=== PATIENT | male | born 1975 | race Caucasian/White ===

== ENCOUNTER → 2017-06-09 | Outpatient (CLI) | payer BC ==
[2017-06-09 08:48] LABS: Basophils # (A) 0.1 k/uL (0-0.2); Basophils % (A) 1 %; CH 30.1; CHCM 32.2; Eosinophils # (A) 0.1 k/uL (0-0.7); Eosinophils % (A) 2 %; HCT 55.9 % (39.0-53.0); HDW 2.27; HGB 17.2 gm/dL (13.0-17.5); Luc # (Auto) 0.15; Luc % (Auto) 2; Lymphocytes # (A) 2.3 k/uL (1.0-4.8); Lymphocytes % (A) 32 %; MCH 28.9 pg (25.0-35.0); MCHC 30.8 g/dL (31.0-37.0); MCV 93.9 fL (80.0-100.0); Mean Platelet Volume 7.3; Monocytes # (A) 0.5 k/uL (0-1.0); Monocytes % (A) 7 %; Neutrophils % (A) 57 %; RBC 5.96 m/uL (4.30-5.90); WBC 7.1 k/uL (3.8-10.6)
== END | disposition home or self-care (01) ==
LOC: LABWHC1 07:00
PROVIDERS: ATTEND Internal Medicine Endocrinology, Diabetes & Metabolism
DX: E29.1 Testicular hypofunction (principal)
CPT/HCPCS: 36415; 82670; 84305; 84403; 85025

== ENCOUNTER 2017-11-21 17:51 | Inpatient (IN) | payer BC ==
[2017-11-21] MEDS ORDERED: KETOROLAC 30 MG/ML 1 ML VIAL IVP STA (18:00)
[2017-11-21] MEDS ORDERED: SODIUM CHLORIDE 0.9% 500 ML IV STA (18:00)
[2017-11-21] MEDS ORDERED: ONDANSETRON 4 MG/2 ML VIAL IVP STA (18:00)
--- NOTE | 2017-11-21 18:08 | ED ---
General Adult HPI - General Chief complaint: Abdominal Pain Stated complaint: Stomach pain Time Seen by Provider: 11/21/17 18:00 Source: patient, RN notes reviewed Mode of arrival: ambulatory Limitations: no limitations - History of Present Illness Initial comments: 42 yo male presents to the ER with cc of abdominal pain with nausea and vomiting. Patient states this started yesterday. He states about 3 years ago he had a similar type flareup of pain. He was seen at [facility] and they told him it was some sort of inflammation wanted to admit him however he went home and the pain resolved. He states the same pain with back. He states he vomits because it helps relieve the pressure. He states he had a normal bowel movement last night but since he has not really passed any gas maybe once this morning and has since had no bowel movement no passing of gas. He denies any fever chills with this. He states that the pain is in the center of his abdomen and his pressure type pain worse to movement or touch does not affect the pain. Patient denies any recent fever, chills, shortness of breath, chest pain, back pain, numbness or tingling, dysuria or hematuria, constipation or diarrhea, headaches or visual changes, or any other current symptoms. - Related Data Home Medications Medication Instructions Recorded Confirmed Acetaminophen [Tylenol Extra 1,000 mg PO BID PRN 11/21/17 11/21/17 Strength] Losartan Potassium [Cozaar] 100 mg PO DAILY 11/21/17 11/21/17 Allergies Allergy/AdvReac Type Severity Reaction Status Date / Time Iodinated Contrast- Oral and Allergy Unknown Verified 11/21/17 18:07 IV Dye Review of Systems ROS Statement: Those systems with pertinent positive or pertinent negative responses have been documented in the HPI. ROS Other: All systems not noted in ROS Statement are negative. Past Medical History Past Medical History: Hypertension History of Any Multi-Drug Resistant Organisms: None Reported Past Surgical History: No Surgical Hx Reported Past Psychological History: No Psychological Hx Reported Smoking Status: Never smoker Past Alcohol Use History: Occasional Past Drug Use History: None Reported General Exam - General Exam Comments Initial Comments: General: The patient is awake and alert, in no distress, and does not appear acutely ill. Eye: Pupils are equal, round and reactive to light. Ears, nose, mouth and throat: There are moist mucous membranes. Neck: The neck is supple, there is no tenderness. Cardiovascular: There is a regular rate and rhythm. No murmur, rub or gallop is appreciated. Respiratory: Lungs are clear to auscultation, respirations are non-labored, breath sounds are equal. No wheezes, stridor, rales, or rhonchi. Gastrointestinal: distended, non-tender abdomen without masses or organomegaly noted. There is no rebound or guarding present. No CVA tenderness. Bowel sounds are unremarkable. Back: There is no tenderness to palpation in the midline. There is no obvious deformity. No rashes noted. Musculoskeletal: Normal ROM, no tenderness, There is no pedal edema. There is no calf tenderness or swelling. Sensation intact. Pulses equal bilaterally 2+. Neurological: CN II-XII intact, There are no obvious motor or sensory deficits. Coordination appears grossly intact. Speech is normal. Skin: Skin is warm and dry and no rashes or lesions are noted. Psychiatric: Cooperative, appropriate mood & affect, normal judgment. Limitations: no limitations Course Vital Signs 11/21/17 17:55 Temperature 98.3 F Pulse Rate 91 Respiratory 18 Rate Blood Pressure 157/100 O2 Sat by Pulse 97 Oximetry Medical Decision Making - Medical Decision Making 42-year-old male presents for abdominal pain nausea vomiting. At this time CT is been reviewed that does show concern for ileus versus partial ejection. Patient has not been passing gas. This time we will admit the patient we'll place him nothing by mouth and he will be seeing Dr. Skaggs. Patient is in agreement with this plan all questions have been answered. - Lab Data Result diagrams: 11/21/17 18:15 11/21/17 18:15 Lab Results 11/21/17 11/21/17 Range/Units 18:15 18:15 WBC 10.9 H (3.8-10.6) k/uL RBC 6.10 H (4.30-5.90) m/uL Hgb 18.0 H (13.0-17.5) gm/dL Hct 56.7 H (39.0-53.0) % MCV 92.8 (80.0-100.0) fL MCH 29.5 (25.0-35.0) pg MCHC 31.8 (31.0-37.0) g/dL RDW 14.7 (11.5-15.5) % Plt Count 259 (150-450) k/uL Neutrophils % 83 % Lymphocytes % 9 % Monocytes % 5 % Eosinophils % 1 % Basophils % 1 % Neutrophils # 9.1 H (1.3-7.7) k/uL Lymphocytes # 1.0 (1.0-4.8) k/uL Monocytes # 0.6 (0-1.0) k/uL Eosinophils # 0.2 (0-0.7) k/uL Basophils # 0.1 (0-0.2) k/uL Sodium 140 (137-145) mmol/L Potassium 4.1 (3.5-5.1) mmol/L Chloride 99 (98-107) mmol/L Carbon Dioxide 27 (22-30) mmol/L Anion Gap 14 mmol/L BUN 15 (9-20) mg/dL Creatinine 0.87 (0.66-1.25) mg/dL Est GFR (MDRD) Af Amer >60 (>60 ml/min/1.73 sqM) Est GFR (MDRD) Non-Af >60 (>60 ml/min/1.73 sqM) Glucose 97 (74-99) mg/dL Calcium 9.4 (8.4-10.2) mg/dL Total Bilirubin 1.1 (0.2-1.3) mg/dL AST 19 (17-59) U/L ALT 36 (21-72) U/L Alkaline Phosphatase 89 (38-126) U/L Total Protein 7.3 (6.3-8.2) g/dL Albumin 4.4 (3.5-5.0) g/dL Amylase 80 (30-110) U/L Lipase 87 (23-300) U/L - Radiology Data Radiology results: report reviewed, image reviewed Disposition Clinical Impression: Partial bowel obstruction, Abdominal pain Disposition: ADMITTED IP TO THIS [facility] Condition: Stable Referrals: Park Ortiz MD [Primary Care Provider] - 1-2 days Decision Date: 11/21/17 Decision Time: 19:32
[2017-11-21 18:23] LABS: Basophils # (A) 0.1 k/uL (0-0.2); Basophils % (A) 1 %; Eosinophils # (A) 0.2 k/uL (0-0.7); Eosinophils % (A) 1 %; Lymphocytes % (A) 9 %; MCH 29.5 pg (25.0-35.0); MCHC 31.8 g/dL (31.0-37.0); MCV 92.8 fL (80.0-100.0); Mean Platelet Volume 7.1; Monocytes # (A) 0.6 k/uL (0-1.0); Monocytes % (A) 5 %; Neutrophils # (A) 9.1 k/uL (1.3-7.7); Neutrophils % (A) 83 %; Platelet Count 259 k/uL (150-450); RDW 14.7 % (11.5-15.5); WBC 10.9 k/uL (3.8-10.6)
[2017-11-21 18:26] LABS: HCT 56.7 % (39.0-53.0)
[2017-11-21 18:39] LABS: ALT 36 U/L (21-72); AST 19 U/L (17-59); Albumin 4.4 g/dL (3.5-5.0); Alkaline Phosphatase 89 U/L (38-126); Amylase 80 U/L (30-110); Anion Gap 14 mmol/L; Blood Urea Nitrogen 15 mg/dL (9-20); Calcium 9.4 mg/dL (8.4-10.2); Carbon Dioxide 27 mmol/L (22-30); Chloride 99 mmol/L (98-107); Glucose 97 mg/dL (74-99); Lipase 87 U/L (23-300); Potassium 4.1 mmol/L (3.5-5.1); Sodium 140 mmol/L (137-145); Total Bilirubin 1.1 mg/dL (0.2-1.3); Total Protein 7.3 g/dL (6.3-8.2)
[2017-11-21] MEDS ORDERED: SODIUM CHLORIDE 0.9% 1,000 ML IV STA (18:51)
--- NOTE | 2017-11-21 19:03 | CT ---
EXAMINATION TYPE: CT abdomen pelvis wo con DATE OF EXAM: 11/21/2017 COMPARISON: 08/17/2011 HISTORY: Epigastric pain and nausea today. CT DLP: 403.5 mGycm Automated exposure control for dose reduction was used. TECHNIQUE: Helical acquisition of images was performed from the lung bases through the pelvis. FINDINGS: Lung bases are clear. There is no pleural effusion. Liver shows no focal defect. The bladder appears normal. There is no pancreatic mass. Spleen appears normal. The stomach is large. There is no adrenal mass. Kidneys have normal size and contour. There is no hydronephrosis. There is no retroperitoneal adenopathy. There is no ascites. Bladder distends smoothly. I see no intestinal wall thickening. Ther e is no sign of a pelvic mass. I see no bony destructive process. There is no sign of appendicitis. There are some mildly dilated fluid-filled loops of small bowel in the mid abdomen. These measure up to 3.7 cm. I do not see a transition point. IMPRESSION: DILATED FLUID-FILLED SMALL BOWEL IN THE MID ABDOMEN IS MOST LIKELY RELATED TO ILEUS. PARTIAL FORM TAMPER AL OBSTRUCTION CANNOT BE ENTIRELY EXCLUDED. THIS APPEARS NEW COMPARED TO OLD EXAM.
[2017-11-21] MEDS ORDERED: ONDANSETRON 4 MG/2 ML VIAL IVP PRN (19:37)
[2017-11-21] MEDS ORDERED: NALOXONE 0.4 MG/ML 1 ML VIAL IV PRN (19:37)
[2017-11-21] MEDS: SODIUM CHLORIDE 0.9% 1,000 ML IV SCH (20:24)
[2017-11-21] MEDS: HYDROmorphone 0.5 MG/0.5 ML SYRINGE IVP PRN (21:56)
[2017-11-22] MEDS: HYDROmorphone 0.5 MG/0.5 ML SYRINGE IVP PRN ×4 (01:48→19:58)
[2017-11-22 02:47] VITALS: BMI 27.4
[2017-11-22] MEDS: SODIUM CHLORIDE 0.9% 1,000 ML IV SCH ×2 (05:46→16:21)
[2017-11-22] MEDS: LOSARTAN 50 MG TAB PO SCH (07:34)
[2017-11-22 07:40] LABS: ALT 35 U/L (21-72); AST 18 U/L (17-59); Albumin 3.3 g/dL (3.5-5.0); Alkaline Phosphatase 66 U/L (38-126); Anion Gap 9 mmol/L; Blood Urea Nitrogen 15 mg/dL (9-20); Calcium 8.2 mg/dL (8.4-10.2); Carbon Dioxide 26 mmol/L (22-30); Chloride 103 mmol/L (98-107); Glucose 81 mg/dL (74-99); Potassium 4.3 mmol/L (3.5-5.1); Sodium 138 mmol/L (137-145); Total Bilirubin 0.8 mg/dL (0.2-1.3); Total Protein 5.6 g/dL (6.3-8.2)
[2017-11-22 08:10] LABS: Basophils % (A) 0 %; Eosinophils # (A) 0.1 k/uL (0-0.7); Eosinophils % (A) 1 %; HCT 48.4 % (39.0-53.0); HGB 15.7 gm/dL (13.0-17.5); Lymphocytes # (A) 1.2 k/uL (1.0-4.8); Lymphocytes % (A) 15 %; MCH 30.5 pg (25.0-35.0); MCHC 32.5 g/dL (31.0-37.0); Mean Platelet Volume 6.8; Monocytes # (A) 0.5 k/uL (0-1.0); Monocytes % (A) 7 %; Neutrophils % (A) 75 %; Platelet Count 210 k/uL (150-450); RBC 5.15 m/uL (4.30-5.90)
--- NOTE | 2017-11-22 14:03 | P.GSHP ---
<Jessica Hendrix M - Last Filed: 11/22/17 14:04> History of Present Illness H&P Date: 11/22/17 Chief Complaint: Abdominal pain A 42-year-old male presented on the day of admission to the emergency room to be evaluated for a chief complaint of developing 48 hours prior mid epigastric pain with abdominal bloating. Patient stated he felt like if he drank a lot of water it would help relieve the symptoms. stated that he did drink water vomited the water since then has not been able to drink due to a nausea sensation. states his last bowel movement was Monday 48 hours ago. gives a history of over the last several months having esophageal reflex symptoms mid epigastric bloating with a heartburn sensation would use [id number] Pepcid for relief. denies any change in bowel habits. In the emergency room patient did have a CAT scan of the abdomen pelvis without contrast it showed mildly dilated fluid-filled loops of small bowel in the midabdomen likely related to an ileus or partial mechanical obstruction could not be entirely excluded this appeared new compared to a prior old exam. states he had a similar episode 3 years prior. Patient states he was treated at [facility] told at that time he had some inflammation they were going to do a colonoscopy did not get done that admission he was to follow-up in the outpatient setting but he did not come back as the pain resolved on its own. Patient denies any recent fever chills change in bowel habits or blood in stool. Has not had a colonoscopy or an EGD in the past. Last bowel movement Monday 48 hours ago form soft brown stool. Patient states for the past 48 hours has not had a bowel movement not passing gas continues to feel bloated.. No family history of diverticulitis. Past medical history hypertension no prior surgical history Past Medical History Past Medical History: Hypertension History of Any Multi-Drug Resistant Organisms: None Reported Past Surgical History: No Surgical Hx Reported Past Anesthesia/Blood Transfusion Reactions: No Reported Reaction Past Psychological History: No Psychological Hx Reported Smoking Status: Never smoker Past Alcohol Use History: Occasional Past Drug Use History: None Reported - Past Family History Father Family Medical History: Hypertension Medications and Allergies Home Medications Medication Instructions Recorded Confirmed Type Acetaminophen [Tylenol Extra 1,000 mg PO BID PRN 11/21/17 11/21/17 History Strength] Losartan Potassium [Cozaar] 100 mg PO DAILY 11/21/17 11/21/17 History Allergies Allergy/AdvReac Type Severity Reaction Status Date / Time Iodinated Contrast- Oral and Allergy Unknown Verified 11/21/17 18:07 IV Dye Surgical - Exam Vital Signs Temp Pulse Resp BP Pulse Ox 98.3 F 91 18 157/100 97 11/21/17 17:55 11/21/17 17:55 11/21/17 17:55 11/21/17 17:55 11/21/17 17:55 GENERAL APPEARANCE: 42-year-old male alert, oriented x3 , in no acute distress. VITAL SIGNS: Reviewed HEENT: Head is normocephalic and atraumatic. Pupils are equal and reactive. The nares are patent. Oropharynx is clear without lesions. NECK: Supple without lymphadenopathy. Traches midline. HEART: S1, S2. Regular rate and rhythm. No murmur noted LUNGS: No crackles or wheezes are heard. Adequate air movement bilaterally no cough noted on room air ABDOMEN: Soft, no CVA tenderness slightly bloated with slight epigastric tenderness slight distended with good bowel sounds. No peritoneal signs. No palpable organomegaly or masses. EXTREMITIES: Normal skin color and turgor. No cyanosis, rash, ulceration, clubbing or edema. Radial pedal pulses are 2/4 bilaterally. NEUROLOGICAL: No focal deficits. Strength and sensation are grossly intact. Results - Labs 11/22/17 06:49 11/22/17 06:49 Abnormal Lab Results - Last 24 Hours (Table) 11/21/17 11/22/17 Range/Units 18:15 06:49 WBC 10.9 H (3.8-10.6) k/uL RBC 6.10 H (4.30-5.90) m/uL Hgb 18.0 H (13.0-17.5) gm/dL Hct 56.7 H (39.0-53.0) % Neutrophils # 9.1 H (1.3-7.7) k/uL Calcium 8.2 L (8.4-10.2) mg/dL Total Protein 5.6 L (6.3-8.2) g/dL Albumin 3.3 L (3.5-5.0) g/dL Diabetes panel 11/21/17 11/22/17 Range/Units 18:15 06:49 Sodium 140 138 (137-145) mmol/L Potassium 4.1 4.3 (3.5-5.1) mmol/L Chloride 99 103 (98-107) mmol/L Carbon Dioxide 27 26 (22-30) mmol/L BUN 15 15 (9-20) mg/dL Creatinine 0.87 1.04 (0.66-1.25) mg/dL Glucose 97 81 (74-99) mg/dL Calcium 9.4 8.2 L (8.4-10.2) mg/dL AST 19 18 (17-59) U/L ALT 36 35 (21-72) U/L Alkaline Phosphatase 89 66 (38-126) U/L Total Protein 7.3 5.6 L (6.3-8.2) g/dL Albumin 4.4 3.3 L (3.5-5.0) g/dL Calcium panel 11/21/17 11/22/17 Range/Units 18:15 06:49 Calcium 9.4 8.2 L (8.4-10.2) mg/dL Albumin 4.4 3.3 L (3.5-5.0) g/dL Pituitary panel 11/21/17 11/22/17 Range/Units 18:15 06:49 Sodium 140 138 (137-145) mmol/L Potassium 4.1 4.3 (3.5-5.1) mmol/L Chloride 99 103 (98-107) mmol/L Carbon Dioxide 27 26 (22-30) mmol/L BUN 15 15 (9-20) mg/dL Creatinine 0.87 1.04 (0.66-1.25) mg/dL Glucose 97 81 (74-99) mg/dL Calcium 9.4 8.2 L (8.4-10.2) mg/dL Adrenal panel 11/21/17 11/22/17 Range/Units 18:15 06:49 Sodium 140 138 (137-145) mmol/L Potassium 4.1 4.3 (3.5-5.1) mmol/L Chloride 99 103 (98-107) mmol/L Carbon Dioxide 27 26 (22-30) mmol/L BUN 15 15 (9-20) mg/dL Creatinine 0.87 1.04 (0.66-1.25) mg/dL Glucose 97 81 (74-99) mg/dL Calcium 9.4 8.2 L (8.4-10.2) mg/dL Total Bilirubin 1.1 0.8 (0.2-1.3) mg/dL AST 19 18 (17-59) U/L ALT 36 35 (21-72) U/L Alkaline Phosphatase 89 66 (38-126) U/L Total Protein 7.3 5.6 L (6.3-8.2) g/dL Albumin 4.4 3.3 L (3.5-5.0) g/dL Assessment and Plan Assessment: Impression Present on admission epigastric pain with nausea vomiting bloating CAT scan abdomen pelvis show concern for ileus or partial mechanical obstruction cannot be entirely excluded Hypertension essential Plan IV fluid as ordered hydration DVT and GI prophylaxis Keep nothing by mouth Pain control Would benefit from an EGD and a colonoscopy when appropriate Further recommendations pending Surgical H be dictated for Dr. robles The above impression and plan of care have been discussed and directed by signing physician. Jessica Hendrix nurse practitioner acting as scribe for signing physician. <Black Robles - Last Filed: 11/22/17 19:13> Surgical - Exam Vital Signs Temp Pulse Resp BP Pulse Ox 98.3 F 91 18 157/100 97 11/21/17 17:55 11/21/17 17:55 11/21/17 17:55 11/21/17 17:55 11/21/17 17:55 Results - Labs 11/22/17 06:49 11/22/17 06:49 Abnormal Lab Results - Last 24 Hours (Table) 11/22/17 Range/Units 06:49 Calcium 8.2 L (8.4-10.2) mg/dL Total Protein 5.6 L (6.3-8.2) g/dL Albumin 3.3 L (3.5-5.0) g/dL Diabetes panel 11/22/17 Range/Units 06:49 Sodium 138 (137-145) mmol/L Potassium 4.3 (3.5-5.1) mmol/L Chloride 103 (98-107) mmol/L Carbon Dioxide 26 (22-30) mmol/L BUN 15 (9-20) mg/dL Creatinine 1.04 (0.66-1.25) mg/dL Glucose 81 (74-99) mg/dL Calcium 8.2 L (8.4-10.2) mg/dL AST 18 (17-59) U/L ALT 35 (21-72) U/L Alkaline Phosphatase 66 (38-126) U/L Total Protein 5.6 L (6.3-8.2) g/dL Albumin 3.3 L (3.5-5.0) g/dL Calcium panel 11/22/17 Range/Units 06:49 Calcium 8.2 L (8.4-10.2) mg/dL Albumin 3.3 L (3.5-5.0) g/dL Pituitary panel 11/22/17 Range/Units 06:49 Sodium 138 (137-145) mmol/L Potassium 4.3 (3.5-5.1) mmol/L Chloride 103 (98-107) mmol/L Carbon Dioxide 26 (22-30) mmol/L BUN 15 (9-20) mg/dL Creatinine 1.04 (0.66-1.25) mg/dL Glucose 81 (74-99) mg/dL Calcium 8.2 L (8.4-10.2) mg/dL Adrenal panel 11/22/17 Range/Units 06:49 Sodium 138 (137-145) mmol/L Potassium 4.3 (3.5-5.1) mmol/L Chloride 103 (98-107) mmol/L Carbon Dioxide 26 (22-30) mmol/L BUN 15 (9-20) mg/dL Creatinine 1.04 (0.66-1.25) mg/dL Glucose 81 (74-99) mg/dL Calcium 8.2 L (8.4-10.2) mg/dL Total Bilirubin 0.8 (0.2-1.3) mg/dL AST 18 (17-59) U/L ALT 35 (21-72) U/L Alkaline Phosphatase 66 (38-126) U/L Total Protein 5.6 L (6.3-8.2) g/dL Albumin 3.3 L (3.5-5.0) g/dL Assessment and Plan Plan: The patient feels better. He most likely has a gastroenteritis. He will start on clear liquid diet. If he has significant pain we will consider repeat CAT scan.
[2017-11-22] MEDS: PANTOPRAZOLE 40 MG/10 ML VIAL IVP SCH ×2 (16:24→19:57)
[2017-11-23] MEDS: HYDROmorphone 0.5 MG/0.5 ML SYRINGE IVP PRN ×5 (00:23→22:09)
[2017-11-23] MEDS: SODIUM CHLORIDE 0.9% 1,000 ML IV SCH ×2 (03:45→13:12)
[2017-11-23 07:06] LABS: ALT 34 U/L (21-72); AST 16 U/L (17-59); Albumin 3.1 g/dL (3.5-5.0); Alkaline Phosphatase 55 U/L (38-126); Anion Gap 8 mmol/L; Blood Urea Nitrogen 9 mg/dL (9-20); Calcium 8.6 mg/dL (8.4-10.2); Carbon Dioxide 27 mmol/L (22-30); Chloride 104 mmol/L (98-107); Glucose 98 mg/dL (74-99); Potassium 4.7 mmol/L (3.5-5.1); Sodium 139 mmol/L (137-145); Total Bilirubin 0.6 mg/dL (0.2-1.3); Total Protein 5.4 g/dL (6.3-8.2)
[2017-11-23] MEDS: PANTOPRAZOLE 40 MG/10 ML VIAL IVP SCH ×2 (08:29→22:05)
[2017-11-23] MEDS: LOSARTAN 50 MG TAB PO SCH (08:29)
--- NOTE | 2017-11-23 09:56 | P.PN ---
<Jessica Hendrix - Last Filed: 11/23/17 09:53> Subjective Progress Note Date: 11/23/17 42-year-old male seen and examined. Patient reports continues to have midepigastric pain radiates to the right upper quadrant worse with activity with a nausea sensation. Patient states "I'm afraid to even drink water causes a bloating with midepigastric pain." Patient states no stool states is passing gas. Patient states the pain feels similar to what it has been feeling like at home no noted improvement labs were reviewed and noted Objective - Vital Signs Vital signs: Vital Signs Temp 98.2 F 11/23/17 07:00 Pulse 65 11/23/17 07:00 Resp 18 11/23/17 07:00 BP 138/77 11/23/17 07:00 Pulse Ox 98 11/23/17 07:00 Intake & Output 11/22/17 11/23/17 11/23/17 18:59 06:59 18:59 Intake Total 800 Balance 800 Intake: Intake, IV Titration 800 Amount Sodium Chloride 0.9% 1, 800 000 ml @ 100 mls/hr IV . Q10H [facility] Rx#:[id number] Other: Voiding Method Toilet # Voids 3 2 - Exam Physical exam 42-year-old male sitting up in bed reports continues to have mid epigastric pain radiates up to the right upper quadrant with a nausea sensation Lungs adequate air movement bilaterally Heart S1-S2 audible regular Abdomen midepigastric tenderness nondistended bowel tones present states no stool urinating no difficulty Extremities no edema - Labs CBC & Chem 7: 11/22/17 06:49 11/23/17 06:39 Labs: Abnormal Lab Results - Last 24 Hours (Table) 11/23/17 Range/Units 06:39 AST 16 L (17-59) U/L Total Protein 5.4 L (6.3-8.2) g/dL Albumin 3.1 L (3.5-5.0) g/dL Assessment and Plan Assessment: Impression Present on admission epigastric pain with nausea vomiting bloating CAT scan abdomen pelvis show concern for ileus or partial mechanical obstruction cannot be entirely excluded Hypertension essential Plan Ultrasound gallbladder and HIDA scan to be done today follow up on results IV fluid as ordered hydration DVT and GI prophylaxis Keep nothing by mouth Pain control Further recommendations pending Progress note dictated for Dr. robles The above impression and plan of care have been discussed and directed by signing physician. Jessica Hendrix nurse practitioner acting as scribe for signing physician. <Black Robles - Last Filed: 11/24/17 09:57> Objective - Vital Signs Vital signs: Vital Signs Temp 98.2 F 11/24/17 07:00 Pulse 65 11/24/17 07:00 Resp 18 11/24/17 07:00 BP 133/76 11/24/17 07:00 Pulse Ox 98 11/24/17 07:00 Intake & Output 11/23/17 11/24/17 11/24/17 18:59 06:59 18:59 Intake Total 800 1340 Balance 800 1340 Intake: IV 800 800 Sodium Chloride 0.9% 1, 800 800 000 ml @ 100 mls/hr IV . Q10H [facility] Rx#:[id number] Oral 540 Other: Voiding Method Toilet # Voids 1 - Labs CBC & Chem 7: 11/22/17 06:49 11/24/17 07:08 Labs: Abnormal Lab Results - Last 24 Hours (Table) 11/24/17 Range/Units 07:08 BUN 6 L (9-20) mg/dL Glucose 100 H (74-99) mg/dL AST 15 L (17-59) U/L Total Protein 5.6 L (6.3-8.2) g/dL Albumin 3.3 L (3.5-5.0) g/dL
--- NOTE | 2017-11-23 10:06 | US ---
EXAMINATION TYPE: US gallbladder DATE OF EXAM: 11/23/2017 COMPARISON: NONE CLINICAL HISTORY: Persistent right upper quadrant pain. EXAM MEASUREMENTS: Liver Length: 13.2 cm Gallbladder Wall: 0.2 cm CBD: 0.4 cm Right Kidney: 10.5 x 5.0 x 5.5 cm Extensive midline bowel gas, patient has bowel obstruction. Pancreas: Obscured by bowel gas Liver: portion obscured by overlying bowel gas Gallbladder: some possible dependant slude Evidence for sonographic Gutierrez's sign: no CBD: wnl Right Kidney: wnl IMPRESSION: 1. Gallbladder sludge with borderline gallbladder wall thickening. No pericholecystic fluid or CBD di latation.
--- NOTE | 2017-11-23 10:32 | P.PN ---
Progress Note - Text Progress Note Date: 11/23/17 Patient had complaints of right quadrant pain. His ultrasound performed this morning shows evidence of gallbladder sludge and stones with thickened gallbladder wall. I discussed these findings the patient. He'll undergo laparoscopic cholecystectomy in the a.m.
[2017-11-23] MEDS ORDERED: ONDANSETRON 4 MG/2 ML VIAL IVP ONE (21:51)
[2017-11-23] MEDS ORDERED: DEXAMETHASONE SOD PHOSPHATE 10 MG/ML 1 ML VIAL IV ONE (21:51)
[2017-11-23] MEDS ORDERED: ONDANSETRON 4 MG/2 ML VIAL IVP PRN (21:51)
[2017-11-23] MEDS ORDERED: MORPHINE SULFATE 4 MG/ML SYRINGE IV PRN (21:51)
[2017-11-23] MEDS ORDERED: HYDROmorphone 0.5 MG/0.5 ML SYRINGE IVP PRN (21:51)
[2017-11-24] MEDS: SODIUM CHLORIDE 0.9% 1,000 ML IV SCH ×2 (03:13→10:26)
[2017-11-24] MEDS: HYDROmorphone 0.5 MG/0.5 ML SYRINGE IVP PRN ×2 (04:35→18:05)
[2017-11-24] MEDS: LACTATED RINGERS 1,000 ML IV SCH ×3 (07:22→12:24)
[2017-11-24 07:57] LABS: ALT 30 U/L (21-72); AST 15 U/L (17-59); Albumin 3.3 g/dL (3.5-5.0); Alkaline Phosphatase 59 U/L (38-126); Anion Gap 7 mmol/L; Blood Urea Nitrogen 6 mg/dL (9-20); Calcium 8.8 mg/dL (8.4-10.2); Carbon Dioxide 29 mmol/L (22-30); Chloride 103 mmol/L (98-107); Glucose 100 mg/dL (74-99); Sodium 139 mmol/L (137-145); Total Bilirubin 0.5 mg/dL (0.2-1.3); Total Protein 5.6 g/dL (6.3-8.2)
[2017-11-24] MEDS: PANTOPRAZOLE 40 MG/10 ML VIAL IVP SCH (08:45)
[2017-11-24] MEDS: LOSARTAN 50 MG TAB PO SCH (10:06)
[2017-11-24] MEDS ORDERED: HEPARIN SODIUM,PORCINE 5,000 UNIT/ML 1 ML VIAL SQ ONE (11:50)
[2017-11-24] MEDS ORDERED: PROPOFOL 10 MG/ML 20 ML VIAL IV ONE (12:24)
[2017-11-24] MEDS ORDERED: fentaNYL (PF) 50 MCG/ML 2 ML AMP ONE (12:24)
[2017-11-24] MEDS ORDERED: SODIUM CHLORIDE 0.9% 50 ML with ceFAZolin 2,000 MG IV ONE ×2 (12:24)
[2017-11-24] MEDS ORDERED: MIDAZOLAM 2 MG/2 ML VIAL ONE (12:24)
[2017-11-24] MEDS ORDERED: NEOSTIGMINE 1 MG/ML 10 ML VIAL ONE (12:24)
[2017-11-24] MEDS ORDERED: SUCCINYLCHOLINE CHLORIDE 100 MG/5 ML SYR IV ONE (12:24)
[2017-11-24] MEDS ORDERED: ROCURONIUM BROMIDE 10 MG/ML 10 ML VIAL IV ONE (12:24)
[2017-11-24] MEDS ORDERED: GLYCOPYRROLATE 0.2 MG/ML 2 ML VIAL ONE (12:24)
[2017-11-24] MEDS ORDERED: HYDROmorphone (PF) 1 MG/ML ONE (12:24)
[2017-11-24] MEDS ORDERED: LIDOCAINE 1% INJ 10MG/ML (20 ML MDV) ONE (12:24)
[2017-11-24] MEDS ORDERED: BUPIVACAINE (PF) 0.25% 30 ML VIAL SQ ONE (12:49)
[2017-11-24 13:26] VITALS: TEMP 96.9
--- NOTE | 2017-11-24 13:44 | P.OP ---
Date of Procedure: 11/24/17 Preoperative Diagnosis: Cholecystitis Postoperative Diagnosis: Cholecystitis Procedure(s) Performed: Laparoscopic cholecystectomy Anesthesia: DANYEL Surgeon: Black Delacruz Estimated Blood Loss (ml): 5 Pathology: other (Gallbladder) Condition: stable Disposition: PACU Description of Procedure: The patient was placed on the operating table. The patient received a general endotracheal tube anesthesia. The patients abdomen was prepped and draped in the usual sterile fashion. Through an infraumbilical stab incision, the fascia of the anterior abdominal wall was grasped with a pair of Kochers and then the Veress needle was placed in the peritoneal cavity. Position of the Veress needle was confirmed with positive drop test. The abdomen was then insufflated. After adequate insufflation, the 10 mm trocar was placed in the peritoneal cavity. Following this the laparoscope was placed in the peritoneal cavity. The patient was placed in the head-up, right side up position and then a 5 mm trocar was placed in the right lateral and right subcostal position under direct visualization. A 8 mm trocar was placed in the epigastric position. The gallbladder was grasped in the fundus and infundibulum. Traction on the gallbladder was placed in the lateral and the cephalad positions. The triangle of Calot was visualized.. The cystic duct was bluntly dissected until the union of the cystic duct and common bile duct was seen. The cystic duct was then divided and sealed with the Harmonic scissors. A PDS Endoloop was then placed throughout the cystic duct stump. The cystic artery divided and sealed with the Harmonic scissors. The gallbladder was then removed from the liver bed using Harmonic scissors. The gallbladder was then extracted through the epigastric port site. Operative field was checked for any bleeding spots and Harmonic scissors was used to coagulate the liver bed. The abdomen was irrigated. The trocars were removed. The skin was closed using interrupted 3-0 Vicryl suture. Dermabond dressing were applied. The patient tolerated the procedure well.
[2017-11-24] MEDS ORDERED: KETOROLAC 30 MG/ML 1 ML VIAL IVP ONE (13:53)
[2017-11-24] MEDS: MEPERIDINE 50 MG/ML SYRINGE IVP ONE ×2 (13:53→14:05)
--- NOTE | 2017-11-24 14:01 | P.DS ---
Providers Date of admission: 11/21/17 19:34 Expected date of discharge: 11/24/17 Attending physician: Black Delacruz Primary care physician: Park Ortiz Hospital Course: 42-year-old male who presented with a chief complaint to the emergency room with midepigastric pain with bloating radiating to the upper quadrant on the right Patient did have an ultrasound of the gallbladder done it showed gallbladder sludge with stones with thickening of the gallbladder wall. Patient elected to undergo a laparoscopic cholecystectomy on November 24. Patient was felt to be hemodynamically stable and appropriate proceed with a discharge. Impression discharge diagnosis Present on admission epigastric pain with nausea vomiting bloating suspect due to cholecystitis CAT scan abdomen pelvis show concern for ileus or partial mechanical obstruction cannot be entirely excluded Hypertension essential Status post November 24 laparoscopic cholecystectomy for cholecystitis The above impression and plan of care have been discussed and directed by signing physician. Jessica Hendrix nurse practitioner acting as scribe for signing physician. Patient Condition at Discharge: Stable Plan - Discharge Summary New Discharge Prescriptions: New Docusate [Colace] 100 mg PO BID #20 capsule HYDROcodone/APAP 7.5-325MG [[place] 7.5] 1 each PO Q4H PRN #30 tab PRN Reason: Pain No Action Losartan Potassium [Cozaar] 100 mg PO DAILY Acetaminophen [Tylenol Extra Strength] 1,000 mg PO BID PRN PRN Reason: Pain Discharge Medication List Acetaminophen [Tylenol Extra Strength] 1,000 mg PO BID PRN 11/21/17 [History] Losartan Potassium [Cozaar] 100 mg PO DAILY 11/21/17 [History] Docusate [Colace] 100 mg PO BID #20 capsule 11/24/17 [Rx] HYDROcodone/APAP 7.5-325MG [[place] 7.5] 1 each PO Q4H PRN #30 tab 11/24/17 [Rx] Follow up Appointment(s)/Referral(s): Park Ortiz MD [Primary Care Provider] - 11/27/17 3:30 pm Black Delacruz MD [STAFF PHYSICIAN] - 11/30/17 2:15 pm Patient Instructions/Handouts: *Surgery [facility] - ([facility]) Laparoscopic Cholecystectomy, Hydrocodone/Acetaminophen (By mouth), Laxative, Stool Softeners (By mouth) Activity/Diet/Wound Care/Special Instructions: No tub bath for six weeks. Shower daily. No lifting over 10 pounds for the next 6 weeks. No strenuous activities until seen in a follow-up visit Return to work after seen in surgical follow-up visit May use ice packs to surgical site. No driving while taking narcotic for pain. Low-fat diet advanced as tolerated Discharge Disposition: HOME SELF-CARE
[2017-11-24 16:57] VITALS: RESP 15
[2017-11-24 16:58] VITALS: BP 129/71; PULSE 70
== END 2017-11-24 18:15 | disposition home or self-care (01) | DRG 418 ==
LOC: EC 17:51 → 5MS5E 19:34
PROVIDERS: ADMIT Surgery; ATTEND Surgery
PROC: 0FT44ZZ Resection of Gallbladder, Percutaneous Endoscopic Approach (ICD-10-PCS; principal; 2017-11-21)
DX: K80.10 Calculus of gallbladder with chronic cholecystitis without obstruction (principal); K56.7 Ileus, unspecified; I10 Essential (primary) hypertension; K21.9 Gastro-esophageal reflux disease without esophagitis; K52.9 Noninfective gastroenteritis and colitis, unspecified; Z91.041 Radiographic dye allergy status; Z79.899 Other long term (current) drug therapy; Z82.49 Family history of ischemic heart disease and other diseases of the circulatory system
CPT/HCPCS: 36415; 74176; 76705; 80053; 82150; 83690; 85025; 88304; 96361; 96374; 96375; 99285

== ENCOUNTER → 2018-03-05 | Outpatient (CLI) | payer BC ==
[2018-03-05 07:42] LABS: Basophils # (A) 0.1 k/uL (0-0.2); Basophils % (A) 1 %; Eosinophils # (A) 0.2 k/uL (0-0.7); Eosinophils % (A) 3 %; HCT 48.5 % (39.0-53.0); HGB 15.4 gm/dL (13.0-17.5); Lymphocytes # (A) 2.2 k/uL (1.0-4.8); Lymphocytes % (A) 37 %; MCH 29.3 pg (25.0-35.0); MCHC 31.7 g/dL (31.0-37.0); MCV 92.5 fL (80.0-100.0); Mean Platelet Volume 7.1; Monocytes # (A) 0.5 k/uL (0-1.0); Monocytes % (A) 8 %; Neutrophils # (A) 2.9 k/uL (1.3-7.7); Neutrophils % (A) 48 %; Platelet Count 238 k/uL (150-450); RBC 5.24 m/uL (4.30-5.90); RDW 13.3 % (11.5-15.5)
[2018-03-05 09:02] LABS: Prostate Specific Antigen 1.49 ng/mL (0.00-4.00)
== END | disposition home or self-care (01) ==
LOC: LABWHC1 06:47
PROVIDERS: ATTEND Internal Medicine Endocrinology, Diabetes & Metabolism
DX: E29.0 Testicular hyperfunction (principal)
CPT/HCPCS: 36415; 82947; 84153; 84403; 85025

== ENCOUNTER → 2018-10-19 | Outpatient (CLI) | payer BC ==
[2018-10-19 07:28] LABS: Basophils # (A) 0.1 k/uL (0-0.2); Basophils % (A) 1 %; Eosinophils # (A) 0.2 k/uL (0-0.7); Eosinophils % (A) 3 %; HCT 52.4 % (39.0-53.0); HGB 16.9 gm/dL (13.0-17.5); Lymphocytes # (A) 2.3 k/uL (1.0-4.8); Lymphocytes % (A) 34 %; MCH 30.4 pg (25.0-35.0); MCHC 32.2 g/dL (31.0-37.0); MCV 94.5 fL (80.0-100.0); Mean Platelet Volume 6.6; Monocytes # (A) 0.4 k/uL (0-1.0); Monocytes % (A) 6 %; Neutrophils # (A) 3.7 k/uL (1.3-7.7); Neutrophils % (A) 54 %; Platelet Count 260 k/uL (150-450); RBC 5.55 m/uL (4.30-5.90); RDW 13.3 % (11.5-15.5); WBC 6.8 k/uL (3.8-10.6)
[2018-10-19 12:49] LABS: Albumin 4.4 g/dL (3.80-4.90); Albumin/Globulin Ratio 2.44 (1.20-2.10); Anion Gap 7.6 mmol/L (4.00-12.00); Calcium 8.8 mg/dL (8.7-10.3); Carbon Dioxide 27.4 mmol/L (21.6-31.8); Globulin 1.8 g/dL (2.1-3.7); LDL Cholesterol,Calculated 97.4 mg/dL (0.0-131.0); Potassium 5.1 mmol/L (3.5-5.5); Total Bilirubin 0.5 mg/dL (0.3-1.2); Total Protein 6.2 g/dL (6.2-8.2); VLDL Calculation 32.6 mg/dL (5.00-40.00)
== END ==
LOC: LABWHC1 06:41
PROVIDERS: ATTEND Internal Medicine Endocrinology, Diabetes & Metabolism
DX: E29.1 Testicular hypofunction (principal); I10 Essential (primary) hypertension
CPT/HCPCS: 36415; 80053; 80061; 84153; 84403; 85025; 85027

== ENCOUNTER 2019-03-21 08:22 | Day surgery (SDC) | payer BC ==
[2019-03-19 16:21] VITALS: BMI 25.0
[~2019-03-21 08:22] MED LIST: LACTATED RINGERS 1,000 ML IV SCH; LIDOCAINE 1% 20 ML VIAL (10MG/ML) FOR IV START INTRADERMA PRN
[2019-03-21 08:52] VITALS: RESP 16; TEMP 98
[2019-03-21] MEDS ORDERED: LIDOCAINE 1% INJ 10MG/ML (20 ML MDV) ONE (09:50)
[2019-03-21] MEDS ORDERED: PROPOFOL 10 MG/ML 20 ML VIAL IV ONE (09:50)
[2019-03-21 10:26] VITALS: BP 153/81; PULSE 63
--- NOTE | 2019-03-21 13:04 | P.PCN ---
Date of Procedure: 03/21/19 Procedure(s) Performed: Procedure: Esophagogastroduodenoscopy and biopsy. Preoperative diagnosis: Dysphagia. Postoperative diagnosis: 1. Small sliding hiatal hernia with evidence of reflux esophagitis and suspected eosinophilic esophagitis. 2. Mild antral gastritis. 3. Multiple biopsies obtained from the duodenum, antrum and esophagus. Preparation and sedation: Was provided by anesthesia. Brief clinical history: The patient is a 43-year-old male who I have evaluated in the office last month with history of dysphagia. The patient reported history of epigastric pain around 3 years ago and an episode of obstructive dysphagia that he had around that time for which he went to the emergency room at [facility]. He reports recurrence of his symptoms intermittently recently with need to drink liquids during eating. He also feels acid reflux symptoms. This evaluation is to assess for acid reflux or eosinophilic esophagitis and for possible dilation. Procedure: With the patient on his left lateral decubitus position and after informed consent and adequate sedation, I passed the Olympus-GIF H 190 video upper endoscope through the cricopharyngeus down the esophagus. GE junction was around 36 cm from the incisors and there was a small sliding hiatal hernia. The esophagus showed some fine corrugations and there were linear, superficial long erosions terminating at the level of the GE junction raising the possibility of reflux or eosinophilic esophagitis. There were no restricting strictures. The endoscope was advanced without difficulty into the stomach which was insufflated with air and inspected in detail including the retroflex view in the cardia. There was mottling and erythema in the antrum but no ulcers or erosions. Pyloric channel, duodenal bulb, post bulbar area and descending duodenum appeared within normal limits. Because of his symptoms, I obtained biopsies from the duodenum, antrum and esophagus then the endoscope was withdrawn. The patient tolerated the procedure well. Plan: The patient was reassured. Will await biopsy results. He will continue acid suppressive therapy and I suggested he increases his his Pepcid to twice a day until I see him in the office in 2-4 weeks. I will make further plans based on his symptoms and biopsy results. I will keep you updated on his progress.
== END 2019-03-21 10:37 | disposition home or self-care (01) ==
LOC: ORWHC2ENDO 08:22
DX: K44.9 Diaphragmatic hernia without obstruction or gangrene (principal); K29.50 Unspecified chronic gastritis without bleeding; K21.0 Gastro-esophageal reflux disease with esophagitis; I10 Essential (primary) hypertension; Z91.041 Radiographic dye allergy status; Z79.899 Other long term (current) drug therapy
CPT/HCPCS: 88305; 43239; J2001; J2704

== ENCOUNTER → 2019-04-05 | Outpatient (CLI) | payer BC ==
[2019-04-05 07:21] LABS: MCHC 31.3 g/dL (31.0-37.0); MCV 92.8 fL (80.0-100.0); Platelet Count 251 k/uL (150-450); RBC 5.17 m/uL (4.30-5.90); RDW 14.5 % (11.5-15.5); WBC 7.3 k/uL (3.8-10.6)
== END | disposition home or self-care (01) ==
LOC: LABWHC1 06:44
PROVIDERS: ATTEND Internal Medicine Endocrinology, Diabetes & Metabolism
DX: E29.1 Testicular hypofunction (principal)
CPT/HCPCS: 36415; 82947; 84402; 84403; 85027

== ENCOUNTER → 2019-10-11 | Outpatient (CLI) | payer BC ==
[2019-10-11 07:09] LABS: Basophils % (A) 1 %; Eosinophils # (A) 0.2 k/uL (0-0.7); Eosinophils % (A) 2 %; HCT 49.1 % (39.0-53.0); HGB 16.3 gm/dL (13.0-17.5); Lymphocytes # (A) 2.4 k/uL (1.0-4.8); Lymphocytes % (A) 33 %; MCH 31.2 pg (25.0-35.0); MCHC 33.1 g/dL (31.0-37.0); MCV 94.4 fL (80.0-100.0); Mean Platelet Volume 7.1; Monocytes # (A) 0.5 k/uL (0-1.0); Monocytes % (A) 6 %; Neutrophils # (A) 4.1 k/uL (1.3-7.7); Neutrophils % (A) 56 %; Platelet Count 271 k/uL (150-450); RDW 12.6 % (11.5-15.5); WBC 7.3 k/uL (3.8-10.6)
[2019-10-11 13:15] LABS: African American GFR (CKD) 106.4 (60.0-200.0); Albumin 4.4 g/dL (3.80-4.90); Albumin/Globulin Ratio 2.44 (1.60-3.17); Anion Gap 6.9 mmol/L (4.00-12.00); Calcium 9.2 mg/dL (8.7-10.3); Carbon Dioxide 30.1 mmol/L (21.6-31.8); Chol/HDL Ratio 4.82; Globulin 1.8 g/dL (1.6-3.3); Non-African American GFR(CKD) 91.8 (60.0-200.0); Potassium 4.6 mmol/L (3.5-5.5); Total Bilirubin 0.5 mg/dL (0.2-1.2); Total Protein 6.2 g/dL (6.2-8.2)
== END | disposition home or self-care (01) ==
LOC: LABWHC1 06:32
PROVIDERS: ATTEND Internal Medicine Endocrinology, Diabetes & Metabolism
DX: Z00.01 Encounter for general adult medical examination with abnormal findings (principal); E78.1 Pure hyperglyceridemia
CPT/HCPCS: 36415; 80053; 80061; 84403; 85025

== ENCOUNTER → 2020-08-21 | Outpatient (CLI) | payer BC ==
[2020-08-21 08:25] LABS: Basophils # (A) 0.1 k/uL (0-0.2); Basophils % (A) 1 %; Eosinophils # (A) 0.2 k/uL (0-0.7); Eosinophils % (A) 2 %; HCT 52.6 % (39.0-53.0); HGB 16.6 gm/dL (13.0-17.5); Lymphocytes # (A) 1.7 k/uL (1.0-4.8); Lymphocytes % (A) 23 %; MCH 30.3 pg (25.0-35.0); MCHC 31.5 g/dL (31.0-37.0); MCV 96.1 fL (80.0-100.0); Mean Platelet Volume 6.7; Monocytes # (A) 0.5 k/uL (0-1.0); Monocytes % (A) 7 %; Neutrophils # (A) 4.8 k/uL (1.3-7.7); Neutrophils % (A) 66 %; Platelet Count 248 k/uL (150-450); RBC 5.47 m/uL (4.30-5.90); RDW 13.2 % (11.5-15.5); WBC 7.4 k/uL (3.8-10.6)
[2020-08-21 17:44] LABS: Prostate Specific Antigen 1.7 ng/mL (0.0-2.5)
== END | disposition home or self-care (01) ==
LOC: LABWHC1 07:44
PROVIDERS: ATTEND Internal Medicine Endocrinology, Diabetes & Metabolism
DX: E29.0 Testicular hyperfunction (principal)
CPT/HCPCS: 36415; 84153; 84403; 85025

== ENCOUNTER → 2020-09-03 | Outpatient (CLI) | payer BC | END | disposition home or self-care (01) | LOC: LABWHC1 15:47 | PROVIDERS: ATTEND Emergency Medicine | DX: Z20.828 Contact with and (suspected) exposure to other viral communicable diseases (principal) | CPT/HCPCS: U0003; C9803 ==

== ENCOUNTER → 2020-09-10 | Outpatient (CLI) | payer BC | END | disposition home or self-care (01) | LOC: LABWHC1 10:55 | PROVIDERS: ATTEND Emergency Medicine | DX: Z20.828 Contact with and (suspected) exposure to other viral communicable diseases (principal) | CPT/HCPCS: U0003; C9803 ==

== ENCOUNTER → 2020-11-17 | Outpatient (CLI) | payer BC ==
[2020-11-17 16:25] LABS: Prostate Specific Antigen 1.3 ng/mL (0.0-2.5)
== END | disposition home or self-care (01) ==
LOC: LABWHC1 07:19
PROVIDERS: ATTEND Internal Medicine Endocrinology, Diabetes & Metabolism
DX: E29.0 Testicular hyperfunction (principal)
CPT/HCPCS: 36415; 84153; 84403

== ENCOUNTER 2021-01-26 08:35 | Emergency (ER) | payer BC ==
[2021-01-26 08:39] VITALS: TEMP 98.1
[2021-01-26] MEDS ORDERED: DIPHENOX-ATROP 2.5-0.025 MG 1 EACH TAB PO STA (09:05)
[2021-01-26] MEDS ORDERED: SODIUM CHLORIDE 0.9% 1,000 ML IV ONE (09:05)
[2021-01-26] MEDS ORDERED: SODIUM CHLORIDE 0.9% 500 ML 500 ML IV ONE (09:05)
--- NOTE | 2021-01-26 09:11 | ED ---
General Adult HPI - General Chief complaint: Nausea/Vomiting/Diarrhea Stated complaint: diarrhea/abd pain Time Seen by Provider: 01/26/21 08:35 Source: patient, RN notes reviewed, old records reviewed Mode of arrival: ambulatory Limitations: no limitations - History of Present Illness Initial comments: This is a 45-year-old male who states on started not feeling well and spiking a fever. Patient states the next day he got up he started having diarrhea occasionally some nausea but diarrhea a couple times an hour. Patient states he has some abdominal cramping but no significant abdominal pain. Patient denies any cough or any difficulty breathing and any upper respiratory symptoms. Patient states he was had a cold with test on Monday it was negative. Patient denies any chest pain or palpitations. Patient denies lightheadedness or dizziness. Patient states he's had a significant weight loss since he's not eating anything quite a bit of diarrhea. - Related Data Home Medications Medication Instructions Recorded Confirmed Losartan Potassium [Cozaar] 100 mg PO DAILY 11/21/17 01/26/21 Pantoprazole [Protonix] 40 mg PO DAILY 01/26/21 01/26/21 Testosterone Cypionate 150 mg IM Q14D 01/26/21 01/26/21 [Depo-Testosterone] Allergies Allergy/AdvReac Type Severity Reaction Status Date / Time Iodinated Contrast Media Allergy Unknown Verified 01/26/21 09:36 [Iodinated Contrast- Oral and IV Dye] Review of Systems ROS Statement: Those systems with pertinent positive or pertinent negative responses have been documented in the HPI. ROS Other: All systems not noted in ROS Statement are negative. Past Medical History Past Medical History: GERD/Reflux, Hypertension Additional Past Medical History / Comment(s): difficulty swallowing History of Any Multi-Drug Resistant Organisms: MRSA Date of last positivie culture/infection: 05/23/19 MDRO Source:: Face Past Surgical History: Cholecystectomy Past Anesthesia/Blood Transfusion Reactions: No Reported Reaction Past Psychological History: No Psychological Hx Reported Smoking Status: Never smoker Past Alcohol Use History: Occasional Past Drug Use History: None Reported - Past Family History Father Family Medical History: Hypertension General Exam - General Exam Comments Initial Comments: GENERAL: Patient is well-developed and well-nourished. Patient is nontoxic and well- hydrated and is in mild distress. ENT: Neck is soft and supple. No significant lymphadenopathy is noted. Oropharynx is clear. Moist mucous membranes. Neck has full range of motion without eliciting any pain. EYES: The sclera were anicteric and conjunctiva were pink and moist. Extraocular movements were intact and pupils were equal round and reactive to light. Eyelids were unremarkable. PULMONARY: Unlabored respirations. Good breath sounds bilaterally. No audible rales rhonchi or wheezing was noted. CARDIOVASCULAR: There is a regular rate and rhythm without any murmurs gallops or rubs. ABDOMEN: Soft and nontender with normal bowel sounds. SKIN: Skin is clear with no lesions or rashes and otherwise unremarkable. NEUROLOGIC: Patient is alert and oriented x3. Cranial nerves II through XII are grossly intact. Motor and sensory are also intact. Normal speech, volume and content. Symmetrical smile. MUSCULOSKELETAL: Normal extremities with adequate strength and full range of motion. LYMPHATICS: No significant lymphadenopathy is noted PSYCHIATRIC: Normal psychiatric evaluation. Limitations: no limitations Course Vital Signs 01/26/21 01/26/21 08:36 09:38 Temperature 98.1 F Pulse Rate 88 Respiratory 16 16 Rate Blood Pressure 160/103 O2 Sat by Pulse 99 Oximetry Medical Decision Making - Medical Decision Making Patient received Lomotil and the emergency department had no diarrhea while in the emergency department. I went back in and reevaluated the patient's abdomen remains soft they stated he felt much better. - Lab Data Result diagrams: 01/26/21 09:13 01/26/21 09:13 Lab Results 01/26/21 01/26/21 01/26/21 Range/Units 09:13 09:13 09:13 WBC 10.0 (3.8-10.6) k/uL RBC 6.20 H (4.30-5.90) m/uL Hgb 18.4 H (13.0-17.5) gm/dL Hct 56.7 H (39.0-53.0) % MCV 91.4 (80.0-100.0) fL MCH 29.7 (25.0-35.0) pg MCHC 32.5 (31.0-37.0) g/dL RDW 13.6 (11.5-15.5) % Plt Count 300 (150-450) k/uL MPV 6.7 Neutrophils % 76 % Lymphocytes % 12 % Monocytes % 8 % Eosinophils % 2 % Basophils % 1 % Neutrophils # 7.6 (1.3-7.7) k/uL Lymphocytes # 1.2 (1.0-4.8) k/uL Monocytes # 0.8 (0-1.0) k/uL Eosinophils # 0.2 (0-0.7) k/uL Basophils # 0.1 (0-0.2) k/uL Sodium 136 L (137-145) mmol/L Potassium 4.6 (3.5-5.1) mmol/L Chloride 102 (98-107) mmol/L Carbon Dioxide 24 (22-30) mmol/L Anion Gap 10 mmol/L BUN 11 (9-20) mg/dL Creatinine 1.05 (0.66-1.25) mg/dL Est GFR (CKD-EPI)AfAm >90 (>60 ml/min/1.73 sqM) Est GFR (CKD-EPI)NonAf 86 (>60 ml/min/1.73 sqM) Glucose 124 H (74-99) mg/dL Calcium 9.3 (8.4-10.2) mg/dL Total Bilirubin 1.1 (0.2-1.3) mg/dL AST 90 H (17-59) U/L ALT 55 H (4-49) U/L Alkaline Phosphatase 139 H (38-126) U/L Total Protein 7.6 (6.3-8.2) g/dL Albumin 4.4 (3.5-5.0) g/dL Coronavirus (PCR) Not Detected (Not Detectd) Disposition Clinical Impression: Diarrhea Disposition: HOME SELF-CARE Instructions (If sedation given, give patient instructions): Acute Diarrhea (ED) Additional Instructions: Patient should take Lomotil as prescribed. Patient should return if there is any new or worsening symptoms Is patient prescribed a controlled substance at d/c from ED?: No Referrals: Park Ortiz MD [Primary Care Provider] - 1-2 days Time of Disposition: 10:15
[2021-01-26 09:27] LABS: Basophils # (A) 0.1 k/uL (0-0.2); Basophils % (A) 1 %; Eosinophils # (A) 0.2 k/uL (0-0.7); Eosinophils % (A) 2 %; HGB 18.4 gm/dL (13.0-17.5); Lymphocytes # (A) 1.2 k/uL (1.0-4.8); Lymphocytes % (A) 12 %; MCH 29.7 pg (25.0-35.0); MCHC 32.5 g/dL (31.0-37.0); MCV 91.4 fL (80.0-100.0); Mean Platelet Volume 6.7; Monocytes # (A) 0.8 k/uL (0-1.0); Monocytes % (A) 8 %; Neutrophils # (A) 7.6 k/uL (1.3-7.7); Neutrophils % (A) 76 %; Platelet Count 300 k/uL (150-450); RDW 13.6 % (11.5-15.5)
[2021-01-26 09:31] LABS: HCT 56.7 % (39.0-53.0)
[2021-01-26 09:32] LABS: ALT 55 U/L (4-49); AST 90 U/L (17-59); African American GFR (CKD) >90 (>60 ml/min/1.73 sqM); Albumin 4.4 g/dL (3.5-5.0); Alkaline Phosphatase 139 U/L (38-126); Anion Gap 10 mmol/L; Blood Urea Nitrogen 11 mg/dL (9-20); Calcium 9.3 mg/dL (8.4-10.2); Carbon Dioxide 24 mmol/L (22-30); Chloride 102 mmol/L (98-107); Glucose 124 mg/dL (74-99); Non-African American GFR(CKD) 86 (>60 ml/min/1.73 sqM); Potassium 4.6 mmol/L (3.5-5.1); Sodium 136 mmol/L (137-145); Total Bilirubin 1.1 mg/dL (0.2-1.3); Total Protein 7.6 g/dL (6.3-8.2)
[2021-01-26] MEDS ORDERED: DIPHENOX-ATROP 2.5-0.025 MG 1 EACH TAB PO PRN (10:16)
[2021-01-26 10:58] VITALS: BP 136/64; PULSE 81; RESP 18
== END 2021-01-26 10:58 | disposition home or self-care (01) ==
LOC: EC 08:35
DX: R19.7 Diarrhea, unspecified (principal); Z20.822 Contact with and (suspected) exposure to COVID-19; I10 Essential (primary) hypertension; K21.9 Gastro-esophageal reflux disease without esophagitis
CPT/HCPCS: 36415; 80053; 85025; 87635; 96360; 99284

== ENCOUNTER 2021-03-07 07:35 | Emergency (ER) | payer BC ==
[2021-03-07 07:38] VITALS: RESP 18; TEMP 98
--- NOTE | 2021-03-07 08:02 | ED ---
General Adult HPI - General Chief complaint: Skin/Abscess/Foreign Body Stated complaint: abscess on back Time Seen by Provider: 03/07/21 07:44 Source: patient, RN notes reviewed Mode of arrival: ambulatory Limitations: no limitations - History of Present Illness Initial comments: Patient is a pleasant 45-year-old male presenting to the emergency department with concern for abscess on his tailbone. Patient had one previously several years ago and his abdomen that turned out to be MRSA. This one started 4 days ago. Patient is having discomfort. Patient states there is some drainage. Patient states he did have another person express some pus from the area. No fevers. No other areas of concern. Patient does not have history of abscess in this area previously. - Related Data Home Medications Medication Instructions Recorded Confirmed Losartan Potassium [Cozaar] 100 mg PO DAILY 11/21/17 01/26/21 Pantoprazole [Protonix] 40 mg PO DAILY 01/26/21 01/26/21 Testosterone Cypionate 150 mg IM Q14D 01/26/21 01/26/21 [Depo-Testosterone] Previous Rx's Medication Instructions Recorded Sulfamethox-Tmp 800-160Mg [Bactrim 2 each PO Q12HR #40 tab 03/07/21 DS 800-160 mg] Allergies Allergy/AdvReac Type Severity Reaction Status Date / Time Iodinated Contrast Media Allergy Unknown Verified 03/07/21 07:38 [Iodinated Contrast- Oral and IV Dye] Review of Systems ROS Statement: Those systems with pertinent positive or pertinent negative responses have been documented in the HPI. ROS Other: All systems not noted in ROS Statement are negative. Constitutional: Denies: fever Eyes: Denies: eye pain ENT: Denies: ear pain Respiratory: Denies: cough Cardiovascular: Denies: chest pain Endocrine: Denies: fatigue Gastrointestinal: Denies: abdominal pain Genitourinary: Denies: dysuria Musculoskeletal: Denies: arthralgia Skin: Reports: as per HPI Neurological: Denies: weakness Past Medical History Past Medical History: GERD/Reflux, Hypertension Additional Past Medical History / Comment(s): difficulty swallowing History of Any Multi-Drug Resistant Organisms: MRSA Date of last positivie culture/infection: 05/23/19 MDRO Source:: Face Past Surgical History: Cholecystectomy Past Anesthesia/Blood Transfusion Reactions: No Reported Reaction Past Psychological History: No Psychological Hx Reported Smoking Status: Never smoker Past Alcohol Use History: Occasional Past Drug Use History: None Reported - Past Family History Father Family Medical History: Hypertension General Exam Limitations: no limitations General appearance: alert, in no apparent distress Head exam: Present: normocephalic Eye exam: Present: normal appearance Neck exam: Present: normal inspection Respiratory exam: Present: normal lung sounds bilaterally Cardiovascular Exam: Present: regular rate, normal rhythm Extremities exam: Present: normal inspection Back exam: Present: other (Pilonidal abscess) Neurological exam: Present: alert Psychiatric exam: Present: normal affect, normal mood Skin exam: Present: other (Pilonidal abscess that is open. There is swelling. Size is approximately 1 x 3 cm. No surrounding erythema.) Course Vital Signs 03/07/21 07:36 Temperature 98.0 F Pulse Rate 84 Respiratory 18 Rate Blood Pressure 195/103 O2 Sat by Pulse 95 Oximetry Procedures - Procedures Initial comment: Patient does have pilonidal abscess that is open. I'm able to express approximately 10 mL of pus using pressure. No incision needed. Patient tolerated procedure well. No complications. Culture sent to lab. Verbal consent was given. Disposition Clinical Impression: Pilonidal abscess Disposition: HOME SELF-CARE Condition: Stable Instructions (If sedation given, give patient instructions): Abscess (ED), Pilonidal Cyst (ED) Additional Instructions: Please follow-up with primary care physician in the next day or 2 for recheck. If symptoms persist or recur consider surgical consult. Prescription for anabiotic has been sent to your pharmacy. Return for fevers, increased pain or swelling, worsening symptoms or other concerns. Prescriptions: Sulfamethox-Tmp 800-160Mg [Bactrim DS 800-160 mg] 2 each PO Q12HR #40 tab Is patient prescribed a controlled substance at d/c from ED?: No Referrals: Park Ortiz MD [Primary Care Provider] - 1-2 days Time of Disposition: 08:01
[2021-03-07 08:29] VITALS: BP 151/101; PULSE 80
== END 2021-03-07 08:15 | disposition home or self-care (01) ==
LOC: EC 07:35
DX: L05.01 Pilonidal cyst with abscess (principal); K21.9 Gastro-esophageal reflux disease without esophagitis; I10 Essential (primary) hypertension; Z90.49 Acquired absence of other specified parts of digestive tract
CPT/HCPCS: 87070; 87205; 99283

== ENCOUNTER → 2021-04-02 | Outpatient (CLI) | payer BC ==
[2021-04-02 14:33] LABS: Hemoglobin A1C 4.9 % (4.0-6.0)
== END | disposition home or self-care (01) ==
LOC: LABWHC1 07:02
PROVIDERS: ATTEND Internal Medicine Endocrinology, Diabetes & Metabolism
DX: E29.1 Testicular hypofunction (principal)
CPT/HCPCS: 36415; 83036; 84403

== ENCOUNTER → 2021-07-29 | Outpatient (CLI) | payer BC ==
[2021-07-29 11:05] LABS: Basophils # (A) 0.06 X 10*3/uL (0.00-0.10); Eosinophils # (A) 0.11 X 10*3/uL (0.04-0.35); Eosinophils % (A) 1.8 %; HCT 51.3 % (39.6-50.0); HGB 16.6 g/dL (13.0-17.0); Lymphocytes # (A) 2.04 X 10*3/uL (0.90-5.00); Lymphocytes % (A) 33.7 %; MCH 31.1 pg (27.0-32.0); MCHC 32.4 g/dL (32.0-37.0); MCV 96.1 fL (80.0-97.0); Mean Platelet Volume 9.5 fL (9.5-12.2); Monocytes # (A) 0.58 X 10*3/uL (0.20-1.00); Monocytes % (A) 9.6 %; Neutrophils # (A) 3.25 X 10*3/uL (1.80-7.70); Neutrophils % (A) 53.7 %; Platelet Count 256 X 10*3/uL (140-440); RBC 5.34 X 10*6/uL (4.40-5.60); RDW 13.2 % (11.5-14.5); WBC 6.05 X 10*3/uL (4.50-10.00)
[2021-07-29 22:20] LABS: African American GFR (CKD) 84.1 (60.0-200.0); Albumin 4.7 g/dL (3.80-4.90); Albumin/Globulin Ratio 2.14 (1.60-3.17); Anion Gap 13.5 mmol/L (4.00-12.00); BUN/Creat Ratio 14.17 Ratio (12.00-20.00); Calcium 9.2 mg/dL (8.7-10.3); Carbon Dioxide 22.5 mmol/L (21.6-31.8); Chol/HDL Ratio 4.76; Globulin 2.2 g/dL (1.6-3.3); LDL Cholesterol,Calculated 102.6 mg/dL (0.0-131.0); Non-African American GFR(CKD) 72.6 (60.0-200.0); Potassium 4.7 mmol/L (3.5-5.5); Total Protein 6.9 g/dL (6.2-8.2); VLDL Calculation 36.4 mg/dL (5.00-40.00)
== END | disposition home or self-care (01) ==
LOC: LABWHC1 06:57
PROVIDERS: ATTEND Internal Medicine
DX: Z00.01 Encounter for general adult medical examination with abnormal findings (principal); E78.1 Pure hyperglyceridemia; I10 Essential (primary) hypertension
CPT/HCPCS: 36415; 80053; 80061; 85025

== ENCOUNTER → 2021-10-15 | Outpatient (CLI) | payer BC ==
[2021-10-15 12:22] LABS: Prostate Specific Antigen 1.4 ng/mL (0.00-2.50)
== END | disposition home or self-care (01) ==
LOC: LABWHC1 06:58
PROVIDERS: ATTEND Internal Medicine Endocrinology, Diabetes & Metabolism
DX: E29.1 Testicular hypofunction (principal)
CPT/HCPCS: 36415; 84153; 84403

== ENCOUNTER → 2021-11-08 | Outpatient (CLI) | payer BC ==
[2021-11-08 16:15] LABS: T4, Free (Free Thyroxine) 1.01 ng/dL (0.800-1.800)
== END | disposition home or self-care (01) ==
LOC: LABWHC1 09:03
PROVIDERS: ATTEND Internal Medicine Endocrinology, Diabetes & Metabolism
DX: R53.83 Other fatigue (principal)
CPT/HCPCS: 36415; 82088; 82947; 83036; 83525; 83835; 84244; 84439; 84443

== ENCOUNTER → 2021-12-29 | Outpatient (CLI) | payer BC ==
--- NOTE | 2021-12-29 17:50 | CONS ---
CONSULTATION DATE OF SERVICE: 12/29/2021 This 46-year-old gentleman has been evaluated in [facility] for possible obstructive sleep apnea-hypopnea syndrome. HISTORY OF PRESENT ILLNESS/SLEEP-WAKE EVALUATION: Patient's usual sleep schedule on weekdays is from 10 p.m. to 6 a.m. and on weekends from 10 p.m. to 8 or 8:30 a.m. Sometimes he has problems with falling asleep; has a TV set in the bedroom. He usually sleeps on the side position. He snores and has multiple awakenings from sleep every 1-1/2 hours, and each time with nocturia. Positive history of panic attacks, sweating, heartburn. He eats during the night and he remembers that he is eating at night. No history of hypnagogic hallucinations, sleep paralysis or cataplexy. In the morning the patient wakes up tired, has episodes of anxiety. He may have naps, especially on weekends. [place] Sleepiness Scale is 6. PAST MEDICAL HISTORY: Hypertension; according to the patient, it was not under great control with medications. He has acid reflux, panic attacks. PAST SURGICAL HISTORY: Cholecystectomy. MEDICATIONS: 1. Losartan 50 mg once a day. 2. Clonazepam 1 mg twice a day. 3. Protonix 40 mg twice a day. 4. Lexapro 10 mg once a day. 5. I believe hydrochlorothiazide 25 mg once a day. SOCIAL HISTORY: Negative for smoking. Alcohol consumption occasional. FAMILY HISTORY: Hypertension, stroke, during sleep in his mother. REVIEW OF SYSTEMS: Multiple awakenings during sleep, snoring, panic attacks. No fevers. No double vision. No recent chest pain. No shortness of breath. No abdominal pain. No bleeding episodes. No blood in the urine. No seizure episodes. PHYSICAL EXAMINATION: GENERAL APPEARANCE: Pleasant gentleman without distress. VITAL SIGNS: BP 156/95, HR 66, RR 16, height 5 feet 6-3/4 inches, weight 184.4 pounds, body mass index 29.0, temperature 96.2, oxygen saturation at room air 98%. HEENT: PERRLA, EOMI, evaluation of oropharynx showed tongue protrudes midline. Extremely low position of soft palate; Mallampati III to IV. Some restriction of nasal breathing on the right side with a closing nostril. NECK: Supple, no JVD. Thyroid is not palpable. Neck is wide; 17 inches in circumference. LUNGS: Clear to percussion and to auscultation. Good air exchange. No wheezing or rhonchi. HEART: S1, S2 regular. No murmurs, gallops, or rubs. ABDOMEN: Soft and nontender. Bowel sounds are present. No organomegaly appreciated. EXTREMITIES: No clubbing or cyanosis. [employer] PAINTER: Awake, alert, and oriented X3. Cranial nerves 2 to 7 intact. There is no fasciculation or atrophy. noted. No focal deficits observed. IMPRESSION: 1. Snoring, multiple awakenings from sleep every 1-1/2 hours, extremely low position of soft palate, Mallampati III to IV, wide neck, 17 inches in circumference; obstructive sleep apnea-hypopnea syndrome. 2. Hypertension. 3. Acid reflux. 4. Panic attacks. 5. Status post cholecystectomy. PLAN: 1. Home sleep apnea test to check patient's breathing during sleep. 2. CPAP/BiPAP titration if sleep study confirms obstructive sleep apnea-hypopnea syndrome. 3. Preferable position during sleep on the side. 4. No driving if patient feels any sleepiness. 5. I will see patient for follow up visit to explain results of testing and following plan. Thank you very much for referring this patient for consultation. Sincerely, Roge Huff MD, PhD, FAASM Diplomat of [employer] Sleep Medicine Board of [place] [employer] Support Specialist [facility] [place] MMODL / IJN: [id number] /
== END ==
LOC: SLEEP 16:26
PROVIDERS: ATTEND Internal Medicine
DX: G47.33 Obstructive sleep apnea (adult) (pediatric) (principal); I10 Essential (primary) hypertension; K21.9 Gastro-esophageal reflux disease without esophagitis; F41.0 Panic disorder [episodic paroxysmal anxiety]; Z90.49 Acquired absence of other specified parts of digestive tract; Z91.041 Radiographic dye allergy status
CPT/HCPCS: 99211

== ENCOUNTER → 2021-12-31 | Outpatient (CLI) | payer BC ==
--- NOTE | 2022-01-01 08:41 | CT ---
EXAMINATION TYPE: CT angio head DATE OF EXAM: 01/01/2022 INDICATION: 46-year-old male, pain aneurysm CT DLP: 2013 mGy.cm Automated Exposure Control for Dose Reduction was Utilized. TECHNIQUE AND CONTRAST: Multiplanar CT scan of the brain without contrast followed by CTA of the intracranial arteries, patie nt injected with 100 mL of Isovue 370. MIP and 3-D reconstruction images were performed and reviewed. COMPARISON: CT dated 08/17/2011 FINDINGS: Suspected tiny perivascular spaces inferior to the lentiform nucleus bilaterally. Otherwise unremarka ble morphology of the cerebral hemispheres, cerebellum and brainstem. No acute intracranial hemorrhag e or gross acute cortical infarct. No midline shift, herniation or ventriculomegaly. Unremarkable shaikh-white matter differentiation, basal cisterns, sella and CP angles. No gross space-o ccupying lesion, vasogenic edema or mass effect. No area of abnormal enhancement, meningeal thickenin g or hyperenhancement. Generalized reduced caliber of the intracranial arteries, probably insignificant. 2 mm infundibulum i s seen arising from the medial aspect of the supraclinoid portion of the right internal carotid arter y. Otherwise unremarkable intracranial arteries without significant stenosis, occlusion, dissection, size-significant aneurysm or AV malformation. Unremarkable orbits. Asymmetrically smaller right maxillary sinus demonstrating chronic inflammatory changes. This may sug gest a right maxillary silent sinus syndrome, please correlate clinically. Clear remainder of the par anasal sinuses and left mastoid cells. Mild opacification of the right inferior mastoid air cells. Un remarkable calvarial bones. IMPRESSION: No acute intracranial abnormality or gross space-occupying lesion. No intracranial abnormal enhanceme nt. No size-significant intracranial aneurysm. Incidental findings as described above.
== END | disposition home or self-care (01) ==
LOC: RADCTMAIN 13:26
DX: I10 Essential (primary) hypertension (principal); J32.0 Chronic maxillary sinusitis; G44.86 Cervicogenic headache; Z82.3 Family history of stroke
CPT/HCPCS: 70496; Q9967

== ENCOUNTER → 2022-04-27 | Outpatient (CLI) | payer BC ==
[2022-04-27 11:19] LABS: Basophils # (A) 0.06 X 10*3/uL (0.00-0.10); Basophils % (A) 0.8 %; Eosinophils # (A) 0.16 X 10*3/uL (0.04-0.35); Eosinophils % (A) 2.2 %; HCT 54.3 % (39.6-50.0); HGB 17.2 g/dL (13.0-17.0); Immature Grans, Automated 0.3 %; Lymphocytes # (A) 2.33 X 10*3/uL (0.90-5.00); MCH 29.7 pg (27.0-32.0); MCHC 31.7 g/dL (32.0-37.0); MCV 93.6 fL (80.0-97.0); Mean Platelet Volume 9.9 fL (9.5-12.2); Monocytes # (A) 0.71 X 10*3/uL (0.20-1.00); Monocytes % (A) 9.8 %; NRBC Per 100 WBC 1.9 /100 WBCS (0.0-0.0); Neutrophils # (A) 3.99 X 10*3/uL (1.80-7.70); Neutrophils % (A) 54.9 %; Platelet Count 238 X 10*3/uL (140-440); RDW 13.8 % (11.5-14.5); WBC 7.27 X 10*3/uL (4.50-10.00)
[2022-04-27 11:23] LABS: African American GFR (CKD) 92.8 (60.0-200.0); Albumin 4.3 g/dL (3.8-4.9); Albumin/Globulin Ratio 1.87 (1.60-3.17); Anion Gap 10.4 mmol/L (10.00-18.00); BUN/Creat Ratio 15.55 Ratio (12.00-20.00); Blood Urea Nitrogen 17.1 mg/dL (9.0-27.0); Calcium 8.9 mg/dL (8.7-10.3); Carbon Dioxide 26.6 mmol/L (20.0-27.5); Globulin 2.3 g/dL (1.6-3.3); HDL Cholesterol 30.3 mg/dL (40.00-60.00); Non-African American GFR(CKD) 80.1 (60.0-200.0); Potassium 3.8 mmol/L (3.5-5.5); Total Bilirubin 0.3 mg/dL (0.30-1.20); Total Protein 6.6 g/dL (6.2-8.2)
[2022-04-27 11:45] LABS: Chol/HDL Ratio 6.6 Ratio
== END | disposition home or self-care (01) ==
LOC: LABWHC1 06:57
PROVIDERS: ATTEND Internal Medicine
DX: Z13.220 Encounter for screening for lipoid disorders (principal); I10 Essential (primary) hypertension; Z13.228 Encounter for screening for other metabolic disorders
CPT/HCPCS: 36415; 80053; 80061; 82306; 83721; 84403; 84443; 85025

== ENCOUNTER → 2022-04-27 | Outpatient (CLI) | payer BC | END | disposition home or self-care (01) | LOC: LABWHC1 06:59 | PROVIDERS: ATTEND Internal Medicine Endocrinology, Diabetes & Metabolism | DX: Z53.9 Procedure and treatment not carried out, unspecified reason (principal) ==

== ENCOUNTER → 2022-08-22 | Outpatient (CLI) | payer OTHER ==
[2022-08-22 11:39] LABS: Basophils # (A) 0.06 X 10*3/uL (0.00-0.10); Eosinophils # (A) 0.15 X 10*3/uL (0.04-0.35); Eosinophils % (A) 2.5 %; HCT 49.1 % (39.6-50.0); HGB 16.1 g/dL (13.0-17.0); Immature Grans, Automated 0.3 %; Lymphocytes # (A) 2.22 X 10*3/uL (0.90-5.00); Lymphocytes % (A) 37.4 %; MCH 31.6 pg (27.0-32.0); MCHC 32.8 g/dL (32.0-37.0); MCV 96.3 fL (80.0-97.0); Mean Platelet Volume 9.6 fL (9.5-12.2); Monocytes # (A) 0.58 X 10*3/uL (0.20-1.00); Monocytes % (A) 9.8 %; NRBC Per 100 WBC 0 /100 WBCS (0.0-0.0); Platelet Count 276 X 10*3/uL (140-440); RDW 14.1 % (11.5-14.5); WBC 5.93 X 10*3/uL (4.50-10.00)
[2022-08-22 11:48] LABS: PSA Annual Screen 1.1 ng/mL (0.000-4.000)
== END | disposition home or self-care (01) ==
LOC: LABWHC1 07:04
PROVIDERS: ATTEND Internal Medicine Endocrinology, Diabetes & Metabolism
DX: E29.1 Testicular hypofunction (principal)
CPT/HCPCS: 85025; 84403; 36415; G0103

== ENCOUNTER → 2022-09-05 | Outpatient (CLI) | payer OTHER ==
--- NOTE | 2022-09-05 16:12 | XR ---
EXAMINATION TYPE: XR chest 2V DATE OF EXAM: 09/05/2022 COMPARISON: None INDICATION: Presurgical clearance TECHNIQUE: Frontal and lateral views of the chest are obtained. FINDINGS: The heart size is normal. The pulmonary vasculature is normal. The lungs are clear. IMPRESSION: 1. No acute pulmonary process.
[2022-09-05 16:35] LABS: Appearance,Urine Clear (Clear); Bilirubin,Urine Negative (Negative); Blood,Urine Negative (Negative); Color,Urine Colorless; Glucose,Urine (UA) Negative (Negative); Ketones,Urine Negative (Negative); Leukocyte Esterase,Urine Negative (Negative); Nitrite,Urine Negative (Negative); Protein,Urine Negative (Negative); Specific Gravity,Urine 1.006 (1.001-1.035); Urobilinogen,Urine <2.0 mg/dL (<2.0)
[2022-09-05 16:57] LABS: INR 0.9 (<1.2); Partial Thromboplastin Time 25.3 sec (22.0-30.0); Prothrombin Time 10.3 sec (9.0-12.0)
[2022-09-05 23:32] LABS: African American GFR (CKD) 104.1 (60.0-200.0); Albumin 4.6 g/dL (3.8-4.9); Anion Gap 9.4 mmol/L (10.00-18.00); BUN/Creat Ratio 12.1 Ratio (12.00-20.00); Blood Urea Nitrogen 12.1 mg/dL (9.0-27.0); Carbon Dioxide 29.6 mmol/L (20.0-27.5); Globulin 2.3 g/dL (1.6-3.3); Non-African American GFR(CKD) 89.9 (60.0-200.0); Potassium 4.7 mmol/L (3.5-5.5); Total Bilirubin 0.5 mg/dL (0.30-1.20); Total Protein 6.9 g/dL (6.2-8.2)
== END | disposition home or self-care (01) ==
LOC: LABWHC1 15:10
PROVIDERS: ATTEND Orthopaedic Surgery Orthopaedic Surgery of the Spine
DX: M43.16 Spondylolisthesis, lumbar region (principal); M48.062 Spinal stenosis, lumbar region with neurogenic claudication; M51.16 Intervertebral disc disorders with radiculopathy, lumbar region; M51.36 Other intervertebral disc degeneration, lumbar region; M51.26 Other intervertebral disc displacement, lumbar region; M62.830 Muscle spasm of back
CPT/HCPCS: 36415; 71046; 80053; 81003; 85610; 85730; 93005

== ENCOUNTER → 2023-01-31 | Outpatient (CLI) | payer OTHER ==
--- NOTE | 2023-01-31 13:00 | MR ---
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 History of surgery 2021. TECHNIQUE: Multi planar, multi sequence imaging was performed utilizing: T1-weighted, T2-weighted, a nd turbo inversion recovery imaging of the lumbar spine. IV Contrast: 7.5 cc Gadavist. None. FINDINGS: Alignment: The lumbar vertebral bodies have preserved heights and alignment. Cord: The conus medullaris and the distal spinal cord appear unremarkable with regards to their signa l intensity and morphology. Bones/Discs: Scattered Modic endplate changes most pronounced at L5-S1 with disc space narrowing pres ent. There is adjoining endplate inversion recovery signal likely reactive to degeneration changes. T he remainder of the discs signal is grossly maintained. Postsurgical changes at L5. T12-L1: No evidence of significant spinal canal stenosis or neural foraminal stenosis. L1-L2: No evidence of significant spinal canal stenosis or neural foraminal stenosis. L2-L3: No evidence of significant spinal canal stenosis or neural foraminal stenosis. L3-L4: No evidence of significant spinal canal stenosis or neural foraminal stenosis. L4-L5: No evidence of significant spinal canal stenosis or neural foraminal stenosis. L5-S1: Left central disc protrusion with effacement of the exiting left nerve L5-S1 nerve. There is s evere left and moderate to severe right neural foraminal stenosis. Herniation does abut/contact the l eft L5-S1 nerve as it exits in the extraforaminal zone. The extraforaminal herniation seen on prior h as a similar morphology. Other findings: None. IMPRESSION: Interval postsurgical changes at L5 with a similar appearance to the L5-S1 left central and left extr aforaminal disc material that abuts the exiting L5-S1 nerve.
== END | disposition home or self-care (01) ==
LOC: RADMRIMAIN 11:31
PROVIDERS: ATTEND Orthopaedic Surgery Orthopaedic Surgery of the Spine
DX: M51.16 Intervertebral disc disorders with radiculopathy, lumbar region (principal); M51.17 Intervertebral disc disorders with radiculopathy, lumbosacral region; M79.18 Myalgia, other site; Z48.89 Encounter for other specified surgical aftercare
CPT/HCPCS: 72158; A9585

== ENCOUNTER → 2023-02-17 | Outpatient (CLI) | payer OTHER ==
[2023-02-17 11:29] LABS: ALT 18 U/L (10-49); AST 12 U/L (14-35); African American GFR (CKD) 63.3 (60.0-200.0); Albumin 4.2 g/dL (3.8-4.9); Albumin/Globulin Ratio 1.68 (1.60-3.17); Alkaline Phosphatase 80 U/L (41-126); BUN/Creat Ratio 15.87 Ratio (12.00-20.00); Blood Urea Nitrogen 23.8 mg/dL (9.0-27.0); Calcium 9.3 mg/dL (8.7-10.3); Carbon Dioxide 29.6 mmol/L (20.0-27.5); Chloride 102 mmol/L (96-109); Chol/HDL Ratio 5.34 Ratio; Globulin 2.5 g/dL (1.6-3.3); Glucose 106 mg/dL (70-110); LDL Cholesterol,Calculated 76.1 mg/dL (0.0-131.0); Non-African American GFR(CKD) 54.7 (60.0-200.0); Potassium 4.4 mmol/L (3.5-5.5); Sodium 141 mmol/L (135-145); Total Bilirubin <0.15 mg/dL (0.30-1.20); Total Protein 6.7 g/dL (6.2-8.2)
== END | disposition home or self-care (01) ==
LOC: LABWHC1 07:18
PROVIDERS: ATTEND Internal Medicine
DX: I10 Essential (primary) hypertension (principal)
CPT/HCPCS: 36415; 80053; 80061

== ENCOUNTER → 2023-02-24 | Outpatient (CLI) | payer OTHER ==
--- NOTE | 2023-02-24 12:13 | XR ---
EXAMINATION TYPE: XR chest 2V DATE OF EXAM: 02/24/2023 COMPARISON: 09/05/2022 HISTORY: Preop clearance TECHNIQUE: Frontal and lateral views of the chest are obtained. FINDINGS: The heart size is normal. The cardiomediastinal silhouette and pulmonary vasculature are w ithin normal limits. There is no focal consolidation, significant pleural effusion, or pneumothorax. IMPRESSION: No acute cardiopulmonary process.
[2023-02-24 12:31] LABS: Partial Thromboplastin Time 25.4 sec (22.0-30.0); Prothrombin Time 10.7 sec (9.0-12.0)
[2023-02-24 19:24] LABS: African American GFR (CKD) 78.2 (60.0-200.0); Albumin 4.6 g/dL (3.8-4.9); Albumin/Globulin Ratio 1.82 (1.60-3.17); Anion Gap 10.6 mmol/L (10.00-18.00); BUN/Creat Ratio 15.87 Ratio (12.00-20.00); Calcium 9.9 mg/dL (8.7-10.3); Carbon Dioxide 29.4 mmol/L (20.0-27.5); Globulin 2.5 g/dL (1.6-3.3); Non-African American GFR(CKD) 67.5 (60.0-200.0); Potassium 4.5 mmol/L (3.5-5.5); Total Bilirubin 0.6 mg/dL (0.30-1.20); Total Protein 7.1 g/dL (6.2-8.2)
[2023-02-24 20:20] LABS: Appearance,Urine Clear (Clear); Bilirubin,Urine Negative (Negative); Blood,Urine Negative (Negative); Color,Urine Yellow (Yellow); Ketones,Urine Negative (Negative); Nitrite,Urine Negative (Negative); PH, Urine 6.5 (5.0-8.0); Specific Gravity,Urine 1.012 (1.001-1.030); Urobilinogen,Urine 0.2 (0.2,1.0)
[2023-02-24 20:37] LABS: Basophils # (A) 0.06 X 10*3/uL (0.00-0.10); Basophils % (A) 0.7 %; Eosinophils # (A) 0.08 X 10*3/uL (0.04-0.35); Eosinophils % (A) 0.9 %; HCT 52.1 % (39.6-50.0); HGB 15.7 g/dL (13.0-17.0); Immature Grans, Automated 0.2 %; Lymphocytes # (A) 2.24 X 10*3/uL (0.90-5.00); Lymphocytes % (A) 24.6 %; MCH 26.7 pg (27.0-32.0); MCHC 30.1 g/dL (32.0-37.0); MCV 88.5 fL (80.0-97.0); Mean Platelet Volume 9.7 fL (9.5-12.2); Monocytes # (A) 0.67 X 10*3/uL (0.20-1.00); Monocytes % (A) 7.4 %; NRBC Per 100 WBC 0 /100 WBCS (0.0-0.0); Neutrophils # (A) 6.02 X 10*3/uL (1.80-7.70); Neutrophils % (A) 66.2 %; Platelet Count 376 X 10*3/uL (140-440); RBC 5.89 X 10*6/uL (4.40-5.60); RDW 15.7 % (11.5-14.5); WBC 9.09 X 10*3/uL (4.50-10.00)
== END | disposition home or self-care (01) ==
LOC: LABPAT 11:22
PROVIDERS: ATTEND Orthopaedic Surgery Orthopaedic Surgery of the Spine
DX: Z01.812 Encounter for preprocedural laboratory examination (principal); M51.16 Intervertebral disc disorders with radiculopathy, lumbar region
CPT/HCPCS: 71046; 80053; 81003; 85025; 85610; 85730; 87070; 93005

== ENCOUNTER 2023-03-08 06:53 | Inpatient (IN) | payer OTHER ==
[2023-03-02 10:16] VITALS: BMI 27.3
[~2023-03-08 06:53] MED LIST changes: +DEXAMETHASONE SOD PHOSPHATE 4 MG/ML 1 ML VIAL IV ONE; -LACTATED RINGERS 1,000 ML IV SCH; +LIDOCAINE 1% (10MG/ML) FOR IV START INTRADERMA PRN; -LIDOCAINE 1% 20 ML VIAL (10MG/ML) FOR IV START INTRADERMA PRN; +MIDAZOLAM 2 MG/2 ML VIAL IV PRN; +ONDANSETRON 4 MG/2 ML VIAL IVP ONE; +ceFAZolin 1,000 MG in SODIUM CHLORIDE 0.9% IRRIGATIO 1,000 ML IRRIGATION PRN
[2023-03-08] MEDS: LACTATED RINGERS 1,000 ML IV SCH ×2 (07:41→19:20)
[2023-03-08] MEDS ORDERED: ONDANSETRON 4 MG/2 ML VIAL ONE (07:43)
[2023-03-08] MEDS ORDERED: PROPOFOL 10 MG/ML 20 ML VIAL IV ONE (07:53)
[2023-03-08] MEDS ORDERED: ROCURONIUM 10 MG/ML (5 ML VIAL) IV ONE (07:53)
[2023-03-08] MEDS ORDERED: fentaNYL (PF) 50 MCG/ML 2 ML AMP ONE (07:53)
[2023-03-08] MEDS ORDERED: MIDAZOLAM 2 MG/2 ML VIAL ONE (07:53)
[2023-03-08] MEDS ORDERED: PHENYLEPHRINE-0.9% NACL SYG 1,000 MCG/10 ML SYRINGE ONE (07:53)
[2023-03-08] MEDS ORDERED: SUCCINYLCHOLINE CHLORIDE 200 MG/10 ML VIAL IV ONE (07:53)
[2023-03-08] MEDS ORDERED: LIDOCAINE 2% INJ 20 MG/ML (2 ML VIAL) ONE (07:53)
[2023-03-08] MEDS ORDERED: ePHEDrine 50 MG/ML 1 ML VIAL ONE (07:53)
[2023-03-08] MEDS ORDERED: GLYCOPYRROLATE 0.2 MG/ML 2 ML VIAL ONE (07:53)
[2023-03-08] MEDS ORDERED: NEOSTIGMINE 1 MG/ML 10 ML VIAL ONE (07:53)
[2023-03-08] MEDS ORDERED: HYDROmorphone (PF) 1 MG/ML ONE (07:53)
[2023-03-08] MEDS ORDERED: LIDOCAINE 0.5%-EPI 1:200,000 50 ML VIAL SQ ONE (07:58)
[2023-03-08] MEDS ORDERED: GELATIN SPONGE,ABSORB (LARGE) 1 EACH SPONGE TOPICAL ONE (07:58)
[2023-03-08] MEDS ORDERED: THROMBIN (BOVINE) 5,000 UNIT VIAL TOPICAL ONE (07:58)
[2023-03-08] MEDS ORDERED: LACTATED RINGERS 1,000 ML IV ONE (10:47)
[2023-03-08] MEDS ORDERED: ceFAZolin 1,000 MG VIAL IVPB ONE (11:58)
[2023-03-08] MEDS: HYDROmorphone 0.5 MG/0.5 ML SYRINGE IVP PRN ×3 (13:07→16:26)
--- NOTE | 2023-03-08 13:12 | FL ---
EXAMINATION TYPE: FL guidance operating room, XR lumbar spine 2 or 3V DATE OF EXAM: 03/08/2023 CLINICAL HISTORY: Low back pain. TECHNIQUE: Fluoroscopy. Intraoperative 2 views lumbar spine. COMPARISON: MRI lumbar spine January 31, 2023. FINDINGS: Fluoroscopic guidance was provided during lumbosacral junction fusion procedure performed by Dr. Ayala. A total of 39 seconds of fluoroscopic time was utilized during the procedure and 7 spot images was acquired. Total dose area product (DAP) in uGy*m?, mGy*cm? (or similar: 56.90 . Intraoperative Images acquired show placement of bilateral interpedicular rods and screws at L5-S1 le roger. IMPRESSION: As Above.
--- NOTE | 2023-03-08 13:21 | P.OP ---
Date of Procedure: 03/08/23 Preoperative Diagnosis: Recurrent disc herniation with stenosis L5-S1, progressive disc degeneration L5- S1 with listhesis, left lower extremity radiculopathy, history of laminectomy discectomy L5-S1, low back pain, left lower extremity weakness Postoperative Diagnosis: Recurrent disc herniation with stenosis L5-S1, progressive disc degeneration L5- S1 with listhesis, left lower extremity radiculopathy, history of laminectomy discectomy L5-S1, low back pain, left lower extremity weakness Anesthesia: GETA Pathology: none sent Condition: stable Disposition: PACU Description of Procedure: DESCRIPTION OF PROCEDURE(S): BRIEF OPERATIVE NOTE Preoperative Diagnosis: Recurrent disc herniation with stenosis L5-S1, progressive disc degeneration L5-S1 with listhesis, left lower extremity radiculopathy, history of laminectomy discectomy L5-S1, low back pain, left lower extremity weakness Postoperative Diagnosis: Recurrent disc herniation with stenosis L5-S1, progressive disc degeneration L5-S1 with listhesis, left lower extremity radiculopathy, history of laminectomy discectomy L5-S1, low back pain, left lower extremity weakness Procedure: Revision Laminectomy and decompression L5-S1 Computer CT navigation aided Minimally invasive Posterior lateral decompression and facet fusion L5-S1 Minimally invasive Transforaminal lumbar interbody fusion for a 360 fusion L5-S1 Discectomy for decompression L5-S1 Placement of interbody graft L5-S1 Use of computer navigation for fusion Local autogenous bone grafting Aspiration of bone marrow from the vertebral body pedicle at L5 on the right Use of bone graft extenders Unexpected and inadvertent laminectomy and discectomy at L4 5 Surgeon: Dr. Ayala Clinical Psychologist Private Practice: [facility] who is present throughout the entire the case persistence during positioning, dissection, exposure, visualization, and all crucial elements of the case as well as closure. Anesthesia: General anesthesia per Estimated blood loss: Approximately 250 mL Complications: During the course of the procedure and inadvertent laminectomy and discectomy at L4 5 was performed. There is no evidence of new instability. There is no evidence of dural tear or leak at the L4 5 level. There is no evidence of new neurologic compromise created from the level at L4 5. Components implanted: K2M minimally invasive [place] pedicle screw system withscrews measuring 6.5 mm in diameter to rods one expandable interbody cage with 10 mL of osteo amp bio4 bone graft substitute and 30 mL of the BX bone fibers to supplement the local autogenous bone graft and bone marrow aspirate Disposition: To recovery room in good stable condition. OPERATIVE INDICATIONS The patient has had severe issues at their lower extremity in his lower back over the past year with significant worsening over the past several months. Last year the patient had been found to have a large disc herniation L5-S1 which could well with his low back and lower extremity symptoms he underwent surgical intervention after failing conservative treatment. He initially did very well with his surgery. The decompression gave him excellent relief over his left lower extremity. However a few months later the patient developed worsening of his back pain and lower extremity pain on the left. Over the past few months the patient had recurrent pain at their back and their lower extremities. The patient is having severe radicular symptoms at their lower extremity with weakness. The patient is having significant pain in their back. They are unable to obtain any comfort. He was found to have progressive disc height loss at L5-S1 as well as recurrent stenosis and herniation at that level. We did aggressive conservative treatment with medications therapy and interventional pain management however thery were not having any relief. The patient also showed evidence of a listhesis with some dynamic instability. The patient has been through conservative treatment. We discussed various treatment options including surgery, and the patient wishes to proceed with surgery We discussed the risk, patient's alternatives and benefits of surgery including but not limited to, risk of bleeding risk of infection, risk of need for further surgery, risk of decreased, loss of motion, muscle function, malunion nonunion, hardware failure, nerve damage, paralysis, heart attack, blindness and . They understood issues with the current pandemic and the possibility of exposure. OPERATIVE SUMMARY After discussing all the risks, patient alternatives and benefits at length, the patient elected to proceed with surgical intervention, signed informed consent, and presented for their procedure. The patient was seen and examined in the preoperative holding area and the surgical site was marked. The patient was g iven antibiotics and brought to the operating room. The patient was sedated and intubated by anesthesia in standard fashion. The patient was positioned on to the operating room table in a prone position on the appropriate frame which was well-padded and well molded. We were careful to pad any bony prominences and pressure points. We were careful to maintain the patient's cervical spine and good neutral alignment and position throughout. The patient was prepped and draped in a normal standard fashion. An appropriate timeout and keystone protocol performed. We were able to proceed with the surgery. The local wound area was infiltrated with local anesthetic. Over the right iliac crest I was able to make small stab incisions and establish a guidepin screw fixation to the iliac crest 2. I was able place the computer referencing device over the guidepins to establish an appropriate reference point for the Ziem CT navigation. We then were able to place patient in an appropriate drape and do a navigation spin for visualization and 3-D reconstruction of the lumbar spine. I was able utilize C-arm guidance and navigation to establish appropriate position over the pedicles bilaterally at the appropriate levels . With the appropriate levels confirmed was able to make small incisions over the appropriate pedicle sites bilaterally. Utilizing the computer navigation device I was able to establish bony landmarks at the right iliac crest for a bony reference point for the navigation device. I was able to establish a Jamshidi needle over the lateral aspect of the pedicle and advanced the trocar into the pedicle being careful not to breech superiorly inferiorly medially or laterally using computer navigation device. Position was confirmed regularly with AP and lateral images on C-arm and with the computer navigation device at the appropriate levels bilaterally. I was able to establish the trocar into the pedicle appropriately into the posterior aspect of the vertebral body bilaterally at the appropriate levels at L5 and S1. At S1 on the right there was some impingement due to the iliac crest. This was making the angle somewhat difficult to establish appropriate starting point and I had to remove a small portion of the edge of the iliac crest emergency gain access. The bone was harvested and saved for bone graft. I was able to place the screw and good alignment once this was complete. This was done at each of the pedicle positions and each of the vertebrae. At the superior vertebrae of L5 I was able to take approximately 15mL of bone aspiration for use later in the case to supplement the allograft and autograft bone. I was able place the guidewire into the trocar and into the vertebral body appropriately under C-arm guidance. Dissection was taken down over the wire to the appropriate starting position for the screw placed. The appropriate length screw was chosen, threaded over the guidewire and screwed appropriately into the pedicle and vertebral body under C- arm guidance in excellent alignment and position with good bony purchase. This is done at each of the screw sites at the appropriate levels.. With the screws intact I extended the incision to connect the screw hole sites on the most symptomatic side on the left. I dissected down to establish access over the pars and lamina to the base of the spinous process. I was able to expose the facet joint. I dissected down over the lamina deep to the screw heads at L5-S1. I was able to dissect over the lamina and get to an interlaminar space. I performed a laminectomy which did show some facet arthrosis. I was able to expose over the dura and to the disc space itself. There is some diffuse disc bulging and an annulotomy was established. I performed a partial discectomy. Imaging was taken at this point as the angle was somewhat obscured toward the disc. At this point I realized that we are at the L4 5 disc space. I had performed inadvertent L4 5 laminectomy and di scectomy. There is no evidence of any dural tear or leak. Good hemostasis was maintained at the area. There is no evidence of any unwanted stimulation on neuro monitoring. Upon realizing that we are at L4 5 I repositioned to gain access to the L5-S1 interlaminar space. I was able to then positively identified the L5-S1 interspace. The L5-S1 capsule the facet was taken down and showed some facet arthrosis at the joint. I was able to use a combination of curettes and Kerrison rongeurs and a high-speed drill to take down the facet joint and do a facetectomy. I was able get excellent foraminal decompression and central decompression with undermining across midline to perform a laminectomy centrally and contralaterally. I was able get good central decompression. The ligamentum flavum was taken down to further decompress centrally and at bilateral neural foramen. I was able to expose the disc space and visualize the traversing nerve root. Note was made of some disc protrusion and disc herniation that was abutting the traversing nerve root at the level causing further compression of the nerve root. I was able to establish a annulotomy at the appropriate level of L5-S1 protecting soft tissue and neural structures. Note was made of severe disc desiccation at the disc and significant disc loss. I performed a complete discectomy with accommodation of curettes and rasps and scrapers. I was able get good endplate preparation at the disc space. I sized for the appropriate size interbody spacer protecting the soft tissue and neural structures. The wound was copiously irrigated and suctioned dry. There is no evidence of any dural tear or leak. I was able to pack the disc space at L5-S1 with local autogenous bone graft as well as a small amount of bone graft which was also placed into the interbody cage itself. Protecting the soft tissue structures and neural structures I was able place the interbody cage in good alignment and good position with good fit and fill at the interbody space. Position was confirmed with C-arm guidance. Good hemostasis maintained. There is no evidence of any dural tear or leak. The wound was irrigated and suctioned dry. With the hardware intact, intraoperative C-arm imaging was again taken which showed good alignment and position of the hardware at the appropriate levels at L5-S1. We were then able to measure, contour and place the rods and appropriate hardware bilaterally. I was able to place capcrews, tighten them down, and torque them with the torque screwdriver appropriately. With this intact I was able to place the local autogenous bone graft with additional bone graft enhancer as necessary into the posterior lateral gutters over the decorticated transverse processes and facet joints on the contralateral side. We had good reestablishing of the height at L5-S1 interbody space. The L4 5 level positively stable. The remainder of the bone graft was placed over the facet joint on the contralateral side after taking down the facet joint capsule. With the bone graft intact, a stable construct, and good decompression at the appropriate levels, we were able to proceed with closure. Good hemostasis was maintained. There is no evidence of dural tear or leak. The fascia was closed for a watertight closure. he subcuticular tissue was closed with absorbable suture. The wound was cleaned and dried and dressed with the appropriate dressing. The drapes were broken down. The patient was gently rolled back onto their hospital bed being careful to maintain their cervical spine and good neutral alignment and position. They were woken up by anesthesia, extubated, and brought to the recovery room in good stable condition. The patient will be admitted to the hospital for appropriate postoperative care, medical management and monitoring. I discussed the case with the patient's postoperatively, and she seemed understood what had transpired in the case at the L5-S1 level as well as the unplanned laminectomy and discectomy decompression at L4 5. We will continue to follow them closely about the postoperative course.
[2023-03-08] MEDS ORDERED: SENNOSIDES-DOCUSATE SODIUM 1 EACH TAB PO PRN (15:55)
[2023-03-08] MEDS ORDERED: MAGNESIUM HYDROXIDE 2,400 MG/10 ML CUP PO PRN (15:55)
[2023-03-08] MEDS ORDERED: ONDANSETRON 4 MG/2 ML VIAL IVP PRN (15:55)
[2023-03-08] MEDS: HYDROcodone/APAP 5-325MG 1 EACH TAB PO PRN (18:34)
[2023-03-08] MEDS: HYDROmorphone 1 MG/ML 1 ML SYRINGE IVP PRN (21:04)
[2023-03-08] MEDS: clonazePAM 1 MG TAB PO SCH (22:07)
[2023-03-09] MEDS: HYDROmorphone 1 MG/ML 1 ML SYRINGE IVP PRN ×6 (00:31→19:35)
[2023-03-09] MEDS: CYCLOBENZAPRINE 10 MG TAB PO PRN ×3 (00:35→17:54)
[2023-03-09] MEDS: HYDROcodone/APAP 5-325MG 1 EACH TAB PO PRN ×4 (05:20→21:03)
[2023-03-09] MEDS: clonazePAM 1 MG TAB PO SCH ×3 (08:23→21:09)
[2023-03-09] MEDS: PANTOPRAZOLE 40 MG TABLET PO SCH (08:23)
[2023-03-09] MEDS: LACTATED RINGERS 1,000 ML IV SCH (08:26)
[2023-03-09] MEDS ORDERED: diazePAM 5 MG TAB PO PRN (08:47)
--- NOTE | 2023-03-09 08:51 | P.PN ---
Progress Note - Text Progress Note Date: 03/09/23 Postoperative day #1 Patient is seen and examined today at bedside. The patient has some pain around the surgical site as expected. Pain is being controlled somewhat with medication, but he has been struggling with his pain overnight. He has been able to get out of bed at all times to try to use the bathroom. He was able to initiate his stream but had significant pain with urination and is unable to urinate. He had to get straight cath 2 last night with residuals of 700 and 900. He denies any nausea or vomiting. He says his legs are doing okay but they're sore with positioning Physical Exam Afebrile with stable vital signs Abdomen is soft nontender. Chest has good excursion deep and space expiration The incision site is clean dry and intact. No erythema there is no purulence. The dressing is intact Extremities have not had neurologic change from prior to surgery. He has sustained dorsal to plantar flexion and EHL. Calves and thighs soft nontender Calves and thighs were soft nontender without evidence of DVT. Assessment/Plan Postoperative day #1 status post minimally invasive revision decompression with fusion L5-S1 Patient is progressing as expected from the surgery in terms of his pain. He was having significant difficulty voiding and did have to be straight cath 2 last night. We will monitor this closely has if he is able to void can continue. However if he is unable to void on his own then we should place a Natarajan catheter intubated overnight. I discussed this with nursing staff swallow. I had a long discussion with him and his in regards to the events of surgery. We explained the procedure and the issues involved and recurrences of surgery as well. They seem to understand. We'll continue to monitor his healing closely as well as the status of the operative level and other levels involved. We will continue to increase the patient's mobilization with therapy. We will continue pain control with oral or IV medications. We'll continue to follow patient closely.
[2023-03-09] MEDS ORDERED: LOSARTAN-HCTZ 50-12.5 MG 1 EACH TAB PO SCH (09:00)
[2023-03-09] MEDS ORDERED: NON FORMULARY DRUG (Omega-3/Dha/Epa/Fish Oil [Fish Oil 1,000 Mg Softgel] 1 EACH Capsule) PO SCH (09:00)
[2023-03-09] MEDS: TAMSULOSIN 0.4 MG CAP.ER.24H PO SCH (10:40)
[2023-03-09 11:42] LABS: Basophils # (A) 0.1 k/uL (0-0.2); Basophils % (A) 1 %; Eosinophils % (A) 0 %; HCT 42.1 % (39.0-53.0); Hypochromasia Marked; Lymphocytes # (A) 0.9 k/uL (1.0-4.8); Lymphocytes % (A) 9 %; MCH 28.2 pg (25.0-35.0); MCHC 31.3 g/dL (31.0-37.0); Mean Platelet Volume 7.7; Monocytes # (A) 0.7 k/uL (0-1.0); Monocytes % (A) 7 %; Neutrophils # (A) 8.1 k/uL (1.3-7.7); Neutrophils % (A) 81 %; Platelet Count 245 k/uL (150-450); RBC 4.68 m/uL (4.30-5.90); RDW 15.7 % (11.5-15.5)
[2023-03-09 11:43] LABS: African American GFR (CKD) >90 (>60 ml/min/1.73 sqM); Anion Gap 10 mmol/L; Blood Urea Nitrogen 11 mg/dL (9-20); Carbon Dioxide 29 mmol/L (22-30); Chloride 95 mmol/L (98-107); Glucose 106 mg/dL (74-99); Magnesium 1.9 mg/dL (1.6-2.3); Non-African American GFR(CKD) >90 (>60 ml/min/1.73 sqM); Potassium 3.9 mmol/L (3.5-5.1); Sodium 134 mmol/L (137-145)
[2023-03-09 11:47] LABS: MCV 89.9 fL (80.0-100.0)
[2023-03-09 11:48] LABS: HGB 13.2 gm/dL (13.0-17.5)
[2023-03-09] MEDS ORDERED: TAMSULOSIN 0.4 MG CAP.ER.24H PO STA (15:41)
--- NOTE | 2023-03-09 16:18 | P.CONS ---
History of Present Illness - Reason for Consult Consult date: 03/09/23 Medical management, postop revision decompression with fusion of L5 to S1 - History of Present Illness This is a 47-year-old male was recently admitted under orthopedic services Dr. Ayala and underwent minimal invasive revision with decompression with fusion of L5 to S1 postop day 1. Patient reports he follows with Dr. Ortiz, hypertension, previous back surgeries, anxiety, and takes testosterone biweekly. Patient de nies smoking occasionally drinks alcohol and denies any other illicit drug use. Patient is reporting some increased pain of his back and also noted to have difficulty with urination with pain and burning with urination. Patient did require straight catheterization 2 overnight and retaining over 900 mL's. Natarajan catheter was placed to monitor intake and output and will add Flomax. Patient does take losartan/hydrochlorothiazide and will resume losartan and monitor closely for any postoperative hypotension. Patient okay to resume home medications once home. Patient has extensive acid reflux and reports his Protonix controls this and he takes this daily. Patient denies chest pain or shortness of breath. No reports of nausea or vomiting and is tolerating some oral intake. Patient able to get up and walk today and encouraged to increase activity as tolerated with restrictions per orthopedics. Review Of Systems: Constitutional: No fever, no chills, no night sweats. No weight change. No weakness, fatigue or lethargy. No daytime sleepiness. EENT: No headache. No blurred vision or double vision, no loss of vision. No loss of Hearing, no ringing in the ears, no dizziness. No nasal drainage or congestion. No epistaxis. No sore throat. Lungs: No shortness of breath, cough, no sputum production. No wheezing. Cardiovascular: No chest pain, no lower extremity edema. No palpitations. No paroxysmal nocturnal dyspnea. No orthopnea. No lightheadedness or dizziness. No syncopal episodes. Abdominal: No abdominal pain. No nausea, vomiting. No diarrhea. No constipation. No bloody or tarry stools.. No loss of appetite. Genitourinary: No dysuria, increased frequency, urgency. Reports urinary retention postoperatively Musculoskeletal: No myalgias. No muscle weakness, no gait dysfunction, no frequent falls. Reports back pain. No neck pain. Integumentary: No wounds, no lesions. No rash or pruritus. No unusual bruising. No change in hair or nails. Neurologic: No aphasia. No facial droop. No change in mentation. No head injury. No headache. No paralysis. No paresthesia. Psychiatric: No depression. No anxiety. No mood swings. Endocrine: No abnormal blood sugars. No weight change. No excessive sweating or thirst. No cold intolerance. PHYSICAL EXAMINATION: GENERAL: The patient is alert and oriented x4, Well developed, well nourished. HEENT: Pupils are round and equally reacting to light. EOMI. no scleral icterus. No conjunctival pallor. Normocephalic, atraumatic. No pharyngeal erythema. No thyromegaly. CARDIOVASCULAR: S1 and S2 muffled PULMONARY: Breath sounds clear to auscultation with no wheezing or rhonchi noted. ABDOMEN: soft. Nontender on exam. non-distended, normoactive bowel sounds. No palpable organomegaly. MUSCULOSKELETAL: No joint swelling or deformity. EXTREMITIES: No cyanosis, clubbing, or pedal edema. NEUROLOGICAL: Gross neurological examination did not reveal any focal deficits. Diffuse weakness SKIN: No rashes. Assessment: Status post minimal invasive revision with decompression with fusion of L5 to S1 postop day #1 History of hypertension Urinary retention, postoperatively most likely medication effect due to anesthesia requiring indwelling Natarajan catheter Gastroesophageal reflux disease previous back surgery including laminectomy with discectomy of L5-S1 History of anxiety GI prophylaxis DVT prophylaxis Full code Plan: Recommend to continue with current medications and management per orthopedic services. patient is status post decompression with fusion of L5 to S1 and has been up and walking. Encouraged increased activity as tolerated with restrictions per orthopedics Patient did have some urinary retention requiring to straight catheterizations an indwelling Natarajan catheter as patient was retaining over 900 mL's. Will start Flomax with possible trial void in the a.m. Home medications reviewed and recommend continuing with losartan although will hold hydrochlorothiazide and monitor closely for any postoperative hypotension. Patient is currently normotensive today. Patient with incentive spirometer at the bedside encourage the patient continue using at least 10 times every hour while awake Labs reviewed and within normal limits Pain management per orthopedics We will continue to follow with orthopedics during hospitalization. Thank you coming for this consultation. The impression and plan of care has been dictated by Jamaica Bowden, nurse practitioner as directed. Dr. Alyse MD I have performed a history and examination and MDM of this patient, discussed the same with the dictator, and agree with the dictator's assessment and plan as written ,documented as a scribe. Based on total visit time, I have performed more than 50% of the visit. Any additional findings or plans will be noted. Past Medical History Past Medical History: GERD/Reflux, Hypertension Additional Past Medical History / Comment(s): "Protonix controls Acid Reflux". History of Any Multi-Drug Resistant Organisms: MRSA Year Discovered:: 05/23/19 MDRO Source:: Stomach Past Surgical History: Back Surgery, Cholecystectomy Additional Past Surgical History / Comment(s): Laminectomy/discectomy L5-S1. Past Anesthesia/Blood Transfusion Reactions: No Reported Reaction Past Psychological History: Anxiety Smoking Status: Never smoker Past Alcohol Use History: Occasional Past Drug Use History: None Reported - Past Family History Father Family Medical History: Hypertension Medications and Allergies Home Medications Medication Instructions Recorded Confirmed Type Pantoprazole [Protonix] 40 mg PO QAM 01/26/21 03/02/23 History Testosterone Cypionate 150 mg IM Q14D 01/26/21 03/02/23 History [Depo-Testosterone] Losartan/Hydrochlorothiazide 1 tab PO QAM 08/02/22 03/02/23 History [Losartan-Hctz 100-25 mg Tab] [place]-3/Dha/Epa/Fish Oil [Fish Oil 1 each PO DAILY 03/02/23 03/02/23 History 1,000 mg Softgel] clonazePAM 1 mg PO TID 03/02/23 03/02/23 History Allergies Allergy/AdvReac Type Severity Reaction Status Date / Time Iodinated Contrast Media Allergy Unknown Verified 03/08/23 07:23 [Iodinated Contrast- Oral and IV Dye] Physical Exam Vitals: Vital Signs Temp Pulse Resp BP Pulse Ox 03/09/23 08:43 95 03/09/23 07:25 99.7 F H 100 17 123/75 96 03/09/23 00:27 98.9 F 97 18 106/70 100 03/08/23 19:00 97.2 F L 91 17 126/79 99 03/08/23 16:10 83 115/71 95 03/08/23 15:55 97 113/74 96 03/08/23 15:25 78 114/69 95 03/08/23 15:10 81 110/66 95 03/08/23 14:55 78 106/67 98 03/08/23 14:40 83 111/69 94 L 03/08/23 14:25 93 106/67 92 L 03/08/23 14:10 86 111/69 96 03/08/23 14:02 79 12 106/67 03/08/23 13:30 84 16 103/55 100 03/08/23 13:15 93 16 111/58 100 03/08/23 13:00 97.2 F L 96 16 103/50 100 Intake and Output 03/08/23 03/09/23 03/09/23 22:59 06:59 14:59 Output Total 775 Balance -775 Output: Urine 775 Uretheral (Natarajan) 775 Results CBC & Chem 7: 03/09/23 10:48 03/09/23 10:48
[2023-03-10] MEDS: HYDROmorphone 1 MG/ML 1 ML SYRINGE IVP PRN ×4 (01:53→20:22)
[2023-03-10] MEDS: CYCLOBENZAPRINE 10 MG TAB PO PRN ×2 (05:12→20:21)
[2023-03-10] MEDS: HYDROcodone/APAP 5-325MG 1 EACH TAB PO PRN ×4 (06:36→22:24)
[2023-03-10] MEDS: LOSARTAN 50 MG TAB PO SCH (07:54)
[2023-03-10] MEDS: clonazePAM 1 MG TAB PO SCH ×3 (07:54→22:28)
[2023-03-10] MEDS: TAMSULOSIN 0.4 MG CAP.ER.24H PO SCH (07:54)
[2023-03-10] MEDS: PANTOPRAZOLE 40 MG TABLET PO SCH (07:54)
--- NOTE | 2023-03-10 08:04 | P.PN ---
Progress Note - Text Progress Note Date: 03/10/23 Postoperative day #2 Patient is seen and examined today at bedside. The patient has some pain around the surgical site as expected, but this is significantly improving. He is controlling primarily oral medications.. Pain is being controlled with medication. He has been ambulatory in his room and is interested in trying to shower. He still has his Natarajan intact and is worried about removing it. He does feel like it is improving in terms of irritation around his catheter. Physical Exam Afebrile with stable vital signs Abdomen is soft nontender. Chest has good excursion deep and space expiration The incision site is clean dry and intact. No erythema there is no purulence. The dressing is clear without any drainage. There is no significant swelling there is no erythema Extremities have not had neurologic change from prior to surgery. He has sustained dorsiflexion plantar flexion and EHL intact Calves and thighs were soft nontender without evidence of DVT. Assessment/Plan Postoperative day #2 status post minimally invasive decompression and fusion L5- S1 with revision decompression of L5 S1 for his recurrent stenosis with progressive disc degeneration and listhesis Patient is progressing as expected from the surgery in terms of his pain and his mobilization. We will continue to increase the patient's mobilization with therapy. He is still having trouble with his urination and I think it is okay to leave the Natarajan catheter intact until tomorrow morning. We will cover him prophylactic antibiotics until that time to discontinue Natarajan in the morning. If he wishes he can have the Natarajan discontinued this evening to see if he is able to urinate. He should continue his Flomax for now. Disinterested trying to shower and I think it would be okay. He may have some further benefit with usage of a LSO brace as well and we will order that for him for when he is out of bed for comfort We will continue pain control with oral or IV medications. We'll continue to follow patient closely.
--- NOTE | 2023-03-10 08:45 | P.PN ---
Progress Note - Text Progress Note Date: 03/10/23 Orthopedic Spine History of present illness: Patient is a pleasant 47-year-old male who is seen and examined at the bedside following posterior lateral decompression and fusion performed Monday. Patient states she has been improving postoperatively. He does continue to have significant back pain at the surgical sites of his lumbosacral spine as well as lumbar spasm. His pain has been actively controlled with medications. He currently denies any lower extremity weakness or radiculopathy bilaterally. He had significant left lower extremity radiculopathy prior to surgical intervention. He states his left lower extremity radiculopathy has significa ntly improved postoperatively. He has been able to ambulate the hallways with physical therapy. His mobilization is slow, but he has been able to mobilize into the restroom. He does continue to have difficulty with urinary retention postoperatively. He did require straight catheterization 3 times. Natarajan catheter is currently intact. He has been started on Flomax He denies any abdominal pain. He is eating without difficulty. He continues to be seen and examined by medicine for medical management. Currently does not complain of nausea, vomiting, fever, or chills. Physical Exam Lumbar Fusion: Status post surgical day number 2 Patient is awake, alert, and oriented 3 Vital signs stable Good chest excursion with deep inspiration and expiration Abdomen soft nontender Dorsiflexion, plantarflexion, and extensor hallucis longus positive sustained bilaterally No signs or symptoms of DVT; no calf pain; pneumatic cuffs intact bilateral lower extremities Optifoam dressings are clean, dry, and intact over the lumbar spine and right iliac crest; no erythema, purulence, or signs of infection Neurovascularly intact bilaterally lower extremities Natarajan catheter intact Assessment: Status post L5-S1 minimally invasive posterior lateral decompression and fusion with transforaminal lumbar interbody fusion and revision laminectomy Low back pain Left lower extremity radiculopathy with significant remain postoperatively Postoperative urinary retention Anxiety GERD Hypertension Plan: 1. Ambulate as tolerated; work with Physical Therapy to increase mobilization; patient may utilize walker to aid in ambulation. Prescription is written, signed, and provided to case management to obtain a 2 wheeled walker for home us e 2. Continue pain control with IV and oral medications; will plan to begin weaning the patient off of IV narcotic medication in anticipation for discharge home in the next 1-2 days MAPS has been reviewed today, 03/10/2023, with an Overall Overdose Risk Score of 500. An "Opiod Start Talking" Form has been signed and placed in the patient's chart. A prescription has been written for hydrocodone 5 mg/325 mg, 1-2 tabs every 6 hours as needed for acute pain, dispensed #56. Patient is also given a prescription for cyclobenzaprine 10 mg 1 tab 3 times a day, as needed for muscle spasm, dispensed #60. 3. Dressings to remain intact with Optifoam; patient may shower with dressings intact 4. Patient has had urinary retention postoperatively. Patient required straight catheterization 3 times. Natarajan catheter is currently intact. Patient has been started on Flomax. We will currently planned to leave his Natarajan catheter intact until tomorrow, 03/11/2023, for bladder rest. We'll plan to di scontinue Natarajan catheter tomorrow to see if the patient is able to void independently. 5. Prescription was also written, signed, and provided to case management to obtain LSO bracing. Once delivered and fitted properly, patient may utilize his brace to aid in mobility and ambulation as needed 6. Medical management can continue to manage patient for patient's other medical diagnoses 7. We will continue to follow the patient closely; depending on the patient's progress, we may plan for discharge home as early as tomorrow, 03/11/2023, if the patient continues to improve in regards to his lumbar spine and is able to void independently 8. Patient can follow-up with Giovanni Freedman PA-C or Dr. Fan Ayala at [facility] in 2-3 weeks following discharge
[2023-03-10] MEDS: LACTATED RINGERS 1,000 ML IV SCH (08:53)
[2023-03-10] MEDS: HYDROmorphone 0.5 MG/0.5 ML SYRINGE IVP PRN (14:39)
--- NOTE | 2023-03-10 19:57 | P.PN ---
Subjective Progress Note Date: 03/10/23 - Reason for Consult Consult date: 03/09/23 Medical management, postop revision decompression with fusion of L5 to S1 - History of Present Illness This is a 47-year-old male was recently admitted under orthopedic services Dr. Ayala and underwent minimal invasive revision with decompression with fusion of L5 to S1 postop day 1. Patient reports he follows with Dr. Ortiz, hypertension, previous back surgeries, anxiety, and takes testosterone biweekly. Patient denies smoking occasionally drinks alcohol and denies any other illicit drug use. Patient is reporting some increased pain of his back and also noted to have difficulty with urination with pain and burning with urination. Patient did require straight catheterization 2 overnight and retaining over 900 mL's. Natarajan catheter was placed to monitor intake and output and will add Flomax. Patient does take losartan/hydrochlorothiazide and will resume losartan and monitor closely for any postoperative hypotension. Patient okay to resume home medications once home. Patient has extensive acid reflux and reports his Protonix controls this and he takes this daily. Patient denies chest pain or shortness of breath. No reports of nausea or vomiting and is tolerating some oral intake. Patient able to get up and walk today and encouraged to increase activity as tolerated with restrictions per orthopedics. 03/10/2023 Patient is seen and evaluated in follow-up this morning currently lying flat reports to some improvement in pain. Patient does continue with indwelling Natarajan catheter and does have Flomax and reports his penile pain has improved and will continue with indwelling cath for 1 more day with trial void in the a.m. Recommend continue with Flomax. Patient also reports mostly belching but no reports of gas or bowel movement as of yet and will add stool softeners to scheduled and encouraged increase activity as tolerated. Patient reports he thinks he is getting up maybe 3 times per day. LSO brace ordered as well per orthopedics. Patient is currently afebrile denies chest pain or shortness of breath reports to tolerating diet with no reports of nausea or vomiting noted. Review of systems: Constitutional: No reports of fatigue, fever, or chills Cardiovascular: No reports of chest pain or palpitations Respiratory: No reports of shortness of breath or cough GI: No reports of nausea, vomiting, or diarrhea, reports belching and not passing much gas and has not had a bowel movement : No reports of dysuria or retention Neurovascular: No reports of weakness , reports some back pain that is improving All medications have been reviewed PHYSICAL EXAMINATION: GENERAL: The patient is alert and oriented x4, Well developed, well nourished. HEENT: Pupils are round and equally reacting to light. EOMI. no scleral icterus. No conjunctival pallor. Normocephalic, atraumatic. No pharyngeal erythema. No thyromegaly. CARDIOVASCULAR: S1 and S2 muffled PULMONARY: Breath sounds clear to auscultation with no wheezing or rhonchi noted. ABDOMEN: soft. Nontender on exam. non-distended, normoactive bowel sounds. No palpable organomegaly. MUSCULOSKELETAL: No joint swelling or deformity. EXTREMITIES: No cyanosis, clubbing, or pedal edema. NEUROLOGICAL: Gross neurological examination did not reveal any focal deficits. Diffuse weakness SKIN: No rashes. Assessment: Status post minimal invasive revision with decompression with fusion of L5 to S1 postop day #2 History of hypertension Urinary retention, postoperatively most likely medication effect due to anesthesia requiring indwelling Natarajan catheter Gastroesophageal reflux disease previous back surgery including laminectomy with discectomy of L5-S1 History of anxiety GI prophylaxis DVT prophylaxis Full code Plan: Recommend to continue with current medications and management per orthopedic services. patient is status post decompression with fusion of L5 to S1 and has been up and walking. Encouraged increased activity as tolerated with restrictions per orthopedics. LSO brace is ordered Patient did have some urinary retention requiring to straight catheterizations an indwelling Natarajan catheter as patient was retaining over 900 mL's. Will continue Flomax and continue with indwelling Natarajan catheter for today with trial void in the a.m. Home medications reviewed and recommend continuing with losartan although will hold hydrochlorothiazide and monitor closely for any postoperative hypotension. Patient is currently normotensive. Patient with incentive spirometer at the bedside encourage the patient continue using at least 10 times every hour while awake Pain management per orthopedics, recommend limiting the use of IV pain medications We will continue to follow with orthopedics during hospitalization. Thank you coming for this consultation. The impression and plan of care has been dictated by Jamaica Bowden, nurse practitioner as directed. Dr. Alyse MD I have performed a history and examination and MDM of this patient, discussed the same with the dictator, and agree with the dictator's assessment and plan as written ,documented as a scribe. Based on total visit time, I have performed more than 50% of the visit. Any additional findings or plans will be noted. Objective - Vital Signs Vital signs: Vital Signs Temp 99.0 F 03/10/23 07:34 Pulse 118 H 03/10/23 07:34 Resp 18 03/10/23 09:38 BP 112/58 03/10/23 07:34 Pulse Ox 92 L 03/10/23 07:34 FiO2 Intake & Output 03/09/23 03/10/23 03/10/23 18:59 06:59 18:59 Intake Total 472 Output Total 2681 1000 1000 Balance -2209 -1000 -1000 Intake: Oral 472 Output: Urine 1775 1000 1000 Post Void Residual 906 Other: Voiding Method Indwelling Catheter Indwelling Catheter - Labs CBC & Chem 7: 03/09/23 10:48 03/09/23 10:48 Labs: Abnormal Lab Results - Last 24 Hours (Table) 03/09/23 03/09/23 Range/Units 10:48 10:48 RDW 15.7 H (11.5-15.5) % Neutrophils # 8.1 H (1.3-7.7) k/uL Lymphocytes # 0.9 L (1.0-4.8) k/uL Sodium 134 L (137-145) mmol/L Chloride 95 L (98-107) mmol/L Glucose 106 H (74-99) mg/dL Calcium 8.0 L (8.4-10.2) mg/dL
[2023-03-10] MEDS: SENNOSIDES-DOCUSATE SODIUM 1 EACH TAB PO SCH (20:21)
[2023-03-11] MEDS: HYDROcodone/APAP 5-325MG 1 EACH TAB PO PRN ×6 (02:25→22:30)
[2023-03-11] MEDS: CYCLOBENZAPRINE 10 MG TAB PO PRN ×3 (05:29→20:55)
--- NOTE | 2023-03-11 07:53 | P.DS ---
Providers Date of admission: 03/10/23 10:34 Attending physician: Yanira Ayala Consults: 03/08/23 16:02 Consult Physician Routine Consulting Provider: Danielle Everett Consult Reason/Comments: Post-op medical mangement Do you want consulting provider notified?: Yes Primary care physician: Park Ortiz [facility] Hospital Course: The patient presented on the day of admission as per their operative note. He underwent minimally invasive decompression with revision decompression and a new fusion at L5-S1 for his recurrent stenosis with degenerative disc disease and disc herniation. He feels his legs are doing much better. He has been able to increase his mobilization and he is getting in and out of bed on his own. He is tolerating his pain adequately with oral medications. He had his Natarajan discontinued this morning around 5:30. he has not yet voided spontaneously. He is tolerating his diet well. She is passing gas. Physical Exam The incision site is clean dry and intact. There is no erythema no drainage. There is no purulence no evidence of infection. There is no rash there is no active drainage. There is no significant swelling. Abdomen soft and nontender. Chest has good excursion with deep inspiration and expiration. The patient has active and passive range of motion intact at the upper and lower extremities. There is no acute change in neurologic status. He has sustained dorsal to plantar flexion and EHL. He is able to his legs up off the bed easily. Hospital Course Postoperative day #3 status post millimeter invasive revision decompression L5- S1 with fusion L5-S1 for his recurrent stenosis with disc herniation and disc degeneration. The patient has now been making good progress postoperatively. He has had his Natarajan discontinued this morning. If he is able to void on his own and I think it will be okay for him to be discharged home today in his unable to void to the course of the day and then he may need to have the Natarajan replaced and wait another evening with bladder rest. They have completed the prophylactic antibiotics without any signs or symptoms of infection. The patient has been able to advance their diet, and is tolerating diet adequately. The pain was initially controlled with IV medications and is now controlled appropriately with oral medications. The patient has been able to increase their mobilization. The patient has progressed appropriately, and we are just waiting for him to be able to void on his own. If he is able to void freely on his own today with the Natarajan discontinued then I think they are in good stable condition for discharge today. They will be sent home with appropriate prescriptions. I answered their questions to the best of my ability in a language that they can understand and they are agreeable with the plan. They will follow up as directed in approximately 2 weeks or sooner if he is having problems. Patient Condition at Discharge: Fair Plan - Discharge Summary Discharge Rx Participant: Yes New Discharge Prescriptions: New HYDROcodone/APAP 5-325MG [Duncan 5] 1 - 2 each PO Q6HR PRN #56 tab PRN Reason: Pain Cyclobenzaprine [Flexeril] 10 mg PO TID PRN #60 tab PRN Reason: Muscle Spasm Sennosides-Docusate Sodium [Senokot-S] 1 tab PO BID PRN #60 tablet PRN Reason: Constipation No Action Pantoprazole [Protonix] 40 mg PO QAM Testosterone Cypionate [Depo-Testosterone] 150 mg IM Q14D Losartan/Hydrochlorothiazide [Losartan-Hctz 100-25 mg Tab] 1 tab PO QAM clonazePAM 1 mg PO TID [place]-3/Dha/Epa/Fish Oil [Fish Oil 1,000 mg Softgel] 1 each PO DAILY Discharge Medication List Pantoprazole [Protonix] 40 mg PO QAM 01/26/21 [History] Testosterone Cypionate [Depo-Testosterone] 150 mg IM Q14D 01/26/21 [History] Losartan/Hydrochlorothiazide [Losartan-Hctz 100-25 mg Tab] 1 tab PO QAM 08/02/22 [History] [place]-3/Dha/Epa/Fish Oil [Fish Oil 1,000 mg Softgel] 1 each PO DAILY 03/02/23 [History] clonazePAM 1 mg PO TID 03/02/23 [History] Cyclobenzaprine [Flexeril] 10 mg PO TID PRN #60 tab 03/10/23 [Rx] HYDROcodone/APAP 5-325MG [Duncan 5] 1 - 2 each PO Q6HR PRN #56 tab 03/10/23 [Rx] Sennosides-Docusate Sodium [Senokot-S] 1 tab PO BID PRN #60 tablet 03/10/23 [Rx] Follow up Appointment(s)/Referral(s): Giovanni Freedman PAC [PHYSICIAN GUIDE [facility]] - 03/24/23 8:00 am (Patient may follow-up with Giovanni Freedman PA-C or Dr. Fan Ayala at [facility] in 2-3 weeks following discharge. ) Activity/Diet/Wound Care/Special Instructions: 1. Patient may shower with Optifoam dressing intact. 2. Patient may remove Optifoam dressing in 3 days and shower without a dressing at that time. 3. Patient should refrain from driving until at least after their first follow- up appointment in the office. 4. Patient should avoid excessive bending, twisting, lifting; avoid overhead lifting; no lifting greater than 10 pounds 5. Patient may wear LSO brace for comfort and support during increase activities and mobilization 6. Patient may utilize 2 wheeled walker to aid in ambulation as needed 7. Take medications as prescribed 8. Patient should avoid anti-inflammatory medications over the next 6 weeks postoperatively 9. Do not soak in tub
[2023-03-11] MEDS: SENNOSIDES-DOCUSATE SODIUM 1 EACH TAB PO SCH ×2 (07:55→20:55)
[2023-03-11] MEDS: PANTOPRAZOLE 40 MG TABLET PO SCH (07:55)
[2023-03-11] MEDS: TAMSULOSIN 0.4 MG CAP.ER.24H PO SCH (07:55)
[2023-03-11] MEDS: clonazePAM 1 MG TAB PO SCH ×3 (07:56→20:55)
[2023-03-11] MEDS: LOSARTAN 50 MG TAB PO SCH (07:56)
[2023-03-11] MEDS: LACTATED RINGERS 1,000 ML IV SCH (08:07)
--- NOTE | 2023-03-11 14:21 | P.PN ---
Subjective Progress Note Date: 03/11/23 This is a 47-year-old male was recently admitted under orthopedic services Dr. Ayala and underwent minimal invasive revision with decompression with fusion of L5 to S1 postop day 1. Patient reports he follows with Dr. Ortiz, hypertension, previous back surgeries, anxiety, and takes testosterone biweekly. Patient denies smoking occasionally drinks alcohol and denies any other illicit drug use. Patient is reporting some increased pain of his back and also noted to have difficulty with urination with pain and burning with urination. Patient did require straight catheterization 2 overnight and retaining over 900 mL's. Natarajan catheter was placed to monitor intake and output and will add Flomax. Pedro emanuel does take losartan/hydrochlorothiazide and will resume losartan and monitor closely for any postoperative hypotension. Patient okay to resume home medications once home. Patient has extensive acid reflux and reports his Protonix controls this and he takes this daily. Patient denies chest pain or shortness of breath. No reports of nausea or vomiting and is tolerating some oral intake. Patient able to get up and walk today and encouraged to increase activity as tolerated with restrictions per orthopedics. 03/10/2023 Patient is seen and evaluated in follow-up this morning currently lying flat reports to some improvement in pain. Patient does continue with indwelling Natarajan catheter and does have Flomax and reports his penile pain has improved and will continue with indwelling cath for 1 more day with trial void in the a.m. Recommend continue with Flomax. Patient also reports mostly belching but no reports of gas or bowel movement as of yet and will add stool softeners to sc heduled and encouraged increase activity as tolerated. Patient reports he thinks he is getting up maybe 3 times per day. LSO brace ordered as well per orthopedics. Patient is currently afebrile denies chest pain or shortness of breath reports to tolerating diet with no reports of nausea or vomiting noted. 03/11. Patient seen and examined. Vital signs stable. Complaining of urinary retention, currently on bladder management per protocol REVIEW OF SYSTEMS: CONSTITUTIONAL: No fever, no malaise,. CARDIOVASCULAR: No chest pain, no palpitations, no syncope. PULMONARY: No shortness of breath, no cough, GASTROINTESTINAL: No diarrhea, no nausea, no vomiting, no abdominal pain. NEUROLOGICAL: No headaches, no weakness, PHYSICAL EXAMINATION: GENERAL: The patient is alert and oriented x3, not in any acute distress. Well developed, well nourished. HEENT: Pupils are round and equally reacting to light. EOMI. No scleral icterus. No conjunctival pallor. Normocephalic, atraumatic. No pharyngeal erythema. No thyromegaly. CARDIOVASCULAR: S1 and S2 present. No murmurs, rubs, or gallops. PULMONARY: Chest is clear to auscultation, no wheezing or crackles. ABDOMEN: Soft, nontender, nondistended, normoactive bowel sounds. No palpable organomegaly. MUSCULOSKELETAL: No joint swelling or deformity. EXTREMITIES: No cyanosis, clubbing, or pedal edema. NEUROLOGICAL: Gross neurological examination did not reveal any focal deficits. SKIN: No rashes. Lumbar area surgical incision seen Assessment and plan Status post minimal invasive revision with decompression with fusion of L5 to S1 postop day #2 History of hypertension Urinary retention, postoperatively most likely medication effect due to anesthesia requiring indwelling Natarajan catheter Gastroesophageal reflux disease previous back surgery including laminectomy with discectomy of L5-S1 History of anxiety Plan Monitor vital signs Monitor CBC Monitor CMP status post decompression with fusion of L5 to S1 Continue bladder management per protocol, currently on Flomax, Patient with incentive spirometer at the bedside encourage the patient continue using at least 10 times every hour while awake Pain management per orthopedics, recommend limiting the use of IV pain medications Objective - Vital Signs Vital signs: Vital Signs Temp 98.5 F 03/11/23 07:46 Pulse 92 03/11/23 10:33 Resp 17 03/11/23 10:33 BP 119/74 03/11/23 07:46 Pulse Ox 99 03/11/23 08:31 FiO2 Intake & Output 03/10/23 03/11/23 03/11/23 18:59 06:59 18:59 Intake Total 118 Output Total 4100 1750 Balance -4100 -1632 Intake: Oral 118 Output: Urine 4100 1750 Other: Voiding Method Indwelling Catheter Indwelling Catheter Indwelling Catheter - Labs CBC & Chem 7: 03/09/23 10:48 03/09/23 10:48
[2023-03-12] MEDS: HYDROcodone/APAP 5-325MG 1 EACH TAB PO PRN ×3 (02:37→11:28)
[2023-03-12 07:24] VITALS: BP 124/72; PULSE 97; RESP 19; TEMP 98.2
[2023-03-12] MEDS: SENNOSIDES-DOCUSATE SODIUM 1 EACH TAB PO SCH (08:32)
[2023-03-12] MEDS: PANTOPRAZOLE 40 MG TABLET PO SCH (08:32)
[2023-03-12] MEDS: TAMSULOSIN 0.4 MG CAP.ER.24H PO SCH (08:32)
[2023-03-12] MEDS: clonazePAM 1 MG TAB PO SCH (08:32)
[2023-03-12] MEDS: LOSARTAN 50 MG TAB PO SCH (08:32)
[2023-03-12] MEDS: LACTATED RINGERS 1,000 ML IV SCH (08:33)
--- NOTE | 2023-03-12 08:59 | P.DS ---
Providers Date of admission: 03/10/23 10:34 Attending physician: Yanira Ayala Consults: 03/08/23 16:02 Consult Physician Routine Consulting Provider: Danielle Everett Consult Reason/Comments: Post-op medical mangement Do you want consulting provider notified?: Yes 03/11/23 16:55 Consult Physician Routine Consulting Provider: Gary Gee Consult Reason/Comments: Retention/ Natarajan placement Do you want consulting provider notified?: Yes Primary care physician: Park Ortiz [facility] Course: The patient presented on the day of admission as per their operative note. 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 In terms of his back he feels he is making progress with his pain control and his mobility. He feels his legs are doing well when he is up. He feels his legs have been better since his surgery. He is tolerating his regular diet. He has been having some difficulty with urination and he is returning urine. He attempted some bladder rest. Hospital but was unable to fully empty his bladder yesterday. He had his Natarajan reinserted yesterday. Physical Exam The incision site is clean dry and intact. There is no erythema no drainage. There is no purulence no evidence of infection. Abdomen soft and nontender. Chest has good excursion with deep inspiration and expiration. The patient has active and passive range of motion intact at the upper and lower extremities. There is no acute change in neurologic status. The Natarajan catheters intact. Hospital Course The patient has been making good progress postoperatively in terms of his pain in his mobilization. They have completed the prophylactic antibiotics without any signs or symptoms of infection. The patient has been able to advance their diet, and is tolerating diet adequately. The pain was initially controlled with IV medications and is now controlled appropriately with oral medications. The patient has been able to increase their mobilization. The patient continues to have some issues with urinary retention. Urology has been involved in the case as well and I was able to see the patient with urology today. We feel it is the best case for him to discharge home with the Natarajan catheter intact to allow us better to fully rest and empty appropriately. He has been started on Flomax which he will continue. He'll make arrangements for discontinuing the catheter on his own on Monday and have follow-up several hours later with urology to make sure that he can void appropriately. We discussed this with the patient and the at length and they understand. The patient has progressed appropriately otherwise and understands the issue with the voiding and the catheter. I think they are in stable condition for discharge today with a Natarajan intact. They will be sent home with appropriate prescriptions. I answered their questions to the best of my ability in a language that they can understand and they are agreeable with the plan. They will follow up as directed. Patient Condition at Discharge: Fair Plan - Discharge Summary Discharge Rx Participant: Yes New Discharge Prescriptions: New HYDROcodone/APAP 5-325MG [[place] 5] 1 - 2 each PO Q6HR PRN #56 tab PRN Reason: Pain Tamsulosin [Flomax] 0.4 mg PO DAILY #30 cap Cyclobenzaprine [Flexeril] 10 mg PO TID PRN #60 tab PRN Reason: Muscle Spasm Sennosides-Docusate Sodium [Senokot-S] 1 tab PO BID PRN #60 tablet PRN Reason: Constipation No Action Pantoprazole [Protonix] 40 mg PO QAM Testosterone Cypionate [Depo-Testosterone] 150 mg IM Q14D Losartan/Hydrochlorothiazide [Losartan-Hctz 100-25 mg Tab] 1 tab PO QAM clonazePAM 1 mg PO TID [place]-3/Dha/Epa/Fish Oil [Fish Oil 1,000 mg Softgel] 1 each PO DAILY Discharge Medication List Pantoprazole [Protonix] 40 mg PO QAM 01/26/21 [History] Testosterone Cypionate [Depo-Testosterone] 150 mg IM Q14D 01/26/21 [History] Losartan/Hydrochlorothiazide [Losartan-Hctz 100-25 mg Tab] 1 tab PO QAM 08/02/22 [History] [place]-3/Dha/Epa/Fish Oil [Fish Oil 1,000 mg Softgel] 1 each PO DAILY 03/02/23 [History] clonazePAM 1 mg PO TID 03/02/23 [History] Cyclobenzaprine [Flexeril] 10 mg PO TID PRN #60 tab 03/10/23 [Rx] HYDROcodone/APAP 5-325MG [[place] 5] 1 - 2 each PO Q6HR PRN #56 tab 03/10/23 [Rx] Sennosides-Docusate Sodium [Senokot-S] 1 tab PO BID PRN #60 tablet 03/10/23 [Rx] Tamsulosin [Flomax] 0.4 mg PO DAILY #30 cap 03/12/23 [Rx] Follow up Appointment(s)/Referral(s): Giovanni Freedman, MARISOL [PHYSICIAN [employer]ATOR] - 03/24/23 8:00 am (Patient may follow-up with Giovanni Freedman PA-C or Dr. Fan Ayala at [facility] in 2-3 weeks following discharge. ) Activity/Diet/Wound Care/Special Instructions: 1. Patient may shower with Optifoam dressing intact. 2. Patient may remove Optifoam dressing on Monday and shower without a dressing on Monday. 3. Patient should refrain from driving until at least after their first follow- up appointment in the office. 4. Patient should avoid excessive bending, twisting, lifting; avoid overhead lifting; no lifting greater than 10 pounds 5. Patient may wear LSO brace for comfort and support during increase activities and mobilization 6. Patient may utilize 2 wheeled walker to aid in ambulation as needed 7. Take medications as prescribed 8. Patient should avoid anti-inflammatory medications over the next 6 weeks postoperatively 9. Do not soak in tub Patient will be discharged home with the Natarajan catheter intact with a leg bag. He is making arrangements with urology to discontinue his catheter on Monday and have a appointment with urology 6 hours later. I discussed this with Dr. Cohen with urology. Discharge Disposition: HOME SELF-CARE
--- NOTE | 2023-03-12 09:14 | P.GSCN ---
History of Present Illness Consult date: 03/12/23 Reason for Consult: Urinary retention History of present illness: This is a 47-year-old male that underwent spinal fusion on March 08. Patient was admitted to the hospital postoperatively. Patient catheter was removed yesterday, he was able to void but his postvoid residuals greater than 500 mL's. At Baseline he denies any voiding dysfunction. No previous history of urinary retention. No previous history of gross hematuria, or UTIs. He was able to void 100-200 mL but his postvoid was greater than 500. The Natarajan catheter was reinserted and he was started on Flomax. Past Medical History Past Medical History: GERD/Reflux, Hypertension Additional Past Medical History / Comment(s): "Protonix controls Acid Reflux". History of Any Multi-Drug Resistant Organisms: MRSA Year Discovered:: 05/23/19 MDRO Source:: Stomach Past Surgical History: Back Surgery, Cholecystectomy Additional Past Surgical History / Comment(s): Laminectomy/discectomy L5-S1. Past Anesthesia/Blood Transfusion Reactions: No Reported Reaction Past Psychological History: Anxiety Smoking Status: Never smoker Past Alcohol Use History: Occasional Past Drug Use History: None Reported - Past Family History Father Family Medical History: Hypertension Medications and Allergies Home Medications Medication Instructions Recorded Confirmed Type Pantoprazole [Protonix] 40 mg PO QAM 01/26/21 03/02/23 History Testosterone Cypionate 150 mg IM Q14D 01/26/21 03/02/23 History [Depo-Testosterone] Losartan/Hydrochlorothiazide 1 tab PO QAM 08/02/22 03/02/23 History [Losartan-Hctz 100-25 mg Tab] [place]-3/Dha/Epa/Fish Oil [Fish Oil 1 each PO DAILY 03/02/23 03/02/23 History 1,000 mg Softgel] clonazePAM 1 mg PO TID 03/02/23 03/02/23 History Cyclobenzaprine [Flexeril] 10 mg PO TID PRN #60 tab 03/10/23 Rx HYDROcodone/APAP 5-325MG [[place] 5] 1 - 2 each PO Q6HR PRN #56 tab 03/10/23 Rx Sennosides-Docusate Sodium 1 tab PO BID PRN #60 tablet 03/10/23 Rx [Senokot-S] Tamsulosin [Flomax] 0.4 mg PO DAILY #30 cap 03/12/23 Rx Allergies Allergy/AdvReac Type Severity Reaction Status Date / Time Iodinated Contrast Media Allergy Unknown Verified 03/08/23 07:23 [Iodinated Contrast- Oral and IV Dye] Surgical - Exam Vital Signs Temp Pulse Resp BP Pulse Ox 97.8 F 81 16 137/75 99 03/08/23 07:24 03/08/23 07:24 03/08/23 07:24 03/08/23 07:24 03/08/23 07:24 - General no distress, no pain - Eyes normal ocular movement, no pale - ENT normal nares, normal mucosa - Respiratory normal expansion, normal respiratory effort - Abdomen Abdomen: soft, non tender - Genitourinary normal penis with no external lesions - Psychiatric oriented to time, oriented to person, oriented to place Results - Labs 03/09/23 10:48 03/09/23 10:48 Assessment and Plan Assessment: 47-year-old male postoperative urinary retention. -Discharge home with the Natarajan catheter, he'll follow up on Monday for a trial of void. Patient was advised to remove the catheter 6 hours prior to his follow-up -Continue Flomax, he can be discharged home on Flomax
[2023-03-12] MEDS: CYCLOBENZAPRINE 10 MG TAB PO PRN (09:32)
--- NOTE | 2023-03-12 13:31 | P.PN ---
Subjective Progress Note Date: 03/12/23 This is a 47-year-old male was recently admitted under orthopedic services Dr. Ayala and underwent minimal invasive revision with decompression with fusion of L5 to S1 postop day 1. Patient reports he follows with Dr. Ortiz, hypertension, previous back surgeries, anxiety, and takes testosterone biweekly. Patient denies smoking occasionally drinks alcohol and denies any other illicit drug use. Patient is reporting some increased pain of his back and also noted to have difficulty with urination with pain and burning with urination. Patient did require straight catheterization 2 overnight and retaining over 900 mL's. Natarajan catheter was placed to monitor intake and output and will add Flomax. Pedro emanuel does take losartan/hydrochlorothiazide and will resume losartan and monitor closely for any postoperative hypotension. Patient okay to resume home medications once home. Patient has extensive acid reflux and reports his Protonix controls this and he takes this daily. Patient denies chest pain or shortness of breath. No reports of nausea or vomiting and is tolerating some oral intake. Patient able to get up and walk today and encouraged to increase activity as tolerated with restrictions per orthopedics. 03/10/2023 Patient is seen and evaluated in follow-up this morning currently lying flat reports to some improvement in pain. Patient does continue with indwelling Natarajan catheter and does have Flomax and reports his penile pain has improved and will continue with indwelling cath for 1 more day with trial void in the a.m. Recommend continue with Flomax. Patient also reports mostly belching but no reports of gas or bowel movement as of yet and will add stool softeners to sc heduled and encouraged increase activity as tolerated. Patient reports he thinks he is getting up maybe 3 times per day. LSO brace ordered as well per orthopedics. Patient is currently afebrile denies chest pain or shortness of breath reports to tolerating diet with no reports of nausea or vomiting noted. 03/11. Patient seen and examined. Vital signs stable. Complaining of urinary retention, currently on bladder management per protocol 03/12. Patient seen and examined. Patient was seen by urology for urinary retention, Natarajan placed and currently on Flomax. Urology recommended outpatient follow-up for trial of void REVIEW OF SYSTEMS: CONSTITUTIONAL: No fever, no malaise,. CARDIOVASCULAR: No chest pain, no palpitations, no syncope. PULMONARY: No shortness of breath, no cough, GASTROINTESTINAL: No diarrhea, no nausea, no vomiting, no abdominal pain. NEUROLOGICAL: No headaches, no weakness, PHYSICAL EXAMINATION: GENERAL: The patient is alert and oriented x3, not in any acute distress. Well developed, well nourished. HEENT: Pupils are round and equally reacting to light. EOMI. No scleral icterus. No conjunctival pallor. Normocephalic, atraumatic. No pharyngeal erythema. No thyromegaly. CARDIOVASCULAR: S1 and S2 present. No murmurs, rubs, or gallops. PULMONARY: Chest is clear to auscultation, no wheezing or crackles. ABDOMEN: Soft, nontender, nondistended, normoactive bowel sounds. No palpable organomegaly. MUSCULOSKELETAL: No joint swelling or deformity. EXTREMITIES: No cyanosis, clubbing, or pedal edema. NEUROLOGICAL: Gross neurological examination did not reveal any focal deficits. SKIN: No rashes. Lumbar area surgical incision seen Assessment and plan Status post minimal invasive revision with decompression with fusion of L5 to S1 postop day #2 History of hypertension Urinary retention, postoperatively most likely medication effect due to anesthesia requiring indwelling Natarajan catheter Gastroesophageal reflux disease previous back surgery including laminectomy with discectomy of L5-S1 History of anxiety Plan Monitor vital signs Monitor CBC Monitor CMP status post decompression with fusion of L5 to S1 Continue bladder management per protocol, currently on Flomax, urology r ecommended outpatient follow-up for trial of void Patient with incentive spirometer at the bedside encourage the patient continue using at least 10 times every hour while awake Pain management per orthopedics, recommend limiting the use of IV pain medications Objective - Vital Signs Vital signs: Vital Signs Temp 98.2 F 03/12/23 07:23 Pulse 97 03/12/23 07:23 Resp 19 03/12/23 07:23 BP 124/72 03/12/23 07:23 Pulse Ox 94 L 03/12/23 07:23 FiO2 Intake & Output 03/11/23 03/12/23 03/12/23 18:59 06:59 18:59 Intake Total 318 Output Total 4350 700 Balance -4032 -700 Intake: Oral 318 Output: Urine 3780 700 Post Void Residual 570 Other: Voiding Method Indwelling Catheter Indwelling Catheter Indwelling Catheter - Labs CBC & Chem 7: 03/09/23 10:48 03/09/23 10:48
== END 2023-03-12 11:32 | disposition home or self-care (01) | DRG 982 ==
LOC: OR 06:53 → 4SSUR 13:00 → OR 03-09 07:49 → 4SSUR 03-09 08:08 → OBSVTOIN 03-10 10:34
PROVIDERS: ADMIT Orthopaedic Surgery Orthopaedic Surgery of the Spine; ATTEND Orthopaedic Surgery Orthopaedic Surgery of the Spine
PROC: 0SG30AJ Fusion of Lumbosacral Joint with Interbody Fusion Device, Posterior Approach, Anterior Column, Open Approach (ICD-10-PCS; principal; 2023-03-08 08:00)
PROC: 01NB0ZZ Release Lumbar Nerve, Open Approach (ICD-10-PCS; principal; 2023-03-08 08:00)
PROC: 0SG3071 Fusion of Lumbosacral Joint with Autologous Tissue Substitute, Posterior Approach, Posterior Column, Open Approach (ICD-10-PCS; principal; 2023-03-08 08:00)
PROC: 0SB20ZZ Excision of Lumbar Vertebral Disc, Open Approach (ICD-10-PCS; principal; 2023-03-08 08:00)
PROC: 4A11X4G Monitoring of Peripheral Nervous Electrical Activity, Intraoperative, External Approach (ICD-10-PCS; principal; 2023-03-08 08:00)
PROC: 0ST40ZZ Resection of Lumbosacral Disc, Open Approach (ICD-10-PCS; principal; 2023-03-08 08:00)
DX: R33.0 Drug induced retention of urine (principal); M96.89 Other intraoperative and postprocedural complications and disorders of the musculoskeletal system; F41.9 Anxiety disorder, unspecified; T41.0X5A Adverse effect of inhaled anesthetics, initial encounter; M51.17 Intervertebral disc disorders with radiculopathy, lumbosacral region; M48.07 Spinal stenosis, lumbosacral region; M51.37 Other intervertebral disc degeneration, lumbosacral region; K21.9 Gastro-esophageal reflux disease without esophagitis; I10 Essential (primary) hypertension; Z79.899 Other long term (current) drug therapy; Z86.14 Personal history of Methicillin resistant Staphylococcus aureus infection; Y92.230 Patient room in hospital as the place of occurrence of the external cause; Y65.8 Other specified misadventures during surgical and medical care; Y92.234 Operating room of hospital as the place of occurrence of the external cause
CPT/HCPCS: 72100; 80048; 83735; 85025; 86850; 86900; 86901; 94760

== ENCOUNTER → 2023-05-24 | Outpatient (CLI) | payer OTHER | END | disposition home or self-care (01) | LOC: LABWHC1 12:25 | PROVIDERS: ATTEND Internal Medicine Endocrinology, Diabetes & Metabolism | DX: E29.1 Testicular hypofunction (principal) | CPT/HCPCS: 36415; 84403 ==

== ENCOUNTER → 2023-11-10 | Outpatient (CLI) | payer OTHER ==
[2023-11-10 10:52] LABS: HCT 49.9 % (39.6-50.0); HGB 16.2 g/dL (13.0-17.0); MCH 29.7 pg (27.0-32.0); MCHC 32.5 g/dL (32.0-37.0); MCV 91.6 FL (80.0-97.0); Mean Platelet Volume 9.9 FL (9.5-12.2); NRBC Per 100 WBC 0 X 10*3/uL (0.00-0.01); Platelet Count 250 X 10*3/uL (140-440); RBC 5.45 X 10*6/uL (4.40-5.60); RDW 14.2 % (11.5-14.5); WBC 7.18 X 10*3/uL (4.50-10.00)
[2023-11-10 12:10] LABS: Prostate Specific Antigen 1.24 ng/mL (0.000-2.500)
== END | disposition home or self-care (01) ==
LOC: LABWHC1 06:50
PROVIDERS: ATTEND Internal Medicine Endocrinology, Diabetes & Metabolism
DX: E29.1 Testicular hypofunction (principal)
CPT/HCPCS: 36415; 84153; 84403; 85027

== ENCOUNTER → 2023-12-06 | Outpatient (CLI) | payer OTHER ==
[2023-12-06 11:54] LABS: T4, Free (Free Thyroxine) 0.95 ng/dL (0.80-1.80)
[2023-12-06 11:55] LABS: PSA Annual Screen 1.15 ng/mL (0.000-4.000)
[2023-12-06 12:00] LABS: HCT 53.3 % (39.6-50.0); HGB 17.4 g/dL (13.0-17.0); MCH 29.5 pg (27.0-32.0); MCHC 32.6 g/dL (32.0-37.0); MCV 90.5 FL (80.0-97.0); Mean Platelet Volume 9.7 FL (9.5-12.2); NRBC Per 100 WBC 0 X 10*3/uL (0.00-0.01); Platelet Count 276 X 10*3/uL (140-440); RBC 5.89 X 10*6/uL (4.40-5.60); RDW 13.6 % (11.5-14.5); WBC 10.38 X 10*3/uL (4.50-10.00)
== END | disposition home or self-care (01) ==
LOC: LABWHC1 06:48
PROVIDERS: ATTEND Internal Medicine Endocrinology, Diabetes & Metabolism
DX: Z12.5 Encounter for screening for malignant neoplasm of prostate (principal); E29.1 Testicular hypofunction; R63.5 Abnormal weight gain
CPT/HCPCS: 84439; 84305; 82947; 84443; 85027; 84403; 83525; 83036; 36415; G0103

== ENCOUNTER → 2023-12-08 | Outpatient (CLI) | payer OTHER | END | disposition home or self-care (01) | LOC: LABWHC1 06:49 | PROVIDERS: ATTEND Internal Medicine Endocrinology, Diabetes & Metabolism | DX: R63.5 Abnormal weight gain (principal) | CPT/HCPCS: 36415; 82024; 82533 ==

== ENCOUNTER → 2024-04-24 | Outpatient (CLI) | payer OTHER ==
[2024-04-24 10:31] LABS: PSA Annual Screen 1.27 ng/mL (0.000-4.000)
== END | disposition home or self-care (01) ==
LOC: LABWHC1 06:46
PROVIDERS: ATTEND Internal Medicine Endocrinology, Diabetes & Metabolism
DX: Z12.5 Encounter for screening for malignant neoplasm of prostate (principal); E29.1 Testicular hypofunction
CPT/HCPCS: 84403; 36415; G0103

== ENCOUNTER 2024-05-04 10:23 | Inpatient (IN) | payer OTHER ==
--- NOTE | 2024-05-04 10:56 | ED ---
Abdominal Pain HPI - General Chief Complaint: Abdominal Pain Stated Complaint: Abd Pain Time Seen by Provider: 05/04/24 10:54 Source: patient, RN notes reviewed Mode of arrival: ambulatory Limitations: no limitations - History of Present Illness Initial Comments: 48-year-old male presented to the ER with a chief complaint of abdominal pain. He states for the past 2 days he has been endorsing a achy upper right and left quadrant abdominal pain. He states movement has made the pain sharp in nature. He also was endorsing nausea and vomiting. He states he is unable to keep any liquids or food down as it comes right back up. He states he has not had a bowel movement in the past 2 days and has been having decreased flatulence. He denies any fevers or chills, chest pain, shortness of breath, dizziness, lightheadedness, urinary complaints, constipation/diarrhea or peripheral edema. - Related Data Home Medications Medication Instructions Recorded Confirmed Pantoprazole [Protonix] 40 mg PO DAILY 01/26/21 05/04/24 Testosterone Cypionate 150 mg IM Q14D 01/26/21 05/04/24 [Depo-Testosterone] Losartan/Hydrochlorothiazide 1 tab PO DAILY 08/02/22 05/04/24 [Losartan-Hctz 100-25 mg Tab] clonazePAM 1 mg PO TID 03/02/23 05/04/24 valACYclovir HCL [Valtrex] 500 mg PO DAILY 05/04/24 05/04/24 Allergies Allergy/AdvReac Type Severity Reaction Status Date / Time Iodinated Contrast Media Allergy Anaphylaxis Verified 05/04/24 12:49 [Iodinated Contrast- Oral /hives and IV Dye] Review of Systems ROS Statement: Those systems with pertinent positive or pertinent negative responses have been documented in the HPI. ROS Other: All systems not noted in ROS Statement are negative. Past Medical History Past Medical History: GERD/Reflux, Hypertension Additional Past Medical History / Comment(s): difficulty swallowing, Erythroc ytosis History of Any Multi-Drug Resistant Organisms: MRSA Date of last positivie culture/infection: 05/23/19 MDRO Source:: Face Past Surgical History: Cholecystectomy Additional Past Surgical History / Comment(s): Laminectomy/discectomy L5-S1. Past Anesthesia/Blood Transfusion Reactions: No Reported Reaction Past Psychological History: Anxiety Smoking Status: Never smoker Past Alcohol Use History: Occasional Past Drug Use History: None Reported - Past Family History Father Family Medical History: Hypertension General Exam Limitations: no limitations General appearance: alert, in no apparent distress Respiratory exam: Present: normal lung sounds bilaterally. Absent: respiratory distress, wheezes, rales, rhonchi, stridor Cardiovascular Exam: Present: regular rate, normal rhythm, normal heart sounds. Absent: systolic murmur, diastolic murmur, rubs, gallop, clicks GI/Abdominal exam: Present: soft, tenderness (RUQ/LUQ), normal bowel sounds Extremities exam: Present: normal inspection, full ROM, normal capillary refill. Absent: tenderness, pedal edema, joint swelling, calf tenderness Skin exam: Present: warm, dry, intact, normal color. Absent: rash Course Vital Signs 05/04/24 05/04/24 10:24 13:26 Temperature 97.3 F L Pulse Rate 125 H 81 Respiratory 18 20 Rate Blood Pressure 121/81 122/81 O2 Sat by Pulse 98 100 Oximetry - Reevaluation(s) Reevaluation #1: 05/04/24 12:43 Case discussed with occupational therapy aide general surgeon, Dr. Brandon, who advised on admission. Medical Decision Making - Medical Decision Making Was pt. sent in by a medical professional or institution (, PA, JUNIOR ARCHITECT, urgent care, hospital, or fdc...) When possible be specific @ -No Did you speak to anyone other than the patient for history (EMS, parent, family, police, friend...)? What history was obtained from this source @ -No Did you review nursing and triage notes (agree or disagree)? Why? @ -I reviewed and agree with nursing and triage notes Were old charts reviewed (outside hosp., previous admission, EMS record, old EKG, old radiological studies, urgent care reports/EKG's, fdc records)? Report findings @ -No old charts were reviewed Differential Diagnosis (chest pain, altered mental status, abdominal pain women, abdominal pain men, vaginal bleeding, weakness, fever, dyspnea, syncope, headache, dizziness, GI bleed, back pain, seizure, CVA, palpatations, mental health, musculoskeletal)? @ -Differential Abdominal Pain Men: Appendicitis, cholecystitis, diverticulosis, ischemic bowel, pancreatitis, hepatitis, UTI, gastroenteritis, AAA, incarcerated hernia, bowel obstruction, constipation, inflammatory bowel, hepatitis, peptic ulcer disease, splenic infarction, perforated viscus, testicular torsion, this is not meant to be an all-inclusive list EKG interpreted by me (3pts min.). @ -None X-rays interpreted by me (1pt min.). @ -None done CT interpreted by me (1pt min.). @ -CT abdomen pelvis remarkable for a high-grade small bowel obstruction with loops dilated up to 4 cm and transposition point at the left paramedian mid to lower abdomen. Hepatic steatosis and left-sided colonic diverticulosis U/S interpreted by me (1pt. min.). @ -None done What testing was considered but not performed or refused? (CT, X-rays, U/S, labs)? Why? @ -None What meds were considered but not given or refused? Why? @ -None Did you discuss the management of the patient with other professionals (professionals i.e. , PA, JUNIOR ARCHITECT, lab, RT, psych nurse, social and human services assistant, senior financial consultant, teacher, property disposal officer, shoe parts caser)? Give summary @ -Yes, case discussed with occupational therapy aide general surgeon, Dr. Brandon, who advises on emergent exploratory laparotomy and NG tube placement. He also advised on heparin 5,000 units Q8hrs. Was smoking cessation discussed for >3mins.? @ -No Was critical care preformed (if so, how long)? @ -No Were there social determinants of health that impacted care today? How? (Homelessness, low income, unemployed, alcoholism, drug addiction, transportation, low edu. Level, literacy, decrease access to med. care, nursing home, rehab)? @ -No Was there de-escalation of care discussed even if they declined (Discuss DNR or withdrawal of care, Hospice)? DNR status @ -No What co-morbidities impacted this encounter? (DM, HTN, Smoking, COPD, CAD, Cancer, CVA, ARF, Chemo, Hep., AIDS, mental health diagnosis, sleep apnea, morbid obesity)? @ -HTN Was patient admitted / discharged? Hospital course, mention meds given and route, prescriptions, significant lab abnormalities, going to OR and other pertinent info. @ -To operating room. 48-year-old male presented to the ER with a chief complaint of nausea, vomiting and abdominal pain. History and physical exam completed. Vitals stable. Patient in no signs of acute distress and nontoxic-appearing. Tenderness to right upper and left upper quadrants. Normal bowel sounds. Laboratory studies obtained remarkable for hemoglobin 19.6 and hematocrit 60 which is likely related to patient's history of erythrocytosis. Hyponatremic at 135, chloride 95, RADHA (BUN 26, creatinine 1.35). Lactic acidosis at 2.5. CT abdomen pelvis remarkable for high-grade small bowel obstruction with dilation to 4 cm and transition point in the left paramedian mid to lower abdomen. Patient received IV fluids, Toradol and Zofran for symptom control in the ER. Admission con sidered for small bowel obstruction. Case discussed with Dr. Brandon, occupational therapy aide general surgery, who advised on emergent exploratory laparotomy. NG tube and heparin ordered per surgery. N.p.o. diet. Upon reevaluation, patient resting comfortably in exam room in no signs of acute distress. Results discussed with patient, all questions answered. Patient agreeable for admission at this time. Patient admitted in stable condition. Case discussed with ED attending, Dr. Romero. Undiagnosed new problem with uncertain prognosis? @ -Yes Drug Therapy requiring intensive monitoring for toxicity (Heparin, Nitro, Insulin, Cardizem)? @ -yes heparin orders per surgery for possible surgical intervention. Were any procedures done? @ -No Diagnosis/symptom? @ -High-grade small bowel obstruction Acute, or Chronic, or Acute on Chronic? @ -Acute Uncomplicated (without systemic symptoms) or Complicated (systemic symptoms)? @ -Complicated Side effects of treatment? @ -No Exacerbation, Progression, or Severe Exacerbation? @ -No Poses a threat to life or bodily function? How? (Chest pain, [place], [place], pneumonia, PE, COPD, DKA, ARF, appy, cholecystitis, CVA, Diverticulitis, Homicidal, Suicida l, threat to staff... and all critical care pts) @ -Yes can lead to bowel perforation which can be life-threatening. - Lab Data Result diagrams: 05/04/24 11:03 05/04/24 11:03 Lab Results 05/04/24 05/04/24 05/04/24 Range/Units 11:03 11:03 11:03 WBC 9.9 (3.8-10.6) k/uL RBC 6.24 H (4.30-5.90) m/uL Hgb 19.6 H* (13.0-17.5) gm/dL Hct 60.0 H* (39.0-53.0) % MCV 96.3 (80.0-100.0) fL MCH 31.5 (25.0-35.0) pg MCHC 32.7 (31.0-37.0) g/dL RDW 13.3 (11.5-15.5) % Plt Count 271 (150-450) k/uL MPV 7.6 Neutrophils % (Manual) 66 % Band Neuts % (Manual) 1 % Lymphocytes % (Manual) 29 % Monocytes % (Manual) 4 % Neutrophils # (Manual) 6.60 (1.3-7.7) k/uL Lymphocytes # (Manual) 2.87 (1.0-4.8) k/uL Monocytes # (Manual) 0.40 (0-1.0) k/uL Nucleated RBCs 0 (0-0) /100 WBC Manual Slide Review Performed Sodium 135 L (137-145) mmol/L Potassium 4.0 (3.5-5.1) mmol/L Chloride 95 L (98-107) mmol/L Carbon Dioxide 27 (22-30) mmol/L Anion Gap 13 mmol/L BUN 26 H (9-20) mg/dL Creatinine 1.35 H (0.66-1.25) mg/dL Est GFR (CKD-EPI)AfAm 71 (>60 ml/min/1.73 sqM) Est GFR (CKD-EPI)NonAf 62 (>60 ml/min/1.73 sqM) Glucose 115 H (74-99) mg/dL Lactic Ac Sepsis Rflx Plasma Lactic Acid Len 2.5 H* (0.7-2.0) mmol/L Calcium 10.0 (8.4-10.2) mg/dL Total Bilirubin 2.2 H (0.2-1.3) mg/dL AST 33 (17-59) U/L ALT 39 (4-49) U/L Alkaline Phosphatase 116 (38-126) U/L Total Protein 8.5 H (6.3-8.2) g/dL Albumin 5.0 (3.5-5.0) g/dL Amylase 81 (30-110) U/L Lipase 199 (23-300) U/L 05/04/24 Range/Units 11:38 WBC (3.8-10.6) k/uL RBC (4.30-5.90) m/uL Hgb (13.0-17.5) gm/dL Hct (39.0-53.0) % MCV (80.0-100.0) fL MCH (25.0-35.0) pg MCHC (31.0-37.0) g/dL RDW (11.5-15.5) % Plt Count (150-450) k/uL MPV Neutrophils % (Manual) % Band Neuts % (Manual) % Lymphocytes % (Manual) % Monocytes % (Manual) % Neutrophils # (Manual) (1.3-7.7) k/uL Lymphocytes # (Manual) (1.0-4.8) k/uL Monocytes # (Manual) (0-1.0) k/uL Nucleated RBCs (0-0) /100 WBC Manual Slide Review Sodium (137-145) mmol/L Potassium (3.5-5.1) mmol/L Chloride (98-107) mmol/L Carbon Dioxide (22-30) mmol/L Anion Gap mmol/L BUN (9-20) mg/dL Creatinine (0.66-1.25) mg/dL Est GFR (CKD-EPI)AfAm (>60 ml/min/1.73 sqM) Est GFR (CKD-EPI)NonAf (>60 ml/min/1.73 sqM) Glucose (74-99) mg/dL Lactic Ac Sepsis Rflx Y Plasma Lactic Acid Len (0.7-2.0) mmol/L Calcium (8.4-10.2) mg/dL Total Bilirubin (0.2-1.3) mg/dL AST (17-59) U/L ALT (4-49) U/L Alkaline Phosphatase (38-126) U/L Total Protein (6.3-8.2) g/dL Albumin (3.5-5.0) g/dL Amylase (30-110) U/L Lipase (23-300) U/L - Radiology Data Radiology results: report reviewed, image reviewed Disposition Clinical Impression: Small bowel obstruction, Lactic acidosis, RADHA (acute kidney injury) Disposition: ADMITTED IP TO THIS [facility] Condition: Stable Time of Disposition: 12:47
[2024-05-04] MEDS: KETOROLAC 15 MG/ML 1 ML VIAL IVP STA (11:11)
[2024-05-04] MEDS: SODIUM CHLORIDE 0.9% 1,000 ML IV STA ×2 (11:11→23:06)
[2024-05-04] MEDS: ONDANSETRON 4 MG/2 ML VIAL IVP STA (11:12)
[2024-05-04 11:35] LABS: ALT 39 U/L (4-49); AST 33 U/L (17-59); African American GFR (CKD) 71 (>60 ml/min/1.73 sqM); Alkaline Phosphatase 116 U/L (38-126); Amylase 81 U/L (30-110); Anion Gap 13 mmol/L; Blood Urea Nitrogen 26 mg/dL (9-20); Carbon Dioxide 27 mmol/L (22-30); Chloride 95 mmol/L (98-107); Glucose 115 mg/dL (74-99); Lipase 199 U/L (23-300); Non-African American GFR(CKD) 62 (>60 ml/min/1.73 sqM); Sodium 135 mmol/L (137-145); Total Bilirubin 2.2 mg/dL (0.2-1.3); Total Protein 8.5 g/dL (6.3-8.2)
[2024-05-04 11:40] LABS: MCH 31.5 pg (25.0-35.0); MCHC 32.7 g/dL (31.0-37.0); MCV 96.3 fL (80.0-100.0); Mean Platelet Volume 7.6; Platelet Count 271 k/uL (150-450); RBC 6.24 m/uL (4.30-5.90); RDW 13.3 % (11.5-15.5); WBC 9.9 k/uL (3.8-10.6)
[2024-05-04 11:41] LABS: HGB 19.6 gm/dL (13.0-17.5)
--- NOTE | 2024-05-04 11:49 | CT ---
EXAMINATION TYPE: CT abdomen pelvis wo con DATE OF EXAM: 05/04/2024 COMPARISON: 11/21/2017 HISTORY: 48-year-old male upper abdominal pian, nausea and vomiting x2 days CT DLP: 524.6 mGycm. Automated exposure control for dose reduction was used. TECHNIQUE: Contiguous axial scanning of the abdomen and pelvis without IV contrast. Coronal and sagit kirk reconstructions performed. FINDINGS: Heart normal size without pericardial effusion. Lung bases clear without pleural effusion. Mildly diminished attenuation of the hepatic parenchyma suggesting fatty infiltration. Status post ch olecystectomy. Adrenal glands, kidneys, spleen, and pancreas within normal limits. Prominent fluid distention of the stomach. Fluid-filled small bowel loops are present throughout joselyn g with fluid-filled dilated small bowel loops are distended up to 4.0 cm. Suspected transition point left paramedian mid to lower abdomen, coronal image 40 and axial image 65. No free air or free fluid. Left-sided colonic diverticulosis. No perisplenic inflammatory change. Scattered mild stool within th e colon. Some liquid stool within the right side of the colon. Bladder urine distended. Prostate gland mildly enlarged at 4.6 cm wide. No abnormal fluid collection in the pelvis or pelvic lymphadenopathy. Bones: Status post L5-S1 posterior and interbody fusion. IMPRESSION: 1. Findings suggests high-grade small bowel obstruction with loops dilated up to 4.0 cm and transitio n point in the left paramedian mid to lower abdomen (coronal image 40 and axial image 65). 2. Incidental hepatic steatosis and left-sided colonic diverticulosis.
[2024-05-04 12:27] LABS: Band Neutrophils % 1 %; Lymphocytes # (M) 2.87 k/uL (1.0-4.8); Neutrophils % (M) 66 %; Nucleated Red Blood Cells 0 /100 WBC (0-0); Total Cells Counted 100
[2024-05-04] MEDS ORDERED: NALOXONE 0.4 MG/ML 1 ML VIAL IV PRN ×2 (12:28→18:56)
[2024-05-04] MEDS: HYDROmorphone 1 MG/ML 1 ML SYRINGE IVP PRN (13:54)
[2024-05-04] MEDS: LIDOCAINE 2% GLYDO JELLY 6 ML APPL MUCOUS MEM STA (13:55)
[2024-05-04 14:32] LABS: Partial Thromboplastin Time 23.8 sec (22.0-30.0); Prothrombin Time 11.1 sec (10.0-12.5)
[2024-05-04] MEDS: IV FLUID CONTINUATION 1,000 ML IV ONE (14:41)
[2024-05-04] MEDS ORDERED: ROCURONIUM 10 MG/ML (5 ML VIAL) IV ONE (15:10)
[2024-05-04] MEDS ORDERED: SUCCINYLCHOLINE CHLORIDE 200 MG/10 ML VIAL IV ONE (15:10)
[2024-05-04] MEDS ORDERED: SODIUM BICARB 8.4% 50 ML SYR (1 MEQ/ML) ONE (15:10)
[2024-05-04] MEDS ORDERED: LABETALOL 5 MG/ML VIAL MDV ONE (15:10)
[2024-05-04] MEDS ORDERED: PROPOFOL 10 MG/ML 20 ML VIAL IV ONE (15:10)
[2024-05-04] MEDS ORDERED: MIDAZOLAM 2 MG/2 ML VIAL ONE (15:10)
[2024-05-04] MEDS ORDERED: NEOSTIGMINE 1 MG/ML 10 ML VIAL ONE (15:10)
[2024-05-04] MEDS ORDERED: LIDOCAINE 1% INJ 10MG/ML (20 ML MDV) ONE (15:10)
[2024-05-04] MEDS ORDERED: fentaNYL (PF) 50 MCG/ML 2 ML AMP ONE (15:10)
[2024-05-04] MEDS ORDERED: PHENYLEPHRINE 10 MG/ML VIAL ONE (15:10)
[2024-05-04] MEDS ORDERED: ceFAZolin 1 GM/50 ML BAG (PMX) ONE (15:10)
[2024-05-04] MEDS ORDERED: KETAMINE HCL IN 0.9 % NACL 50 MG/5 ML SYRINGE ONE (15:10)
[2024-05-04] MEDS ORDERED: GLYCOPYRROLATE 0.2 MG/ML 2 ML VIAL ONE (15:10)
--- NOTE | 2024-05-04 15:13 | XR ---
EXAMINATION TYPE: XR chest 1V DATE OF EXAM: 05/04/2024 COMPARISON: 02/24/2023 HISTORY: 48-year-old male NG tube placement TECHNIQUE: Single frontal view of the chest is obtained. FINDINGS: Interval placement of NG tube. Heart normal size. Strandy atelectasis left base. No consol idation or pleural effusion. IMPRESSION: Satisfactory NG tube.
[2024-05-04] MEDS: SODIUM CHLORIDE 0.9% 50 ML with ceFAZolin 2,000 MG IV ONE (15:15)
[2024-05-04] MEDS: LACTATED RINGERS 1,000 ML IV ONE ×2 (15:15→16:15)
--- NOTE | 2024-05-04 16:21 | P.ANPRN ---
Procedure Note - Anesthesia - Invasive Line Left Arterial Line Time Out Performed: Yes Date of Procedure: 05/04/24 Time of Procedure: 15:35 Location of Patient: OR Preparation: Sterile Prep, Sterile Dressing Arterial Line Location: Radial Ultrasound Used: Yes Purpose - Visualization and Identification of Vasculature: Yes Image Stored and Saved: Yes Narrative: Invasive line placement per sterile protocol utilized.
[2024-05-04] MEDS: HYDROmorphone 0.5 MG/0.5 ML SYRINGE IVP STA (18:43)
[2024-05-04] MEDS: MEPERIDINE 50 MG/ML SYRINGE IVP STA (18:49)
[2024-05-04] MEDS: HEPARIN SODIUM,PORCINE 5,000 UNIT/ML 1 ML VIAL SQ STA (18:58)
[2024-05-04] MEDS: HEPARIN SODIUM 1,000 UN/ML (10ML VL) IVP SCH (20:00)
--- NOTE | 2024-05-04 21:35 | P.GSHP ---
History of Present Illness H&P Date: 05/04/24 Chief Complaint: abdominal pain Patient is a 48 yo male presenting to [facility] with several days of abdominal pain and associated nausea and vomiting. Patient denies any alleviating factors over the last several days. Patient recalls having on and off abdominal pain for the last several years prior to gallbladder removal. Patient has had multiple egd/colonscopies attempting to figure out his persistent abdominal pain. He currently denies fevers, chills, shortness of breath or chest pain. PMH: HTN, HLD PSH: liposuction, cholecystectomy soc: denies all: idoine contrast media - Constitutional Constitutional: Reports as per HPI Past Medical History Past Medical History: GERD/Reflux, Hypertension Additional Past Medical History / Comment(s): difficulty swallowing, Erythrocytosis History of Any Multi-Drug Resistant Organisms: MRSA Date of last positivie culture/infection: 05/23/19 MDRO Source:: Face Past Surgical History: Cholecystectomy Additional Past Surgical History / Comment(s): Laminectomy/discectomy L5-S1. Past Anesthesia/Blood Transfusion Reactions: No Reported Reaction Past Psychological History: Anxiety Smoking Status: Never smoker Past Alcohol Use History: Occasional Past Drug Use History: None Reported - Past Family History Father Family Medical History: Hypertension Medications and Allergies Home Medications Medication Instructions Recorded Confirmed Type Pantoprazole [Protonix] 40 mg PO DAILY 01/26/21 05/04/24 History Testosterone Cypionate 150 mg IM Q14D 01/26/21 05/04/24 History [Depo-Testosterone] Losartan/Hydrochlorothiazide 1 tab PO DAILY 08/02/22 05/04/24 History [Losartan-Hctz 100-25 mg Tab] clonazePAM 1 mg PO TID 03/02/23 05/04/24 History valACYclovir HCL [Valtrex] 500 mg PO DAILY 05/04/24 05/04/24 History Allergies Allergy/AdvReac Type Severity Reaction Status Date / Time Iodinated Contrast Media Allergy Anaphylaxis Verified 05/04/24 12:49 [Iodinated Contrast- Oral /hives and IV Dye] Surgical - Exam Osteopathic Statement: *. No significant issues noted on an osteopathic structural exam other than those noted in the History and Physical/Consult. Vital Signs Temp Pulse Resp BP Pulse Ox 97.3 F L 125 H 18 121/81 98 05/04/24 10:24 05/04/24 10:24 05/04/24 10:24 05/04/24 10:24 05/04/24 10:24 - General gen: nad, ao x 4 cv: rrr pul; non labored breathing abd: soft, tender to palpation(general), some guarding, boderline peritoneal neuro: CN 2-12 intact ext: b/l lower extremity, no edema noted Results - Labs 05/04/24 11:03 05/04/24 11:03 Abnormal Lab Results - Last 24 Hours (Table) 05/04/24 05/04/24 05/04/24 Range/Units 11:03 11:03 11:03 RBC 6.24 H (4.30-5.90) m/uL Hgb 19.6 H* (13.0-17.5) gm/dL Hct 60.0 H* (39.0-53.0) % Sodium 135 L (137-145) mmol/L Chloride 95 L (98-107) mmol/L BUN 26 H (9-20) mg/dL Creatinine 1.35 H (0.66-1.25) mg/dL Glucose 115 H (74-99) mg/dL Plasma Lactic Acid Len 2.5 H* (0.7-2.0) mmol/L Total Bilirubin 2.2 H (0.2-1.3) mg/dL Total Protein 8.5 H (6.3-8.2) g/dL Diabetes panel 05/04/24 Range/Units 11:03 Sodium 135 L (137-145) mmol/L Potassium 4.0 (3.5-5.1) mmol/L Chloride 95 L (98-107) mmol/L Carbon Dioxide 27 (22-30) mmol/L BUN 26 H (9-20) mg/dL Creatinine 1.35 H (0.66-1.25) mg/dL Glucose 115 H (74-99) mg/dL Calcium 10.0 (8.4-10.2) mg/dL AST 33 (17-59) U/L ALT 39 (4-49) U/L Alkaline Phosphatase 116 (38-126) U/L Total Protein 8.5 H (6.3-8.2) g/dL Albumin 5.0 (3.5-5.0) g/dL Calcium panel 05/04/24 Range/Units 11:03 Calcium 10.0 (8.4-10.2) mg/dL Albumin 5.0 (3.5-5.0) g/dL Pituitary panel 05/04/24 Range/Units 11:03 Sodium 135 L (137-145) mmol/L Potassium 4.0 (3.5-5.1) mmol/L Chloride 95 L (98-107) mmol/L Carbon Dioxide 27 (22-30) mmol/L BUN 26 H (9-20) mg/dL Creatinine 1.35 H (0.66-1.25) mg/dL Glucose 115 H (74-99) mg/dL Calcium 10.0 (8.4-10.2) mg/dL Adrenal panel 05/04/24 Range/Units 11:03 Sodium 135 L (137-145) mmol/L Potassium 4.0 (3.5-5.1) mmol/L Chloride 95 L (98-107) mmol/L Carbon Dioxide 27 (22-30) mmol/L BUN 26 H (9-20) mg/dL Creatinine 1.35 H (0.66-1.25) mg/dL Glucose 115 H (74-99) mg/dL Calcium 10.0 (8.4-10.2) mg/dL Total Bilirubin 2.2 H (0.2-1.3) mg/dL AST 33 (17-59) U/L ALT 39 (4-49) U/L Alkaline Phosphatase 116 (38-126) U/L Total Protein 8.5 H (6.3-8.2) g/dL Albumin 5.0 (3.5-5.0) g/dL Assessment and Plan Assessment: 48 yo male w/ generalized abdominal pain/nausea ctap reveals definitive transition point with multiple dilated loops of bowel -mildly elevated lactic acid -increased wbc has extensive discussion w/ patient regarding treatment, offered nasogastric tube decompression to see if he gets better, patient requested surgery given his extensive history of abdominal pain and GI issues. Time with Patient: Greater than 30
[2024-05-05] MEDS: HYDROcodone/APAP 5-325MG 1 EACH TAB PO PRN (05:47)
[2024-05-05] MEDS ORDERED: oxyCODONE-APAP 5-325MG 1 EACH TAB PO PRN (06:17)
[2024-05-05] MEDS: LORazepam 2 MG/ML INJ IV STA (06:25)
[2024-05-05] MEDS: ACETAMINOPHEN IV (For NPO) 1,000 MG in EMPTY BAG 1 BAG IVPB SCH (07:59)
[2024-05-05] MEDS: PANTOPRAZOLE 40 MG/10 ML VIAL IVP SCH (08:00)
[2024-05-05] MEDS: HEPARIN SODIUM,PORCINE 5,000 UNIT/ML 1 ML VIAL SQ SCH (08:01)
[2024-05-05 09:30] LABS: Basophils # (A) 0.03 X 10*3/uL (0.00-0.10); Basophils % (A) 0.3 %; Eosinophils # (A) 0 X 10*3/uL (0.04-0.35); Eosinophils % (A) 0 %; HCT 45.3 % (39.6-50.0); HGB 14.8 g/dL (13.0-17.0); Lymphocytes # (A) 1.37 X 10*3/uL (0.90-5.00); Lymphocytes % (A) 13.4 %; MCH 31.6 pg (27.0-32.0); MCHC 32.7 g/dL (32.0-37.0); MCV 96.8 FL (80.0-97.0); Mean Platelet Volume 9.7 FL (9.5-12.2); Monocytes # (A) 1.22 X 10*3/uL (0.20-1.00); Monocytes % (A) 11.9 %; NRBC Per 100 WBC 0 X 10*3/uL (0.00-0.01); Neutrophils % (A) 74.2 %; Platelet Count 253 X 10*3/uL (140-440); RBC 4.68 X 10*6/uL (4.40-5.60); RDW 13.6 % (11.5-14.5); WBC 10.24 X 10*3/uL (4.50-10.00)
[2024-05-05 10:31] LABS: ALT 30 U/L (10-49); AST 24 U/L (14-35); Albumin 3.6 g/dL (3.8-4.9); Alkaline Phosphatase 75 U/L (41-126); BUN/Creat Ratio 14.46 Ratio (12.00-20.00); Blood Urea Nitrogen 18.8 mg/dL (9.0-27.0); Calcium 8.2 mg/dL (8.7-10.3); Carbon Dioxide 25.2 mmol/L (21.6-31.8); Chloride 100 mmol/L (96-109); Globulin 1.5 g/dL (1.6-3.3); Glucose 119 mg/dL (70-110); Magnesium 1.5 mg/dL (1.5-2.4); Phosphorus 4.7 mg/dL (2.4-5.1); Potassium 4.3 mmol/L (3.5-5.5); Sodium 138 mmol/L (135-145); Total Bilirubin 0.8 mg/dL (0.3-1.2); Total Protein 5.1 g/dL (6.2-8.2)
--- NOTE | 2024-05-05 11:02 | P.CONS ---
History of Present Illness - Reason for Consult Consult date: 05/04/24 Medical management - History of Present Illness History of present illness; patient is 48-year-old gentleman past medical hi story significant for hypertension brought to the ER for abdominal pain. Patient stated that he was all right couple of days ago when he started experiencing abdominal pain that was sudden onset, sharp, located in the upper quadrants, intermittent, aggravated by movements. There is also complaint of nausea and vomiting. Patient stated every time he eats or drinks it builds up in his stomach and then he has to vomit it out. Patient also complaining of decreased urination. Denies any fever or chills. No current chest pain or shortness of breath. Initial lab work done in the ER showed WBC 9.9, hemoglobin 19.6, platelet count 271, sodium 135, potassium 4, BUN 26, creatinine 1.35, lactate 2.5 CT abdomen pelvis done showed findings suggestive of high-grade small bowel obstruction with loops dilated up to 4 cm and transition point in the left paramedian, mid to lower abdomen Patient admitted to general surgery REVIEW OF SYSTEMS: CONSTITUTIONAL: No fever, no malaise, no fatigue. HEENT: No recent visual problems or hearing problems. Denied any sore throat. CARDIOVASCULAR: No chest pain, orthopnea, PND, no palpitations, no syncope. PULMONARY: No shortness of breath, no cough, no hemoptysis. GASTROINTESTINAL: As mentioned above NEUROLOGICAL: No headaches, no weakness, no numbness. HEMATOLOGICAL: Denies any bleeding or petechiae. GENITOURINARY: Denies any burning micturition, frequency, or urgency. MUSCULOSKELETAL/RHEUMATOLOGICAL: Denies any joint pain, swelling, or any muscle pain. ENDOCRINE: Denies any polyuria or polydipsia. The rest of the 14-point review of systems is negative. PHYSICAL EXAMINATION: GENERAL: The patient is alert and oriented x3, not in any acute distress. Well developed, well nourished. HEENT: Pupils are round and equally reacting to light. EOMI. No scleral icterus. No conjunctival pallor. Normocephalic, atraumatic. No pharyngeal erythema. No thyromegaly. CARDIOVASCULAR: S1 and S2 present. No murmurs, rubs, or gallops. PULMONARY: Chest is clear to auscultation, no wheezing or crackles. ABDOMEN: distended, tender, bowel sounds are not audible MUSCULOSKELETAL: No joint swelling or deformity. EXTREMITIES: No cyanosis, clubbing, or pedal edema. NEUROLOGICAL: Gross neurological examination did not reveal any focal deficits. SKIN: No rashes. Assessment and plan Small bowel obstruction RADHA Hyponatremia Lactic acidosis Hypertension Monitor vital signs Monitor CBC Monitor CMP Trend lactic acid levels Continue antiemetics Continue IV fluids Keep patient n.p.o. General surgery plan to take patient for exploratory laparotomy today Labs and medication were reviewed.. Continue same treatment. Continue with symptomatic treatment. Resume home medication. Monitor labs and vitals. DVT and GI prophylaxis. Further recommendations as per clinical course of the patient Dictation was produced using [employer] dictation software. please excuse any grammatical, word or spelling errors. Past Medical History Past Medical History: GERD/Reflux, Hypertension Additional Past Medical History / Comment(s): difficulty swallowing, Erythrocytosis History of Any Multi-Drug Resistant Organisms: MRSA Year Discovered:: 05/23/19 MDRO Source:: Face Past Surgical History: Cholecystectomy Additional Past Surgical History / Comment(s): Laminectomy/discectomy L5-S1. Past Anesthesia/Blood Transfusion Reactions: No Reported Reaction Past Psychological History: Anxiety Smoking Status: Never smoker Past Alcohol Use History: Occasional Past Drug Use History: None Reported - Past Family History Father Family Medical History: Hypertension Medications and Allergies Home Medications Medication Instructions Recorded Confirmed Type Pantoprazole [Protonix] 40 mg PO DAILY 01/26/21 05/04/24 History Testosterone Cypionate 150 mg IM Q14D 01/26/21 05/04/24 History [Depo-Testosterone] Losartan/Hydrochlorothiazide 1 tab PO DAILY 08/02/22 05/04/24 History [Losartan-Hctz 100-25 mg Tab] clonazePAM 1 mg PO TID 03/02/23 05/04/24 History valACYclovir HCL [Valtrex] 500 mg PO DAILY 05/04/24 05/04/24 History Allergies Allergy/AdvReac Type Severity Reaction Status Date / Time Iodinated Contrast Media Allergy Anaphylaxis Verified 05/04/24 12:49 [Iodinated Contrast- Oral /hives and IV Dye] Physical Exam Vitals: Vital Signs Temp Pulse Resp BP Pulse Ox 05/04/24 13:26 81 20 122/81 100 05/04/24 10:24 97.3 F L 125 H 18 121/81 98 Intake and Output 06/28/24 06/29/24 06/29/24 22:59 06:59 14:59 Other: Weight 74.843 kg Results CBC & Chem 7: 05/04/24 11:03 05/04/24 11:03 Labs: Abnormal Lab Results - Last 24 Hours (Table) 05/04/24 05/04/24 05/04/24 Range/Units 11:03 11:03 11:03 RBC 6.24 H (4.30-5.90) m/uL Hgb 19.6 H* (13.0-17.5) gm/dL Hct 60.0 H* (39.0-53.0) % Sodium 135 L (137-145) mmol/L Chloride 95 L (98-107) mmol/L BUN 26 H (9-20) mg/dL Creatinine 1.35 H (0.66-1.25) mg/dL Glucose 115 H (74-99) mg/dL Plasma Lactic Acid Len 2.5 H* (0.7-2.0) mmol/L Total Bilirubin 2.2 H (0.2-1.3) mg/dL Total Protein 8.5 H (6.3-8.2) g/dL
--- NOTE | 2024-05-05 11:36 | P.OP ---
Date of Procedure: 05/04/24 Preoperative Diagnosis: small bowel obstructio Postoperative Diagnosis: small bowel obstruction, ischemic bowel Procedure(s) Performed: Exploratory laparotomy, extensive lysis of adhesions Anesthesia: DANYEL Surgeon: Barry Brandon Estimated Blood Loss (ml): 300 IV fluids (ml): 1.5 Urine output (ml): 500 Pathology: none sent (omentum) Condition: stable Disposition: floor Indications for Procedure: Patient is a 48 yo male presenting w/ acute abdominal pain and CT findings concerning for complete small bowel obstruction. Slightly elevated lactic acid. Operative Findings: ischemic bowel, multiple areas of obstruction, extensive adhesions Description of Procedure: Patient was brought to the operative suite where he was cleaned and draped in sterile fashion. A timeout was performed and everyone agreed with the information recited. Next a small periumbilical midline incision was made. We then dissected down to the peritoneum using electrocautery. 2 hemostats were then used to grasp the peritoneum and it was entered using scissors. We then elongated the peritoneum using electrocautery. We immediately encountered purple appearing bowel and associated edematous fluid. I attempted to eviscerate the bowel to run the bowel proximally and distally however it was too edematous so I had to elongate the incision. We were able eviscerate the bowel partially. The bowel was found to be stuck in the right lower quadrant and we did extensive lysis of adhesions using blunt dissection. Once this was freed up by evidence of entering directly into the cecum. Once this was done we then turned our attention to left lower quadrant, we identified omentum that tethered to the sigmoid colon as well with no evidence of inflammation of the colon. Once this bowel was released the right upper quadrant explored and there was extensive adhesion requiring blunt and sharp dissection. We traced this segment of small bowel across the midline to the left upper quadrant were we encountered more tethered omentum and also more adhesions/bowel. This was freed using blunt dissection until we identified ligament of treitz. I then retraced the bowel distally making sure the entire small bowel was free. At this point, the purple edematous bowel was start to become more pink. I then placed a 19 ukrainian channel drain in the right lower quadrant to the midabdomen given the patient has ext ensive lysis of adhesions and no enterotomies were made. A hemostatic timeout was performed. Counts were performed. I then proceed to closed the abdomen with looped pds sture in a a cephalad to caudad and caudad to cephalad fashion. We closed the skin using alcides. The helio drain was secured using nylon suture. After cleaning, a prevena dressing and abdominal binder was placed. The patient was then transferred to pacu in stable condition.
--- NOTE | 2024-05-05 13:22 | P.PN ---
Subjective Progress Note Date: 05/05/24 patient is 48-year-old gentleman past medical history significant for hypertension brought to the ER for abdominal pain. Patient stated that he was all right couple of days ago when he started experiencing abdominal pain that was sudden onset, sharp, located in the upper quadrants, intermittent, aggravate d by movements. There is also complaint of nausea and vomiting. Patient stated every time he eats or drinks it builds up in his stomach and then he has to vomit it out. Patient also complaining of decreased urination. Denies any fever or chills. No current chest pain or shortness of breath. Initial lab work done in the ER showed WBC 9.9, hemoglobin 19.6, platelet count 271, sodium 135, potassium 4, BUN 26, creatinine 1.35, lactate 2.5 CT abdomen pelvis done showed findings suggestive of high-grade small bowel obstruction with loops dilated up to 4 cm and transition point in the left gene edian, mid to lower abdomen Patient admitted to general surgery 05/05. Patient seen and examined. S/p Exploratory laparotomy, extensive lysis of adhesions. Currently n.p.o., has NG tube in place REVIEW OF SYSTEMS: CONSTITUTIONAL: No fever, no malaise,. CARDIOVASCULAR: No chest pain, no palpitations, no syncope. PULMONARY: No shortness of breath, no cough, GASTROINTESTINAL: No diarrhea, no nausea, no vomiting, no abdominal pain. NEUROLOGICAL: No headaches, no weakness, PHYSICAL EXAMINATION: GENERAL: The patient is alert and oriented x3, not in any acute distress. Well developed, well nourished. HEENT: Pupils are round and equally reacting to light. EOMI. No scleral icterus. No conjunctival pallor. Normocephalic, atraumatic. No pharyngeal erythema. No thyromegaly. CARDIOVASCULAR: S1 and S2 present. No murmurs, rubs, or gallops. PULMONARY: Chest is clear to auscultation, no wheezing or crackles. ABDOMEN: Soft, laparotomy surgical incision seen MUSCULOSKELETAL: No joint swelling or deformity. EXTREMITIES: No cyanosis, clubbing, or pedal edema. NEUROLOGICAL: Gross neurological examination did not reveal any focal deficits. SKIN: No rashes. Assessment and plan Small bowel obstruction RADHA Hyponatremia Lactic acidosis Hypertension Monitor vital signs Monitor CBC Monitor CMP S/p Exploratory laparotomy, extensive lysis of adhesions Continue antiemetics Continue NG tube per general surgery Keep patient n.p.o. Continue IV fluids Continue pain management General surgery following Labs and medication were reviewed.. Continue same treatment. Continue with symptomatic treatment. Resume home medication. Monitor labs and vitals. DVT and GI prophylaxis. Further recommendations as per clinical course of the patient Dictation was produced using [employer] dictation software. please excuse any grammatical, word or spelling errors. Objective - Vital Signs Vital signs: Vital Signs Temp 98.2 F 05/05/24 08:00 Pulse 88 05/05/24 08:00 Resp 17 05/05/24 08:00 BP 129/81 05/05/24 08:00 Pulse Ox 100 05/05/24 08:00 FiO2 Intake & Output 05/04/24 05/05/24 05/05/24 18:59 06:59 18:59 Intake Total 2750 Output Total 600 110 Balance 2150 -110 Weight 74.843 kg 74.843 kg Intake: IV 2750 Output: Drainage 110 Abdomen 110 Urine 400 Estimated Blood Loss 200 Other: Voiding Method Indwelling Catheter - Labs CBC & Chem 7: 05/05/24 04:39 05/05/24 04:39 Labs: Abnormal Lab Results - Last 24 Hours (Table) 05/04/24 05/04/24 05/04/24 Range/Units 11:03 11:03 11:03 WBC (4.50-10.00) X 10*3/uL RBC 6.24 H (4.30-5.90) m/uL Hgb 19.6 H* (13.0-17.5) gm/dL Hct 60.0 H* (39.0-53.0) % Monocytes # (0.20-1.00) X 10*3/uL Eosinophils # (0.04-0.35) X 10*3/uL Sodium 135 L (137-145) mmol/L Chloride 95 L (98-107) mmol/L Anion Gap (4.00-12.00) mmol/L BUN 26 H (9-20) mg/dL Creatinine 1.35 H (0.66-1.25) mg/dL Glucose 115 H (74-99) mg/dL Plasma Lactic Acid Len 2.5 H* (0.7-2.0) mmol/L Calcium (8.7-10.3) mg/dL Total Bilirubin 2.2 H (0.2-1.3) mg/dL Total Protein 8.5 H (6.3-8.2) g/dL Albumin (3.8-4.9) g/dL Globulin (1.6-3.3) g/dL 05/05/24 05/05/24 Range/Units 04:39 04:39 WBC 10.24 H (4.50-10.00) X 10*3/uL RBC (4.30-5.90) m/uL Hgb (13.0-17.5) gm/dL Hct (39.0-53.0) % Monocytes # 1.22 H (0.20-1.00) X 10*3/uL Eosinophils # 0 L (0.04-0.35) X 10*3/uL Sodium (137-145) mmol/L Chloride (98-107) mmol/L Anion Gap 12.80 H (4.00-12.00) mmol/L BUN (9-20) mg/dL Creatinine (0.66-1.25) mg/dL Glucose 119 H (74-99) mg/dL Plasma Lactic Acid Len (0.7-2.0) mmol/L Calcium 8.2 L (8.7-10.3) mg/dL Total Bilirubin (0.2-1.3) mg/dL Total Protein 5.1 L (6.3-8.2) g/dL Albumin 3.6 L (3.8-4.9) g/dL Globulin 1.5 L (1.6-3.3) g/dL
[2024-05-05] MEDS: BENZOCAINE/MENTHOL LOZENG 1 EACH LOZENGE MUCOUS MEM PRN (13:57)
--- NOTE | 2024-05-05 14:04 | P.PN ---
Subjective Progress Note Date: 05/05/24 Principal diagnosis: Small bowel obstruction Patient is in bed with nasogastric tube in place. Complaining of mild soreness. No nausea currently. Irritation from the nasogastric tube as well. White blood cell count 10.2 hemoglobin 14.8. Lactic acid improved at 1.4. POOJA sero sanguineous. Objective - Vital Signs Vital signs: Vital Signs Temp 97.9 F 05/05/24 13:23 Pulse 92 05/05/24 13:23 Resp 17 05/05/24 13:23 BP 134/79 05/05/24 13:23 Pulse Ox 95 05/05/24 13:23 FiO2 Intake & Output 05/04/24 05/05/24 05/05/24 18:59 06:59 18:59 Intake Total 2750 Output Total 600 110 Balance 2150 -110 Weight 74.843 kg 74.843 kg Intake: IV 2750 Output: Drainage 110 Abdomen 110 Urine 400 Estimated Blood Loss 200 Other: Voiding Method Indwelling Catheter - Exam Abdomen: Soft, distended, dressing clean and dry - Labs CBC & Chem 7: 05/05/24 04:39 05/05/24 04:39 Labs: Abnormal Lab Results - Last 24 Hours (Table) 05/05/24 05/05/24 Range/Units 04:39 04:39 WBC 10.24 H (4.50-10.00) X 10*3/uL Monocytes # 1.22 H (0.20-1.00) X 10*3/uL Eosinophils # 0 L (0.04-0.35) X 10*3/uL Anion Gap 12.80 H (4.00-12.00) mmol/L Glucose 119 H (70-110) mg/dL Calcium 8.2 L (8.7-10.3) mg/dL Total Protein 5.1 L (6.2-8.2) g/dL Albumin 3.6 L (3.8-4.9) g/dL Globulin 1.5 L (1.6-3.3) g/dL Assessment and Plan (1) Small bowel obstruction Narrative/Plan: 48-year-old male status post exploratory laparotomy with extensive lysis of adhesions. Continue bowel rest and gastric decompression. Monitor POOJA drain. Increase activity as tolerated. Current Visit: Yes Status: Acute Code(s): K56.609 - UNSP INTESTNL OBST, UNSP TO PARTIAL VERSUS COMPLETE OBST SNOMED Code(s): 314156641
[2024-05-05] MEDS: LORazepam 2 MG/ML INJ IV PRN (17:00)
[2024-05-05] MEDS: SODIUM CHLORIDE 0.9% 1,000 ML IV SCH (17:01)
[2024-05-06] MEDS: ACETAMINOPHEN IV (For NPO) 1,000 MG in EMPTY BAG 1 BAG IVPB SCH (13:13)
--- NOTE | 2024-05-06 13:13 | P.PN ---
Subjective Progress Note Date: 05/06/24 patient is 48-year-old gentleman past medical history significant for hypertension brought to the ER for abdominal pain. Patient stated that he was all right couple of days ago when he started experiencing abdominal pain that was sudden onset, sharp, located in the upper quadrants, intermittent, aggravate d by movements. There is also complaint of nausea and vomiting. Patient stated every time he eats or drinks it builds up in his stomach and then he has to vomit it out. Patient also complaining of decreased urination. Denies any fever or chills. No current chest pain or shortness of breath. Initial lab work done in the ER showed WBC 9.9, hemoglobin 19.6, platelet count 271, sodium 135, potassium 4, BUN 26, creatinine 1.35, lactate 2.5 CT abdomen pelvis done showed findings suggestive of high-grade small bowel obstruction with loops dilated up to 4 cm and transition point in the left gene edian, mid to lower abdomen Patient admitted to general surgery 05/05. Patient seen and examined. S/p Exploratory laparotomy, extensive lysis of adhesions. Currently n.p.o., has NG tube in place 05/06. Patient seen and examined. Still having abdominal distention, has not had a bowel movement yet. REVIEW OF SYSTEMS: CONSTITUTIONAL: No fever, no malaise,. CARDIOVASCULAR: No chest pain, no palpitations, no syncope. PULMONARY: No shortness of breath, no cough, GASTROINTESTINAL: As mentioned above NEUROLOGICAL: No headaches, no weakness, PHYSICAL EXAMINATION: GENERAL: The patient is alert and oriented x3, not in any acute distress. Well developed, well nourished. HEENT: Pupils are round and equally reacting to light. EOMI. No scleral icterus. No conjunctival pallor. Normocephalic, atraumatic. No pharyngeal erythema. No thyromegaly. CARDIOVASCULAR: S1 and S2 present. No murmurs, rubs, or gallops. PULMONARY: Chest is clear to auscultation, no wheezing or crackles. ABDOMEN: Soft, laparotomy surgical incision seen MUSCULOSKELETAL: No joint swelling or deformity. EXTREMITIES: No cyanosis, clubbing, or pedal edema. NEUROLOGICAL: Gross neurological examination did not reveal any focal deficits. SKIN: No rashes. Assessment and plan Small bowel obstruction RADHA Hyponatremia Lactic acidosis Hypertension Monitor vital signs Monitor CBC Monitor CMP S/p Exploratory laparotomy, extensive lysis of adhesions Continue antiemetics Continue NG tube per general surgery Keep patient n.p.o. Continue IV fluids Continue pain management General surgery following Labs and medication were reviewed.. Continue same treatment. Continue with symptomatic treatment. Resume home medication. Monitor labs and vitals. DVT and GI prophylaxis. Further recommendations as per clinical course of the patient Dictation was produced using [employer] dictation software. please excuse any gr ammatical, word or spelling errors. Objective - Vital Signs Vital signs: Vital Signs Temp 98.6 F 05/06/24 06:58 Pulse 102 H 05/06/24 06:58 Resp 16 05/06/24 06:58 BP 121/78 05/06/24 06:58 Pulse Ox 93 L 05/06/24 06:58 FiO2 Intake & Output 05/05/24 05/06/24 05/06/24 18:59 06:59 18:59 Output Total 2285 410 Balance -2285 -410 Output: Gastric Drainage 1350 Drainage 35 10 Abdomen 35 10 Urine 900 400 Other: Voiding Method Indwelling Catheter Indwelling Catheter Indwelling Catheter # Voids 2 - Labs CBC & Chem 7: 05/05/24 04:39 05/05/24 04:39
--- NOTE | 2024-05-06 13:17 | P.PN ---
Subjective Progress Note Date: 05/06/24 CHIEF COMPLAINT: Small bowel obstruction HISTORY OF PRESENT ILLNESS: Postop day #2 status post exploratory laparotomy and extensive lysis of adhesions for small bowel obstruction and ischemic bowel. Pain controlled. Denies any nausea. No bowel activity. Afebrile. Mildly tachycardic heart rate 102. WBC 10.24. NG tube with 300 mL bilious output PHYSICAL EXAM: VITAL SIGNS: Reviewed. GENERAL: Well-developed in no acute distress. ABDOMEN: Mildly distended. Diffuse tenderness. Prevena wound VAC intact NEUROLOGIC: Alert and oriented. Cranial nerves II through XII grossly intact. ASSESSMENT: 1. Small bowel obstruction, ischemic bowel PLAN: -Continue NG tube for decompression -Keep patient n.p.o. except for ice chips -Continue pain management. IV Dilaudid adjusted to 1 mg every 3 hours as needed. IV Tylenol changed to every 6 hours scheduled. -Encourage patient to increase activity level -Encourage patient to use incentive spirometer -HurriCaine spray ordered for throat irritation from NG tube -Ice packs as needed for pain -DVT prophylaxis subcu heparin and GI prophylaxis Protonix Physician Agricultural Loan Officer note has been reviewed by physician. Signing provider agrees with the documented findings, assessment, and plan of care. Objective - Vital Signs Vital signs: Vital Signs Temp 98.6 F 05/06/24 06:58 Pulse 102 H 05/06/24 06:58 Resp 16 05/06/24 06:58 BP 121/78 05/06/24 06:58 Pulse Ox 93 L 05/06/24 06:58 FiO2 Intake & Output 05/05/24 05/06/24 05/06/24 18:59 06:59 18:59 Output Total 2285 410 Balance -2285 -410 Output: Gastric Drainage 1350 Drainage 35 10 Abdomen 35 10 Urine 900 400 Other: Voiding Method Indwelling Catheter Indwelling Catheter Indwelling Catheter # Voids 2 - Labs CBC & Chem 7: 05/05/24 04:39 05/05/24 04:39
[2024-05-06] MEDS: HYDROmorphone 1 MG/ML 1 ML SYRINGE IVP PRN (16:48)
[2024-05-06] MEDS: BENZOCAINE SPRAY 1 CAN MUCOUS MEM PRN (20:11)
[2024-05-07] MEDS: PANTOPRAZOLE 40 MG/10 ML VIAL IVP SCH (08:25)
[2024-05-07 08:38] LABS: Basophils # (A) 0.02 X 10*3/uL (0.00-0.10); Basophils % (A) 0.3 %; Eosinophils # (A) 0.06 X 10*3/uL (0.04-0.35); HCT 38.4 % (39.6-50.0); Lymphocytes # (A) 0.97 X 10*3/uL (0.90-5.00); Lymphocytes % (A) 15.7 %; MCH 31.3 pg (27.0-32.0); MCHC 31.3 g/dL (32.0-37.0); Mean Platelet Volume 9.8 FL (9.5-12.2); Monocytes # (A) 0.61 X 10*3/uL (0.20-1.00); Monocytes % (A) 9.9 %; NRBC Per 100 WBC 0 X 10*3/uL (0.00-0.01); Neutrophils % (A) 72.8 %; Platelet Count 221 X 10*3/uL (140-440); RBC 3.84 X 10*6/uL (4.40-5.60); RDW 13.2 % (11.5-14.5); WBC 6.18 X 10*3/uL (4.50-10.00)
[2024-05-07 08:55] LABS: Blood Urea Nitrogen 9.6 mg/dL (9.0-27.0); Carbon Dioxide 21.3 mmol/L (21.6-31.8); Chloride 103 mmol/L (96-109); Glucose 78 mg/dL (70-110); Potassium 3.9 mmol/L (3.5-5.5); Sodium 139 mmol/L (135-145)
[2024-05-07 08:56] LABS: ALT 18 U/L (10-49); AST 19 U/L (14-35); Albumin 3.1 g/dL (3.8-4.9); Albumin/Globulin Ratio 1.72 Ratio (1.60-3.17); Alkaline Phosphatase 59 U/L (41-126); Calcium 8.1 mg/dL (8.7-10.3); Globulin 1.8 g/dL (1.6-3.3); Total Bilirubin 0.6 mg/dL (0.3-1.2); Total Protein 4.9 g/dL (6.2-8.2)
--- NOTE | 2024-05-07 13:47 | P.PN ---
Subjective Progress Note Date: 05/07/24 patient is 48-year-old gentleman past medical history significant for hypertension brought to the ER for abdominal pain. Patient stated that he was all right couple of days ago when he started experiencing abdominal pain that was sudden onset, sharp, located in the upper quadrants, intermittent, aggravate d by movements. There is also complaint of nausea and vomiting. Patient stated every time he eats or drinks it builds up in his stomach and then he has to vomit it out. Patient also complaining of decreased urination. Denies any fever or chills. No current chest pain or shortness of breath. Initial lab work done in the ER showed WBC 9.9, hemoglobin 19.6, platelet count 271, sodium 135, potassium 4, BUN 26, creatinine 1.35, lactate 2.5 CT abdomen pelvis done showed findings suggestive of high-grade small bowel obstruction with loops dilated up to 4 cm and transition point in the left gene edian, mid to lower abdomen Patient admitted to general surgery 05/05. Patient seen and examined. S/p Exploratory laparotomy, extensive lysis of adhesions. Currently n.p.o., has NG tube in place 05/06. Patient seen and examined. Still having abdominal distention, has not had a bowel movement yet. 05/07. Patient seen and examined. Still has NG tube in place, still not passing any gas. States abdominal distention has improved. Denies abdominal pain. REVIEW OF SYSTEMS: CONSTITUTIONAL: No fever, no malaise,. CARDIOVASCULAR: No chest pain, no palpitations, no syncope. PULMONARY: No shortness of breath, no cough, GASTROINTESTINAL: As mentioned above NEUROLOGICAL: No headaches, no weakness, PHYSICAL EXAMINATION: GENERAL: The patient is alert and oriented x3, not in any acute distress. Well developed, well nourished. HEENT: Pupils are round and equally reacting to light. EOMI. No scleral icterus. No conjunctival pallor. Normocephalic, atraumatic. No pharyngeal erythema. No th yromegaly. CARDIOVASCULAR: S1 and S2 present. No murmurs, rubs, or gallops. PULMONARY: Chest is clear to auscultation, no wheezing or crackles. ABDOMEN: Soft, laparotomy surgical incision seen, absent bowel sounds MUSCULOSKELETAL: No joint swelling or deformity. EXTREMITIES: No cyanosis, clubbing, or pedal edema. NEUROLOGICAL: Gross neurological examination did not reveal any focal deficits. SKIN: No rashes. Assessment and plan Small bowel obstruction RADHA Hyponatremia Lactic acidosis Hypertension Monitor vital signs Monitor CBC Monitor CMP S/p Exploratory laparotomy, extensive lysis of adhesions Continue antiemetics Continue NG tube per general surgery Keep patient n.p.o. Continue IV fluids Continue pain management General surgery following Labs and medication were reviewed.. Continue same treatment. Continue with symptomatic treatment. Resume home medication. Monitor labs and vitals. DVT and GI prophylaxis. Further recommendations as per clinical course of the patient Dictation was produced using [employer] dictation software. please excuse any grammatical, word or spelling errors. Objective - Vital Signs Vital signs: Vital Signs Temp 98.6 F 05/07/24 06:50 Pulse 102 H 05/07/24 06:50 Resp 18 05/07/24 06:50 BP 114/64 05/07/24 06:50 Pulse Ox 94 L 05/07/24 06:50 FiO2 Intake & Output 05/06/24 05/07/24 05/07/24 18:59 06:59 18:59 Output Total 1150 2375 350 Balance -1150 -2375 -350 Output: Gastric Drainage 900 Drainage 10 Abdomen 10 Urine 1140 1475 350 Other: Voiding Method Indwelling Catheter Indwelling Catheter - Labs CBC & Chem 7: 05/07/24 05:26 05/07/24 05:26 Labs: Abnormal Lab Results - Last 24 Hours (Table) 05/07/24 05/07/24 Range/Units 05:26 05:26 RBC 3.84 L (4.40-5.60) X 10*6/uL Hgb 12.0 L (13.0-17.0) g/dL Hct 38.4 L (39.6-50.0) % MCV 100.0 H (80.0-97.0) FL MCHC 31.3 L (32.0-37.0) g/dL Carbon Dioxide 21.3 L (21.6-31.8) mmol/L Anion Gap 14.70 H (4.00-12.00) mmol/L Calcium 8.1 L (8.7-10.3) mg/dL Total Protein 4.9 L (6.2-8.2) g/dL Albumin 3.1 L (3.8-4.9) g/dL
--- NOTE | 2024-05-07 15:17 | P.PN ---
Subjective Progress Note Date: 05/07/24 Principal diagnosis: Small bowel obstruction Patient feels better today. Less pain overall. He was ambulating in the hallways. Increased gastric output. No nausea. No flatus. Patient says he has been drinking a fair amount of liquid through ice. Objective - Vital Signs Vital signs: Vital Signs Temp 98.2 F 05/07/24 14:00 Pulse 97 05/07/24 14:00 Resp 18 05/07/24 14:00 BP 121/75 05/07/24 14:00 Pulse Ox 98 05/07/24 14:00 FiO2 Intake & Output 05/06/24 05/07/24 05/07/24 18:59 06:59 18:59 Intake Total 100 Output Total 3424 0082 487 Balance -5645 -5834 -592 Intake: Oral 100 Output: Gastric Drainage 900 Drainage 10 20 Abdomen 10 20 Urine 1140 1475 875 Other: Voiding Method Indwelling Catheter Indwelling Catheter Indwelling Catheter # Voids 2 - Exam Abdomen: Soft, mild tenderness, mild distention, incision clean and dry - Labs CBC & Chem 7: 05/07/24 05:26 05/07/24 05:26 Labs: Abnormal Lab Results - Last 24 Hours (Table) 05/07/24 05/07/24 Range/Units 05:26 05:26 RBC 3.84 L (4.40-5.60) X 10*6/uL Hgb 12.0 L (13.0-17.0) g/dL Hct 38.4 L (39.6-50.0) % MCV 100.0 H (80.0-97.0) FL MCHC 31.3 L (32.0-37.0) g/dL Carbon Dioxide 21.3 L (21.6-31.8) mmol/L Anion Gap 14.70 H (4.00-12.00) mmol/L Calcium 8.1 L (8.7-10.3) mg/dL Total Protein 4.9 L (6.2-8.2) g/dL Albumin 3.1 L (3.8-4.9) g/dL Assessment and Plan (1) Small bowel obstruction Narrative/Plan: Patient slowly improving. Await return of bowel function. Keep gastric tube in place. Ambulate. Current Visit: Yes Status: Acute Code(s): K56.609 - UNSP INTESTNL OBST, UNSP TO PARTIAL VERSUS COMPLETE OBST SNOMED Code(s): 977200339
--- NOTE | 2024-05-08 12:47 | P.PN ---
Subjective Progress Note Date: 05/08/24 patient is 48-year-old gentleman past medical history significant for hypertension brought to the ER for abdominal pain. Patient stated that he was all right couple of days ago when he started experiencing abdominal pain that was sudden onset, sharp, located in the upper quadrants, intermittent, aggravate d by movements. There is also complaint of nausea and vomiting. Patient stated every time he eats or drinks it builds up in his stomach and then he has to vomit it out. Patient also complaining of decreased urination. Denies any fever or chills. No current chest pain or shortness of breath. Initial lab work done in the ER showed WBC 9.9, hemoglobin 19.6, platelet count 271, sodium 135, potassium 4, BUN 26, creatinine 1.35, lactate 2.5 CT abdomen pelvis done showed findings suggestive of high-grade small bowel obstruction with loops dilated up to 4 cm and transition point in the left gene edian, mid to lower abdomen Patient admitted to general surgery 05/05. Patient seen and examined. S/p Exploratory laparotomy, extensive lysis of adhesions. Currently n.p.o., has NG tube in place 05/06. Patient seen and examined. Still having abdominal distention, has not had a bowel movement yet. 05/07. Patient seen and examined. Still has NG tube in place, still not passing any gas. States abdominal distention has improved. Denies abdominal pain. 05/08. Patient seen and examined. Still has NG tube in place, not passing any gas yet. Still feels better REVIEW OF SYSTEMS: CONSTITUTIONAL: No fever, no malaise,. CARDIOVASCULAR: No chest pain, no palpitations, no syncope. PULMONARY: No shortness of breath, no cough, GASTROINTESTINAL: As mentioned above NEUROLOGICAL: No headaches, no weakness, PHYSICAL EXAMINATION: GENERAL: The patient is alert and oriented x3, not in any acute distress. Well developed, well nourished. HEENT: Pupils are round and equally reacting to light. EOMI. No scleral icterus. No conjunctival pallor. Normocephalic, atraumatic. No pharyngeal erythema. No thyromegaly. CARDIOVASCULAR: S1 and S2 present. No murmurs, rubs, or gallops. PULMONARY: Chest is clear to auscultation, no wheezing or crackles. ABDOMEN: Soft, laparotomy surgical incision seen, absent bowel sounds MUSCULOSKELETAL: No joint swelling or deformity. EXTREMITIES: No cyanosis, clubbing, or pedal edema. NEUROLOGICAL: Gross neurological examination did not reveal any focal deficits. SKIN: No rashes. Assessment and plan Small bowel obstruction RADHA Hyponatremia Lactic acidosis Hypertension Monitor vital signs Monitor CBC Monitor CMP S/p Exploratory laparotomy, extensive lysis of adhesions Continue antiemetics Continue NG tube per general surgery Keep patient n.p.o. Continue IV fluids Continue pain management General surgery following Labs and medication were reviewed.. Continue same treatment. Continue with symptomatic treatment. Resume home medication. Monitor labs and vitals. DVT and GI prophylaxis. Further recommendations as per clinical course of the patient Dictation was produced using [employer] dictation software. please excuse any grammatical, word or spelling errors. Objective - Vital Signs Vital signs: Vital Signs Temp 98.2 F 05/08/24 06:58 Pulse 69 05/08/24 06:58 Resp 19 05/08/24 06:58 BP 123/74 05/08/24 06:58 Pulse Ox 99 05/08/24 06:58 FiO2 Intake & Output 05/07/24 05/08/24 05/08/24 18:59 06:59 18:59 Intake Total 100 Output Total 1994 2850 Balance -1895 -2850 Intake: Oral 100 Output: Gastric Drainage 600 1250 Drainage 20 Abdomen 20 Urine 1375 1600 Other: Voiding Method Indwelling Catheter Indwelling Catheter # Voids 2 - Labs CBC & Chem 7: 05/07/24 05:26 05/07/24 05:26
--- NOTE | 2024-05-08 14:44 | P.PN ---
Subjective Progress Note Date: 05/08/24 CHIEF COMPLAINT: Small bowel obstruction HISTORY OF PRESENT ILLNESS: Postop day #3 status post exploratory laparotomy and extensive lysis of adhesions for small bowel obstruction and ischemic bowel. Pain controlled. Denies any nausea. No bowel activity. NG tube with 1250ml output. Afebrile. mildly tachycardic during the night. PHYSICAL EXAM: VITAL SIGNS: Reviewed. GENERAL: no acute distress. ABDOMEN: Mildly distended. Diffuse tenderness. Prevena wound VAC intact NEUROLOGIC: Alert and oriented. Cranial nerves II through XII grossly intact. ASSESSMENT: 1. Small bowel obstruction, ischemic bowel PLAN: -Continue NG tube for decompression -Keep patient n.p.o. except for ice chips -Continue pain management -Encourage patient to ambulate in the hallway -Discontinue Natarajan catheter -Encourage patient to use incentive spirometer -DVT prophylaxis subcu heparin and GI prophylaxis Protonix Physician Survey Engineer note has been reviewed by physician. Signing provider agrees with the documented findings, assessment, and plan of care. Objective - Vital Signs Vital signs: Vital Signs Temp 98.3 F 05/08/24 13:29 Pulse 91 05/08/24 13:29 Resp 19 05/08/24 13:29 BP 146/82 05/08/24 13:29 Pulse Ox 98 05/08/24 13:29 FiO2 Intake & Output 05/07/24 05/08/24 05/08/24 18:59 06:59 18:59 Intake Total 100 Output Total 1994 2849 Balance -1895 -2850 Weight 74.843 kg Intake: Oral 100 Output: Gastric Drainage 600 1250 Drainage 20 Abdomen 20 Urine 1375 1600 Other: Voiding Method Indwelling Catheter Indwelling Catheter # Voids 2 - Labs CBC & Chem 7: 05/07/24 05:26 05/07/24 05:26
[2024-05-08] MEDS: MORPHINE SULFATE 4 MG/ML SYRINGE IVP PRN (17:00)
[2024-05-08] MEDS: HYDROmorphone 1 MG/ML 1 ML SYRINGE IVP PRN (20:46)
[2024-05-08] MEDS: ONDANSETRON 4 MG/2 ML VIAL IVP PRN (20:47)
--- NOTE | 2024-05-09 13:52 | P.PN ---
Subjective Progress Note Date: 05/09/24 patient is 48-year-old gentleman past medical history significant for hypertension brought to the ER for abdominal pain. Patient stated that he was all right couple of days ago when he started experiencing abdominal pain that was sudden onset, sharp, located in the upper quadrants, intermittent, aggravate d by movements. There is also complaint of nausea and vomiting. Patient stated every time he eats or drinks it builds up in his stomach and then he has to vomit it out. Patient also complaining of decreased urination. Denies any fever or chills. No current chest pain or shortness of breath. Initial lab work done in the ER showed WBC 9.9, hemoglobin 19.6, platelet count 271, sodium 135, potassium 4, BUN 26, creatinine 1.35, lactate 2.5 CT abdomen pelvis done showed findings suggestive of high-grade small bowel obstruction with loops dilated up to 4 cm and transition point in the left gene edian, mid to lower abdomen Patient admitted to general surgery 05/05. Patient seen and examined. S/p Exploratory laparotomy, extensive lysis of adhesions. Currently n.p.o., has NG tube in place 05/06. Patient seen and examined. Still having abdominal distention, has not had a bowel movement yet. 05/07. Patient seen and examined. Still has NG tube in place, still not passing any gas. States abdominal distention has improved. Denies abdominal pain. 05/08. Patient seen and examined. Still has NG tube in place, not passing any gas yet. Still feels better. 05/09. Patient seen and examined. Patient pulled out his NG tube by mistake. Currently denying abdominal pain, nausea or vomiting REVIEW OF SYSTEMS: CONSTITUTIONAL: No fever, no malaise,. CARDIOVASCULAR: No chest pain, no palpitations, no syncope. PULMONARY: No shortness of breath, no cough, GASTROINTESTINAL: As mentioned above NEUROLOGICAL: No headaches, no weakness, PHYSICAL EXAMINATION: GENERAL: The patient is alert and oriented x3, not in any acute distress. Well developed, well nourished. HEENT: Pupils are round and equally reacting to light. EOMI. No scleral icterus. No conjunctival pallor. Normocephalic, atraumatic. No pharyngeal erythema. No thyromegaly. CARDIOVASCULAR: S1 and S2 present. No murmurs, rubs, or gallops. PULMONARY: Chest is clear to auscultation, no wheezing or crackles. ABDOMEN: Soft, laparotomy surgical incision seen, absent bowel sounds MUSCULOSKELETAL: No joint swelling or deformity. EXTREMITIES: No cyanosis, clubbing, or pedal edema. NEUROLOGICAL: Gross neurological examination did not reveal any focal deficits. SKIN: No rashes. Assessment and plan Small bowel obstruction RADHA Hyponatremia Lactic acidosis Hypertension Monitor vital signs Monitor CBC Monitor CMP S/p Exploratory laparotomy, extensive lysis of adhesions Continue antiemetics Keep patient n.p.o. Continue IV fluids Continue pain management General surgery following Labs and medication were reviewed.. Continue same treatment. Continue with symptomatic treatment. Resume home medication. Monitor labs and vitals. DVT and GI prophylaxis. Further recommendations as per clinical course of the megan ent Dictation was produced using [id number] dictation software. please excuse any grammatical, word or spelling errors. Objective - Vital Signs Vital signs: Vital Signs Temp 98.0 F 05/09/24 07:01 Pulse 103 H 05/09/24 07:01 Resp 17 05/09/24 07:01 BP 125/80 05/09/24 07:01 Pulse Ox 96 05/09/24 07:01 FiO2 Intake & Output 05/08/24 05/09/24 05/09/24 18:59 06:59 18:59 Output Total 1150 1525 Balance -1150 -1525 Weight 74.843 kg Output: Gastric Drainage 1000 500 Urine 150 1025 Other: Voiding Method Toilet # Voids 150 2 - Labs CBC & Chem 7: 05/07/24 05:26 05/07/24 05:26
--- NOTE | 2024-05-09 18:39 | P.PN ---
Subjective Progress Note Date: 05/09/24 CHIEF COMPLAINT: Abdominal pain HISTORY OF PRESENT ILLNESS: The patient is a 48-year-old male admitted for bowel obstruction and abdominal pain. He is status post extensive lysis of adhesions 05/05/2024. He has nasogastric tube with high output 1000 cc yesterday and 24 hours. He is NPO. His nasogastric tube fell out last night. Family is at bedside. He reports feeling rumbling in the stomach. No flatus. ROS: No reports of nausea and vomiting. No bowel movements. No fevers or chills. No new chest pain. No productive sputum PHYSICAL EXAM: VITAL SIGNS: Reviewed CONSTITUTIONAL: Well developed and in no acute distress. EYES: Conjuctivae without sclera icterus. Extraocular movements grossly intact. HEAD, EARS, NOSE, THROAT: Moist buccal mucosa. Head is atraumatic, normocephalic. Hears conversational speech. No nasal drainage. NG tube catheter bilious. RESPIRATORY: Non-labored respirations and equal bilateral excursions. CARDIOVASCULAR: Palpable 2+ radial pulses. ABDOMEN: Prevena wound VAC intact. No peritonitis. MUSCULOSKELETAL: No gross deformity of the lower extremities noted. No clubbing. No cyanosis. SKIN: Good skin turgor. Well perfused. NEUROLOGIC: Cranial nerves II through XII grossly intact. No focal or lateralizing signs. PSYCH: Appropriate affect. Alert and oriented to person, place and time. CLINICAL LABS: Reviewed. WBC trending downward now normal. ASSESSMENT: 1. Bowel obstruction due to adhesions PLAN: 1. Patient advised to ambulate frequently to minimize ileus. 2. Continue ice chips in the interim. 3. Hold NG tube at this time. Objective - Vital Signs Vital signs: Vital Signs Temp 98.0 F 05/09/24 13:54 Pulse 90 05/09/24 13:54 Resp 19 05/09/24 13:54 BP 118/70 05/09/24 13:54 Pulse Ox 97 05/09/24 13:54 FiO2 Intake & Output 05/08/24 05/09/24 05/09/24 18:59 06:59 18:59 Output Total 1150 1525 10 Balance -1150 -1525 -10 Weight 74.843 kg Output: Gastric Drainage 1000 500 Drainage 10 Abdomen 10 Urine 150 1025 Other: Voiding Method Toilet # Voids 150 2 - Labs CBC & Chem 7: 05/07/24 05:26 05/07/24 05:26
--- NOTE | 2024-05-10 08:01 | P.PN ---
Subjective Progress Note Date: 05/10/24 CHIEF COMPLAINT: Abdominal pain HISTORY OF PRESENT ILLNESS: The patient is a 48-year-old male admitted for bowel obstruction and abdominal pain. He is status post extensive lysis of adhesions 05/05/2024. He reports no flatus. He has increased abdominal distention. No increased abdominal pain. ROS: No reports of nausea and vomiting. No bowel movements. No fevers or chills. No new chest pain. No productive sputum PHYSICAL EXAM: VITAL SIGNS: Reviewed CONSTITUTIONAL: Well developed and in no acute distress. EYES: Conjuctivae without sclera icterus. Extraocular movements grossly intact. HEAD, EARS, NOSE, THROAT: Moist buccal mucosa. Head is atraumatic, normocephalic. Hears conversational speech. No nasal drainage. NG tube catheter bilious. RESPIRATORY: Non-labored respirations and equal bilateral excursions. CARDIOVASCULAR: Palpable 2+ radial pulses. ABDOMEN: Prevena wound VAC intact. No peritonitis. MUSCULOSKELETAL: No gross deformity of the lower extremities noted. No clubbing. No cyanosis. SKIN: Good skin turgor. Well perfused. NEUROLOGIC: Cranial nerves II through XII grossly intact. No focal or lateralizing signs. PSYCH: Appropriate affect. Alert and oriented to person, place and time. CLINICAL LABS: Reviewed. Labs pending from this morning ASSESSMENT: 1. Bowel obstruction due to adhesions PLAN: 1. Will obtain abdominal x-ray. 2. Patient encouraged to ambulate and massage abdomen for postoperative ileus 3. Will advance diet pending flatus and abdominal x-ray findings Objective - Vital Signs Vital signs: Vital Signs Temp 97.9 F 05/10/24 06:55 Pulse 98 05/10/24 06:55 Resp 18 05/10/24 06:55 BP 153/88 05/10/24 06:55 Pulse Ox 93 L 05/10/24 06:55 FiO2 Intake & Output 05/09/24 05/10/24 05/10/24 18:59 06:59 18:59 Output Total 10 525 Balance -10 -525 Output: Drainage 10 Abdomen 10 Urine 525 Other: Voiding Method Toilet # Voids 3 - Labs CBC & Chem 7: 05/07/24 05:26 05/07/24 05:26
--- NOTE | 2024-05-10 08:35 | XR ---
EXAMINATION TYPE: XR abdomen acute w cxr DATE OF EXAM: 05/10/2024 COMPARISON: 05/04/2024 HISTORY: Pain TECHNIQUE: Supine, upright, and left side down lateral decubitus views of the abdomen are obtained. FINDINGS: Limited inspiration with bibasilar subsegmental atelectasis or infiltrate. No pleural effusion or pne umothorax. Heart size normal. Surgical alcides in the upper abdomen with air-fluid levels and prominent bowel loops. Postsurgical c hanges vertebral column. Osseous structures otherwise intact. Surgical tubing or drain overlying the abdomen. IMPRESSION: 1. Bibasilar atelectasis favored over pneumonia correlate clinically. 2. Air-fluid levels in dilated bowel loops may be on the basis of an ileus or a partial obstruction c orrelate clinically.
--- NOTE | 2024-05-10 10:12 | P.PN ---
Progress Note - Text Progress Note Date: 05/10/24 Abdominal x-ray independent review demonstrate persistent ileus. Patient now having intractable nausea and vomiting. Moderate gaseous distention of the small bowel is evident with air-fluid levels. Placement of nasogastric tube advised with start of TPN.
[2024-05-10 11:17] LABS: Basophils % (A) 1 %; Eosinophils # (A) 0.1 k/uL (0-0.7); Eosinophils % (A) 1 %; HCT 46.6 % (39.0-53.0); Lymphocytes # (A) 0.9 k/uL (1.0-4.8); Lymphocytes % (A) 13 %; MCHC 31.8 g/dL (31.0-37.0); MCV 97.5 fL (80.0-100.0); Mean Platelet Volume 8.2; Monocytes # (A) 0.5 k/uL (0-1.0); Monocytes % (A) 8 %; Neutrophils # (A) 5.3 k/uL (1.3-7.7); Neutrophils % (A) 77 %; Platelet Count 429 k/uL (150-450); RBC 4.78 m/uL (4.30-5.90); RDW 13.6 % (11.5-15.5); WBC 6.9 k/uL (3.8-10.6)
[2024-05-10 11:26] LABS: ALT 25 U/L (4-49); AST 27 U/L (17-59); African American GFR (CKD) >90 (>60 ml/min/1.73 sqM); Albumin 3.3 g/dL (3.5-5.0); Albumin/Globulin Ratio 1.3; Alkaline Phosphatase 79 U/L (38-126); Anion Gap 17 mmol/L; Blood Urea Nitrogen 7 mg/dL (9-20); Calcium 8.9 mg/dL (8.4-10.2); Carbon Dioxide 12 mmol/L (22-30); Chloride 110 mmol/L (98-107); Globulin 2.5 g/dL; Glucose 103 mg/dL (74-99); Non-African American GFR(CKD) >90 (>60 ml/min/1.73 sqM); Potassium 3.4 mmol/L (3.5-5.1); Sodium 139 mmol/L (137-145); Total Bilirubin 0.7 mg/dL (0.2-1.3); Total Protein 5.8 g/dL (6.3-8.2)
[2024-05-10 11:28] LABS: HGB 14.8 gm/dL (13.0-17.5)
--- NOTE | 2024-05-10 11:38 | XR ---
EXAMINATION TYPE: XR chest 1V confirm line [facility] DATE OF EXAM: 05/10/2024 COMPARISON: 05/04/2024 HISTORY: 48-year-old male NG tube placement TECHNIQUE: Single frontal view of the chest is obtained. FINDINGS: NG tube satisfactory. Heart normal size. Low lung volumes with some crowded vascular bill ngs and some minimal strandy atelectasis at the lower lungs. No consolidation or pleural effusion. IMPRESSION: 1. Satisfactory NG tube. 2. Some hypoventilatory changes with some strandy atelectasis in the lower lungs.
[2024-05-10 11:41] LABS: Magnesium 1.6 mg/dL (1.6-2.3); Phosphorus 2.9 mg/dL (2.5-4.5)
--- NOTE | 2024-05-10 13:53 | P.PN ---
Subjective Progress Note Date: 05/10/24 patient is 48-year-old gentleman past medical history significant for hypertension brought to the ER for abdominal pain. Patient stated that he was all right couple of days ago when he started experiencing abdominal pain that was sudden onset, sharp, located in the upper quadrants, intermittent, aggravate d by movements. There is also complaint of nausea and vomiting. Patient stated every time he eats or drinks it builds up in his stomach and then he has to vomit it out. Patient also complaining of decreased urination. Denies any fever or chills. No current chest pain or shortness of breath. Initial lab work done in the ER showed WBC 9.9, hemoglobin 19.6, platelet count 271, sodium 135, potassium 4, BUN 26, creatinine 1.35, lactate 2.5 CT abdomen pelvis done showed findings suggestive of high-grade small bowel obstruction with loops dilated up to 4 cm and transition point in the left gene edian, mid to lower abdomen Patient admitted to general surgery 05/05. Patient seen and examined. S/p Exploratory laparotomy, extensive lysis of adhesions. Currently n.p.o., has NG tube in place 05/06. Patient seen and examined. Still having abdominal distention, has not had a bowel movement yet. 05/07. Patient seen and examined. Still has NG tube in place, still not passing any gas. States abdominal distention has improved. Denies abdominal pain. 05/08. Patient seen and examined. Still has NG tube in place, not passing any gas yet. Still feels better. 05/09. Patient seen and examined. Patient pulled out his NG tube by mistake. Currently denying abdominal pain, nausea or vomiting 05/10. Patient seen examined. X-ray acute abdominal series showed air-fluid levels and dilated bowel loops may be on the basis of an ileus or partial obstruction. Patient having nausea and vomiting. Denies abdominal pain REVIEW OF SYSTEMS: CONSTITUTIONAL: No fever, no malaise,. CARDIOVASCULAR: No chest pain, no palpitations, no syncope. PULMONARY: No shortness of breath, no cough, GASTROINTESTINAL: As mentioned above NEUROLOGICAL: No headaches, no weakness, PHYSICAL EXAMINATION: GENERAL: The patient is alert and oriented x3, not in any acute distress. Well developed, well nourished. HEENT: Pupils are round and equally reacting to light. EOMI. No scleral icterus. No conjunctival pallor. Normocephalic, atraumatic. No pharyngeal erythema. No thyromegaly. CARDIOVASCULAR: S1 and S2 present. No murmurs, rubs, or gallops. PULMONARY: Chest is clear to auscultation, no wheezing or crackles. ABDOMEN: Soft, laparotomy surgical incision seen, absent bowel sounds drain seen MUSCULOSKELETAL: No joint swelling or deformity. EXTREMITIES: No cyanosis, clubbing, or pedal edema. NEUROLOGICAL: Gross neurological examination did not reveal any focal deficits. SKIN: No rashes. Assessment and plan Small bowel obstruction RADHA Hyponatremia Lactic acidosis Hypertension Monitor vital signs Monitor CBC Monitor CMP S/p Exploratory laparotomy, extensive lysis of adhesions Results of acute abdominal series noted NG-tube ordered surgery TPN started Continue antiemetics Keep patient n.p.o. Continue IV fluids Continue pain management General surgery following Labs and medication were reviewed.. Continue same treatment. Continue with symptomatic treatment. Resume home medication. Monitor labs and vitals. DVT and GI prophylaxis. Further recommendations as per clinical course of the patient Dictation was produced using [employer] dictation software. please excuse any grammatical, word or spelling errors. Objective - Vital Signs Vital signs: Vital Signs Temp 97.9 F 05/10/24 06:55 Pulse 98 05/10/24 06:55 Resp 18 05/10/24 06:55 BP 153/88 05/10/24 06:55 Pulse Ox 93 L 05/10/24 06:55 FiO2 Intake & Output 05/09/24 05/10/24 05/10/24 18:59 06:59 18:59 Output Total 10 525 Balance -10 -525 Output: Drainage 10 Abdomen 10 Urine 525 Other: Voiding Method Toilet # Voids 3 - Labs CBC & Chem 7: 05/10/24 10:48 05/10/24 10:48
[2024-05-10] MEDS ORDERED: DEXTROSE 50% SYRINGE 50 ML IVP PRN ×2 (15:00)
[2024-05-10] MEDS: [UNRECOGNIZED DRUG - OTHER] IV SCH (15:56)
[2024-05-10] MEDS: MAGNESIUM SULFATE IV SCH (15:56)
[2024-05-10] MEDS: SODIUM ACETATE IV SCH (15:56)
[2024-05-10] MEDS: POTASSIUM ACETATE IV SCH (15:56)
[2024-05-10] MEDS: ACETAMINOPHEN IV (For NPO) 1,000 MG in EMPTY BAG 1 BAG IVPB SCH (17:36)
[2024-05-10 17:45] LABS: Glucose,Whole Blood 117 mg/dL (70-110)
[2024-05-10] MEDS: INSULIN ASPART (NovoLOG) 100 UNIT/ML VIAL SQ SCH (17:48)
--- NOTE | 2024-05-10 17:49 | XR ---
EXAMINATION TYPE: XR chest 1V confirm line [facility] DATE OF EXAM: 05/10/2024 5:30 PM CLINICAL INDICATION:Male, 48 years old with history of ngt; COMPARISON: Chest radiographs from 05/10/2024 TECHNIQUE: XR chest 1V confirm line [facility] Frontal view of the chest. FINDINGS: Lungs/Pleura: There is no evidence of pleural effusion, focal consolidation, or pneumothorax. Pulmonary vascularity: Unremarkable. Heart/mediastinum: Cardiomediastinal silhouette is unremarkable. Musculoskeletal: No acute osseous pathology. Nasogastric tube in appropriate position. IMPRESSION: Nasogastric tube in appropriate position. No acute cardiopulmonary disease/process.
[2024-05-10 23:31] LABS: Glucose,Whole Blood 129 mg/dL (70-110)
[2024-05-11 06:35] LABS: Glucose,Whole Blood 125 mg/dL (70-110)
[2024-05-11 07:33] LABS: Ionized Calcium 4.9 mg/dL (4.5-5.3)
[2024-05-11 07:37] LABS: Basophils % (A) 1 %; Eosinophils # (A) 0.1 k/uL (0-0.7); Eosinophils % (A) 1 %; HCT 43.3 % (39.0-53.0); Lymphocytes # (A) 0.9 k/uL (1.0-4.8); Lymphocytes % (A) 13 %; MCH 31.6 pg (25.0-35.0); MCHC 32.4 g/dL (31.0-37.0); MCV 97.5 fL (80.0-100.0); Mean Platelet Volume 8.3; Monocytes # (A) 0.6 k/uL (0-1.0); Monocytes % (A) 8 %; Neutrophils # (A) 5.5 k/uL (1.3-7.7); Neutrophils % (A) 76 %; Platelet Count 318 k/uL (150-450); RBC 4.44 m/uL (4.30-5.90); RDW 13.3 % (11.5-15.5); WBC 7.2 k/uL (3.8-10.6)
[2024-05-11 07:49] LABS: ALT 19 U/L (4-49); AST 22 U/L (17-59); African American GFR (CKD) >90 (>60 ml/min/1.73 sqM); Albumin 2.8 g/dL (3.5-5.0); Albumin/Globulin Ratio 1.2; Alkaline Phosphatase 66 U/L (38-126); Anion Gap 6 mmol/L; Blood Urea Nitrogen 7 mg/dL (9-20); Calcium 8.3 mg/dL (8.4-10.2); Carbon Dioxide 24 mmol/L (22-30); Chloride 109 mmol/L (98-107); Globulin 2.4 g/dL; Glucose 126 mg/dL (74-99); Magnesium 1.7 mg/dL (1.6-2.3); Non-African American GFR(CKD) >90 (>60 ml/min/1.73 sqM); Phosphorus 2.9 mg/dL (2.5-4.5); Potassium 3.2 mmol/L (3.5-5.1); Sodium 139 mmol/L (137-145); Total Bilirubin 0.5 mg/dL (0.2-1.3); Total Protein 5.2 g/dL (6.3-8.2)
[2024-05-11 11:45] LABS: Glucose,Whole Blood 147 mg/dL (70-110)
[2024-05-11] MEDS: POTASSIUM CHLORIDE 20 MEQ in WATER FOR INJECTION 1 100ML.BAG IVPB SCH (12:39)
--- NOTE | 2024-05-11 14:10 | P.PN ---
Subjective Progress Note Date: 05/11/24 patient is 48-year-old gentleman past medical history significant for hypertension brought to the ER for abdominal pain. Patient stated that he was all right couple of days ago when he started experiencing abdominal pain that was sudden onset, sharp, located in the upper quadrants, intermittent, aggravate d by movements. There is also complaint of nausea and vomiting. Patient stated every time he eats or drinks it builds up in his stomach and then he has to vomit it out. Patient also complaining of decreased urination. Denies any fever or chills. No current chest pain or shortness of breath. Initial lab work done in the ER showed WBC 9.9, hemoglobin 19.6, platelet count 271, sodium 135, potassium 4, BUN 26, creatinine 1.35, lactate 2.5 CT abdomen pelvis done showed findings suggestive of high-grade small bowel obstruction with loops dilated up to 4 cm and transition point in the left gene edian, mid to lower abdomen Patient admitted to general surgery 05/05. Patient seen and examined. S/p Exploratory laparotomy, extensive lysis of adhesions. Currently n.p.o., has NG tube in place 05/06. Patient seen and examined. Still having abdominal distention, has not had a bowel movement yet. 05/07. Patient seen and examined. Still has NG tube in place, still not passing any gas. States abdominal distention has improved. Denies abdominal pain. 05/08. Patient seen and examined. Still has NG tube in place, not passing any gas yet. Still feels better. 05/09. Patient seen and examined. Patient pulled out his NG tube by mistake. Currently denying abdominal pain, nausea or vomiting 05/10. Patient seen examined. X-ray acute abdominal series showed air-fluid levels and dilated bowel loops may be on the basis of an ileus or partial obstruction. Patient having nausea and vomiting. Denies abdominal pain 05/11. Patient seen and examined. Currently on TPN. Not passing any gas. D enies abdominal pain. REVIEW OF SYSTEMS: CONSTITUTIONAL: No fever, no malaise,. CARDIOVASCULAR: No chest pain, no palpitations, no syncope. PULMONARY: No shortness of breath, no cough, GASTROINTESTINAL: As mentioned above NEUROLOGICAL: No headaches, no weakness, PHYSICAL EXAMINATION: GENERAL: The patient is alert and oriented x3, not in any acute distress. Well developed, well nourished. HEENT: Pupils are round and equally reacting to light. EOMI. No scleral icterus. No conjunctival pallor. Normocephalic, atraumatic. No pharyngeal erythema. No thyromegaly. CARDIOVASCULAR: S1 and S2 present. No murmurs, rubs, or gallops. PULMONARY: Chest is clear to auscultation, no wheezing or crackles. ABDOMEN: Soft, laparotomy surgical incision seen, absent bowel sounds drain seen MUSCULOSKELETAL: No joint swelling or deformity. EXTREMITIES: No cyanosis, clubbing, or pedal edema. NEUROLOGICAL: Gross neurological examination did not reveal any focal deficits. SKIN: No rashes. Assessment and plan Small bowel obstruction RADHA Hyponatremia Lactic acidosis Hypertension Monitor vital signs Monitor CBC Monitor CMP S/p Exploratory laparotomy, extensive lysis of adhesions Results of acute abdominal series noted Continue NG tube per surgery Continue TPN Continue antiemetics Keep patient n.p.o. Continue IV fluids Continue pain management General surgery following Labs and medication were reviewed.. Continue same treatment. Continue with symptomatic treatment. Resume home medication. Monitor labs and vitals. DVT and GI prophylaxis. Further recommendations as per clinical course of the patient Dictation was produced using [employer] dictation software. please excuse any gramm atical, word or spelling errors. Objective - Vital Signs Vital signs: Vital Signs Temp 97.4 F L 05/11/24 06:55 Pulse 78 05/11/24 06:55 Resp 17 05/11/24 06:55 BP 120/73 05/11/24 06:55 Pulse Ox 94 L 05/11/24 06:55 FiO2 Intake & Output 05/10/24 05/11/24 05/11/24 18:59 06:59 18:59 Output Total 700 255 450 Balance -700 -255 -450 Weight 74.843 kg Output: Gastric Drainage 700 250 Drainage 5 Abdomen 5 Oral Regurgitation 450 Other: Voiding Method Toilet Toilet # Voids 3 # Emeses 3 - Labs CBC & Chem 7: 05/11/24 05:40 05/11/24 05:40 Labs: Abnormal Lab Results - Last 24 Hours (Table) 05/10/24 05/10/24 05/11/24 Range/Units 17:34 23:30 05:40 Lymphocytes # 0.9 L (1.0-4.8) k/uL Potassium (3.5-5.1) mmol/L Chloride (98-107) mmol/L BUN (9-20) mg/dL Creatinine (0.66-1.25) mg/dL Glucose (74-99) mg/dL POC Glucose (mg/dL) 117 H 129 H (70-110) mg/dL Calcium (8.4-10.2) mg/dL Total Protein (6.3-8.2) g/dL Albumin (3.5-5.0) g/dL Triglycerides (0.00-149.00) mg/dL 05/11/24 05/11/24 05/11/24 Range/Units 05:40 06:33 11:32 Lymphocytes # (1.0-4.8) k/uL Potassium 3.2 L (3.5-5.1) mmol/L Chloride 109 H (98-107) mmol/L BUN 7 L (9-20) mg/dL Creatinine 0.63 L (0.66-1.25) mg/dL Glucose 126 H (74-99) mg/dL POC Glucose (mg/dL) 125 H 147 H (70-110) mg/dL Calcium 8.3 L (8.4-10.2) mg/dL Total Protein 5.2 L (6.3-8.2) g/dL Albumin 2.8 L (3.5-5.0) g/dL Triglycerides 223.00 H (0.00-149.00) mg/dL
[2024-05-11 17:05] LABS: Glucose,Whole Blood 97 mg/dL (70-110)
--- NOTE | 2024-05-11 18:42 | P.PN ---
Progress Note - Text Progress Note Date: 05/11/24 CHIEF COMPLAINT: Abdominal pain HISTORY OF PRESENT ILLNESS: Patient states not passing gas and not having abdominal pain ROS: No reports of nausea and vomiting. No bowel movements. No fevers or chills. No new chest pain. No productive sputum PHYSICAL EXAM: VITAL SIGNS: Reviewed CONSTITUTIONAL: Well developed and in no acute distress. EYES: Conjuctivae without sclera icterus. Extraocular movements grossly intact. HEAD, EARS, NOSE, THROAT: Moist buccal mucosa. Head is atraumatic, n ormocephalic. Hears conversational speech. No nasal drainage. NG tube catheter bilious. RESPIRATORY: Non-labored respirations and equal bilateral excursions. CARDIOVASCULAR: Palpable 2+ radial pulses. ABDOMEN: Prevena wound VAC intact. No peritonitis. MUSCULOSKELETAL: No gross deformity of the lower extremities noted. No clubbing. No cyanosis. SKIN: Good skin turgor. Well perfused. NEUROLOGIC: Cranial nerves II through XII grossly intact. No focal or lateralizing signs. PSYCH: Appropriate affect. Alert and oriented to person, place and time. CLINICAL LABS: Reviewed. ASSESSMENT: 1. Bowel obstruction due to adhesions PLAN: 1. NPO 2. Patient encouraged to ambulate and massage abdomen for postoperative ileus 3. Will advance diet pending bowel function
[2024-05-11] MEDS: POTASSIUM ACETATE IV SCH (23:03)
[2024-05-11] MEDS: MAGNESIUM SULFATE IV SCH (23:03)
[2024-05-11] MEDS: SODIUM ACETATE IV SCH (23:03)
[2024-05-11] MEDS: [UNRECOGNIZED DRUG - OTHER] IV SCH (23:03)
[2024-05-11 23:50] LABS: Glucose,Whole Blood 121 mg/dL (70-110)
[2024-05-12 05:28] LABS: African American GFR (CKD) >90 (>60 ml/min/1.73 sqM); Anion Gap 4 mmol/L; Blood Urea Nitrogen 8 mg/dL (9-20); Calcium 8.1 mg/dL (8.4-10.2); Carbon Dioxide 25 mmol/L (22-30); Chloride 110 mmol/L (98-107); Glucose 132 mg/dL (74-99); Magnesium 1.9 mg/dL (1.6-2.3); Non-African American GFR(CKD) >90 (>60 ml/min/1.73 sqM); Phosphorus 3.2 mg/dL (2.5-4.5); Potassium 3.2 mmol/L (3.5-5.1); Sodium 139 mmol/L (137-145)
[2024-05-12 06:18] LABS: Glucose,Whole Blood 108 mg/dL (70-110)
[2024-05-12] MEDS: POTASSIUM CHLORIDE 20 MEQ in WATER FOR INJECTION 1 100ML.BAG IVPB SCH ×2 (09:53→14:32)
[2024-05-12 11:19] LABS: Glucose,Whole Blood 122 mg/dL (70-110)
--- NOTE | 2024-05-12 13:13 | P.PN ---
Subjective Progress Note Date: 05/12/24 patient is 48-year-old gentleman past medical history significant for hypertension brought to the ER for abdominal pain. Patient stated that he was all right couple of days ago when he started experiencing abdominal pain that was sudden onset, sharp, located in the upper quadrants, intermittent, aggravate d by movements. There is also complaint of nausea and vomiting. Patient stated every time he eats or drinks it builds up in his stomach and then he has to vomit it out. Patient also complaining of decreased urination. Denies any fever or chills. No current chest pain or shortness of breath. Initial lab work done in the ER showed WBC 9.9, hemoglobin 19.6, platelet count 271, sodium 135, potassium 4, BUN 26, creatinine 1.35, lactate 2.5 CT abdomen pelvis done showed findings suggestive of high-grade small bowel obstruction with loops dilated up to 4 cm and transition point in the left gene edian, mid to lower abdomen Patient admitted to general surgery 05/05. Patient seen and examined. S/p Exploratory laparotomy, extensive lysis of adhesions. Currently n.p.o., has NG tube in place 05/06. Patient seen and examined. Still having abdominal distention, has not had a bowel movement yet. 05/07. Patient seen and examined. Still has NG tube in place, still not passing any gas. States abdominal distention has improved. Denies abdominal pain. 05/08. Patient seen and examined. Still has NG tube in place, not passing any gas yet. Still feels better. 05/09. Patient seen and examined. Patient pulled out his NG tube by mistake. Currently denying abdominal pain, nausea or vomiting 05/10. Patient seen examined. X-ray acute abdominal series showed air-fluid levels and dilated bowel loops may be on the basis of an ileus or partial obstruction. Patient having nausea and vomiting. Denies abdominal pain 05/11. Patient seen and examined. Currently on TPN. Not passing any gas. D enies abdominal pain. 05/12. Patient seen and examined. Potassium level this morning was 3.2, repla cement ordered. Patient states he gets anxious easily. Denies any abdominal pain REVIEW OF SYSTEMS: CONSTITUTIONAL: No fever, no malaise,. CARDIOVASCULAR: No chest pain, no palpitations, no syncope. PULMONARY: No shortness of breath, no cough, GASTROINTESTINAL: As mentioned above NEUROLOGICAL: No headaches, no weakness, PHYSICAL EXAMINATION: GENERAL: The patient is alert and oriented x3, not in any acute distress. Well developed, well nourished. HEENT: Pupils are round and equally reacting to light. EOMI. No scleral icterus. No conjunctival pallor. Normocephalic, atraumatic. No pharyngeal erythema. No thyromegaly. CARDIOVASCULAR: S1 and S2 present. No murmurs, rubs, or gallops. PULMONARY: Chest is clear to auscultation, no wheezing or crackles. ABDOMEN: Soft, laparotomy surgical incision seen, bowel sounds are sluggish, drain seen MUSCULOSKELETAL: No joint swelling or deformity. EXTREMITIES: No cyanosis, clubbing, or pedal edema. NEUROLOGICAL: Gross neurological examination did not reveal any focal deficits. SKIN: No rashes. Assessment and plan Small bowel obstruction RADHA Hyponatremia Hypokalemia Lactic acidosis Hypertension Monitor vital signs Monitor CBC Monitor CMP S/p Exploratory laparotomy, extensive lysis of adhesions Results of acute abdominal series noted Continue NG tube per surgery Continue TPN Continue antiemetics Monitor electrolytes, potassium replacement ordered Keep patient n.p.o. Continue IV fluids Continue pain management General surgery following Labs and medication were reviewed.. Continue same treatment. Continue with symptomatic treatment. Resume home medication. Monitor labs and vitals. DVT and GI prophylaxis. Further recommendations as per clinical course of the patient Dictation was produced using [employer] dictation software. please excuse any grammatical, word or spelling errors. Objective - Vital Signs Vital signs: Vital Signs Temp 98.1 F 05/12/24 06:55 Pulse 78 05/12/24 06:55 Resp 16 05/12/24 06:55 BP 124/78 05/12/24 06:55 Pulse Ox 97 05/12/24 06:55 FiO2 Intake & Output 05/11/24 05/12/24 05/12/24 18:59 06:59 18:59 Intake Total 766 Output Total 1050 800 Balance -284 -800 Intake: Intake, IV Titration 766 Amount Sodium Acetate 30 meq 766 Potassium Acetate 20 meq Magnesium Sulfate gm 1 gm Calcium Gluconate 1 gm Potassium Phosphate 15 mmol Mvi, Adult No.4 with Vit K 10 ml Trace (Conc- 1Ml/Dose) 1 ml In Amino Acids 5 %/Dextrose 20 % 1 ,000 ml @ 30 mls/hr IV . Q24H [facility] Rx#:[id number] Output: Gastric Drainage 600 800 Oral Regurgitation 450 Other: Voiding Method Toilet Urinal # Voids 2 - Labs CBC & Chem 7: 05/11/24 05:40 05/12/24 04:35 Labs: Abnormal Lab Results - Last 24 Hours (Table) 05/11/24 05/11/24 05/11/24 Range/Units 05:40 11:32 23:49 Potassium (3.5-5.1) mmol/L Chloride (98-107) mmol/L BUN (9-20) mg/dL Creatinine (0.66-1.25) mg/dL Glucose (74-99) mg/dL POC Glucose (mg/dL) 147 H 121 H (70-110) mg/dL Calcium (8.4-10.2) mg/dL Triglycerides 223.00 H (0.00-149.00) mg/dL 05/12/24 Range/Units 04:35 Potassium 3.2 L (3.5-5.1) mmol/L Chloride 110 H (98-107) mmol/L BUN 8 L (9-20) mg/dL Creatinine 0.59 L (0.66-1.25) mg/dL Glucose 132 H (74-99) mg/dL POC Glucose (mg/dL) (70-110) mg/dL Calcium 8.1 L (8.4-10.2) mg/dL Triglycerides (0.00-149.00) mg/dL
[2024-05-12] MEDS: FAT EMULSION 20% 250 ML IV SCH (13:33)
[2024-05-12] MEDS: METOCLOPRAMIDE 5 MG/ML 2 ML VIAL IVP PRN (13:42)
[2024-05-12] MEDS: LORazepam 2 MG/ML INJ IV PRN (13:51)
--- NOTE | 2024-05-12 14:01 | P.PN ---
Subjective Progress Note Date: 05/12/24 CHIEF COMPLAINT: Abdominal pain HISTORY OF PRESENT ILLNESS: The patient is a 48-year-old male admitted for bowel obstruction and abdominal pain. He is status post extensive lysis of adhesions 05/05/2024. Started TPN, patient reports feeling more nauseous and sick. His is at bedside. He is requesting holding a TPN at least for 24 hours to assess his overall wellbeing. He is not passing flatus. No bowel movements. NG tube output 1.4 L in 24 hours. ROS: No reports of nausea and vomiting. No bowel movements. No fevers or chills. No new chest pain. No productive sputum PHYSICAL EXAM: VITAL SIGNS: Reviewed CONSTITUTIONAL: Well developed and in no acute distress. EYES: Conjuctivae without sclera icterus. Extraocular movements grossly intact. HEAD, EARS, NOSE, THROAT: Moist buccal mucosa. Head is atraumatic, normocephalic. Hears conversational speech. No nasal drainage. NG tube catheter bilious. RESPIRATORY: Non-labored respirations and equal bilateral excursions. CARDIOVASCULAR: Palpable 2+ radial pulses. ABDOMEN: Prevena wound VAC intact. No peritonitis. POOJA serosanguineous. MUSCULOSKELETAL: No gross deformity of the lower extremities noted. No clubbing. No cyanosis. SKIN: Good skin turgor. Well perfused. NEUROLOGIC: Cranial nerves II through XII grossly intact. No focal or lateralizing signs. PSYCH: Appropriate affect. Alert and oriented to person, place and time. CLINICAL LABS: Reviewed. Potassium low 3.2, hypokalemia ASSESSMENT: 1. Bowel obstruction due to adhesions 2. Postoperative ileus 3. Hypokalemia PLAN: 1. Continue nasogastric tube to suction. 2. May benefit from upper GI with small bowel follow-through for any other transient transition points or bowel blockage 3. Patient is requesting to hold his TPN for at least 24 hours. Patient advised reason for TPN is for nutrition however patient has a choice in his care. 4. Ambulation encouraged 5. Discontinue Prevena dressing. Use Optifoam dressing. 6. All questions were addressed with the patient and his at bedside. Objective - Vital Signs Vital signs: Vital Signs Temp 98.1 F 05/12/24 06:55 Pulse 78 05/12/24 06:55 Resp 16 05/12/24 06:55 BP 124/78 05/12/24 06:55 Pulse Ox 97 05/12/24 06:55 FiO2 Intake & Output 05/11/24 05/12/24 05/12/24 18:59 06:59 18:59 Intake Total 766 1042 Output Total 1050 800 Balance -284 -800 1042 Intake: Intake, IV Titration 766 1042 Amount Sodium Acetate 30 meq 1042 Potassium Acetate 20 meq Magnesium Sulfate gm 1 gm Calcium Gluconate 1 gm Potassium Phosphate 15 mmol In Amino Acids 5 %/ Dextrose 20 % 1,000 ml @ 72 mls/hr IV .BY DURATION [facility] Rx#:[id number] Sodium Acetate 30 meq 766 Potassium Acetate 20 meq Magnesium Sulfate gm 1 gm Calcium Gluconate 1 gm Potassium Phosphate 15 mmol Mvi, Adult No.4 with Vit K 10 ml Trace (Conc- 1Ml/Dose) 1 ml In Amino Acids 5 %/Dextrose 20 % 1 ,000 ml @ 30 mls/hr IV . Q24H [facility] Rx#:[id number] Output: Gastric Drainage 600 800 Oral Regurgitation 450 Other: Voiding Method Toilet Urinal # Voids 2 - Labs CBC & Chem 7: 05/11/24 05:40 05/12/24 04:35 Labs: Abnormal Lab Results - Last 24 Hours (Table) 05/11/24 05/12/24 05/12/24 Range/Units 23:49 04:35 11:18 Potassium 3.2 L (3.5-5.1) mmol/L Chloride 110 H (98-107) mmol/L BUN 8 L (9-20) mg/dL Creatinine 0.59 L (0.66-1.25) mg/dL Glucose 132 H (74-99) mg/dL POC Glucose (mg/dL) 121 H 122 H (70-110) mg/dL Calcium 8.1 L (8.4-10.2) mg/dL
[2024-05-12] MEDS: ACETAMINOPHEN IV (For NPO) 1,000 MG in EMPTY BAG 1 BAG IVPB SCH (14:32)
[2024-05-12 16:42] LABS: Glucose,Whole Blood 95 mg/dL (70-110)
[2024-05-13 00:30] LABS: Glucose,Whole Blood 92 mg/dL (70-110)
[2024-05-13] MEDS: MAGNESIUM SULFATE IV SCH (00:32)
[2024-05-13] MEDS: POTASSIUM ACETATE IV SCH (00:32)
[2024-05-13] MEDS: [UNRECOGNIZED DRUG - OTHER] IV SCH (00:32)
[2024-05-13] MEDS: SODIUM ACETATE IV SCH (00:32)
[2024-05-13 05:33] LABS: Glucose,Whole Blood 86 mg/dL (70-110)
[2024-05-13 07:22] LABS: African American GFR (CKD) >90 (>60 ml/min/1.73 sqM); Anion Gap 4 mmol/L; Blood Urea Nitrogen 9 mg/dL (9-20); Calcium 8.5 mg/dL (8.4-10.2); Carbon Dioxide 27 mmol/L (22-30); Chloride 110 mmol/L (98-107); Glucose 89 mg/dL (74-99); Magnesium 1.9 mg/dL (1.6-2.3); Non-African American GFR(CKD) >90 (>60 ml/min/1.73 sqM); Phosphorus 3.9 mg/dL (2.5-4.5); Potassium 3.5 mmol/L (3.5-5.1); Sodium 141 mmol/L (137-145)
[2024-05-13 10:46] LABS: Basophils # (A) 0.05 X 10*3/uL (0.00-0.10); Basophils % (A) 0.7 %; Eosinophils # (A) 0.09 X 10*3/uL (0.04-0.35); Eosinophils % (A) 1.2 %; HCT 38.2 % (39.6-50.0); HGB 12.4 g/dL (13.0-17.0); Lymphocytes # (A) 1.55 X 10*3/uL (0.90-5.00); Lymphocytes % (A) 20.4 %; MCH 31.5 pg (27.0-32.0); MCHC 32.5 g/dL (32.0-37.0); Mean Platelet Volume 9.3 FL (9.5-12.2); Monocytes # (A) 0.63 X 10*3/uL (0.20-1.00); Monocytes % (A) 8.3 %; NRBC Per 100 WBC 0 X 10*3/uL (0.00-0.01); Neutrophils # (A) 5.19 X 10*3/uL (1.80-7.70); Neutrophils % (A) 68.2 %; Platelet Count 372 X 10*3/uL (140-440); RBC 3.94 X 10*6/uL (4.40-5.60); RDW 13.5 % (11.5-14.5)
[2024-05-13 11:43] LABS: Glucose,Whole Blood 106 mg/dL (70-110)
--- NOTE | 2024-05-13 13:40 | P.PN ---
Subjective Progress Note Date: 05/13/24 Principal diagnosis: Small bowel obstruction Events that occurred over the last several days reviewed. Patient was started on TPN after nasogastric tube was reinserted. Patient had side effects he believes from the TPN and including nausea, dry heaves, dizziness, weakness. TP N was stopped yesterday around 2 PM and he says today he feels much better. Patient does not want to have the TPN restarted. Still feels bloated. No flatus. No bowel movement. No nausea currently. Nasogastric output bilious. POOJA drain serosanguineous. Objective - Vital Signs Vital signs: Vital Signs Temp 98.0 F 05/13/24 07:12 Pulse 76 05/13/24 07:12 Resp 17 05/13/24 07:12 BP 134/80 05/13/24 07:12 Pulse Ox 97 05/13/24 07:12 FiO2 Intake & Output 05/12/24 05/13/24 05/13/24 18:59 06:59 18:59 Intake Total 1042 Output Total 1000 900 500 Balance 42 -900 -500 Intake: Intake, IV Titration 1042 Amount Sodium Acetate 30 meq 1042 Potassium Acetate 20 meq Magnesium Sulfate gm 1 gm Calcium Gluconate 1 gm Potassium Phosphate 15 mmol In Amino Acids 5 %/ Dextrose 20 % 1,000 ml @ 72 mls/hr IV .BY DURATION [facility] Rx#:[id number] Output: Gastric Drainage 1000 900 500 Other: Voiding Method Toilet Urinal # Voids 4 2 - Exam Abdomen: Soft, mild distention, slightly more firm on the left-hand side, mild tenderness, dressing clean and dry, POOJA serosanguineous - Labs CBC & Chem 7: 05/13/24 05:57 05/13/24 05:57 Labs: Abnormal Lab Results - Last 24 Hours (Table) 05/13/24 05/13/24 Range/Units 05:57 05:57 RBC 3.94 L (4.40-5.60) X 10*6/uL Hgb 12.4 L (13.0-17.0) g/dL Hct 38.2 L (39.6-50.0) % MPV 9.3 L (9.5-12.2) FL Immature Gran # 0.09 H (0.00-0.04) X 10*3/uL Chloride 110 H (98-107) mmol/L Creatinine 0.65 L (0.66-1.25) mg/dL Assessment and Plan (1) Small bowel obstruction Narrative/Plan: 48-year-old male with persistent ileus after recent laparotomy for small bowel obstruction and pain. Patient does not want TPN restarted at this time. Will hold for now. Continue gastric decompression. Will order CT abdomen pelvis to evaluate degree of bowel dilation. Current Visit: Yes Status: Acute Code(s): K56.609 - UNSP INTESTNL OBST, UNSP TO PARTIAL VERSUS COMPLETE OBST SNOMED Code(s): 848812701
--- NOTE | 2024-05-13 14:24 | CT ---
EXAMINATION TYPE: CT abdomen pelvis wo con DATE OF EXAM: 05/13/2024 HISTORY: Follow up on Ileus CT DLP: 555.6 mGycm. Automated Exposure Control for Dose Reduction was Utilized. TECHNIQUE: CT scan of the abdomen and pelvis is performed without oral or IV contrast. COMPARISON: 05/04/2024 FINDINGS: There is mild interstitial scarring in the lung bases which are otherwise clear. There is an NG tube within the stomach. There are surgical absence of the gallbladder. There is no organomegaly involving liver, pancreas, spleen or adrenal glands. Caliber of the abdominal aorta is normal. There is no retroperitoneal adenopathy. There is no renal calcification or hydronephrosis. There is a drainage catheter entering the anterior right lower quadrant of the abdomen and terminatin g in the left upper quadrant presumably a dialysis catheter. There are persistent but slightly less dilated fluid-filled loops of small bowel in the left mid abdo men. There is no peritoneal air or fluid. The mesentery in the mid central abdomen appears mildly hazy consistent with inflammation or edema. No pelvic mass or adenopathy. The osseous structures are intact. IMPRESSION: Persistent but mildly less dilated fluid-filled loops of small bowel in the left abdomen consistent w ith a focal ileus. No new abnormalities are seen.
--- NOTE | 2024-05-13 15:29 | CDI ---
Documentation Clarification Form Date: 05/13/2024 02:36:34 PM From: Dalila Del Angel RN CCDS Phone: [phone] Admit Date: 05/04/2024 12:41:00 PM Patient Name: Darrell García Visit Number: [id number] Discharge Date: ATTENTION: The Clinical Documentation Specialists (CDI) and [facility] Coding Staff appreciate your assistance in clarifying documentation. Please respond to the clarification below the line at the bottom and electronically sign. The CDI & [facility] Coding staff will review the response and follow-up if needed. Please note: Queries are made part of the Legal Health Record. If you have any questions, please contact the author of this message via ITS. Dr. Pau Partida: Post operative Ileus is documented 05/10, Surgical note and patient had Exploratory laparotomy with extensive lysis of adhesions, 05/05. Additional clarification is requested regarding the relationship, if any, that exists between the diagnosis and the procedure. Patients Admitting Diagnosis: Small bowel obstruction Post-Operative Diagnosis: Small bowel obstruction, Ischemic bowel. Procedure performed: Exploratory laparotomy, extensive lysis of adhesions. History/Risk Factors: 48-year-old male presented to the ED with abdominal pain associated with nausea and vomiting. Denies alleviating factors. Medical history gallbladder surgery, persistent abdominal pain multiple EGDs and Colonoscopies. HTN and HLD. 05/04, HP. Clinical Indicators: 05/05, Operative note: Operative findings: Ischemic bowel, multiple areas of obstruction, extensive adhesions. 05/09 Surgical note: Bowel obstruction due to adhesions. Patient advised to ambulate frequently to minimize ileus. 05/13 Surgical note: Persistent ileus after recent laparotomy for small bowel obstruction and pain. 05/10 AAWC: Air fluid levels in dilated bowel loops maybe on the basis of an ileus or partial obstruction. Treatment: 05/04: NPO, NG tube low intermittent suction, Ambulation, Massage abdomen, Consults: What relationship, if any, exists between the diagnosis of Ileus and the procedure? [ ] Ileus is a complication of surgical procedure [ ] Ileus is an expected outcome of the surgical procedure [ ] Ileus is related to patients co-morbid condition(s) of extensive adhesions & not a complication of the procedure [ ] Other please specify ____ [ ] Unable to determine (Template Last Revised: January 2021) [ ] Ileus is related to patients co-morbid condition(s) of extensive adhesions & not a complication of the procedure MTDD
--- NOTE | 2024-05-13 16:07 | P.PN ---
Subjective Progress Note Date: 05/13/24 patient is 48-year-old gentleman past medical history significant for hypertension brought to the ER for abdominal pain. Patient stated that he was all right couple of days ago when he started experiencing abdominal pain that was sudden onset, sharp, located in the upper quadrants, intermittent, aggravate d by movements. There is also complaint of nausea and vomiting. Patient stated every time he eats or drinks it builds up in his stomach and then he has to vomit it out. Patient also complaining of decreased urination. Denies any fever or chills. No current chest pain or shortness of breath. Initial lab work done in the ER showed WBC 9.9, hemoglobin 19.6, platelet count 271, sodium 135, potassium 4, BUN 26, creatinine 1.35, lactate 2.5 CT abdomen pelvis done showed findings suggestive of high-grade small bowel obstruction with loops dilated up to 4 cm and transition point in the left gene edian, mid to lower abdomen Patient admitted to general surgery 05/05. Patient seen and examined. S/p Exploratory laparotomy, extensive lysis of adhesions. Currently n.p.o., has NG tube in place 05/06. Patient seen and examined. Still having abdominal distention, has not had a bowel movement yet. 05/07. Patient seen and examined. Still has NG tube in place, still not passing any gas. States abdominal distention has improved. Denies abdominal pain. 05/08. Patient seen and examined. Still has NG tube in place, not passing any gas yet. Still feels better. 05/09. Patient seen and examined. Patient pulled out his NG tube by mistake. Currently denying abdominal pain, nausea or vomiting 05/10. Patient seen examined. X-ray acute abdominal series showed air-fluid levels and dilated bowel loops may be on the basis of an ileus or partial obstruction. Patient having nausea and vomiting. Denies abdominal pain 05/11. Patient seen and examined. Currently on TPN. Not passing any gas. D enies abdominal pain. 05/12. Patient seen and examined. Potassium level this morning was 3.2, repla cement ordered. Patient states he gets anxious easily. Denies any abdominal pain 05/13/2024 Patient is evaluated today in follow-up on the medical floor. NG tube remains in place currently with 1.8 L of gastric output in the last 24 hours documented. Patient has not passed gas and not had a bowel movement. He has refused TPN. Blood work today reveals a white blood cell count of 7.60, hemoglobin 12.4, sodium 141, potassium 3.5, BUN of 9, creatinine of 0.65. Magnesium 1.9. Review of Systems Constitutional: Denied any fatigue denied any fever. Cardio vascular: denied any chest pain, palpitations Gastrointestinal: denied any nausea, vomiting, diarrhea Pulmonary: Denied any shortness of breath cough Neurologic denied any new focal deficits All inpatient medications were reviewed and appropriate changes in these medications as dictated in the interval history and assessment and plan. PHYSICAL EXAMINATION: GENERAL: The patient is alert and oriented x3, not in any acute distress. Well developed, well nourished. HEENT: Pupils are round and equally reacting to light. EOMI. No scleral icterus. No conjunctival pallor. Normocephalic, atraumatic. No pharyngeal erythema. No thyromegaly. CARDIOVASCULAR: S1 and S2 present. No murmurs, rubs, or gallops. PULMONARY: Chest is clear to auscultation, no wheezing or crackles. ABDOMEN: Soft, tender, nondistended, normoactive bowel sounds. No palpable organomegaly. Abdominal binder in place NG tube in place with bilious drainage. MUSCULOSKELETAL: No joint swelling or deformity. EXTREMITIES: No cyanosis, clubbing, or pedal edema. NEUROLOGICAL: Gross neurological examination did not reveal any focal deficits. SKIN: No rashes. Assessment and Plan Small bowel obstruction s/p exploratory laparotomy and lysis of adhesions Hyponatremia, hypovolemic resolved Hypokalemia, normalized Lactic acidosis, resolved Hypertension Hx gastroesophageal reflux GI prophylaxis Protonix DVT prophylaxis: subcu heparin Full Code Plan Continue NG tube per surgery TPN recommending however patient is refusing. Continue antiemetics Monitor electrolytes, potassium replacement ordered Keep patient n.p.o. Continue IV fluids Continue pain management General surgery following Blood pressure controlled continue holding losartan/hydrochlorothiazide combination The impression and plan of care has been dictated by Poly Duron, Nurse Practitioner as directed. Dr. Alyse MD I have performed a history and physical examination and medical decision making of this patient, discussed the same with the dictator, and agree with the dictators assessment and plan as written, documented as a scribe. Based on total visit time, I have performed more than 50% of this visit. Objective - Vital Signs Vital signs: Vital Signs Temp 98.0 F 05/13/24 08:00 Pulse 76 05/13/24 08:00 Resp 17 05/13/24 08:00 BP 134/80 05/13/24 08:00 Pulse Ox 97 05/13/24 08:00 FiO2 Intake & Output 05/12/24 05/13/24 05/13/24 18:59 06:59 18:59 Intake Total 1042 Output Total 1000 900 500 Balance 42 -900 -500 Intake: Intake, IV Titration 1042 Amount Sodium Acetate 30 meq 1042 Potassium Acetate 20 meq Magnesium Sulfate gm 1 gm Calcium Gluconate 1 gm Potassium Phosphate 15 mmol In Amino Acids 5 %/ Dextrose 20 % 1,000 ml @ 72 mls/hr IV .BY DURATION [facility] Rx#:[id number] Output: Gastric Drainage 1000 900 500 Other: Voiding Method Toilet Urinal # Voids 4 2 - Labs CBC & Chem 7: 05/13/24 05:57 05/13/24 05:57 Labs: Abnormal Lab Results - Last 24 Hours (Table) 05/12/24 05/13/24 Range/Units 11:18 05:57 Chloride 110 H (98-107) mmol/L Creatinine 0.65 L (0.66-1.25) mg/dL POC Glucose (mg/dL) 122 H (70-110) mg/dL Assessment and Plan Time with Patient: Less than 30
[2024-05-13 16:38] LABS: Glucose,Whole Blood 82 mg/dL (70-110)
[2024-05-13 23:35] LABS: Glucose,Whole Blood 102 mg/dL (70-110)
[2024-05-14 06:02] LABS: Glucose,Whole Blood 82 mg/dL (70-110)
[2024-05-14 06:06] LABS: ALT 44 U/L (4-49); AST 44 U/L (17-59); African American GFR (CKD) >90 (>60 ml/min/1.73 sqM); Albumin 2.8 g/dL (3.5-5.0); Albumin/Globulin Ratio 1.2; Alkaline Phosphatase 82 U/L (38-126); Anion Gap 10 mmol/L; Blood Urea Nitrogen 11 mg/dL (9-20); Calcium 8.5 mg/dL (8.4-10.2); Carbon Dioxide 22 mmol/L (22-30); Chloride 109 mmol/L (98-107); Globulin 2.3 g/dL; Glucose 91 mg/dL (74-99); Magnesium 1.8 mg/dL (1.6-2.3); Non-African American GFR(CKD) >90 (>60 ml/min/1.73 sqM); Potassium 3.4 mmol/L (3.5-5.1); Sodium 141 mmol/L (137-145); Total Bilirubin 0.5 mg/dL (0.2-1.3); Total Protein 5.1 g/dL (6.3-8.2)
[2024-05-14 09:24] LABS: Glucose,Whole Blood 100 mg/dL (70-110)
[2024-05-14] MEDS ORDERED: Potassium Replacement Protocol 1 EACH MISC MISCELLANE PRN (10:33)
[2024-05-14 11:16] LABS: Glucose,Whole Blood 92 mg/dL (70-110)
[2024-05-14] MEDS: POTASSIUM CHLORIDE 10 MEQ in WATER FOR INJECTION 1 100ML.BAG IVPB SCH (12:05)
[2024-05-14 16:23] LABS: Glucose,Whole Blood 95 mg/dL (70-110)
--- NOTE | 2024-05-14 16:33 | P.PN ---
Subjective Progress Note Date: 05/14/24 Principal diagnosis: Small bowel obstruction Patient doing slightly better today. Still feels bloated. Still with heavy gastric output. He did have flatus this morning 3 separate times however. CAT scan was performed yesterday showing mild proximal small bowel dilation consi stent with ileus versus SBO. Vague inflammatory changes along the tract of the POOJA drain noted. No abscess seen. POOJA drain removed earlier today. After a dose of Reglan earlier today he had recurrent symptoms that he was attributing to his TPN. Now in retrospect the patient agrees that the Reglan was likely the source of his issues over the weekend and not the TPN. He is agreeable to restarting TPN. Objective - Vital Signs Vital signs: Vital Signs Temp 98.3 F 05/14/24 14:16 Pulse 85 05/14/24 14:16 Resp 16 05/14/24 14:16 BP 136/74 05/14/24 14:16 Pulse Ox 98 05/14/24 14:16 FiO2 Intake & Output 05/13/24 05/14/24 05/14/24 18:59 06:59 18:59 Intake Total 1500 Output Total 500 2034 Balance -500 -535 Weight 74.843 kg Intake: Intake, IV Titration 1500 Amount Sodium Chloride 0.9% 1, 1500 000 ml @ 125 mls/hr IV . Q8H [facility] Rx#:[id number] Output: Gastric Drainage 500 2024 Drainage 10 Abdomen 10 Other: Voiding Method Toilet Toilet Toilet Urinal Urinal Urinal # Voids 2 4 - Exam Abdomen: Soft, mild distention, slightly more firm left-sided, incision clean and dry, POOJA out - Labs CBC & Chem 7: 05/13/24 05:57 05/14/24 05:36 Labs: Abnormal Lab Results - Last 24 Hours (Table) 05/14/24 Range/Units 05:36 Potassium 3.4 L (3.5-5.1) mmol/L Chloride 109 H (98-107) mmol/L Creatinine 0.62 L (0.66-1.25) mg/dL Total Protein 5.1 L (6.3-8.2) g/dL Albumin 2.8 L (3.5-5.0) g/dL Assessment and Plan (1) Small bowel obstruction Narrative/Plan: Patient gradually improving. Having flatus today. Monitor NG output. Ambulate. Resume TPN. Discontinue Reglan. Current Visit: Yes Status: Acute Code(s): K56.609 - UNSP INTESTNL OBST, UNSP TO PARTIAL VERSUS COMPLETE OBST SNOMED Code(s): 238489262
[2024-05-14] MEDS: [UNRECOGNIZED DRUG - OTHER] IV SCH (17:57)
[2024-05-14] MEDS: SODIUM ACETATE IV SCH (17:57)
[2024-05-14] MEDS: POTASSIUM ACETATE IV SCH (17:57)
[2024-05-14] MEDS: MAGNESIUM SULFATE IV SCH (17:57)
--- NOTE | 2024-05-14 20:57 | P.PN ---
Subjective Progress Note Date: 05/14/24 patient is 48-year-old gentleman past medical history significant for hypertension brought to the ER for abdominal pain. Patient stated that he was all right couple of days ago when he started experiencing abdominal pain that was sudden onset, sharp, located in the upper quadrants, intermittent, aggravate d by movements. There is also complaint of nausea and vomiting. Patient stated every time he eats or drinks it builds up in his stomach and then he has to vomit it out. Patient also complaining of decreased urination. Denies any fever or chills. No current chest pain or shortness of breath. Initial lab work done in the ER showed WBC 9.9, hemoglobin 19.6, platelet count 271, sodium 135, potassium 4, BUN 26, creatinine 1.35, lactate 2.5 CT abdomen pelvis done showed findings suggestive of high-grade small bowel obstruction with loops dilated up to 4 cm and transition point in the left gene edian, mid to lower abdomen Patient admitted to general surgery 05/05. Patient seen and examined. S/p Exploratory laparotomy, extensive lysis of adhesions. Currently n.p.o., has NG tube in place 05/06. Patient seen and examined. Still having abdominal distention, has not had a bowel movement yet. 05/07. Patient seen and examined. Still has NG tube in place, still not passing any gas. States abdominal distention has improved. Denies abdominal pain. 05/08. Patient seen and examined. Still has NG tube in place, not passing any gas yet. Still feels better. 05/09. Patient seen and examined. Patient pulled out his NG tube by mistake. Currently denying abdominal pain, nausea or vomiting 05/10. Patient seen examined. X-ray acute abdominal series showed air-fluid levels and dilated bowel loops may be on the basis of an ileus or partial obstruction. Patient having nausea and vomiting. Denies abdominal pain 05/11. Patient seen and examined. Currently on TPN. Not passing any gas. D enies abdominal pain. 05/12. Patient seen and examined. Potassium level this morning was 3.2, repla cement ordered. Patient states he gets anxious easily. Denies any abdominal pain 05/13/2024 Patient is evaluated today in follow-up on the medical floor. NG tube remains in place currently with 1.8 L of gastric output in the last 24 hours documented. Patient has not passed gas and not had a bowel movement. He has refused TPN. Blood work today reveals a white blood cell count of 7.60, hemoglobin 12.4, sodium 141, potassium 3.5, BUN of 9, creatinine of 0.65. Magnesium 1.9. 05/14/2024 Patient is evaluated today on the floor. He has been up ambulating. Reporting that pain is being managed with current regimen. He has passed gas today. No bowel movement yet. Potassium 3.4, magnesium 1.8 Review of Systems Constitutional: Denied any fatigue denied any fever. Cardio vascular: denied any chest pain, palpitations Gastrointestinal: denied any nausea, vomiting, diarrhea Pulmonary: Denied any shortness of breath cough Neurologic denied any new focal deficits All inpatient medications were reviewed and appropriate changes in these medications as dictated in the interval history and assessment and plan. PHYSICAL EXAMINATION: GENERAL: The patient is alert and oriented x3, not in any acute distress. Well developed, well nourished. HEENT: Pupils are round and equally reacting to light. EOMI. No scleral icterus. No conjunctival pallor. Normocephalic, atraumatic. No pharyngeal erythema. No thyromegaly. CARDIOVASCULAR: S1 and S2 present. No murmurs, rubs, or gallops. PULMONARY: Chest is clear to auscultation, no wheezing or crackles. ABDOMEN: Soft, tender, nondistended, normoactive bowel sounds. No palpable organomegaly. Abdominal binder in place NG tube in place with bilious drainage. MUSCULOSKELETAL: No joint swelling or deformity. EXTREMITIES: No cyanosis, clubbing, or pedal edema. NEUROLOGICAL: Gross neurological examination did not reveal any focal deficits. SKIN: No rashes. Assessment and Plan Small bowel obstruction s/p exploratory laparotomy and lysis of adhesions Hyponatremia, hypovolemic resolved Hypokalemia, normalized Lactic acidosis, resolved Hypertension Hx gastroesophageal reflux GI prophylaxis Protonix DVT prophylaxis: subcu heparin Full Code Plan Continue NG tube per surgery TPN recommending however patient is refusing. Continue antiemetics Monitor electrolytes, potassium replacement ordered Keep patient n.p.o. except ice chips Continue IV fluids Continue pain management General surgery following Blood pressure controlled continue holding losartan/hydrochlorothiazide combination The impression and plan of care has been dictated by Poly Duron, Nurse Practitioner as directed. Dr. Alyse MD I have performed a history and physical examination and medical decision making of this patient, discussed the same with the dictator, and agree with the dictators assessment and plan as written, documented as a scribe. Based on total visit time, I have performed more than 50% of this visit. Objective - Vital Signs Vital signs: Vital Signs Temp 98.3 F 05/14/24 14:16 Pulse 85 05/14/24 14:16 Resp 16 05/14/24 14:16 BP 136/74 05/14/24 14:16 Pulse Ox 98 05/14/24 14:16 FiO2 Intake & Output 05/13/24 05/14/24 05/14/24 18:59 06:59 18:59 Intake Total 1500 Output Total 500 5 Balance -500 -535 Weight 74.843 kg Intake: Intake, IV Titration 1500 Amount Sodium Chloride 0.9% 1, 1500 000 ml @ 125 mls/hr IV . Q8H [place] Rx#:[id number] Output: Gastric Drainage 500 2025 Drainage 10 Abdomen 10 Other: Voiding Method Toilet Toilet Toilet Urinal Urinal Urinal # Voids 2 4 - Labs CBC & Chem 7: 05/13/24 05:57 05/14/24 05:36 Labs: Abnormal Lab Results - Last 24 Hours (Table) 05/14/24 Range/Units 05:36 Potassium 3.4 L (3.5-5.1) mmol/L Chloride 109 H (98-107) mmol/L Creatinine 0.62 L (0.66-1.25) mg/dL Total Protein 5.1 L (6.3-8.2) g/dL Albumin 2.8 L (3.5-5.0) g/dL Assessment and Plan Time with Patient: Less than 30
[2024-05-14 23:20] LABS: Glucose,Whole Blood 111 mg/dL (70-110)
[2024-05-15 06:11] LABS: Glucose,Whole Blood 133 mg/dL (70-110)
[2024-05-15 07:58] LABS: ALT 41 U/L (4-49); AST 29 U/L (17-59); African American GFR (CKD) >90 (>60 ml/min/1.73 sqM); Albumin/Globulin Ratio 1.3; Alkaline Phosphatase 90 U/L (38-126); Anion Gap 6 mmol/L; Blood Urea Nitrogen 14 mg/dL (9-20); Calcium 8.5 mg/dL (8.4-10.2); Carbon Dioxide 29 mmol/L (22-30); Chloride 107 mmol/L (98-107); Globulin 2.3 g/dL; Glucose 144 mg/dL (74-99); Magnesium 1.9 mg/dL (1.6-2.3); Non-African American GFR(CKD) >90 (>60 ml/min/1.73 sqM); Potassium 3.3 mmol/L (3.5-5.1); Sodium 142 mmol/L (137-145); Total Bilirubin 0.4 mg/dL (0.2-1.3); Total Protein 5.3 g/dL (6.3-8.2)
--- NOTE | 2024-05-15 08:38 | XR ---
EXAMINATION TYPE: XR chest 1V portable DATE OF EXAM: 05/15/2024 6:54 AM CLINICAL INDICATION:Male, 48 years old with history of NGT Placement verification; [facility] COMPARISON: Chest radiographs from 05/10/2024 TECHNIQUE: XR chest 1V portable Frontal view of the chest. FINDINGS: Lungs/Pleura: There is no evidence of pleural effusion, focal consolidation, or pneumothorax. Pulmonary vascularity: Unremarkable. Heart/mediastinum: Cardiomediastinal silhouette is unremarkable. Musculoskeletal: No acute osseous pathology. Nasogastric tube side-port at the distal esophagus. Surgical alcides project of the upper abdomen. IMPRESSION: 1. Nasogastric tube projecting over the left upper quadrant. The side-port near the gastroesophageal junction. Consider advancement of 6 8 cm frontal placement. 2. No acute cardiopulmonary disease/process.
[2024-05-15] MEDS: POTASSIUM CHLORIDE 20 MEQ in WATER FOR INJECTION 1 100ML.BAG IVPB SCH (10:57)
[2024-05-15 11:56] LABS: Glucose,Whole Blood 111 mg/dL (70-110)
[2024-05-15] MEDS: LORazepam 2 MG/ML INJ IV PRN (13:17)
--- NOTE | 2024-05-15 13:35 | P.PN ---
Subjective Progress Note Date: 05/15/24 CHIEF COMPLAINT: Small bowel obstruction HISTORY OF PRESENT ILLNESS: Postop day #10 status post exploratory laparotomy and extensive lysis of adhesions for small bowel obstruction and ischemic bowel. Patient continues to have abdominal pain. He did have a small amount of flatus yesterday this has stopped. NG tube did come out again last night. He went the rest of the night without the NG tube and then he started having vomiting again and NG tube was reinserted. Patient did have 1000 mL output through NG tube last night. No bowel movement. He remains on TPN. Patient had side effects from Reglan. This was discontinued yesterday. POOJA drain was removed. Afebrile. Potassium 3.3 magnesium 1.9 PHYSICAL EXAM: VITAL SIGNS: Reviewed. GENERAL: no acute distress. ABDOMEN: Mildly distended. Diffuse tenderness. Incisional dressing clean dry and intact. POOJA drain out. dressing clean and dry. NEUROLOGIC: Alert and oriented. Cranial nerves II through XII grossly intact. ASSESSMENT: 1. Small bowel obstruction, ischemic bowel PLAN: -Continue NG tube for decompression -Keep patient n.p.o. except for ice chips -Continue pain management -Encourage patient to ambulate multiple times throughout the day in the hallway -Continue TPN for nutrition support -Potassium being replaced -DVT prophylaxis subcu heparin and GI prophylaxis Protonix Physician Suede Brusher note has been reviewed by physician. Signing provider agrees with the documented findings, assessment, and plan of care. I have personally seen and examined the patient, reviewed the DIGITAL PROJECT MANAGER /PAs history, exam and MDM and agree with the assessment and plan as written. Based on total visit time, I have performed more than 50% of the visit. As above: Nasogastric tube fell out accidentally last night. Within 6 hours or so patient was having nausea and subsequent vomiting. Gastric tube was reinserted with approximately 400 cc out after that. Denies abdominal pain. Still complaining mostly of throat discomfort. Discussed with patient that if the tube came out again we would replace with a smaller catheter size. Continue gastric decompression. Continue to treat as resolving ileus. Continue TPN for nutritional support. Objective - Vital Signs Vital signs: Vital Signs Temp 98.1 F 05/15/24 07:10 Pulse 77 05/15/24 07:10 Resp 17 05/15/24 07:10 BP 127/77 05/15/24 07:10 Pulse Ox 97 05/15/24 07:10 FiO2 Intake & Output 05/14/24 05/15/24 05/15/24 18:59 06:59 18:59 Intake Total 120 Output Total 1200 1700 Balance -1080 -1700 Weight 74.843 kg 71.9 kg Intake: Oral 120 Output: Gastric Drainage 1200 1700 Other: Voiding Method Toilet Urinal # Voids 4 - Labs CBC & Chem 7: 05/13/24 05:57 05/15/24 07:19 Labs: Abnormal Lab Results - Last 24 Hours (Table) 05/14/24 05/15/24 05/15/24 Range/Units 23:18 06:10 07:19 Potassium 3.3 L (3.5-5.1) mmol/L Creatinine 0.64 L (0.66-1.25) mg/dL Glucose 144 H (74-99) mg/dL POC Glucose (mg/dL) 111 H 133 H (70-110) mg/dL Total Protein 5.3 L (6.3-8.2) g/dL Albumin 3.0 L (3.5-5.0) g/dL 05/15/24 Range/Units 11:54 Potassium (3.5-5.1) mmol/L Creatinine (0.66-1.25) mg/dL Glucose (74-99) mg/dL POC Glucose (mg/dL) 111 H (70-110) mg/dL Total Protein (6.3-8.2) g/dL Albumin (3.5-5.0) g/dL
[2024-05-15 18:47] LABS: Glucose,Whole Blood 111 mg/dL (70-110)
--- NOTE | 2024-05-15 19:13 | P.PN ---
Subjective Progress Note Date: 05/15/24 patient is 48-year-old gentleman past medical history significant for hypertension brought to the ER for abdominal pain. Patient stated that he was all right couple of days ago when he started experiencing abdominal pain that was sudden onset, sharp, located in the upper quadrants, intermittent, aggravate d by movements. There is also complaint of nausea and vomiting. Patient stated every time he eats or drinks it builds up in his stomach and then he has to vomit it out. Patient also complaining of decreased urination. Denies any fever or chills. No current chest pain or shortness of breath. Initial lab work done in the ER showed WBC 9.9, hemoglobin 19.6, platelet count 271, sodium 135, potassium 4, BUN 26, creatinine 1.35, lactate 2.5 CT abdomen pelvis done showed findings suggestive of high-grade small bowel obstruction with loops dilated up to 4 cm and transition point in the left gene edian, mid to lower abdomen Patient admitted to general surgery 05/05. Patient seen and examined. S/p Exploratory laparotomy, extensive lysis of adhesions. Currently n.p.o., has NG tube in place 05/06. Patient seen and examined. Still having abdominal distention, has not had a bowel movement yet. 05/07. Patient seen and examined. Still has NG tube in place, still not passing any gas. States abdominal distention has improved. Denies abdominal pain. 05/08. Patient seen and examined. Still has NG tube in place, not passing any gas yet. Still feels better. 05/09. Patient seen and examined. Patient pulled out his NG tube by mistake. Currently denying abdominal pain, nausea or vomiting 05/10. Patient seen examined. X-ray acute abdominal series showed air-fluid levels and dilated bowel loops may be on the basis of an ileus or partial obstruction. Patient having nausea and vomiting. Denies abdominal pain 05/11. Patient seen and examined. Currently on TPN. Not passing any gas. D enies abdominal pain. 05/12. Patient seen and examined. Potassium level this morning was 3.2, repla cement ordered. Patient states he gets anxious easily. Denies any abdominal pain 05/13/2024 Patient is evaluated today in follow-up on the medical floor. NG tube remains in place currently with 1.8 L of gastric output in the last 24 hours documented. Patient has not passed gas and not had a bowel movement. He has refused TPN. Blood work today reveals a white blood cell count of 7.60, hemoglobin 12.4, sodium 141, potassium 3.5, BUN of 9, creatinine of 0.65. Magnesium 1.9. 05/14/2024 Patient is evaluated today on the floor. He has been up ambulating. Reporting that pain is being managed with current regimen. He has passed gas today. No bowel movement yet. Potassium 3.4, magnesium 1.8 05/15/2024 Patient evaluated today on the medical floor. NG tube came out overnight patient had been vomiting. NG tube is replaced. He is no longer passing gas. TPN infusing. Sodium 142, potassium 3.3. Review of Systems Constitutional: Denied any fatigue denied any fever. Cardio vascular: denied any chest pain, palpitations Gastrointestinal: denied any nausea, vomiting, diarrhea Pulmonary: Denied any shortness of breath cough Neurologic denied any new focal deficits All inpatient medications were reviewed and appropriate changes in these medications as dictated in the interval history and assessment and plan. PHYSICAL EXAMINATION: GENERAL: The patient is alert and oriented x3, not in any acute distress. Well developed, well nourished. HEENT: Pupils are round and equally reacting to light. EOMI. No scleral icterus. No conjunctival pallor. Normocephalic, atraumatic. No pharyngeal erythema. No thyromegaly. CARDIOVASCULAR: S1 and S2 present. No murmurs, rubs, or gallops. PULMONARY: Chest is clear to auscultation, no wheezing or crackles. ABDOMEN: Soft, tender, nondistended, normoactive bowel sounds. No palpable organomegaly. Abdominal binder in place NG tube in place with bilious drainage. MUSCULOSKELETAL: No joint swelling or deformity. EXTREMITIES: No cyanosis, clubbing, or pedal edema. NEUROLOGICAL: Gross neurological examination did not reveal any focal deficits. SKIN: No rashes. Assessment and Plan Small bowel obstruction s/p exploratory laparotomy and lysis of adhesions Hyponatremia, hypovolemic resolved Hypokalemia, normalized Lactic acidosis, resolved Hypertension Hx gastroesophageal reflux GI prophylaxis Protonix DVT prophylaxis: subcu heparin Full Code Plan Continue NG tube per surgery Continue with TPN Continue antiemetics Monitor electrolytes, potassium replacement ordered Keep patient n.p.o. except ice chips Continue IV fluids Continue pain management General surgery following Blood pressure controlled continue holding losartan/hydrochlorothiazide combination The impression and plan of care has been dictated by Poly Duron, Nurse Practitioner as directed. Dr. Alyse MD I have performed a history and physical examination and medical decision making of this patient, discussed the same with the dictator, and agree with the di ctators assessment and plan as written, documented as a scribe. Based on total visit time, I have performed more than 50% of this visit. Objective - Vital Signs Vital signs: Vital Signs Temp 98.4 F 05/15/24 14:14 Pulse 81 05/15/24 14:14 Resp 16 05/15/24 14:14 BP 146/84 05/15/24 14:14 Pulse Ox 97 05/15/24 14:14 FiO2 Intake & Output 05/15/24 05/15/24 05/16/24 06:59 18:59 06:59 Output Total 1700 Balance -1700 Weight 71.9 kg Output: Gastric Drainage 1700 Other: # Voids 2 - Labs CBC & Chem 7: 05/13/24 05:57 05/15/24 07:19 Labs: Abnormal Lab Results - Last 24 Hours (Table) 05/14/24 05/15/24 05/15/24 Range/Units 23:18 06:10 07:19 Potassium 3.3 L (3.5-5.1) mmol/L Creatinine 0.64 L (0.66-1.25) mg/dL Glucose 144 H (74-99) mg/dL POC Glucose (mg/dL) 111 H 133 H (70-110) mg/dL Total Protein 5.3 L (6.3-8.2) g/dL Albumin 3.0 L (3.5-5.0) g/dL 05/15/24 05/15/24 Range/Units 11:54 18:45 Potassium (3.5-5.1) mmol/L Creatinine (0.66-1.25) mg/dL Glucose (74-99) mg/dL POC Glucose (mg/dL) 111 H 111 H (70-110) mg/dL Total Protein (6.3-8.2) g/dL Albumin (3.5-5.0) g/dL Assessment and Plan Time with Patient: Less than 30
[2024-05-15] MEDS: PANTOPRAZOLE 40 MG/10 ML VIAL IVP SCH (20:47)
[2024-05-15] MEDS: ACETAMINOPHEN IV (For NPO) 1,000 MG in EMPTY BAG 1 BAG IVPB PRN (20:48)
[2024-05-15 23:42] LABS: Glucose,Whole Blood 108 mg/dL (70-110)
[2024-05-16 05:46] LABS: Glucose,Whole Blood 120 mg/dL (70-110)
[2024-05-16] MEDS: [UNRECOGNIZED DRUG - OTHER] IV SCH (05:47)
[2024-05-16] MEDS: MAGNESIUM SULFATE IV SCH (05:47)
[2024-05-16] MEDS: SODIUM ACETATE IV SCH (05:47)
[2024-05-16] MEDS: POTASSIUM ACETATE IV SCH (05:47)
[2024-05-16 07:28] LABS: ALT 37 U/L (4-49); AST 25 U/L (17-59); African American GFR (CKD) >90 (>60 ml/min/1.73 sqM); Albumin 2.8 g/dL (3.5-5.0); Albumin/Globulin Ratio 1.3; Alkaline Phosphatase 90 U/L (38-126); Anion Gap 5 mmol/L; Blood Urea Nitrogen 14 mg/dL (9-20); Calcium 8.5 mg/dL (8.4-10.2); Carbon Dioxide 29 mmol/L (22-30); Chloride 108 mmol/L (98-107); Globulin 2.2 g/dL; Glucose 131 mg/dL (74-99); Magnesium 1.9 mg/dL (1.6-2.3); Non-African American GFR(CKD) >90 (>60 ml/min/1.73 sqM); Phosphorus 3.9 mg/dL (2.5-4.5); Potassium 3.4 mmol/L (3.5-5.1); Sodium 142 mmol/L (137-145); Total Bilirubin 0.4 mg/dL (0.2-1.3)
[2024-05-16] MEDS: POTASSIUM CHLORIDE 20 MEQ in WATER FOR INJECTION 1 100ML.BAG IVPB SCH (08:56)
[2024-05-16 11:03] LABS: Basophils # (A) 0.03 X 10*3/uL (0.00-0.10); Basophils % (A) 0.5 %; Eosinophils % (A) 1.5 %; HCT 37.4 % (39.6-50.0); HGB 12.3 g/dL (13.0-17.0); Lymphocytes # (A) 1.23 X 10*3/uL (0.90-5.00); Lymphocytes % (A) 18.5 %; MCH 31.6 pg (27.0-32.0); MCHC 32.9 g/dL (32.0-37.0); MCV 96.1 FL (80.0-97.0); Mean Platelet Volume 9.2 FL (9.5-12.2); Monocytes # (A) 0.78 X 10*3/uL (0.20-1.00); Monocytes % (A) 11.7 %; NRBC Per 100 WBC 0 X 10*3/uL (0.00-0.01); Neutrophils # (A) 4.48 X 10*3/uL (1.80-7.70); Neutrophils % (A) 67.3 %; Platelet Count 385 X 10*3/uL (140-440); RBC 3.89 X 10*6/uL (4.40-5.60); RDW 13.6 % (11.5-14.5); WBC 6.65 X 10*3/uL (4.50-10.00)
[2024-05-16 11:38] LABS: Glucose,Whole Blood 92 mg/dL (70-110)
[2024-05-16 15:27] LABS: Appearance,Urine Clear (Clear); Bilirubin,Urine Negative (Negative); Blood,Urine Negative (Negative); Color,Urine Yellow; Glucose,Urine (UA) Trace (Negative); Ketones,Urine 1+ (Negative); Leukocyte Esterase,Urine Negative (Negative); Mucus,Urine Many /hpf; Nitrite,Urine Negative (Negative); Protein,Urine 1+ (Negative); RBC,Urine <1 /hpf (0-5); Specific Gravity,Urine 1.026 (1.001-1.035); Urobilinogen,Urine <2.0 mg/dL (<2.0); WBC,Urine 1 /hpf (0-5)
--- NOTE | 2024-05-16 15:48 | P.PN ---
Subjective Progress Note Date: 05/16/24 CHIEF COMPLAINT: Small bowel obstruction HISTORY OF PRESENT ILLNESS: Postop day #11 status post exploratory laparotomy and extensive lysis of adhesions for small bowel obstruction and ischemic bowel. Patient reports crampy abdominal pain earlier this morning with some nausea. No vomiting. He also reported heartburn. He reports irritation from the NG tube in his throat. NG tube output 300 mL. Denies any bowel movement or flatus. Patient reports ambulating a couple times yesterday. Afebrile. WBC 6.65 Hgb 12.3 platelets 385 potassium 3.4 and being replaced PHYSICAL EXAM: VITAL SIGNS: Reviewed. GENERAL: no acute distress. ABDOMEN: Mildly distended. Diffuse tenderness. Incisional dressing clean dry and intact. Incisional dressing clean dry and intact NEUROLOGIC: Alert and oriented. Cranial nerves II through XII grossly intact. ASSESSMENT: 1. Small bowel obstruction, ischemic bowel PLAN: -Continue NG tube for decompression -Keep patient n.p.o. except for ice chips -Continue pain management -Encourage patient to ambulate multiple times throughout the day in the hallway -Continue TPN for nutrition support -Potassium being replaced -DVT prophylaxis subcu heparin and GI prophylaxis Protonix Physician Balance Wheel Facer note has been reviewed by physician. Signing provider agrees with the documented findings, assessment, and plan of care. I have personally seen and examined the patient, reviewed the MANAGER ASSET /PAs history, exam and MDM and agree with the assessment and plan as written. Based on total visit time, I have performed more than 50% of the visit. As above: No significant changes from yesterday. No bowel function. Still with moderate gastric output. Patient says he is at the point where he is unable to tolerate this plan of watchful waiting any longer. He and his did consider transfer to a tertiary care center. We discussed that as an option once again. They would prefer to avoid doing so at this time but will discuss it further amongst themselves. Will order a Gastrografin small bowel series for tomorrow. Suspect slow transit. Likely will require imaging on Monday. Will tentatively plan relaparotomy on Monday if patient's ileus/SBO is not resolved. Patient is agreeable with that plan. Objective - Vital Signs Vital signs: Vital Signs Temp 98.2 F 05/16/24 15:29 Pulse 86 05/16/24 15:29 Resp 15 05/16/24 15:29 BP 146/80 05/16/24 15:29 Pulse Ox 97 05/16/24 15:29 FiO2 Intake & Output 05/15/24 05/16/24 05/16/24 18:59 06:59 18:59 Output Total 1999 700 Balance -1999 - Weight 71.9 kg Output: Gastric Drainage 300 700 Other 1700 Other: Voiding Method Toilet Toilet # Voids 2 1 - Labs CBC & Chem 7: 05/16/24 06:33 05/16/24 06:33 Labs: Abnormal Lab Results - Last 24 Hours (Table) 05/15/24 05/16/24 05/16/24 Range/Units 18:45 05:44 06:33 RBC (4.40-5.60) X 10*6/uL Hgb (13.0-17.0) g/dL Hct (39.6-50.0) % MPV (9.5-12.2) FL Potassium 3.4 L (3.5-5.1) mmol/L Chloride 108 H (98-107) mmol/L Glucose 131 H (74-99) mg/dL POC Glucose (mg/dL) 111 H 120 H (70-110) mg/dL Total Protein 5.0 L (6.3-8.2) g/dL Albumin 2.8 L (3.5-5.0) g/dL Urine Protein (Negative) Urine Glucose (UA) (Negative) Urine Ketones (Negative) Urine Mucus (None) /hpf 05/16/24 05/16/24 Range/Units 06:33 14:50 RBC 3.89 L (4.40-5.60) X 10*6/uL Hgb 12.3 L (13.0-17.0) g/dL Hct 37.4 L (39.6-50.0) % MPV 9.2 L (9.5-12.2) FL Potassium (3.5-5.1) mmol/L Chloride (98-107) mmol/L Glucose (74-99) mg/dL POC Glucose (mg/dL) (70-110) mg/dL Total Protein (6.3-8.2) g/dL Albumin (3.5-5.0) g/dL Urine Protein 1+ H (Negative) Urine Glucose (UA) Trace H (Negative) Urine Ketones 1+ H (Negative) Urine Mucus Many H (None) /hpf
[2024-05-16] MEDS ORDERED: methylPREDNISolone SOD SUCCI 125 MG/2 ML VIAL IV STA (17:23)
[2024-05-16] MEDS: methylPREDNISolone SOD SUCCI 125 MG/2 ML VIAL IV ONE (17:41)
[2024-05-16 18:13] LABS: Glucose,Whole Blood 115 mg/dL (70-110)
--- NOTE | 2024-05-16 18:56 | P.PN ---
Subjective Progress Note Date: 05/16/24 patient is 48-year-old gentleman past medical history significant for hypertension brought to the ER for abdominal pain. Patient stated that he was all right couple of days ago when he started experiencing abdominal pain that was sudden onset, sharp, located in the upper quadrants, intermittent, aggravate d by movements. There is also complaint of nausea and vomiting. Patient stated every time he eats or drinks it builds up in his stomach and then he has to vomit it out. Patient also complaining of decreased urination. Denies any fever or chills. No current chest pain or shortness of breath. Initial lab work done in the ER showed WBC 9.9, hemoglobin 19.6, platelet count 271, sodium 135, potassium 4, BUN 26, creatinine 1.35, lactate 2.5 CT abdomen pelvis done showed findings suggestive of high-grade small bowel obstruction with loops dilated up to 4 cm and transition point in the left gene edian, mid to lower abdomen Patient admitted to general surgery 05/05. Patient seen and examined. S/p Exploratory laparotomy, extensive lysis of adhesions. Currently n.p.o., has NG tube in place 05/06. Patient seen and examined. Still having abdominal distention, has not had a bowel movement yet. 05/07. Patient seen and examined. Still has NG tube in place, still not passing any gas. States abdominal distention has improved. Denies abdominal pain. 05/08. Patient seen and examined. Still has NG tube in place, not passing any gas yet. Still feels better. 05/09. Patient seen and examined. Patient pulled out his NG tube by mistake. Currently denying abdominal pain, nausea or vomiting 05/10. Patient seen examined. X-ray acute abdominal series showed air-fluid levels and dilated bowel loops may be on the basis of an ileus or partial obstruction. Patient having nausea and vomiting. Denies abdominal pain 05/11. Patient seen and examined. Currently on TPN. Not passing any gas. D enies abdominal pain. 05/12. Patient seen and examined. Potassium level this morning was 3.2, repla cement ordered. Patient states he gets anxious easily. Denies any abdominal pain 05/13/2024 Patient is evaluated today in follow-up on the medical floor. NG tube remains in place currently with 1.8 L of gastric output in the last 24 hours documented. Patient has not passed gas and not had a bowel movement. He has refused TPN. Blood work today reveals a white blood cell count of 7.60, hemoglobin 12.4, sodium 141, potassium 3.5, BUN of 9, creatinine of 0.65. Magnesium 1.9. 05/14/2024 Patient is evaluated today on the floor. He has been up ambulating. Reporting that pain is being managed with current regimen. He has passed gas today. No bowel movement yet. Potassium 3.4, magnesium 1.8 05/15/2024 Patient evaluated today on the medical floor. NG tube came out overnight patient had been vomiting. NG tube is replaced. He is no longer passing gas. TPN infusing. Sodium 142, potassium 3.3. 05/16/2024 Patient is evaluated today on the medical floor in follow up. NG tube remains in place with 1 L of gastric output in the last 24 hours since it has been replaced. He has increased bowel sounds although they remain hypoactive. Patient has concerns with decreased urine output since being placed on TPN. Labs today showing white blood cell count 6.65, hgb 12.3, sodium 142, potassium 3.4, BUN 14, creatinine 0.68. Magnesium 1.9. Review of Systems Constitutional: Denied any fatigue denied any fever. Cardio vascular: denied any chest pain, palpitations Gastrointestinal: denied any nausea, vomiting, diarrhea, reports mild abdominal pain and acid reflux. Pulmonary: Denied any shortness of breath cough Neurologic denied any new focal deficits All inpatient medications were reviewed and appropriate changes in these medications as dictated in the interval history and assessment and plan. PHYSICAL EXAMINATION: GENERAL: The patient is alert and oriented x3, not in any acute distress. Well developed, well nourished. HEENT: Pupils are round and equally reacting to light. EOMI. No scleral icterus. No conjunctival pallor. Normocephalic, atraumatic. No pharyngeal erythema. No t hyromegaly. CARDIOVASCULAR: S1 and S2 present. No murmurs, rubs, or gallops. PULMONARY: Chest is clear to auscultation, no wheezing or crackles. ABDOMEN: Soft, tender, nondistended, normoactive bowel sounds. No palpable organomegaly. Abdominal binder in place NG tube in place with bilious drainage. MUSCULOSKELETAL: No joint swelling or deformity. EXTREMITIES: No cyanosis, clubbing, or pedal edema. NEUROLOGICAL: Gross neurological examination did not reveal any focal deficits. SKIN: No rashes. Assessment and Plan Small bowel obstruction s/p exploratory laparotomy and lysis of adhesions Hyponatremia, hypovolemic resolved Hypokalemia, normalized Lactic acidosis, resolved Hypertension Hx gastroesophageal reflux GI prophylaxis Protonix DVT prophylaxis: subcu heparin Full Code Plan Continue NG tube per surgery Continue with TPN Continue antiemetics Monitor electrolytes, potassium replacement ordered Keep patient n.p.o. except ice chips Continue IV fluids Check bladder scan and urinalysis. Continue pain management General surgery following Blood pressure controlled continue holding losartan/hydrochlorothiazide combination The impression and plan of care has been dictated by Poly Duron Nurse Practitioner as directed. Dr. Alyse MD I have performed a history and physical examination and medical decision making of this patient, discussed the same with the dictator, and agree with the dictators assessment and plan as written, documented as a scribe. Based on total visit time, I have performed more than 50% of this visit. Objective - Vital Signs Vital signs: Vital Signs Temp 98.2 F 05/16/24 15:29 Pulse 86 05/16/24 15:29 Resp 15 05/16/24 15:29 BP 146/80 05/16/24 15:29 Pulse Ox 97 05/16/24 15:29 FiO2 Intake & Output 05/15/24 05/16/24 05/16/24 18:59 06:59 18:59 Output Total 1999 700 Balance -1999 -700 Weight 71.9 kg Output: Gastric Drainage 300 700 Other 1700 Other: Voiding Method Toilet Toilet # Voids 2 1 - Labs CBC & Chem 7: 05/16/24 06:33 05/16/24 06:33 Labs: Abnormal Lab Results - Last 24 Hours (Table) 05/16/24 05/16/24 05/16/24 Range/Units 05:44 06:33 06:33 RBC 3.89 L (4.40-5.60) X 10*6/uL Hgb 12.3 L (13.0-17.0) g/dL Hct 37.4 L (39.6-50.0) % MPV 9.2 L (9.5-12.2) FL Potassium 3.4 L (3.5-5.1) mmol/L Chloride 108 H (98-107) mmol/L Glucose 131 H (74-99) mg/dL POC Glucose (mg/dL) 120 H (70-110) mg/dL Total Protein 5.0 L (6.3-8.2) g/dL Albumin 2.8 L (3.5-5.0) g/dL Urine Protein (Negative) Urine Glucose (UA) (Negative) Urine Ketones (Negative) Urine Mucus (None) /hpf 05/16/24 05/16/24 Range/Units 14:50 18:11 RBC (4.40-5.60) X 10*6/uL Hgb (13.0-17.0) g/dL Hct (39.6-50.0) % MPV (9.5-12.2) FL Potassium (3.5-5.1) mmol/L Chloride (98-107) mmol/L Glucose (74-99) mg/dL POC Glucose (mg/dL) 115 H (70-110) mg/dL Total Protein (6.3-8.2) g/dL Albumin (3.5-5.0) g/dL Urine Protein 1+ H (Negative) Urine Glucose (UA) Trace H (Negative) Urine Ketones 1+ H (Negative) Urine Mucus Many H (None) /hpf Assessment and Plan Time with Patient: Less than 30
[2024-05-16 23:33] LABS: Glucose,Whole Blood 143 mg/dL (70-110)
[2024-05-17] MEDS: methylPREDNISolone SOD SUCCI 125 MG/2 ML VIAL IV ONE (03:03)
[2024-05-17] MEDS: SODIUM ACETATE IV SCH (05:38)
[2024-05-17] MEDS: MAGNESIUM SULFATE IV SCH (05:38)
[2024-05-17] MEDS: [UNRECOGNIZED DRUG - OTHER] IV SCH (05:38)
[2024-05-17] MEDS: POTASSIUM ACETATE IV SCH (05:38)
[2024-05-17 05:43] LABS: Glucose,Whole Blood 128 mg/dL (70-110)
[2024-05-17 06:38] LABS: ALT 30 U/L (4-49); AST 19 U/L (17-59); African American GFR (CKD) >90 (>60 ml/min/1.73 sqM); Albumin/Globulin Ratio 1.4; Alkaline Phosphatase 88 U/L (38-126); Anion Gap 6 mmol/L; Blood Urea Nitrogen 15 mg/dL (9-20); Calcium 8.5 mg/dL (8.4-10.2); Carbon Dioxide 26 mmol/L (22-30); Chloride 106 mmol/L (98-107); Globulin 2.1 g/dL; Glucose 135 mg/dL (74-99); Non-African American GFR(CKD) >90 (>60 ml/min/1.73 sqM); Phosphorus 3.2 mg/dL (2.5-4.5); Potassium 4.4 mmol/L (3.5-5.1); Sodium 138 mmol/L (137-145); Total Bilirubin 0.3 mg/dL (0.2-1.3); Total Protein 5.1 g/dL (6.3-8.2)
[2024-05-17] MEDS: diphenhydrAMINE 50 MG/ML 1 ML VIAL IVP ONE (08:33)
--- NOTE | 2024-05-17 11:14 | P.PN ---
Subjective Progress Note Date: 05/17/24 CHIEF COMPLAINT: Small bowel obstruction HISTORY OF PRESENT ILLNESS: Postop day #12 status post exploratory laparotomy and extensive lysis of adhesions for small bowel obstruction and ischemic bowel. Patient scheduled for small bowel follow-through today. Still has had no bowel activity. Afebrile. POOJA drain 700ml output PHYSICAL EXAM: VITAL SIGNS: Reviewed. GENERAL: no acute distress. ABDOMEN: Mildly distended. Diffuse tenderness. Incisional dressing clean dry and intact. Incisional dressing clean dry and intact NEUROLOGIC: Alert and oriented. Cranial nerves II through XII grossly intact. ASSESSMENT: 1. Small bowel obstruction, ischemic bowel 2. Ileus PLAN: -Small bowel follow-through with Gastrografin ordered for today -Likely will require imaging on Monday. Will tentatively plan relaparotomy on Monday if patient's ileus/SBO is not resolved. -Continue NG tube for decompression -Keep patient n.p.o. except for ice chips -Continue pain management -Encourage patient to ambulate multiple times throughout the day in the hallway -Continue TPN for nutrition support -DVT prophylaxis subcu heparin and GI prophylaxis Protonix Physician Music Mixer note has been reviewed by physician. Signing provider agrees with the documented findings, assessment, and plan of care. I have personally seen and examined the patient, reviewed the PROCESS EQUIPMENT OPERATOR /PAs history, exam and MDM and agree with the assessment and plan as written. Based on total visit time, I have performed more than 50% of the visit. As above: Patient came back from small bowel series testing today. After the study he had a large liquid stool with 2 hard firm stool balls. Feels somewhat better. Still with heavy NG output after being hooked back up to suction approximately 900 cc. Films reviewed with radiology. There is some proximal small bowel dilation however contrast reaches the colon within 3 hours. Suspect resolving ileus. Partial proximal small bowel obstruction remains within the differential however felt to be less likely. Monitor NG output today. Consider clamping NG tube when NG output decreases and if bowel function continues. Continue TPN. Objective - Vital Signs Vital signs: Vital Signs Temp 98.2 F 05/17/24 06:43 Pulse 72 05/17/24 06:43 Resp 20 05/17/24 06:43 BP 128/67 05/17/24 06:43 Pulse Ox 95 05/17/24 06:43 FiO2 Intake & Output 05/16/24 05/17/24 05/17/24 18:59 06:59 18:59 Intake Total 763.333 Output Total 700 Balance -700 763.333 Intake: Intake, IV Titration 763.333 Amount Mvi, Adult No.4 with Vit 763.333 K 10 ml Trace (Conc-1Ml/ Dose) 1 ml Sodium Acetate 20 meq Potassium Acetate 40 meq Magnesium Sulfate gm 1 gm Calcium Gluconate 1 gm Potassium Phosphate 15 mmol In Amino Acids 5 %/Dextrose 20 % 1,000 ml @ 72 mls/hr IV .BY DURATION [facility] Rx#: [id number] Output: Gastric Drainage 700 Other: Voiding Method Toilet Toilet Toilet # Voids 1 - Labs CBC & Chem 7: 05/16/24 06:33 05/17/24 05:32 Labs: Abnormal Lab Results - Last 24 Hours (Table) 05/16/24 05/16/24 05/16/24 Range/Units 14:50 18:11 23:32 Creatinine (0.66-1.25) mg/dL Glucose (74-99) mg/dL POC Glucose (mg/dL) 115 H 143 H (70-110) mg/dL Total Protein (6.3-8.2) g/dL Albumin (3.5-5.0) g/dL Urine Protein 1+ H (Negative) Urine Glucose (UA) Trace H (Negative) Urine Ketones 1+ H (Negative) Urine Mucus Many H (None) /hpf 05/17/24 05/17/24 Range/Units 05:32 05:42 Creatinine 0.61 L (0.66-1.25) mg/dL Glucose 135 H (74-99) mg/dL POC Glucose (mg/dL) 128 H (70-110) mg/dL Total Protein 5.1 L (6.3-8.2) g/dL Albumin 3.0 L (3.5-5.0) g/dL Urine Protein (Negative) Urine Glucose (UA) (Negative) Urine Ketones (Negative) Urine Mucus (None) /hpf
[2024-05-17 11:43] LABS: Glucose,Whole Blood 138 mg/dL (70-110)
--- NOTE | 2024-05-17 13:14 | FL ---
EXAMINATION TYPE: FL small bowel follow through DATE OF EXAM: 05/17/2024 12:57 PM COMPARISON: CT abdomen pelvis most recent from INDICATION: Patient age:Male; 48 years old; Reason for study: gastrografin - needs allergy prep; TECHNIQUE: The procedure was explained and patient history elicited. All patient questions were ans wered prior to start of procedure. A underground drill operator radiograph of the abdomen was also reviewed. The patient was asked to ingest liquid Gastrografin and incremental frontal abdominal radiographs were then taken until contrast was visualized in the cecum. Fluoroscopic time:0 min Fluoroscopic images:0 Radiographs taken: 7 DAP: 0 mGym2 FINDINGS: The underground drill operator abdominal radiograph demonstrates a normal bowel gas pattern without dilated loops of small or large bowel. There is no evidence of organomegaly or pneumoperitoneum. No abnormal calcifications . The visualized osseous structures are intact. Fixation hardware L4-L5 with discectomy at L4-5. Skin alcides along the anterior abdomen. Contrast is seen extending from the duodenojejunal junction into the descending colon at 3 hours, whi ch is within the expected time period. The small bowel follows normal distribution and contour witho ut any evidence of extraluminal or intraluminal irregularity. There is dilated loops of small bowel in the left abdomen measuring 5.7 cm and the duodenum is dilated up to 4.7 cm. There is no displaceme nt of bowel loops or extraluminal extravasation of contrast material. Small bowel mucosal folds are f elt to be within normal limits. IMPRESSION: Small bowel follow-through felt to be within normal limits the contrast is seen in the descending col on at 3 hours. Dilated loops of small bowel are indeterminate. There is no evidence of radiographic stricture.
[2024-05-17 15:01] VITALS: BMI 24.8
[2024-05-17 17:38] LABS: Glucose,Whole Blood 132 mg/dL (70-110)
--- NOTE | 2024-05-17 23:40 | P.PN ---
Subjective Progress Note Date: 05/17/24 patient is 48-year-old gentleman past medical history significant for hypertension brought to the ER for abdominal pain. Patient stated that he was all right couple of days ago when he started experiencing abdominal pain that was sudden onset, sharp, located in the upper quadrants, intermittent, aggravate d by movements. There is also complaint of nausea and vomiting. Patient stated every time he eats or drinks it builds up in his stomach and then he has to vomit it out. Patient also complaining of decreased urination. Denies any fever or chills. No current chest pain or shortness of breath. Initial lab work done in the ER showed WBC 9.9, hemoglobin 19.6, platelet count 271, sodium 135, potassium 4, BUN 26, creatinine 1.35, lactate 2.5 CT abdomen pelvis done showed findings suggestive of high-grade small bowel obstruction with loops dilated up to 4 cm and transition point in the left gene edian, mid to lower abdomen Patient admitted to general surgery 05/05. Patient seen and examined. S/p Exploratory laparotomy, extensive lysis of adhesions. Currently n.p.o., has NG tube in place 05/06. Patient seen and examined. Still having abdominal distention, has not had a bowel movement yet. 05/07. Patient seen and examined. Still has NG tube in place, still not passing any gas. States abdominal distention has improved. Denies abdominal pain. 05/08. Patient seen and examined. Still has NG tube in place, not passing any gas yet. Still feels better. 05/09. Patient seen and examined. Patient pulled out his NG tube by mistake. Currently denying abdominal pain, nausea or vomiting 05/10. Patient seen examined. X-ray acute abdominal series showed air-fluid levels and dilated bowel loops may be on the basis of an ileus or partial obstruction. Patient having nausea and vomiting. Denies abdominal pain 05/11. Patient seen and examined. Currently on TPN. Not passing any gas. D enies abdominal pain. 05/12. Patient seen and examined. Potassium level this morning was 3.2, repla cement ordered. Patient states he gets anxious easily. Denies any abdominal pain 05/13/2024 Patient is evaluated today in follow-up on the medical floor. NG tube remains in place currently with 1.8 L of gastric output in the last 24 hours documented. Patient has not passed gas and not had a bowel movement. He has refused TPN. Blood work today reveals a white blood cell count of 7.60, hemoglobin 12.4, sodium 141, potassium 3.5, BUN of 9, creatinine of 0.65. Magnesium 1.9. 05/14/2024 Patient is evaluated today on the floor. He has been up ambulating. Reporting that pain is being managed with current regimen. He has passed gas today. No bowel movement yet. Potassium 3.4, magnesium 1.8 05/15/2024 Patient evaluated today on the medical floor. NG tube came out overnight patient had been vomiting. NG tube is replaced. He is no longer passing gas. TPN infusing. Sodium 142, potassium 3.3. 05/16/2024 Patient is evaluated today on the medical floor in follow up. NG tube remains in place with 1 L of gastric output in the last 24 hours since it has been replaced. He has increased bowel sounds although they remain hypoactive. Patient has concerns with decreased urine output since being placed on TPN. Labs today showing white blood cell count 6.65, hgb 12.3, sodium 142, potassium 3.4, BUN 14, creatinine 0.68. Magnesium 1.9. 05/17/2024 Patient is evaluated today on the medical floor. Patient continues with NG tube. NG tube has been on hold for small bowel follow through. Patient had a urinalysis shows 1+ protein. Bladder scan was negative. Patient continues to report improvement in the acid reflux. He is also feeling less anxious. Review of Systems Constitutional: Denied any fatigue denied any fever. Cardio vascular: denied any chest pain, palpitations Gastrointestinal: denied any nausea, vomiting, diarrhea, reports mild abdominal pain. Pulmonary: Denied any shortness of breath cough Neurologic denied any new focal deficits All inpatient medications were reviewed and appropriate changes in these medications as dictated in the interval history and assessment and plan. PHYSICAL EXAMINATION: GENERAL: The patient is alert and oriented x3, not in any acute distress. Well developed, well nourished. HEENT: Pupils are round and equally reacting to light. EOMI. No scleral icterus. No conjunctival pallor. Normocephalic, atraumatic. No pharyngeal erythema. No thyromegaly. CARDIOVASCULAR: S1 and S2 present. No murmurs, rubs, or gallops. PULMONARY: Chest is clear to auscultation, no wheezing or crackles. ABDOMEN: Soft, tender, nondistended, hypoactive bowel sounds. No palpable organomegaly. Abdominal binder in place NG tube in place with bilious drainage. MUSCULOSKELETAL: No joint swelling or deformity. EXTREMITIES: No cyanosis, clubbing, or pedal edema. NEUROLOGICAL: Gross neurological examination did not reveal any focal deficits. SKIN: No rashes. Assessment and Plan Small bowel obstruction s/p exploratory laparotomy and lysis of adhesions Hyponatremia, hypovolemic resolved Hypokalemia, normalized Lactic acidosis, resolved Hypertension Hx gastroesophageal reflux GI prophylaxis Protonix DVT prophylaxis: subcu heparin Full Code Plan Continue NG tube per surgery Continue with TPN Continue antiemetics Monitor electrolytes, potassium replacement ordered Keep patient n.p.o. except ice chips Continue IV fluids Continue pain management General surgery following Patient undergoing small bowel follow through today. The impression and plan of care has been dictated by Poly Duron, Nurse Practitioner as directed. Dr. Alyse MD I have performed a history and physical examination and medical decision making of this patient, discussed the same with the dictator, and agree with the dictators assessment and plan as written, documented as a scribe. Based on total visit time, I have performed more than 50% of this visit. Objective - Vital Signs Vital signs: Vital Signs Temp 98.2 F 05/17/24 06:43 Pulse 72 05/17/24 06:43 Resp 20 05/17/24 06:43 BP 128/67 05/17/24 06:43 Pulse Ox 95 05/17/24 06:43 FiO2 Intake & Output 05/16/24 05/17/24 05/17/24 18:59 06:59 18:59 Intake Total 763.333 Output Total 700 Balance -700 763.333 Intake: Intake, IV Titration 763.333 Amount Mvi, Adult No.4 with Vit 763.333 K 10 ml Trace (Conc-1Ml/ Dose) 1 ml Sodium Acetate 20 meq Potassium Acetate 40 meq Magnesium Sulfate gm 1 gm Calcium Gluconate 1 gm Potassium Phosphate 15 mmol In Amino Acids 5 %/Dextrose 20 % 1,000 ml @ 72 mls/hr IV .BY DURATION [facility] Rx#: [id number] Output: Gastric Drainage 700 Other: Voiding Method Toilet Toilet # Voids 1 - Labs CBC & Chem 7: 05/16/24 06:33 05/17/24 05:32 Labs: Abnormal Lab Results - Last 24 Hours (Table) 05/16/24 05/16/24 05/16/24 Range/Units 06:33 14:50 18:11 RBC 3.89 L (4.40-5.60) X 10*6/uL Hgb 12.3 L (13.0-17.0) g/dL Hct 37.4 L (39.6-50.0) % MPV 9.2 L (9.5-12.2) FL Creatinine (0.66-1.25) mg/dL Glucose (74-99) mg/dL POC Glucose (mg/dL) 115 H (70-110) mg/dL Total Protein (6.3-8.2) g/dL Albumin (3.5-5.0) g/dL Urine Protein 1+ H (Negative) Urine Glucose (UA) Trace H (Negative) Urine Ketones 1+ H (Negative) Urine Mucus Many H (None) /hpf 05/16/24 05/17/24 05/17/24 Range/Units 23:32 05:32 05:42 RBC (4.40-5.60) X 10*6/uL Hgb (13.0-17.0) g/dL Hct (39.6-50.0) % MPV (9.5-12.2) FL Creatinine 0.61 L (0.66-1.25) mg/dL Glucose 135 H (74-99) mg/dL POC Glucose (mg/dL) 143 H 128 H (70-110) mg/dL Total Protein 5.1 L (6.3-8.2) g/dL Albumin 3.0 L (3.5-5.0) g/dL Urine Protein (Negative) Urine Glucose (UA) (Negative) Urine Ketones (Negative) Urine Mucus (None) /hpf Assessment and Plan Time with Patient: Less than 30
[2024-05-18 00:03] LABS: Glucose,Whole Blood 114 mg/dL (70-110)
[2024-05-18 05:58] LABS: Glucose,Whole Blood 127 mg/dL (70-110)
[2024-05-18 06:55] LABS: African American GFR (CKD) >90 (>60 ml/min/1.73 sqM); Anion Gap 1 mmol/L; Blood Urea Nitrogen 20 mg/dL (9-20); Calcium 8.3 mg/dL (8.4-10.2); Carbon Dioxide 31 mmol/L (22-30); Chloride 109 mmol/L (98-107); Glucose 133 mg/dL (74-99); Magnesium 2.2 mg/dL (1.6-2.3); Non-African American GFR(CKD) >90 (>60 ml/min/1.73 sqM); Phosphorus 4.1 mg/dL (2.5-4.5); Potassium 3.7 mmol/L (3.5-5.1); Sodium 141 mmol/L (137-145)
[2024-05-18] MEDS: LOSARTAN-HCTZ 50-12.5 MG 1 EACH TAB PO SCH (08:08)
[2024-05-18] MEDS ORDERED: LOSARTAN-HCTZ 50-12.5 MG 1 EACH TAB PO SCH (09:00)
[2024-05-18] MEDS: POTASSIUM ACETATE IV SCH (09:06)
[2024-05-18] MEDS: SODIUM ACETATE IV SCH (09:06)
[2024-05-18] MEDS: MAGNESIUM SULFATE IV SCH (09:06)
[2024-05-18] MEDS: [UNRECOGNIZED DRUG - OTHER] IV SCH (09:06)
[2024-05-18 11:57] LABS: Glucose,Whole Blood 129 mg/dL (70-110)
--- NOTE | 2024-05-18 14:05 | P.PN ---
Progress Note - Text Progress Note Date: 05/18/24 CHIEF COMPLAINT: Small bowel obstruction HISTORY OF PRESENT ILLNESS: Postop day #13 status post exploratory laparotomy and extensive lysis of adhesions for small bowel obstruction and ischemic bowel. Still has had no bowel activity. Afebrile. POOJA drain 500ml output PHYSICAL EXAM: VITAL SIGNS: Reviewed. GENERAL: no acute distress. ABDOMEN: Mildly distended. Diffuse tenderness. Incisional dressing clean dry and intact. Incisional dressing clean dry and intact NEUROLOGIC: Alert and oriented. Cranial nerves II through XII grossly intact. ASSESSMENT: 1. Small bowel obstruction, ischemic bowel 2. Ileus PLAN: -Small bowel follow-through shows contrast in colon but no bowel function -Continue NG tube for decompression -Keep patient n.p.o. except for ice chips -Continue pain management -Encourage patient to ambulate multiple times throughout the day in the hallway -Continue TPN for nutrition support -DVT prophylaxis subcu heparin and GI prophylaxis Protonix
--- NOTE | 2024-05-18 15:58 | P.PN ---
Subjective Progress Note Date: 05/18/24 patient is 48-year-old gentleman past medical history significant for hypertension brought to the ER for abdominal pain. Patient stated that he was all right couple of days ago when he started experiencing abdominal pain that was sudden onset, sharp, located in the upper quadrants, intermittent, aggravate d by movements. There is also complaint of nausea and vomiting. Patient stated every time he eats or drinks it builds up in his stomach and then he has to vomit it out. Patient also complaining of decreased urination. Denies any fever or chills. No current chest pain or shortness of breath. Initial lab work done in the ER showed WBC 9.9, hemoglobin 19.6, platelet count 271, sodium 135, potassium 4, BUN 26, creatinine 1.35, lactate 2.5 CT abdomen pelvis done showed findings suggestive of high-grade small bowel obstruction with loops dilated up to 4 cm and transition point in the left gene edian, mid to lower abdomen Patient admitted to general surgery 05/05. Patient seen and examined. S/p Exploratory laparotomy, extensive lysis of adhesions. Currently n.p.o., has NG tube in place 05/06. Patient seen and examined. Still having abdominal distention, has not had a bowel movement yet. 05/07. Patient seen and examined. Still has NG tube in place, still not passing any gas. States abdominal distention has improved. Denies abdominal pain. 05/08. Patient seen and examined. Still has NG tube in place, not passing any gas yet. Still feels better. 05/09. Patient seen and examined. Patient pulled out his NG tube by mistake. Currently denying abdominal pain, nausea or vomiting 05/10. Patient seen examined. X-ray acute abdominal series showed air-fluid levels and dilated bowel loops may be on the basis of an ileus or partial obstruction. Patient having nausea and vomiting. Denies abdominal pain 05/11. Patient seen and examined. Currently on TPN. Not passing any gas. D enies abdominal pain. 05/12. Patient seen and examined. Potassium level this morning was 3.2, repla cement ordered. Patient states he gets anxious easily. Denies any abdominal pain 05/13/2024 Patient is evaluated today in follow-up on the medical floor. NG tube remains in place currently with 1.8 L of gastric output in the last 24 hours documented. Patient has not passed gas and not had a bowel movement. He has refused TPN. Blood work today reveals a white blood cell count of 7.60, hemoglobin 12.4, sodium 141, potassium 3.5, BUN of 9, creatinine of 0.65. Magnesium 1.9. 05/14/2024 Patient is evaluated today on the floor. He has been up ambulating. Reporting that pain is being managed with current regimen. He has passed gas today. No bowel movement yet. Potassium 3.4, magnesium 1.8 05/15/2024 Patient evaluated today on the medical floor. NG tube came out overnight patient had been vomiting. NG tube is replaced. He is no longer passing gas. TPN infusing. Sodium 142, potassium 3.3. 05/16/2024 Patient is evaluated today on the medical floor in follow up. NG tube remains in place with 1 L of gastric output in the last 24 hours since it has been replaced. He has increased bowel sounds although they remain hypoactive. Patient has concerns with decreased urine output since being placed on TPN. Labs today showing white blood cell count 6.65, hgb 12.3, sodium 142, potassium 3.4, BUN 14, creatinine 0.68. Magnesium 1.9. 05/17/2024 Patient is evaluated today on the medical floor. Patient continues with NG tube. NG tube has been on hold for small bowel follow through. Patient had a urinalysis shows 1+ protein. Bladder scan was negative. Patient continues to report improvement in the acid reflux. He is also feeling less anxious. 05/18/2024 Patient is evaluated today on the medically stable. He has NG tube in place, gastric output in the last 24 hours 500 mls. Patient did have a small bowel movement. He a small bowel follow through yesterday which was felt to be within normal minutes. Bowel sounds are increased. Potassium 3.7, BUN 20, creatinine 0.66. Review of Systems Constitutional: Denied any fatigue denied any fever. Cardio vascular: denied any chest pain, palpitations Gastrointestinal: denied any nausea, vomiting, diarrhea, reports mild abdominal pain. Pulmonary: Denied any shortness of breath cough Neurologic denied any new focal deficits All inpatient medications were reviewed and appropriate changes in these medications as dictated in the interval history and assessment and plan. PHYSICAL EXAMINATION: GENERAL: The patient is alert and oriented x3, not in any acute distress. Well developed, well nourished. HEENT: Pupils are round and equally reacting to light. EOMI. No scleral icterus. No conjunctival pallor. Normocephalic, atraumatic. No pharyngeal erythema. No thyromegaly. CARDIOVASCULAR: S1 and S2 present. No murmurs, rubs, or gallops. PULMONARY: Chest is clear to auscultation, no wheezing or crackles. ABDOMEN: Soft, tender, nondistended, hypoactive bowel sounds. No palpable organomegaly. Abdominal binder in place NG tube in place with bilious drainage. MUSCULOSKELETAL: No joint swelling or deformity. EXTREMITIES: No cyanosis, clubbing, or pedal edema. NEUROLOGICAL: Gross neurological examination did not reveal any focal deficits. SKIN: No rashes. Assessment and Plan Small bowel obstruction s/p exploratory laparotomy and lysis of adhesions Hyponatremia, hypovolemic resolved Hypokalemia, normalized Lactic acidosis, resolved Hypertension Hx gastroesophageal reflux GI prophylaxis Protonix DVT prophylaxis: subcu heparin Full Code Plan Continue NG tube per surgery Continue with TPN Continue antiemetics Monitor electrolytes, potassium replacement ordered Keep patient n.p.o. except ice chips Continue IV fluids Continue pain management General surgery following The impression and plan of care has been dictated by Poly Duron Nurse Practitioner as directed. Dr. Alyse MD I have performed a history and physical examination and medical decision making of this patient, discussed the same with the dictator, and agree with the dictators assessment and plan as written, documented as a scribe. Based on total visit time, I have performed more than 50% of this visit. Objective - Vital Signs Vital signs: Vital Signs Temp 98.6 F 05/18/24 14:55 Pulse 63 05/18/24 14:55 Resp 16 05/18/24 14:55 BP 143/77 05/18/24 14:55 Pulse Ox 99 05/18/24 14:55 FiO2 Intake & Output 05/17/24 05/18/24 05/18/24 18:59 06:59 18:59 Intake Total 1047 Output Total 500 200 Balance 547 -200 Weight 71.9 kg Intake: Intake, IV Titration 1047 Amount Sodium Acetate 20 meq 1047 Potassium Acetate 40 meq Magnesium Sulfate gm 1 gm Calcium Gluconate 1 gm Potassium Phosphate 15 mmol In Amino Acids 5 %/ Dextrose 20 % 1,000 ml @ 72 mls/hr IV .BY DURATION [facility] Rx#:[id number] Output: Gastric Drainage 500 Urine 200 Other: Voiding Method Toilet Toilet Toilet # Voids 3 1 # Bowel Movements 1 - Labs CBC & Chem 7: 05/16/24 06:33 05/18/24 06:31 Labs: Abnormal Lab Results - Last 24 Hours (Table) 05/17/24 05/18/24 05/18/24 Range/Units 17:37 00:01 05:57 Chloride (98-107) mmol/L Carbon Dioxide (22-30) mmol/L Glucose (74-99) mg/dL POC Glucose (mg/dL) 132 H 114 H 127 H (70-110) mg/dL Calcium (8.4-10.2) mg/dL 05/18/24 05/18/24 Range/Units 06:31 11:56 Chloride 109 H (98-107) mmol/L Carbon Dioxide 31 H (22-30) mmol/L Glucose 133 H (74-99) mg/dL POC Glucose (mg/dL) 129 H (70-110) mg/dL Calcium 8.3 L (8.4-10.2) mg/dL Assessment and Plan Time with Patient: Less than 30
[2024-05-18 18:23] LABS: Glucose,Whole Blood 112 mg/dL (70-110)
[2024-05-19 00:18] LABS: Glucose,Whole Blood 90 mg/dL (70-110)
[2024-05-19 04:29] LABS: African American GFR (CKD) >90 (>60 ml/min/1.73 sqM); Anion Gap 4 mmol/L; Blood Urea Nitrogen 18 mg/dL (9-20); Carbon Dioxide 26 mmol/L (22-30); Chloride 108 mmol/L (98-107); Glucose 124 mg/dL (74-99); Magnesium 2.2 mg/dL (1.6-2.3); Non-African American GFR(CKD) >90 (>60 ml/min/1.73 sqM); Phosphorus 3.3 mg/dL (2.5-4.5); Potassium 3.7 mmol/L (3.5-5.1); Sodium 138 mmol/L (137-145)
[2024-05-19] MEDS: HYDROmorphone 0.5 MG/0.5 ML SYRINGE IVP PRN (05:29)
[2024-05-19 06:00] LABS: Glucose,Whole Blood 114 mg/dL (70-110)
[2024-05-19] MEDS: CALCIUM GLUCONATE IN NACL 1 GM in SALINE 1 100ML.BAG IVPB ONE (09:36)
[2024-05-19 11:40] LABS: Glucose,Whole Blood 101 mg/dL (70-110)
--- NOTE | 2024-05-19 12:26 | P.PN ---
Subjective Progress Note Date: 05/19/24 Principal diagnosis: Small bowel obstruction Patient complaining of some nausea and heartburn today. He did have 5 loose stools yesterday. Unfortunately he tried clamping the nasogastric tube yesterday felt nauseated hooked back up to suction and had about 700 cc of bilious fluid. Still putting out about 100 cc/h of output from nasogastric tube. Objective - Vital Signs Vital signs: Vital Signs Temp 98.2 F 05/19/24 07:10 Pulse 62 05/19/24 08:00 Resp 16 05/19/24 08:00 BP 122/69 05/19/24 07:10 Pulse Ox 98 05/19/24 07:10 FiO2 Intake & Output 05/18/24 05/19/24 05/19/24 18:59 06:59 18:59 Intake Total 1285 Output Total 950 900 Balance -950 1285 -900 Intake: Intake, IV Titration 1045 Amount Sodium Acetate 20 meq 1045 Potassium Acetate 40 meq Magnesium Sulfate gm 1 gm Calcium Gluconate 1 gm Potassium Phosphate 9 mmol In Amino Acids 5 %/ Dextrose 20 % 1,000 ml @ 72 mls/hr IV .BY DURATION [facility] Rx#:[id number] Oral 240 Output: Gastric Drainage 750 Urine 200 900 Other: Voiding Method Toilet Toilet Toilet # Voids 1 4 - Exam Abdomen: Soft, nondistended, minimal tenderness, incision clean and dry - Labs CBC & Chem 7: 05/16/24 06:33 05/19/24 04:03 Labs: Abnormal Lab Results - Last 24 Hours (Table) 05/18/24 05/19/24 05/19/24 Range/Units 18:22 04:03 05:59 Chloride 108 H (98-107) mmol/L Creatinine 0.61 L (0.66-1.25) mg/dL Glucose 124 H (74-99) mg/dL POC Glucose (mg/dL) 112 H 114 H (70-110) mg/dL Calcium 8.0 L (8.4-10.2) mg/dL Assessment and Plan (1) Small bowel obstruction Narrative/Plan: Patient unfortunately having persistent gastric output despite small bowel series showing no high-grade obstruction. Patient is now having some liquid stools but unable to remove gastric tube at this time. He is asking for more liquids to drink. Will try popsicles today and see how he does with that. We also discussed again the option of tertiary care referral given the patient's complex case and persistent ileus/low-grade PSBO. Current Visit: Yes Status: Acute Code(s): K56.609 - UNSP INTESTNL OBST, UNSP TO PARTIAL VERSUS COMPLETE OBST SNOMED Code(s): 892943101
--- NOTE | 2024-05-19 16:28 | P.PN ---
Subjective Progress Note Date: 05/19/24 patient is 48-year-old gentleman past medical history significant for hypertension brought to the ER for abdominal pain. Patient stated that he was all right couple of days ago when he started experiencing abdominal pain that was sudden onset, sharp, located in the upper quadrants, intermittent, aggravate d by movements. There is also complaint of nausea and vomiting. Patient stated every time he eats or drinks it builds up in his stomach and then he has to vomit it out. Patient also complaining of decreased urination. Denies any fever or chills. No current chest pain or shortness of breath. Initial lab work done in the ER showed WBC 9.9, hemoglobin 19.6, platelet count 271, sodium 135, potassium 4, BUN 26, creatinine 1.35, lactate 2.5 CT abdomen pelvis done showed findings suggestive of high-grade small bowel obstruction with loops dilated up to 4 cm and transition point in the left gene edian, mid to lower abdomen Patient admitted to general surgery 05/05. Patient seen and examined. S/p Exploratory laparotomy, extensive lysis of adhesions. Currently n.p.o., has NG tube in place 05/06. Patient seen and examined. Still having abdominal distention, has not had a bowel movement yet. 05/07. Patient seen and examined. Still has NG tube in place, still not passing any gas. States abdominal distention has improved. Denies abdominal pain. 05/08. Patient seen and examined. Still has NG tube in place, not passing any gas yet. Still feels better. 05/09. Patient seen and examined. Patient pulled out his NG tube by mistake. Currently denying abdominal pain, nausea or vomiting 05/10. Patient seen examined. X-ray acute abdominal series showed air-fluid levels and dilated bowel loops may be on the basis of an ileus or partial obstruction. Patient having nausea and vomiting. Denies abdominal pain 05/11. Patient seen and examined. Currently on TPN. Not passing any gas. D enies abdominal pain. 05/12. Patient seen and examined. Potassium level this morning was 3.2, repla cement ordered. Patient states he gets anxious easily. Denies any abdominal pain 05/13/2024 Patient is evaluated today in follow-up on the medical floor. NG tube remains in place currently with 1.8 L of gastric output in the last 24 hours documented. Patient has not passed gas and not had a bowel movement. He has refused TPN. Blood work today reveals a white blood cell count of 7.60, hemoglobin 12.4, sodium 141, potassium 3.5, BUN of 9, creatinine of 0.65. Magnesium 1.9. 05/14/2024 Patient is evaluated today on the floor. He has been up ambulating. Reporting that pain is being managed with current regimen. He has passed gas today. No bowel movement yet. Potassium 3.4, magnesium 1.8 05/15/2024 Patient evaluated today on the medical floor. NG tube came out overnight patient had been vomiting. NG tube is replaced. He is no longer passing gas. TPN infusing. Sodium 142, potassium 3.3. 05/16/2024 Patient is evaluated today on the medical floor in follow up. NG tube remains in place with 1 L of gastric output in the last 24 hours since it has been replaced. He has increased bowel sounds although they remain hypoactive. Patient has concerns with decreased urine output since being placed on TPN. Labs today showing white blood cell count 6.65, hgb 12.3, sodium 142, potassium 3.4, BUN 14, creatinine 0.68. Magnesium 1.9. 05/17/2024 Patient is evaluated today on the medical floor. Patient continues with NG tube. NG tube has been on hold for small bowel follow through. Patient had a urinalysis shows 1+ protein. Bladder scan was negative. Patient continues to report improvement in the acid reflux. He is also feeling less anxious. 05/18/2024 Patient is evaluated today on the medically stable. He has NG tube in place, gastric output in the last 24 hours 500 mls. Patient did have a small bowel movement. He a small bowel follow through yesterday which was felt to be within normal minutes. Bowel sounds are increased. Potassium 3.7, BUN 20, creatinine 0.66. 05/19/2024 Patient is evaluated today on the medical floor. No acute events overnight. He had 3 bowel movements yesterday. Today he is reporting increase gastric symptoms and reflux. Patient continues on TPN. Hemodynamically he is stable. Review of Systems Constitutional: Denied any fatigue denied any fever. Cardio vascular: denied any chest pain, palpitations Gastrointestinal: denied any nausea, vomiting, diarrhea, reports mild abdominal pain. Pulmonary: Denied any shortness of breath cough Neurologic denied any new focal deficits All inpatient medications were reviewed and appropriate changes in these medications as dictated in the interval history and assessment and plan. PHYSICAL EXAMINATION: GENERAL: The patient is alert and oriented x3, not in any acute distress. Well developed, well nourished. HEENT: Pupils are round and equally reacting to light. EOMI. No scleral icterus. No conjunctival pallor. Normocephalic, atraumatic. No pharyngeal erythema. No thyromegaly. CARDIOVASCULAR: S1 and S2 present. No murmurs, rubs, or gallops. PULMONARY: Chest is clear to auscultation, no wheezing or crackles. ABDOMEN: Soft, tender, nondistended, hypoactive bowel sounds. No palpable organomegaly. Abdominal binder in place NG tube in place with bilious drainage. MUSCULOSKELETAL: No joint swelling or deformity. EXTREMITIES: No cyanosis, clubbing, or pedal edema. NEUROLOGICAL: Gross neurological examination did not reveal any focal deficits. SKIN: No rashes. Assessment and Plan Small bowel obstruction s/p exploratory laparotomy and lysis of adhesions Postoperative ileus resolving Hyponatremia, hypovolemic resolved Hypokalemia, normalized Lactic acidosis, resolved Hypertension Hx gastroesophageal reflux GI prophylaxis Protonix DVT prophylaxis: subcu heparin Full Code Plan Continue NG tube per surgery Continue with TPN Continue antiemetics Monitor electrolytes Keep patient n.p.o. except ice chips Continue IV fluids Continue pain management Encourage incentive spirometer 10 x an hour while awake General surgery following The impression and plan of care has been dictated by Poly Duron, Nurse Practitioner as directed. Dr. Alyse MD I have performed a history and physical examination and medical decision making of this patient, discussed the same with the dictator, and agree with the dictators assessment and plan as written, documented as a scribe. Based on total visit time, I have performed more than 50% of this visit. Objective - Vital Signs Vital signs: Vital Signs Temp 99.0 F 05/19/24 14:10 Pulse 67 05/19/24 14:10 Resp 17 05/19/24 14:10 BP 137/75 05/19/24 14:10 Pulse Ox 96 05/19/24 14:10 FiO2 Intake & Output 05/18/24 05/19/24 05/19/24 18:59 06:59 18:59 Intake Total 1285 Output Total 950 1800 Balance -950 1285 -1800 Intake: Intake, IV Titration 1045 Amount Sodium Acetate 20 meq 1045 Potassium Acetate 40 meq Magnesium Sulfate gm 1 gm Calcium Gluconate 1 gm Potassium Phosphate 9 mmol In Amino Acids 5 %/ Dextrose 20 % 1,000 ml @ 72 mls/hr IV .BY DURATION [facility] Rx#:[id number] Oral 240 Output: Gastric Drainage 750 900 Urine 200 900 Other: Voiding Method Toilet Toilet Toilet # Voids 1 4 - Labs CBC & Chem 7: 05/16/24 06:33 05/19/24 04:03 Labs: Abnormal Lab Results - Last 24 Hours (Table) 05/18/24 05/19/24 05/19/24 Range/Units 18:22 04:03 05:59 Chloride 108 H (98-107) mmol/L Creatinine 0.61 L (0.66-1.25) mg/dL Glucose 124 H (74-99) mg/dL POC Glucose (mg/dL) 112 H 114 H (70-110) mg/dL Calcium 8.0 L (8.4-10.2) mg/dL Assessment and Plan Time with Patient: Less than 30
[2024-05-19 18:23] LABS: Glucose,Whole Blood 119 mg/dL (70-110)
[2024-05-20 00:13] LABS: Glucose,Whole Blood 115 mg/dL (70-110)
[2024-05-20 06:11] LABS: Glucose,Whole Blood 101 mg/dL (70-110)
[2024-05-20 08:39] LABS: Basophils # (A) 0.06 X 10*3/uL (0.00-0.10); Basophils % (A) 0.6 %; Eosinophils # (A) 0.18 X 10*3/uL (0.04-0.35); Eosinophils % (A) 1.7 %; HCT 37.2 % (39.6-50.0); HGB 12.2 g/dL (13.0-17.0); Lymphocytes # (A) 1.63 X 10*3/uL (0.90-5.00); MCH 32.2 pg (27.0-32.0); MCHC 32.8 g/dL (32.0-37.0); MCV 98.2 FL (80.0-97.0); Mean Platelet Volume 10.3 FL (9.5-12.2); Monocytes # (A) 0.81 X 10*3/uL (0.20-1.00); Monocytes % (A) 7.5 %; NRBC Per 100 WBC 0 X 10*3/uL (0.00-0.01); Neutrophils # (A) 8.14 X 10*3/uL (1.80-7.70); Neutrophils % (A) 74.8 %; Platelet Count 330 X 10*3/uL (140-440); RBC 3.79 X 10*6/uL (4.40-5.60); RDW 13.4 % (11.5-14.5); WBC 10.86 X 10*3/uL (4.50-10.00)
[2024-05-20 09:27] LABS: BUN/Creat Ratio 17.29 Ratio (12.00-20.00); Blood Urea Nitrogen 12.1 mg/dL (9.0-27.0); Calcium 8.3 mg/dL (8.7-10.3); Chloride 105 mmol/L (96-109); Glucose 119 mg/dL (70-110); Magnesium 2.1 mg/dL (1.5-2.4); Potassium 4.1 mmol/L (3.5-5.5); Sodium 140 mmol/L (135-145)
[2024-05-20 11:30] LABS: Glucose,Whole Blood 109 mg/dL (70-110)
--- NOTE | 2024-05-20 12:46 | P.PN ---
Subjective Progress Note Date: 05/20/24 CHIEF COMPLAINT: Small bowel obstruction HISTORY OF PRESENT ILLNESS: Patient is status post exploratory laparotomy and extensive lysis of adhesions for small bowel obstruction and ischemic bowel on 05/05/24. Patient reports no further bowel movements since the small bowel follow-through. NG tube is still having significant output of a total of 900 bilious output over evening. He is having almost 100 mL output per hour. He reports being nauseated. He still feels bloated. Afebrile. WBc 10.86 hgb 12.2 plt 330 PHYSICAL EXAM: VITAL SIGNS: Reviewed. GENERAL: no acute distress. ABDOMEN: Mildly distended. Diffuse tenderness. Incisional dressing clean dry and intact. ASSESSMENT: 1. Small bowel obstruction, ischemic bowel status post ex lap with lysis of adhesions 2. Persistent ileus versus low-grade partial small bowel obstruction. Not improving PLAN: -Working on transferring patient to [facility]. [facility] transfer service has been contacted. -Continue NG tube for decompression -Keep patient n.p.o. except for ice chips and popsicles -Encourage patient to increase activity level -Continue TPN for nutrition support -DVT prophylaxis subcu heparin and GI prophylaxis Protonix Physician Bakery Chef note has been reviewed by physician. Signing provider agrees with the documented findings, assessment, and plan of care. I have personally seen and examined the patient, reviewed the TUMBLERS SUPERVISOR /PAs history, exam and MDM and agree with the assessment and plan as written. Based on total visit time, I have performed more than 50% of the visit. As above: Patient says he feels more nauseated and distended today. No more flatus or bowel movement. Spoke with [facility] for possible transfer. They declined stating they did not have capacity. Patient requesting [facility] transfer. Will try to contact them. Objective - Vital Signs Vital signs: Vital Signs Temp 98.1 F 05/20/24 07:00 Pulse 73 05/20/24 07:00 Resp 16 05/20/24 07:00 BP 144/88 05/20/24 07:00 Pulse Ox 95 05/20/24 07:00 FiO2 Intake & Output 05/19/24 05/20/24 05/20/24 18:59 06:59 18:59 Intake Total 2564 2101 Output Total 1800 Balance 764 2101 Intake: Intake, IV Titration 2564 2101 Amount ACETAMINOPHEN IV (For NPO 100 ) 1,000 mg In Empty Bag 1 bag @ 400 mls/hr IVPB Q6HR PRN Rx#:[id number] Calcium Gluconate in NaCl 100 1 gm In Saline 1 100ml. bag @ 100 mls/hr IVPB ONCE ONE Rx#:[id number] Mvi, Adult No.4 with Vit 864 1056 K 10 ml Trace (Conc-1Ml/ Dose) 1 ml Sodium Acetate 20 meq Potassium Acetate 40 meq Magnesium Sulfate gm 1 gm Calcium Gluconate 1 gm Potassium Phosphate 9 mmol In Amino Acids 5 %/Dextrose 20 % 1,000 ml @ 72 mls/hr IV . BY DURATION [facility] Rx#: [id number] Sodium Acetate 20 meq 1045 Potassium Acetate 40 meq Magnesium Sulfate gm 1 gm Calcium Gluconate 1 gm Potassium Phosphate 9 mmol In Amino Acids 5 %/ Dextrose 20 % 1,000 ml @ 72 mls/hr IV .BY DURATION [facility] Rx#:[id number] Sodium Chloride 0.9% 1, 1500 000 ml @ 125 mls/hr IV . Q8H [facility] Rx#:[id number] Output: Gastric Drainage 900 Urine 900 Other: Voiding Method Toilet Toilet # Voids 4 - Labs CBC & Chem 7: 05/20/24 03:38 05/20/24 03:38 Labs: Abnormal Lab Results - Last 24 Hours (Table) 05/19/24 05/20/24 05/20/24 Range/Units 18:21 00:12 03:38 WBC 10.86 H (4.50-10.00) X 10*3/uL RBC 3.79 L (4.40-5.60) X 10*6/uL Hgb 12.2 L (13.0-17.0) g/dL Hct 37.2 L (39.6-50.0) % MCV 98.2 H (80.0-97.0) FL MCH 32.2 H (27.0-32.0) pg Neutrophils # 8.14 H (1.80-7.70) X 10*3/uL Glucose (70-110) mg/dL POC Glucose (mg/dL) 119 H 115 H (70-110) mg/dL Calcium (8.7-10.3) mg/dL 05/20/24 Range/Units 03:38 WBC (4.50-10.00) X 10*3/uL RBC (4.40-5.60) X 10*6/uL Hgb (13.0-17.0) g/dL Hct (39.6-50.0) % MCV (80.0-97.0) FL MCH (27.0-32.0) pg Neutrophils # (1.80-7.70) X 10*3/uL Glucose 119 H (70-110) mg/dL POC Glucose (mg/dL) (70-110) mg/dL Calcium 8.3 L (8.7-10.3) mg/dL
--- NOTE | 2024-05-20 14:34 | P.PN ---
Subjective Progress Note Date: 05/20/24 patient is 48-year-old gentleman past medical history significant for hypertension brought to the ER for abdominal pain. Patient stated that he was all right couple of days ago when he started experiencing abdominal pain that was sudden onset, sharp, located in the upper quadrants, intermittent, aggravate d by movements. There is also complaint of nausea and vomiting. Patient stated every time he eats or drinks it builds up in his stomach and then he has to vomit it out. Patient also complaining of decreased urination. Denies any fever or chills. No current chest pain or shortness of breath. Initial lab work done in the ER showed WBC 9.9, hemoglobin 19.6, platelet count 271, sodium 135, potassium 4, BUN 26, creatinine 1.35, lactate 2.5 CT abdomen pelvis done showed findings suggestive of high-grade small bowel obstruction with loops dilated up to 4 cm and transition point in the left gene edian, mid to lower abdomen Patient admitted to general surgery 05/05. Patient seen and examined. S/p Exploratory laparotomy, extensive lysis of adhesions. Currently n.p.o., has NG tube in place 05/06. Patient seen and examined. Still having abdominal distention, has not had a bowel movement yet. 05/07. Patient seen and examined. Still has NG tube in place, still not passing any gas. States abdominal distention has improved. Denies abdominal pain. 05/08. Patient seen and examined. Still has NG tube in place, not passing any gas yet. Still feels better. 05/09. Patient seen and examined. Patient pulled out his NG tube by mistake. Currently denying abdominal pain, nausea or vomiting 05/10. Patient seen examined. X-ray acute abdominal series showed air-fluid levels and dilated bowel loops may be on the basis of an ileus or partial obstruction. Patient having nausea and vomiting. Denies abdominal pain 05/11. Patient seen and examined. Currently on TPN. Not passing any gas. D enies abdominal pain. 05/12. Patient seen and examined. Potassium level this morning was 3.2, repla cement ordered. Patient states he gets anxious easily. Denies any abdominal pain 05/13/2024 Patient is evaluated today in follow-up on the medical floor. NG tube remains in place currently with 1.8 L of gastric output in the last 24 hours documented. Patient has not passed gas and not had a bowel movement. He has refused TPN. Blood work today reveals a white blood cell count of 7.60, hemoglobin 12.4, sodium 141, potassium 3.5, BUN of 9, creatinine of 0.65. Magnesium 1.9. 05/14/2024 Patient is evaluated today on the floor. He has been up ambulating. Reporting that pain is being managed with current regimen. He has passed gas today. No bowel movement yet. Potassium 3.4, magnesium 1.8 05/15/2024 Patient evaluated today on the medical floor. NG tube came out overnight patient had been vomiting. NG tube is replaced. He is no longer passing gas. TPN infusing. Sodium 142, potassium 3.3. 05/16/2024 Patient is evaluated today on the medical floor in follow up. NG tube remains in place with 1 L of gastric output in the last 24 hours since it has been replaced. He has increased bowel sounds although they remain hypoactive. Patient has concerns with decreased urine output since being placed on TPN. Labs today showing white blood cell count 6.65, hgb 12.3, sodium 142, potassium 3.4, BUN 14, creatinine 0.68. Magnesium 1.9. 05/17/2024 Patient is evaluated today on the medical floor. Patient continues with NG tube. NG tube has been on hold for small bowel follow through. Patient had a urinalysis shows 1+ protein. Bladder scan was negative. Patient continues to report improvement in the acid reflux. He is also feeling less anxious. 05/18/2024 Patient is evaluated today on the medically stable. He has NG tube in place, gastric output in the last 24 hours 500 mls. Patient did have a small bowel movement. He a small bowel follow through yesterday which was felt to be within normal minutes. Bowel sounds are increased. Potassium 3.7, BUN 20, creatinine 0.66. 05/19/2024 Patient is evaluated today on the medical floor. No acute events overnight. He had 3 bowel movements yesterday. Today he is reporting increase gastric symptoms and reflux. Patient continues on TPN. Hemodynamically he is stable. 05/20/2024 Patient is currently evaluated in follow-up. He remains on medical floor. He has had no acute events overnight. He is no longer had bowel movement in the la st 24 hours. He is not passing gas. Patient continues with TPN infusing. He is on NG tube in place with 600 mL of gastric drainage in the last 2 days. He has had 1.1 L of drainage in the last 48 hours from his abdominal drain. Work today reveals a white blood cell count of 10.86, hemoglobin of 12.2, sodium of 140, BUN of 12.1, creatinine of 0.7. There is discussion of transferring patient to a tertiary care hospital for further evaluation and workup. Review of Systems Constitutional: Denied any fatigue denied any fever. Cardio vascular: denied any chest pain, palpitations Gastrointestinal: denied any nausea, vomiting, diarrhea, reports mild abdominal pain. Pulmonary: Denied any shortness of breath cough Neurologic denied any new focal deficits All inpatient medications were reviewed and appropriate changes in these medications as dictated in the interval history and assessment and plan. PHYSICAL EXAMINATION: GENERAL: The patient is alert and oriented x3, not in any acute distress. Well developed, well nourished. HEENT: Pupils are round and equally reacting to light. EOMI. No scleral icterus. No conjunctival pallor. Normocephalic, atraumatic. No pharyngeal erythema. No thyromegaly. CARDIOVASCULAR: S1 and S2 present. No murmurs, rubs, or gallops. PULMONARY: Chest is clear to auscultation, no wheezing or crackles. ABDOMEN: Soft, tender, nondistended, hypoactive bowel sounds. No palpable organomegaly. Abdominal binder in place NG tube in place with bilious drainage. MUSCULOSKELETAL: No joint swelling or deformity. EXTREMITIES: No cyanosis, clubbing, or pedal edema. NEUROLOGICAL: Gross neurological examination did not reveal any focal deficits. SKIN: No rashes. Assessment and Plan Small bowel obstruction s/p exploratory laparotomy and lysis of adhesions Postoperative ileus Hyponatremia, hypovolemic resolved Hypokalemia, normalized Lactic acidosis, resolved Hypertension Hx gastroesophageal reflux GI prophylaxis Protonix DVT prophylaxis: subcu heparin Full Code Plan Continue NG tube per surgery Continue with TPN Continue antiemetics Monitor electrolytes Keep patient n.p.o. except ice chips Continue IV fluids Continue pain management Encourage incentive spirometer 10 x an hour while awake General surgery following The impression and plan of care has been dictated by Poly Duron Nurse Practitioner as directed. Dr. Alyse MD I have performed a history and physical examination and medical decision making of this patient, discussed the same with the dictator, and agree with the dictators assessment and plan as written, documented as a scribe. Based on total visit time, I have performed more than 50% of this visit. Objective - Vital Signs Vital signs: Vital Signs Temp 98.5 F 05/20/24 01:25 Pulse 64 05/20/24 01:25 Resp 16 05/20/24 01:25 BP 142/81 05/20/24 01:25 Pulse Ox 97 05/20/24 01:25 FiO2 Intake & Output 05/19/24 05/20/24 05/20/24 18:59 06:59 18:59 Intake Total 2564 2101 Output Total 1800 Balance 764 2101 Intake: Intake, IV Titration 2564 2101 Amount ACETAMINOPHEN IV (For NPO 100 ) 1,000 mg In Empty Bag 1 bag @ 400 mls/hr IVPB Q6HR PRN Rx#:[id number] Calcium Gluconate in NaCl 100 1 gm In Saline 1 100ml. bag @ 100 mls/hr IVPB ONCE ONE Rx#:[id number] Mvi, Adult No.4 with Vit 864 1056 K 10 ml Trace (Conc-1Ml/ Dose) 1 ml Sodium Acetate 20 meq Potassium Acetate 40 meq Magnesium Sulfate gm 1 gm Calcium Gluconate 1 gm Potassium Phosphate 9 mmol In Amino Acids 5 %/Dextrose 20 % 1,000 ml @ 72 mls/hr IV . BY DURATION [facility] Rx#: [id number] Sodium Acetate 20 meq 1045 Potassium Acetate 40 meq Magnesium Sulfate gm 1 gm Calcium Gluconate 1 gm Potassium Phosphate 9 mmol In Amino Acids 5 %/ Dextrose 20 % 1,000 ml @ 72 mls/hr IV .BY DURATION [facility] Rx#:[id number] Sodium Chloride 0.9% 1, 1500 000 ml @ 125 mls/hr IV . Q8H [facility] Rx#:[id number] Output: Gastric Drainage 900 Urine 900 Other: Voiding Method Toilet Toilet # Voids 4 - Labs CBC & Chem 7: 05/20/24 03:38 05/20/24 03:38 Labs: Abnormal Lab Results - Last 24 Hours (Table) 05/19/24 05/20/24 05/20/24 Range/Units 18:21 00:12 03:38 WBC 10.86 H (4.50-10.00) X 10*3/uL RBC 3.79 L (4.40-5.60) X 10*6/uL Hgb 12.2 L (13.0-17.0) g/dL Hct 37.2 L (39.6-50.0) % MCV 98.2 H (80.0-97.0) FL MCH 32.2 H (27.0-32.0) pg Neutrophils # 8.14 H (1.80-7.70) X 10*3/uL POC Glucose (mg/dL) 119 H 115 H (70-110) mg/dL Assessment and Plan Time with Patient: Less than 30
[2024-05-20 17:22] LABS: Glucose,Whole Blood 101 mg/dL (70-110)
[2024-05-21 00:04] LABS: Glucose,Whole Blood 146 mg/dL (70-110)
[2024-05-21 05:31] LABS: Ionized Calcium 4.7 mg/dL (4.5-5.3)
[2024-05-21 06:11] LABS: Glucose,Whole Blood 97 mg/dL (70-110)
[2024-05-21 06:11] LABS: ALT 50 U/L (4-49); AST 26 U/L (17-59); African American GFR (CKD) >90 (>60 ml/min/1.73 sqM); Albumin 2.6 g/dL (3.5-5.0); Albumin/Globulin Ratio 1.1; Alkaline Phosphatase 124 U/L (38-126); Anion Gap 4 mmol/L; Blood Urea Nitrogen 12 mg/dL (9-20); Calcium 8.4 mg/dL (8.4-10.2); Carbon Dioxide 28 mmol/L (22-30); Chloride 105 mmol/L (98-107); Globulin 2.3 g/dL; Glucose 120 mg/dL (74-99); Magnesium 2.2 mg/dL (1.6-2.3); Non-African American GFR(CKD) >90 (>60 ml/min/1.73 sqM); Phosphorus 3.7 mg/dL (2.5-4.5); Potassium 4.2 mmol/L (3.5-5.1); Sodium 137 mmol/L (137-145); Total Bilirubin 0.4 mg/dL (0.2-1.3); Total Protein 4.9 g/dL (6.3-8.2)
[2024-05-21 11:10] LABS: Glucose,Whole Blood 113 mg/dL (70-110)
[2024-05-21 12:02] LABS: HCT 38.7 % (39.0-53.0); HGB 12.1 gm/dL (13.0-17.5); Hypochromasia Slight; MCH 32.1 pg (25.0-35.0); MCHC 31.3 g/dL (31.0-37.0); MCV 102.4 fL (80.0-100.0); Macrocytosis Slight; Platelet Count 348 k/uL (150-450); RBC 3.78 m/uL (4.30-5.90); RDW 13.3 % (11.5-15.5); WBC 11.4 k/uL (3.8-10.6)
[2024-05-21 12:33] LABS: Eosinophils # (M) 0.34 k/uL (0-0.7); Monocytes # (M) 0.57 k/uL (0-1.0); Neutrophils # (M) 8.89 k/uL (1.3-7.7); Neutrophils % (M) 78 %; Nucleated Red Blood Cells 0 /100 WBC (0-0); Total Cells Counted 100
--- NOTE | 2024-05-21 14:46 | P.PN ---
Subjective Progress Note Date: 05/21/24 CHIEF COMPLAINT: Small bowel obstruction HISTORY OF PRESENT ILLNESS: Patient is status post exploratory laparotomy and extensive lysis of adhesions for small bowel obstruction and ischemic bowel on 05/05/24. Patient reports he feels the same. He has some abdominal cramping. No bowel activity. Patient does complain of some phlegm and cough. NG tube with 900 mL bilious output recorded. Afebrile. WBC trending up from 10.8-11.4 PHYSICAL EXAM: VITAL SIGNS: Reviewed. GENERAL: no acute distress. ABDOMEN: Mildly distended. Incisional dressing clean dry and intact. ASSESSMENT: 1. Small bowel obstruction, ischemic bowel status post ex lap with lysis of adhesions 2. Persistent ileus versus low-grade partial small bowel obstruction. Not improving PLAN: -Both [facility] and [facility] have declined transfer -Continue to monitor leukocytosis. CBC ordered for tomorrow -Further recommendations forthcoming per surgeon -Continue NG tube for decompression -Keep patient n.p.o. except for ice chips and popsicles -Encourage patient to increase activity level -Continue TPN for nutrition support -DVT prophylaxis subcu heparin and GI prophylaxis Protonix Physician Family Specialist note has been reviewed by physician. Signing provider agrees with the documented findings, assessment, and plan of care. Objective - Vital Signs Vital signs: Vital Signs Temp 97.8 F 05/21/24 07:20 Pulse 70 05/21/24 07:20 Resp 17 05/21/24 07:20 BP 137/82 05/21/24 07:20 Pulse Ox 96 05/21/24 07:20 FiO2 Intake & Output 05/20/24 05/21/24 05/21/24 18:59 06:59 18:59 Intake Total 1056 Output Total 900 Balance -900 1056 Weight 71.9 kg Intake: Intake, IV Titration 1056 Amount Mvi, Adult No.4 with Vit 1056 K 10 ml Trace (Conc-1Ml/ Dose) 1 ml Sodium Acetate 20 meq Potassium Acetate 40 meq Magnesium Sulfate gm 1 gm Calcium Gluconate 1 gm Potassium Phosphate 9 mmol In Amino Acids 5 %/Dextrose 20 % 1,000 ml @ 72 mls/hr IV . BY DURATION [facility] Rx#: [id number] Output: Gastric Drainage 900 Other: Voiding Method Toilet # Voids 1 - Labs CBC & Chem 7: 05/21/24 04:10 05/21/24 04:10 Labs: Abnormal Lab Results - Last 24 Hours (Table) 05/21/24 05/21/24 05/21/24 Range/Units 00:02 04:10 04:10 WBC 11.4 H (3.8-10.6) k/uL RBC 3.78 L (4.30-5.90) m/uL Hgb 12.1 L (13.0-17.5) gm/dL Hct 38.7 L (39.0-53.0) % MCV 102.4 H (80.0-100.0) fL Neutrophils # (Manual) 8.89 H (1.3-7.7) k/uL Glucose 120 H (74-99) mg/dL POC Glucose (mg/dL) 146 H (70-110) mg/dL ALT 50 H (4-49) U/L Total Protein 4.9 L (6.3-8.2) g/dL Albumin 2.6 L (3.5-5.0) g/dL Triglycerides 177.00 H (0.00-149.00) mg/dL 05/21/24 Range/Units 11:09 WBC (3.8-10.6) k/uL RBC (4.30-5.90) m/uL Hgb (13.0-17.5) gm/dL Hct (39.0-53.0) % MCV (80.0-100.0) fL Neutrophils # (Manual) (1.3-7.7) k/uL Glucose (74-99) mg/dL POC Glucose (mg/dL) 113 H (70-110) mg/dL ALT (4-49) U/L Total Protein (6.3-8.2) g/dL Albumin (3.5-5.0) g/dL Triglycerides (0.00-149.00) mg/dL
--- NOTE | 2024-05-21 16:30 | P.DS ---
Providers Date of admission: 05/04/24 12:41 Expected date of discharge: 05/21/24 Attending physician: Ben Orozco Consults: 05/04/24 12:28 Consult Physician Stat Consulting Provider: Danielle Everett Consult Reason/Comments: SBO/medical management Do you want consulting provider notified?: Yes Primary care physician: Park Ortiz [facility] Course: Patient came to the hospital 2 and half weeks ago for abdominal pain. Patient underwent exploratory laparotomy by on-call surgeon. Was found to have diffuse abdominal adhesions with no definite transition point. Please refer to o perative note dictated separately for those findings. Postoperatively the patient has had a prolonged ileus. Nasogastric tube with high output has been present ever since. Repeat CAT scan was performed last week showing vague inflammatory changes around the indwelling drain that was left at the time of surgery. The drain was only putting out a small volume of serous fluid and it was then removed. On Monday of last week patient had a small bowel series to evaluate for persistent obstruction and this showed contrast passage to the colon within 3 hours. Patient did have some diarrhea episodes on Monday and Monday but none since. Patient still has approximately 100 cc bilious gastric output hourly. Patient with ongoing complaints of bloating, vague discomfort, nausea, and as stated high gastric output. Patient being managed conservatively with PICC line and TPN. He and I have had discussions on a few occasions of transfer to tertiary care center. Patient is interested in doing so. Spoke with [facility] both yesterday and again today. They are accepting transfer. Patient did have an elevated white blood cell count today for the first time. Prior to that has had normal white blood cell count with no fevers. Patient Condition at Discharge: Stable Plan - Discharge Summary Discharge Rx Participant: No New Discharge Prescriptions: No Action Pantoprazole [Protonix] 40 mg PO DAILY RX: Testosterone Cypionate [Depo-Testosterone] 150 mg IM Q14D Losartan/Hydrochlorothiazide [Losartan-Hctz 100-25 mg Tab] 1 tab PO DAILY clonazePAM 1 mg PO TID valACYclovir HCL [Valtrex] 500 mg PO DAILY Discharge Medication List Pantoprazole [Protonix] 40 mg PO DAILY 01/26/21 [History] Testosterone Cypionate [Depo-Testosterone] 150 mg IM Q14D 01/26/21 [History] Losartan/Hydrochlorothiazide [Losartan-Hctz 100-25 mg Tab] 1 tab PO DAILY 08/02/22 [History] clonazePAM 1 mg PO TID 03/02/23 [History] valACYclovir HCL [Valtrex] 500 mg PO DAILY 05/04/24 [History] Follow up Appointment(s)/Referral(s): Park Ortzi MD [Primary Care Provider] - 1-2 days
[2024-05-21 17:08] LABS: Glucose,Whole Blood 109 mg/dL (70-110)
--- NOTE | 2024-05-21 20:57 | P.PN ---
Subjective Progress Note Date: 05/21/24 patient is 48-year-old gentleman past medical history significant for hypertension brought to the ER for abdominal pain. Patient stated that he was all right couple of days ago when he started experiencing abdominal pain that was sudden onset, sharp, located in the upper quadrants, intermittent, aggravate d by movements. There is also complaint of nausea and vomiting. Patient stated every time he eats or drinks it builds up in his stomach and then he has to vomit it out. Patient also complaining of decreased urination. Denies any fever or chills. No current chest pain or shortness of breath. Initial lab work done in the ER showed WBC 9.9, hemoglobin 19.6, platelet count 271, sodium 135, potassium 4, BUN 26, creatinine 1.35, lactate 2.5 CT abdomen pelvis done showed findings suggestive of high-grade small bowel obstruction with loops dilated up to 4 cm and transition point in the left gene edian, mid to lower abdomen Patient admitted to general surgery 05/05. Patient seen and examined. S/p Exploratory laparotomy, extensive lysis of adhesions. Currently n.p.o., has NG tube in place 05/06. Patient seen and examined. Still having abdominal distention, has not had a bowel movement yet. 05/07. Patient seen and examined. Still has NG tube in place, still not passing any gas. States abdominal distention has improved. Denies abdominal pain. 05/08. Patient seen and examined. Still has NG tube in place, not passing any gas yet. Still feels better. 05/09. Patient seen and examined. Patient pulled out his NG tube by mistake. Currently denying abdominal pain, nausea or vomiting 05/10. Patient seen examined. X-ray acute abdominal series showed air-fluid levels and dilated bowel loops may be on the basis of an ileus or partial obstruction. Patient having nausea and vomiting. Denies abdominal pain 05/11. Patient seen and examined. Currently on TPN. Not passing any gas. D enies abdominal pain. 05/12. Patient seen and examined. Potassium level this morning was 3.2, repla cement ordered. Patient states he gets anxious easily. Denies any abdominal pain 05/13/2024 Patient is evaluated today in follow-up on the medical floor. NG tube remains in place currently with 1.8 L of gastric output in the last 24 hours documented. Patient has not passed gas and not had a bowel movement. He has refused TPN. Blood work today reveals a white blood cell count of 7.60, hemoglobin 12.4, sodium 141, potassium 3.5, BUN of 9, creatinine of 0.65. Magnesium 1.9. 05/14/2024 Patient is evaluated today on the floor. He has been up ambulating. Reporting that pain is being managed with current regimen. He has passed gas today. No bowel movement yet. Potassium 3.4, magnesium 1.8 05/15/2024 Patient evaluated today on the medical floor. NG tube came out overnight patient had been vomiting. NG tube is replaced. He is no longer passing gas. TPN infusing. Sodium 142, potassium 3.3. 05/16/2024 Patient is evaluated today on the medical floor in follow up. NG tube remains in place with 1 L of gastric output in the last 24 hours since it has been replaced. He has increased bowel sounds although they remain hypoactive. Patient has concerns with decreased urine output since being placed on TPN. Labs today showing white blood cell count 6.65, hgb 12.3, sodium 142, potassium 3.4, BUN 14, creatinine 0.68. Magnesium 1.9. 05/17/2024 Patient is evaluated today on the medical floor. Patient continues with NG tube. NG tube has been on hold for small bowel follow through. Patient had a urinalysis shows 1+ protein. Bladder scan was negative. Patient continues to report improvement in the acid reflux. He is also feeling less anxious. 05/18/2024 Patient is evaluated today on the medically stable. He has NG tube in place, gastric output in the last 24 hours 500 mls. Patient did have a small bowel movement. He a small bowel follow through yesterday which was felt to be within normal minutes. Bowel sounds are increased. Potassium 3.7, BUN 20, creatinine 0.66. 05/19/2024 Patient is evaluated today on the medical floor. No acute events overnight. He had 3 bowel movements yesterday. Today he is reporting increase gastric symptoms and reflux. Patient continues on TPN. Hemodynamically he is stable. 05/20/2024 Patient is currently evaluated in follow-up. He remains on medical floor. He has had no acute events overnight. He is no longer had bowel movement in the la st 24 hours. He is not passing gas. Patient continues with TPN infusing. He is on NG tube in place with 600 mL of gastric drainage in the last 2 days. He has had 1.1 L of drainage in the last 48 hours from his abdominal drain. Work today reveals a white blood cell count of 10.86, hemoglobin of 12.2, sodium of 140, BUN of 12.1, creatinine of 0.7. There is discussion of transferring patient to a tertiary care hospital for further evaluation and workup. 05/21/2024 Patient is evaluated today in follow up. No acute events overnight. Not passing gas and no further bowel movement. Continues with postoperative ileus. He has NG tube in place. [facility] transfer for tertiary level of care. Labs today reveal a white blood cell count of 11.4, hemoglobin 12.1, sodium 137, potassium 4.2, BUN of 12, creatinine 0.67. Triglyceride level of 177. Review of Systems Constitutional: Denied any fatigue denied any fever. Cardio vascular: denied any chest pain, palpitations Gastrointestinal: denied any nausea, vomiting, diarrhea, reports mild abdominal pain. Pulmonary: Denied any shortness of breath cough Neurologic denied any new focal deficits All inpatient medications were reviewed and appropriate changes in these medications as dictated in the interval history and assessment and plan. PHYSICAL EXAMINATION: GENERAL: The patient is alert and oriented x3, not in any acute distress. Well developed, well nourished. HEENT: Pupils are round and equally reacting to light. EOMI. No scleral icterus. No conjunctival pallor. Normocephalic, atraumatic. No pharyngeal erythema. No thyromegaly. CARDIOVASCULAR: S1 and S2 present. No murmurs, rubs, or gallops. PULMONARY: Chest is clear to auscultation, no wheezing or crackles. ABDOMEN: Soft, tender, nondistended, hypoactive bowel sounds. No palpable organomegaly. Abdominal binder in place NG tube in place with bilious drainage. MUSCULOSKELETAL: No joint swelling or deformity. EXTREMITIES: No cyanosis, clubbing, or pedal edema. NEUROLOGICAL: Gross neurological examination did not reveal any focal deficits. SKIN: No rashes. Assessment and Plan Small bowel obstruction s/p exploratory laparotomy and lysis of adhesions Postoperative ileus Hyponatremia, hypovolemic resolved Hypokalemia, normalized Lactic acidosis, resolved Hypertension Hx gastroesophageal reflux GI prophylaxis Protonix DVT prophylaxis: subcu heparin Full Code Plan Continue NG tube per surgery Continue with TPN Continue antiemetics Monitor electrolytes Keep patient n.p.o. except ice chips Continue IV fluids Continue pain management Encourage incentive spirometer 10 x an hour while awake General surgery following Patient has been accepted at [facility] and is currently pending a bed. The impression and plan of care has been dictated by Poly Duron Nurse Practitioner as directed. Dr. Alyse MD I have performed a history and physical examination and medical decision making of this patient, discussed the same with the dictator, and agree with the dictators assessment and plan as written, documented as a scribe. Based on total visit time, I have performed more than 50% of this visit. Objective - Vital Signs Vital signs: Vital Signs Temp 98.6 F 05/21/24 20:00 Pulse 78 05/21/24 20:00 Resp 15 05/21/24 20:00 BP 145/87 05/21/24 20:00 Pulse Ox 97 05/21/24 20:00 FiO2 Intake & Output 05/21/24 05/21/24 05/22/24 06:59 18:59 06:59 Intake Total 1056 Output Total 800 Balance 1056 -800 Weight 71.9 kg Intake: Intake, IV Titration 1056 Amount Mvi, Adult No.4 with Vit 1056 K 10 ml Trace (Conc-1Ml/ Dose) 1 ml Sodium Acetate 20 meq Potassium Acetate 40 meq Magnesium Sulfate gm 1 gm Calcium Gluconate 1 gm Potassium Phosphate 9 mmol In Amino Acids 5 %/Dextrose 20 % 1,000 ml @ 72 mls/hr IV . BY DURATION [facility] Rx#: [id number] Output: Gastric Drainage 800 Other: Voiding Method Toilet # Voids 1 2 - Labs CBC & Chem 7: 05/21/24 04:10 05/21/24 04:10 Labs: Abnormal Lab Results - Last 24 Hours (Table) 05/21/24 05/21/24 05/21/24 Range/Units 00:02 04:10 04:10 WBC 11.4 H (3.8-10.6) k/uL RBC 3.78 L (4.30-5.90) m/uL Hgb 12.1 L (13.0-17.5) gm/dL Hct 38.7 L (39.0-53.0) % MCV 102.4 H (80.0-100.0) fL Neutrophils # (Manual) 8.89 H (1.3-7.7) k/uL Glucose 120 H (74-99) mg/dL POC Glucose (mg/dL) 146 H (70-110) mg/dL ALT 50 H (4-49) U/L Total Protein 4.9 L (6.3-8.2) g/dL Albumin 2.6 L (3.5-5.0) g/dL Triglycerides 177.00 H (0.00-149.00) mg/dL 05/21/24 Range/Units 11:09 WBC (3.8-10.6) k/uL RBC (4.30-5.90) m/uL Hgb (13.0-17.5) gm/dL Hct (39.0-53.0) % MCV (80.0-100.0) fL Neutrophils # (Manual) (1.3-7.7) k/uL Glucose (74-99) mg/dL POC Glucose (mg/dL) 113 H (70-110) mg/dL ALT (4-49) U/L Total Protein (6.3-8.2) g/dL Albumin (3.5-5.0) g/dL Triglycerides (0.00-149.00) mg/dL Assessment and Plan Time with Patient: Less than 30
[2024-05-22 00:25] LABS: Glucose,Whole Blood 117 mg/dL (70-110)
[2024-05-22 05:12] LABS: ALT 46 U/L (4-49); AST 26 U/L (17-59); African American GFR (CKD) >90 (>60 ml/min/1.73 sqM); Albumin 2.8 g/dL (3.5-5.0); Albumin/Globulin Ratio 1.2; Alkaline Phosphatase 132 U/L (38-126); Anion Gap 6 mmol/L; Blood Urea Nitrogen 13 mg/dL (9-20); Calcium 8.4 mg/dL (8.4-10.2); Carbon Dioxide 26 mmol/L (22-30); Chloride 104 mmol/L (98-107); Globulin 2.4 g/dL; Glucose 112 mg/dL (74-99); Magnesium 2.2 mg/dL (1.6-2.3); Non-African American GFR(CKD) >90 (>60 ml/min/1.73 sqM); Phosphorus 4.3 mg/dL (2.5-4.5); Potassium 4.5 mmol/L (3.5-5.1); Sodium 136 mmol/L (137-145); Total Bilirubin 0.6 mg/dL (0.2-1.3); Total Protein 5.2 g/dL (6.3-8.2)
[2024-05-22 06:43] LABS: Glucose,Whole Blood 128 mg/dL (70-110)
[2024-05-22 08:40] LABS: Basophils # (A) 0.06 X 10*3/uL (0.00-0.10); Basophils % (A) 0.6 %; Eosinophils # (A) 0.24 X 10*3/uL (0.04-0.35); Eosinophils % (A) 2.3 %; HCT 39.6 % (39.6-50.0); HGB 12.6 g/dL (13.0-17.0); Lymphocytes # (A) 1.82 X 10*3/uL (0.90-5.00); Lymphocytes % (A) 17.2 %; MCH 31.6 pg (27.0-32.0); MCHC 31.8 g/dL (32.0-37.0); MCV 99.2 FL (80.0-97.0); Mean Platelet Volume 10.3 FL (9.5-12.2); Monocytes # (A) 0.84 X 10*3/uL (0.20-1.00); Monocytes % (A) 7.9 %; NRBC Per 100 WBC 0 X 10*3/uL (0.00-0.01); Neutrophils # (A) 7.55 X 10*3/uL (1.80-7.70); Neutrophils % (A) 71.4 %; Platelet Count 368 X 10*3/uL (140-440); RBC 3.99 X 10*6/uL (4.40-5.60); RDW 13.6 % (11.5-14.5); WBC 10.57 X 10*3/uL (4.50-10.00)
[2024-05-22 11:57] LABS: Glucose,Whole Blood 115 mg/dL (70-110)
--- NOTE | 2024-05-22 13:21 | XR ---
EXAMINATION TYPE: XR chest 1V portable DATE OF EXAM: 05/22/2024 COMPARISON: 05/15/2024 HISTORY: Chest pain TECHNIQUE: Single frontal view of the chest is obtained. FINDINGS: NG tube is seen coursing into the stomach. Diminished lung volumes seen bilaterally. Probable linear basilar atelectasis. The cardiac silhouette size is within normal limits. The osseous structures are intact. IMPRESSION: 1. Diminished lung volumes seen bilaterally. Probable linear basilar atelectasis.
--- NOTE | 2024-05-22 16:15 | P.PN ---
Subjective Progress Note Date: 05/22/24 CHIEF COMPLAINT: Small bowel obstruction HISTORY OF PRESENT ILLNESS: Patient is status post exploratory laparotomy and extensive lysis of adhesions for small bowel obstruction and ischemic bowel on 05/05/24. Patient reports no real change. Still no bowel activity. Still dealing with nausea and heartburn. Still having output through his NG tube, slightly less at 650 mL through the night. WBC 10.5 PHYSICAL EXAM: VITAL SIGNS: Reviewed. GENERAL: no acute distress. ABDOMEN: Mildly distended. Incisional dressing clean dry and intact. ASSESSMENT: 1. Small bowel obstruction, ischemic bowel status post ex lap with lysis of adhesions 2. Persistent ileus versus low-grade partial small bowel obstruction. Not improving PLAN: -Patient has been accepted at [facility]. Transfer is in process. Awaiting bed availability at [facility] -Continue NG tube for decompression -Keep patient n.p.o. except for ice chips and popsicles -Encourage patient to increase activity level -Continue TPN for nutrition support -DVT prophylaxis subcu heparin and GI prophylaxis Protonix Physician Belt Weaver note has been reviewed by physician. Signing provider agrees with the documented findings, assessment, and plan of care. I have personally seen and examined the patient, reviewed the SENIOR COMPENSATION CONSULTANT /PAs history, exam and MDM and agree with the assessment and plan as written. Based on total visit time, I have performed more than 50% of the visit. As above: Patient feels about the same. White blood cell count improved. Still with high nasogastric output. Chest x-ray noted. Await transfer to tertiary care center. Objective - Vital Signs Vital signs: Vital Signs Temp 98.4 F 05/22/24 13:50 Pulse 87 05/22/24 13:50 Resp 15 05/22/24 13:50 BP 121/76 05/22/24 13:50 Pulse Ox 94 L 05/22/24 13:50 FiO2 Intake & Output 05/21/24 05/22/24 05/22/24 18:59 06:59 18:59 Intake Total 1045 Output Total 800 650 Balance -800 395 Weight 71.9 kg Intake: Intake, IV Titration 1045 Amount Sodium Acetate 20 meq 1045 Potassium Acetate 40 meq Magnesium Sulfate gm 1 gm Calcium Gluconate 1 gm Potassium Phosphate 9 mmol In Amino Acids 5 %/ Dextrose 20 % 1,000 ml @ 72 mls/hr IV .BY DURATION [facility] Rx#:[id number] Output: Gastric Drainage 800 650 Other: Voiding Method Toilet # Voids 2 3 - Labs CBC & Chem 7: 05/22/24 03:06 05/22/24 03:06 Labs: Abnormal Lab Results - Last 24 Hours (Table) 05/22/24 05/22/24 05/22/24 Range/Units 00:24 03:06 03:06 WBC 10.57 H (4.50-10.00) X 10*3/uL RBC 3.99 L (4.40-5.60) X 10*6/uL Hgb 12.6 L (13.0-17.0) g/dL MCV 99.2 H (80.0-97.0) FL MCHC 31.8 L (32.0-37.0) g/dL Immature Gran # 0.06 H (0.00-0.04) X 10*3/uL Sodium 136 L (137-145) mmol/L Creatinine 0.63 L (0.66-1.25) mg/dL Glucose 112 H (74-99) mg/dL POC Glucose (mg/dL) 117 H (70-110) mg/dL Alkaline Phosphatase 132 H (38-126) U/L Total Protein 5.2 L (6.3-8.2) g/dL Albumin 2.8 L (3.5-5.0) g/dL 05/22/24 05/22/24 Range/Units 06:42 11:55 WBC (4.50-10.00) X 10*3/uL RBC (4.40-5.60) X 10*6/uL Hgb (13.0-17.0) g/dL MCV (80.0-97.0) FL MCHC (32.0-37.0) g/dL Immature Gran # (0.00-0.04) X 10*3/uL Sodium (137-145) mmol/L Creatinine (0.66-1.25) mg/dL Glucose (74-99) mg/dL POC Glucose (mg/dL) 128 H 115 H (70-110) mg/dL Alkaline Phosphatase (38-126) U/L Total Protein (6.3-8.2) g/dL Albumin (3.5-5.0) g/dL
[2024-05-22 16:42] LABS: Glucose,Whole Blood 114 mg/dL (70-110)
[2024-05-22] MEDS ORDERED: SODIUM ACETATE IV SCH (17:00)
[2024-05-22] MEDS ORDERED: MAGNESIUM SULFATE IV SCH (17:00)
[2024-05-22] MEDS ORDERED: POTASSIUM ACETATE IV SCH (17:00)
[2024-05-22] MEDS ORDERED: [UNRECOGNIZED DRUG - OTHER] IV SCH (17:00)
[2024-05-22] MEDS: POTASSIUM ACETATE IV SCH (17:05)
[2024-05-22] MEDS: SODIUM ACETATE IV SCH (17:05)
[2024-05-22] MEDS: [UNRECOGNIZED DRUG - OTHER] IV SCH (17:05)
[2024-05-22] MEDS: MAGNESIUM SULFATE IV SCH (17:05)
[2024-05-22 20:04] VITALS: TEMP 98.2
--- NOTE | 2024-05-22 20:24 | P.PN ---
Subjective Progress Note Date: 05/22/24 patient is 48-year-old gentleman past medical history significant for hypertension brought to the ER for abdominal pain. Patient stated that he was all right couple of days ago when he started experiencing abdominal pain that was sudden onset, sharp, located in the upper quadrants, intermittent, aggravate d by movements. There is also complaint of nausea and vomiting. Patient stated every time he eats or drinks it builds up in his stomach and then he has to vomit it out. Patient also complaining of decreased urination. Denies any fever or chills. No current chest pain or shortness of breath. Initial lab work done in the ER showed WBC 9.9, hemoglobin 19.6, platelet count 271, sodium 135, potassium 4, BUN 26, creatinine 1.35, lactate 2.5 CT abdomen pelvis done showed findings suggestive of high-grade small bowel obstruction with loops dilated up to 4 cm and transition point in the left gene edian, mid to lower abdomen Patient admitted to general surgery 05/05. Patient seen and examined. S/p Exploratory laparotomy, extensive lysis of adhesions. Currently n.p.o., has NG tube in place 05/06. Patient seen and examined. Still having abdominal distention, has not had a bowel movement yet. 05/07. Patient seen and examined. Still has NG tube in place, still not passing any gas. States abdominal distention has improved. Denies abdominal pain. 05/08. Patient seen and examined. Still has NG tube in place, not passing any gas yet. Still feels better. 05/09. Patient seen and examined. Patient pulled out his NG tube by mistake. Currently denying abdominal pain, nausea or vomiting 05/10. Patient seen examined. X-ray acute abdominal series showed air-fluid levels and dilated bowel loops may be on the basis of an ileus or partial obstruction. Patient having nausea and vomiting. Denies abdominal pain 05/11. Patient seen and examined. Currently on TPN. Not passing any gas. D enies abdominal pain. 05/12. Patient seen and examined. Potassium level this morning was 3.2, repla cement ordered. Patient states he gets anxious easily. Denies any abdominal pain 05/13/2024 Patient is evaluated today in follow-up on the medical floor. NG tube remains in place currently with 1.8 L of gastric output in the last 24 hours documented. Patient has not passed gas and not had a bowel movement. He has refused TPN. Blood work today reveals a white blood cell count of 7.60, hemoglobin 12.4, sodium 141, potassium 3.5, BUN of 9, creatinine of 0.65. Magnesium 1.9. 05/14/2024 Patient is evaluated today on the floor. He has been up ambulating. Reporting that pain is being managed with current regimen. He has passed gas today. No bowel movement yet. Potassium 3.4, magnesium 1.8 05/15/2024 Patient evaluated today on the medical floor. NG tube came out overnight patient had been vomiting. NG tube is replaced. He is no longer passing gas. TPN infusing. Sodium 142, potassium 3.3. 05/16/2024 Patient is evaluated today on the medical floor in follow up. NG tube remains in place with 1 L of gastric output in the last 24 hours since it has been replaced. He has increased bowel sounds although they remain hypoactive. Patient has concerns with decreased urine output since being placed on TPN. Labs today showing white blood cell count 6.65, hgb 12.3, sodium 142, potassium 3.4, BUN 14, creatinine 0.68. Magnesium 1.9. 05/17/2024 Patient is evaluated today on the medical floor. Patient continues with NG tube. NG tube has been on hold for small bowel follow through. Patient had a urinalysis shows 1+ protein. Bladder scan was negative. Patient continues to report improvement in the acid reflux. He is also feeling less anxious. 05/18/2024 Patient is evaluated today on the medically stable. He has NG tube in place, gastric output in the last 24 hours 500 mls. Patient did have a small bowel movement. He a small bowel follow through yesterday which was felt to be within normal minutes. Bowel sounds are increased. Potassium 3.7, BUN 20, creatinine 0.66. 05/19/2024 Patient is evaluated today on the medical floor. No acute events overnight. He had 3 bowel movements yesterday. Today he is reporting increase gastric symptoms and reflux. Patient continues on TPN. Hemodynamically he is stable. 05/20/2024 Patient is currently evaluated in follow-up. He remains on medical floor. He has had no acute events overnight. He is no longer had bowel movement in the la st 24 hours. He is not passing gas. Patient continues with TPN infusing. He is on NG tube in place with 600 mL of gastric drainage in the last 2 days. He has had 1.1 L of drainage in the last 48 hours from his abdominal drain. Work today reveals a white blood cell count of 10.86, hemoglobin of 12.2, sodium of 140, BUN of 12.1, creatinine of 0.7. There is discussion of transferring patient to a tertiary care hospital for further evaluation and workup. 05/21/2024 Patient is evaluated today in follow up. No acute events overnight. Not passing gas and no further bowel movement. Continues with postoperative ileus. He has NG tube in place. [facility] has accepted transfer for tertiary level of care. Labs today reveal a white blood cell count of 11.4, hemoglobin 12.1, sodium 137, potassium 4.2, BUN of 12, creatinine 0.67. Triglyceride level of 177. 05/22/2024 Patient is evaluated today in follow up. Patient has had no acute events overnight. Not passing gas. No bowel movement. He is pending a bed at [facility]. Review of Systems Constitutional: Denied any fatigue denied any fever. Cardio vascular: denied any chest pain, palpitations Gastrointestinal: denied any nausea, vomiting, diarrhea, reports mild abdominal pain. Pulmonary: Denied any shortness of breath cough Neurologic denied any new focal deficits All inpatient medications were reviewed and appropriate changes in these medications as dictated in the interval history and assessment and plan. PHYSICAL EXAMINATION: GENERAL: The patient is alert and oriented x3, not in any acute distress. Well developed, well nourished. HEENT: Pupils are round and equally reacting to light. EOMI. No scleral icterus. No conjunctival pallor. Normocephalic, atraumatic. No pharyngeal erythema. No thyromegaly. CARDIOVASCULAR: S1 and S2 present. No murmurs, rubs, or gallops. PULMONARY: Chest is clear to auscultation, no wheezing or crackles. ABDOMEN: Soft, tender, nondistended, hypoactive bowel sounds. No palpable or ganomegaly. Abdominal binder in place NG tube in place with bilious drainage. MUSCULOSKELETAL: No joint swelling or deformity. EXTREMITIES: No cyanosis, clubbing, or pedal edema. NEUROLOGICAL: Gross neurological examination did not reveal any focal deficits. SKIN: No rashes. Assessment and Plan Small bowel obstruction s/p exploratory laparotomy and lysis of adhesions Postoperative ileus Hyponatremia, hypovolemic resolved Hypokalemia, normalized Lactic acidosis, resolved Hypertension Hx gastroesophageal reflux GI prophylaxis Protonix DVT prophylaxis: subcu heparin Full Code Plan Continue NG tube per surgery Continue with TPN Continue antiemetics Monitor electrolytes Keep patient n.p.o. except ice chips Continue IV fluids Continue pain management Encourage incentive spirometer 10 x an hour while awake General surgery following Patient has been accepted at [facility] and is currently pending a bed. The impression and plan of care has been dictated by Nurse Suhail Pra ctitioner as directed. Dr. Alyse MD I have performed a history and physical examination and medical decision making of this patient, discussed the same with the dictator, and agree with the dictat ors assessment and plan as written, documented as a scribe. Based on total visit time, I have performed more than 50% of this visit. Objective - Vital Signs Vital signs: Vital Signs Temp 97.6 F 05/22/24 07:00 Pulse 65 05/22/24 07:00 Resp 16 05/22/24 07:00 BP 123/72 05/22/24 07:00 Pulse Ox 95 05/22/24 07:00 FiO2 Intake & Output 05/21/24 05/22/24 05/22/24 18:59 06:59 18:59 Intake Total 1045 Output Total 800 650 Balance -800 395 Weight 71.9 kg Intake: Intake, IV Titration 1045 Amount Sodium Acetate 20 meq 1045 Potassium Acetate 40 meq Magnesium Sulfate gm 1 gm Calcium Gluconate 1 gm Potassium Phosphate 9 mmol In Amino Acids 5 %/ Dextrose 20 % 1,000 ml @ 72 mls/hr IV .BY DURATION [facility] Rx#:[id number] Output: Gastric Drainage 800 650 Other: Voiding Method Toilet # Voids 2 3 - Labs CBC & Chem 7: 05/22/24 03:06 05/22/24 03:06 Labs: Abnormal Lab Results - Last 24 Hours (Table) 05/21/24 05/21/24 05/21/24 Range/Units 04:10 04:10 11:09 WBC 11.4 H (3.8-10.6) k/uL RBC 3.78 L (4.30-5.90) m/uL Hgb 12.1 L (13.0-17.5) gm/dL Hct 38.7 L (39.0-53.0) % MCV 102.4 H (80.0-100.0) fL MCHC (32.0-37.0) g/dL Immature Gran # (0.00-0.04) X 10*3/uL Neutrophils # (Manual) 8.89 H (1.3-7.7) k/uL Sodium (137-145) mmol/L Creatinine (0.66-1.25) mg/dL Glucose (74-99) mg/dL POC Glucose (mg/dL) 113 H (70-110) mg/dL Alkaline Phosphatase (38-126) U/L Total Protein (6.3-8.2) g/dL Albumin (3.5-5.0) g/dL Triglycerides 177.00 H (0.00-149.00) mg/dL 05/22/24 05/22/24 05/22/24 Range/Units 00:24 03:06 03:06 WBC 10.57 H (3.8-10.6) k/uL RBC 3.99 L (4.30-5.90) m/uL Hgb 12.6 L (13.0-17.5) gm/dL Hct (39.0-53.0) % MCV 99.2 H (80.0-100.0) fL MCHC 31.8 L (32.0-37.0) g/dL Immature Gran # 0.06 H (0.00-0.04) X 10*3/uL Neutrophils # (Manual) (1.3-7.7) k/uL Sodium 136 L (137-145) mmol/L Creatinine 0.63 L (0.66-1.25) mg/dL Glucose 112 H (74-99) mg/dL POC Glucose (mg/dL) 117 H (70-110) mg/dL Alkaline Phosphatase 132 H (38-126) U/L Total Protein 5.2 L (6.3-8.2) g/dL Albumin 2.8 L (3.5-5.0) g/dL Triglycerides (0.00-149.00) mg/dL 05/22/24 Range/Units 06:42 WBC (3.8-10.6) k/uL RBC (4.30-5.90) m/uL Hgb (13.0-17.5) gm/dL Hct (39.0-53.0) % MCV (80.0-100.0) fL MCHC (32.0-37.0) g/dL Immature Gran # (0.00-0.04) X 10*3/uL Neutrophils # (Manual) (1.3-7.7) k/uL Sodium (137-145) mmol/L Creatinine (0.66-1.25) mg/dL Glucose (74-99) mg/dL POC Glucose (mg/dL) 128 H (70-110) mg/dL Alkaline Phosphatase (38-126) U/L Total Protein (6.3-8.2) g/dL Albumin (3.5-5.0) g/dL Triglycerides (0.00-149.00) mg/dL Assessment and Plan Time with Patient: Less than 30
[2024-05-22 23:41] VITALS: BP 149/96; PULSE 79; RESP 16
== END 2024-05-22 23:40 | disposition short-term general hospital (02) | DRG 336 ==
LOC: EC 10:23 → 4SSUR 12:41
PROVIDERS: ADMIT Surgery; ATTEND Surgery
PROC: 02HV33Z Insertion of Infusion Device into Superior Vena Cava, Percutaneous Approach (ICD-10-PCS; 2024-05-10)
PROC: B5181ZA Fluoroscopy of Superior Vena Cava using Low Osmolar Contrast, Guidance (ICD-10-PCS; 2024-05-10)
PROC: B548ZZA Ultrasonography of Superior Vena Cava, Guidance (ICD-10-PCS; 2024-05-10)
PROC: 3E0336Z Introduction of Nutritional Substance into Peripheral Vein, Percutaneous Approach (ICD-10-PCS; 2024-05-17)
PROC: 05H933Z Insertion of Infusion Device into Right Brachial Vein, Percutaneous Approach (ICD-10-PCS; 2024-05-17)
PROC: 4A133B1 Monitoring of Arterial Pressure, Peripheral, Percutaneous Approach (ICD-10-PCS; 2024-05-17)
PROC: 4A133J1 Monitoring of Arterial Pulse, Peripheral, Percutaneous Approach (ICD-10-PCS; 2024-05-17)
PROC: 03HY32Z Insertion of Monitoring Device into Upper Artery, Percutaneous Approach (ICD-10-PCS; 2024-05-17)
PROC: 0DN80ZZ Release Small Intestine, Open Approach (ICD-10-PCS; principal; 2024-05-17 15:30)
PROC: 0D9670Z Drainage of Stomach with Drainage Device, Via Natural or Artificial Opening (ICD-10-PCS; 2024-05-17 15:30)
DX: K56.51 Intestinal adhesions [bands], with partial obstruction (principal); E87.0 Hyperosmolality and hypernatremia; E87.1 Hypo-osmolality and hyponatremia; N17.9 Acute kidney failure, unspecified; K55.9 Vascular disorder of intestine, unspecified; R00.0 Tachycardia, unspecified; E87.6 Hypokalemia; E86.1 Hypovolemia; K56.7 Ileus, unspecified; E78.5 Hyperlipidemia, unspecified; Z90.49 Acquired absence of other specified parts of digestive tract; F41.9 Anxiety disorder, unspecified; I10 Essential (primary) hypertension; K21.9 Gastro-esophageal reflux disease without esophagitis; K76.0 Fatty (change of) liver, not elsewhere classified; Z79.899 Other long term (current) drug therapy; Z82.49 Family history of ischemic heart disease and other diseases of the circulatory system; Z91.041 Radiographic dye allergy status
CPT/HCPCS: 36410; 36415; 36573; 71045; 74022; 74176; 74250; 76937; 80048; 80053; 81001; 82150; 82330; 83605; 83690; 83735; 84100; 84478; 85025; 85610; 85730; 86850; 86900; 86901; 88305; 96374; 96375; 99285

== ENCOUNTER 2024-07-25 07:29 | Emergency (ER) | payer OTHER ==
[2024-07-25 07:33] VITALS: TEMP 97.8
--- NOTE | 2024-07-25 08:17 | ED ---
General Adult HPI - General Chief complaint: Recheck/Abnormal Lab/Rx Stated complaint: G tube complications Time Seen by Provider: 07/25/24 07:56 Source: patient, RN notes reviewed, old records reviewed Mode of arrival: ambulatory Limitations: no limitations - History of Present Illness Initial comments: Patient is a 48-year-old male who presents emergency department with a G-tube complication. Patient wants to have his G-tube evaluated. Is due to have it removed on Monday of next week however he has noticed that it is starting to pull out and has also noticed that there is some green drainage from around it. Some discomfort around the site as well. Patient previously had [address] however both have been removed. Is currently kept in place by Flo. Was due to have the G-tube removed next Monday by Dr. Alejandro. Dr. Alejandro is currently out of town. This is why he presents today. Patient had the G-tube placed as he had an extensive high-grade small bowel obstruction in April of this year that required transfer to a tertiary care center. This is where the G-tube was placed. Patient currently is not using and has not used it in multiple weeks. Has had no continued complications from the small bowel obstruction and is having normal bowel movements and passing flatus without issue. Has no other acute complaints. Denies fevers or chills. Denies chest pain or shortness of breath. Presents for further evaluation at this time and is looking to have the G-tube removed. - Related Data Home Medications Medication Instructions Recorded Confirmed Pantoprazole [Protonix] 40 mg PO DAILY 01/26/21 05/04/24 Testosterone Cypionate 150 mg IM Q14D 01/26/21 05/04/24 [Depo-Testosterone] Losartan/Hydrochlorothiazide 1 tab PO DAILY 08/02/22 05/04/24 [Losartan-Hctz 100-25 mg Tab] clonazePAM 1 mg PO TID 03/02/23 05/04/24 valACYclovir HCL [Valtrex] 500 mg PO DAILY 05/04/24 05/04/24 Previous Rx's Medication Instructions Recorded Cephalexin [Keflex] 500 mg PO Q12HR 5 Days #10 cap 07/25/24 Allergies Allergy/AdvReac Type Severity Reaction Status Date / Time Iodinated Contrast Media Allergy Anaphylaxis Verified 07/25/24 07:33 [Iodinated Contrast- Oral /hives and IV Dye] Review of Systems ROS Statement: Those systems with pertinent positive or pertinent negative responses have been documented in the HPI. Review of Systems: CONST: Denies fever EYES: Denies blurry vision ENT: Denies nasal congestion C/V: Denies Chest pain RESP: Denies shortness of breath GI: Denies abdominal pain : Denies dysuria SKIN: Denies rash. MSK: Denies joint pain. NEURO: Denies headache ROS Other: All systems not noted in ROS Statement are negative. Past Medical History Past Medical History: GERD/Reflux, Hypertension Additional Past Medical History / Comment(s): difficulty swallowing, Erythrocytosis History of Any Multi-Drug Resistant Organisms: MRSA Date of last positivie culture/infection: 05/23/19 MDRO Source:: Face Past Surgical History: Cholecystectomy Additional Past Surgical History / Comment(s): Laminectomy/discectomy L5-S1. Past Anesthesia/Blood Transfusion Reactions: No Reported Reaction Past Psychological History: Anxiety Smoking Status: Never smoker Past Alcohol Use History: Occasional Past Drug Use History: None Reported - Past Family History Father Family Medical History: Hypertension General Exam - General Exam Comments Initial Comments: General: Appears in no acute distress. HEAD: Normal with no signs of head trauma. EYES: EOMI ENT: Hearing grossly intact RESPIRATORY: Clear breath sounds bilaterally. No wheezes, rales, or rhonchi. C/V: Regular rate and rhythm. S1 and S2 auscultated, peripheral pulses 2+ and intact throughout ABD: Abdomen soft, nondistended. Nontender to palpation. G-tube kept in place by tape. No sutures remain in place at this time that are visible. No obvious discharge from the site. Mild erythema around the G-tube entrance site. EXT: No obvious deformity. SKIN: No rashes or lesions observed on exposed skin. NEURO: Alert and oriented x 4. Limitations: no limitations Course Vital Signs 07/25/24 07:31 Temperature 97.8 F Pulse Rate 75 Respiratory 18 Rate Blood Pressure 161/94 O2 Sat by Pulse 99 Oximetry Medical Decision Making - Medical Decision Making Was pt. sent in by a medical professional or institution (, PA, UTILITY GELATIN MAKER, urgent care, hospital, or fci...) When possible be specific @ -No Did you speak to anyone other than the patient for history (EMS, parent, family, police, friend...)? What history was obtained from this source @ -No Did you review nursing and triage notes (agree or disagree)? Why? @ -I reviewed and agree with nursing and triage notes Were old charts reviewed (outside hosp., previous admission, EMS record, old EKG, old radiological studies, urgent care reports/EKG's, fci records)? Report findings @ -Old charts reviewed from April 2024 which details the patient's extensive hospitalization for his high-grade small bowel obstruction and eventual transfer to [facility]. G-tube was placed at [facility] therefore we have no records regarding it. Differential Diagnosis (chest pain, altered mental status, abdominal pain women, abdominal pain men, vaginal bleeding, weakness, fever, dyspnea, syncope, headache, dizziness, GI bleed, back pain, seizure, CVA, palpatations, mental health, musculoskeletal)? @ -G-tube complication, cellulitis, clogged G-tube. This list is not all inclusive. EKG interpreted by me (3pts min.). @ -None done X-rays interpreted by me (1pt min.). @ -G-tube appears to be in satisfactory position. No obvious balloon or stopper present on the distal left hip. CT interpreted by me (1pt min.). @ -None done U/S interpreted by me (1pt. min.). @ -None done What testing was considered but not performed or refused? (CT, X-rays, U/S, labs)? Why? @ -None What meds were considered but not given or refused? Why? @ -None Did you discuss the management of the patient with other professionals (professionals i.e. , PA, UTILITY GELATIN MAKER, lab, RT, psych nurse, director social welfare, logging assistant, teacher, parachute/combatant diver officer, case management coordinator)? Give summary @ -Spoke with Dr. Partida over the phone who thinks it is okay to remove the G-tube I did recommend that he reach out to Dr. Orozco specifically as he is the patient's surgeon. I was able to contact Dr. Orozco who is in agreement the plan for G-tube removal and follow-up with him in the office at his prescheduled appointment next week. Was smoking cessation discussed for >3mins.? @ -No Was critical care preformed (if so, how long)? @ -No Were there social determinants of health that impacted care today? How? (Homelessness, low income, unemployed, alcoholism, drug addiction, transportation, low edu. Level, literacy, decrease access to med. care, shelter, rehab)? @ -No Was there de-escalation of care discussed even if they declined (Discuss DNR or withdrawal of care, Hospice)? DNR status @ -No What co-morbidities impacted this encounter? (DM, HTN, Smoking, COPD, CAD, Cancer, CVA, ARF, Chemo, Hep., AIDS, mental health diagnosis, sleep apnea, morbid obesity)? @ -None Was patient admitted / discharged? Hospital course, mention meds given and route, prescriptions, significant lab abnormalities, going to OR and other pertinent info. @ -Based on the patient's presentation and physical exam, presents over concern for possible irritation or infection around the G-tube site. No longer uses it and is due to be removed in [address] Orozco in the office however patient has been having complications and he was unable to reach Dr. Orozco which is why presents for further evaluation. Vital signs within acceptable limits. Is asking to have it removed. We will obtain basic labs to evaluate for any evidence of significant infection as well as a KUB x-ray to evaluate the distal end of the G-tube. Patient was in agreement this plan. Patient given a small bolus of fluids as well as analgesia medications. Laboratory studies within acceptable limits. Spoke with Dr. Partida over the phone who thinks it is okay to remove the G- tube I did recommend that he reach out to Dr. Orozco specifically as he is the patient's surgeon. I was able to contact Dr. Orozco who is in agreement the plan for G-tube removal and follow-up with him in the office at his prescheduled appointment next week. G-tube successfully removed by myself. Covered with gauze and tape. We will provide the patient with empiric antibiotics due to a mild amount of erythema around the G-tube site. Patient was in agreement this plan. Strict return precautions discussed. I instructed the patient to follow up with their PCP in the next 1-3 days. I explained that the patient should return to the emergency department if they experience any worsening symptoms. Strict return precautions were discussed with the patient. The patient expressed understanding of these instructions. I answ ered all questions that the patient had. The patient was discharged home in good condition with their prescriptions and follow up information. Undiagnosed new problem with uncertain prognosis? @ -No Drug Therapy requiring intensive monitoring for toxicity (Heparin, Nitro, Insulin, Cardizem)? @ -No Were any procedures done? @ -No Diagnosis/symptom? @ -G-tube complication and removal Acute, or Chronic, or Acute on Chronic? @ -Acute Uncomplicated (without systemic symptoms) or Complicated (systemic symptoms)? @ -Uncomplicated Side effects of treatment? @ -None Exacerbation, Progression, or Severe Exacerbation] @ -No Poses a threat to life or bodily function? @ -No - Lab Data Result diagrams: 07/25/24 08:08 07/25/24 08:08 Lab Results 07/25/24 07/25/24 07/25/24 Range/Units 08:08 08:08 08:08 WBC 6.3 (3.8-10.6) k/uL RBC 4.65 (4.30-5.90) m/uL Hgb 14.0 (13.0-17.5) gm/dL Hct 44.0 (39.0-53.0) % MCV 94.6 D (80.0-100.0) fL MCH 30.1 (25.0-35.0) pg MCHC 31.8 (31.0-37.0) g/dL RDW 13.4 (11.5-15.5) % Plt Count 312 (150-450) k/uL MPV 7.3 Neutrophils % 60 % Lymphocytes % 29 % Monocytes % 5 % Eosinophils % 3 % Basophils % 1 % Neutrophils # 3.8 (1.3-7.7) k/uL Lymphocytes # 1.9 (1.0-4.8) k/uL Monocytes # 0.3 (0-1.0) k/uL Eosinophils # 0.2 (0-0.7) k/uL Basophils # 0.0 (0-0.2) k/uL Sodium 139 (137-145) mmol/L Potassium 4.6 (3.5-5.1) mmol/L Chloride 104 (98-107) mmol/L Carbon Dioxide 26 (22-30) mmol/L Anion Gap 9 mmol/L BUN 13 (9-20) mg/dL Creatinine 0.77 (0.66-1.25) mg/dL Est GFR (CKD-EPI)AfAm >90 (>60 ml/min/1.73 sqM) Est GFR (CKD-EPI)NonAf >90 (>60 ml/min/1.73 sqM) Glucose 106 H (74-99) mg/dL Plasma Lactic Acid Len 1.4 (0.7-2.0) mmol/L Calcium 9.3 (8.4-10.2) mg/dL Total Bilirubin 0.5 (0.2-1.3) mg/dL AST 29 (17-59) U/L ALT 19 (4-49) U/L Alkaline Phosphatase 76 (38-126) U/L Total Protein 6.7 (6.3-8.2) g/dL Albumin 4.1 (3.5-5.0) g/dL Disposition Clinical Impression: Complication of gastrostomy tube Disposition: HOME SELF-CARE Condition: Good Additional Instructions: Follow-up with Dr. Orozco your surgeon in 7 days at your prearranged visit. Prescriptions: Cephalexin [Keflex] 500 mg PO Q12HR 5 Days #10 cap Is patient prescribed a controlled substance at d/c from ED?: No Referrals: Park Ortiz MD [Primary Care Provider] - 1-2 days Ben Orozco MD [Medical Doctor] - 1-2 days Time of Disposition: 09:55
--- NOTE | 2024-07-25 08:23 | XR ---
EXAMINATION TYPE: XR KUB DATE OF EXAM: 07/25/2024 COMPARISON: 05/17/2024 INDICATION: G-tube evaluation TECHNIQUE: Single view abdomen FINDINGS: Scattered small areas of air present within small bowel loops as well as colon. Moderate fecal retent ion in superior colon. No dilated loops of bowel are evident. No suspicious air-fluid levels or diffe rential air-fluid levels are evident. Gastric tube is in the midline. Psoas margins are normal. No organomegaly is present. IMPRESSION: 1. Nonspecific bowel gas pattern. 2. Gastric tube in the midline [facility], , 07/25/2024 8:20 AM
[2024-07-25] MEDS: MORPHINE SULFATE 4 MG/ML SYRINGE IVP STA (08:25)
[2024-07-25] MEDS: SODIUM CHLORIDE 0.9% 500 ML 500 ML IV STA (08:25)
[2024-07-25 08:43] LABS: ALT 19 U/L (4-49); African American GFR (CKD) >90 (>60 ml/min/1.73 sqM); Albumin 4.1 g/dL (3.5-5.0); Anion Gap 9 mmol/L; Blood Urea Nitrogen 13 mg/dL (9-20); Calcium 9.3 mg/dL (8.4-10.2); Carbon Dioxide 26 mmol/L (22-30); Chloride 104 mmol/L (98-107); Glucose 106 mg/dL (74-99); Non-African American GFR(CKD) >90 (>60 ml/min/1.73 sqM); Sodium 139 mmol/L (137-145); Total Bilirubin 0.5 mg/dL (0.2-1.3); Total Protein 6.7 g/dL (6.3-8.2)
[2024-07-25 08:56] LABS: AST 29 U/L (17-59); Alkaline Phosphatase 76 U/L (38-126); Potassium 4.6 mmol/L (3.5-5.1)
[2024-07-25 08:58] LABS: Basophils % (A) 1 %; Eosinophils # (A) 0.2 k/uL (0-0.7); Eosinophils % (A) 3 %; Lymphocytes # (A) 1.9 k/uL (1.0-4.8); Lymphocytes % (A) 29 %; MCH 30.1 pg (25.0-35.0); MCHC 31.8 g/dL (31.0-37.0); Mean Platelet Volume 7.3; Monocytes # (A) 0.3 k/uL (0-1.0); Monocytes % (A) 5 %; Neutrophils # (A) 3.8 k/uL (1.3-7.7); Neutrophils % (A) 60 %; Platelet Count 312 k/uL (150-450); RBC 4.65 m/uL (4.30-5.90); RDW 13.4 % (11.5-15.5); WBC 6.3 k/uL (3.8-10.6)
[2024-07-25 09:06] LABS: MCV 94.6 fL (80.0-100.0)
[2024-07-25] MEDS: CEPHALEXIN 500 MG CAP PO STA (10:01)
[2024-07-25 10:08] VITALS: BP 144/83; PULSE 66; RESP 16
== END 2024-07-25 10:06 | disposition home or self-care (01) ==
LOC: EC 07:29
CPT/HCPCS: 36415; 74018; 80053; 83605; 85025; 96374; 99282

== ENCOUNTER → 2024-09-20 | Outpatient (CLI) | payer OTHER ==
--- NOTE | 2024-09-22 11:21 | CT ---
EXAMINATION TYPE: CT abdomen pelvis w con DATE OF EXAM: 09/20/2024 6:28 PM COMPARISON: 05/13/2024 CLINICAL INDICATION: Male, 48 years old with history of R10.11 RIGHT UPPER QUADRANT PAIN, ruq pain x5 months. TECHNIQUE: Axial images were obtained from above the diaphragm to the pubic rami in the axial plane a t 5 mm thick sections. Reconstructed images are reviewed on the computer in the coronal plane. CONTRAST: 100ml mL of Isovue 300. Study performed with Oral Contrast DLP: 968.4 mGycm, Automated exposure control for dose reduction was used. FINDINGS: Limited CT sections are obtained the lung bases. The lung bases are clear. CT ABDOMEN: Liver: Normal Spleen: Normal Pancreas: Normal Adrenal glands: The adrenal glands are normal. Gallbladder: Not identified. Surgical clip may be present suggesting prior cholecystectomy. Kidneys: No masses are evident. No hydronephrosis is present. No cysts are present. Delayed images were obtained through the kidneys, which remain unremarkable. Aorta: Vascular calcification is within the aorta. Inferior vena cava: Normal. CT PELVIS: Loops of bowel within the abdomen and pelvis are normal. There are loops of bowel which are incom pletely distended or lack oral contrast limiting their evaluation. Appendix: Not well visualized. What appears to be the appendix contains small amount of contrast and air. This is somewhat dilated. Inflammatory changes adjacent. Clinical management of any suspect appe ndicitis recommended. Urinary bladder: Normal. Genitourinary structures: Prostate is normal Osseous structures: No suspicious lytic or sclerotic lesions. IMPRESSION: 1. The appendix appears dilated but nonobstructed. No adjacent inflammatory changes are evident. Cli nical management of any suspected appendicitis. 2. Nonvisualization gallbladder. Correlate with surgical history [facility], , 09/22/2024 11:19 AM
== END | disposition home or self-care (01) ==
LOC: RADCTMAIN 14:13
PROVIDERS: ATTEND Surgery
DX: R10.11 Right upper quadrant pain (principal)
CPT/HCPCS: 74177; Q9967

== ENCOUNTER → 2025-03-04 | Outpatient (CLI) | payer OTHER ==
--- NOTE | 2025-03-04 11:40 | CA ---
Transthoracic Echo Report Name: Darrell García Age: 49 Gender: M : 1975 Exam Date: 03/04/2025 08:32 Exam Location: [place] [facility] Ht (in): 67 Wt (lb): 205 Ordering Physician: Park Ortiz MD Attending/Referring Phys: Salt Refiner Stephanie Prince RDCS Procedure CPT: Indications: I10 HTN Cardiac Hx: Technical Quality: Fair Contrast 1: Total Dose (mL): Contrast 2: Total Dose (mL): MEASUREMENTS (Male / Female) Normal Values 2D ECHO LV Diastolic Diameter PLAX 4.6 cm 4.2 - 5.9 / 3.9 - 5.3 cm LV Systolic Diameter PLAX 3.4 cm IVS Diastolic Thickness 0.7 cm 0.6 - 1.0 / 0.6 - 0.9 cm LVPW Diastolic Thickness 1.0 cm 0.6 - 1.0 / 0.6 - 0.9 cm LV Relative Wall Thickness 0.4 LVOT Diameter 2.0 cm LV Diastolic Volume MOD BP 99.8 cm??? 67 - 155 / 56 - 104 cm??? LV Systolic Volume MOD BP 48.5 cm??? 22 - 58 / 19 - 49 cm??? LV Ejection Fraction MOD BP 51.4 % >= 55 % LV Cardiac Index MOD BP 1855.9 cm???/min???m??? LV Diastolic Volume MOD 4C 102.2 cm??? LV Systolic Volume MOD 4C 52.1 cm??? LV Ejection Fraction MOD 4C 49.0 % LV Cardiac Index MOD 4C 1813.7 cm???/min???m??? LV Diastolic Length 4C 8.1 cm LV Systolic Length 4C 6.8 cm LV Diastolic Volume MOD 2C 97.6 cm??? LV Systolic Volume MOD 2C 41.8 cm??? LV Ejection Fraction MOD 2C 57.2 % LV Cardiac Index MOD 2C 2019.8 cm???/min???m??? LV Diastolic Length 2C 8.1 cm LV Systolic Length 2C 6.3 cm LA Volume 35.8 cm??? 18 - 58 / 22 - 52 cm??? LA Volume Index 16.8 cm???/m??? 16 - 28 cm???/m??? Ascending Aorta Diameter 2.7 cm DOPPLER AV Peak Velocity 131.9 cm/s AV Peak Gradient 7.0 mmHg AV Mean Velocity 96.2 cm/s AV Mean Gradient 4.1 mmHg AV Velocity Time Integral 24.6 cm LVOT Peak Velocity 111.7 cm/s LVOT Peak Gradient 5.0 mmHg LVOT Velocity Time Integral 20.7 cm LVOT Stroke Volume 64.5 cm??? LVOT Stroke Volume Index 31.6 ml/m??? LVOT Cardiac Index 2334.4 cm???/min???m??? AV Area Cont Eq vti 2.6 cm??? AV Area Cont Eq pk 2.6 cm??? MV Area PHT 4.4 cm??? Mitral E Point Velocity 76.7 cm/s Mitral A Point Velocity 67.6 cm/s Mitral E to A Ratio 1.1 MV Deceleration Time 172.6 ms TR Peak Velocity 275.9 cm/s TR Peak Gradient 30.5 mmHg Right Atrial Pressure 5.0 mmHg Pulmonary Artery Systolic Pressu 35.5 mmHg Right Ventricular Systolic Press 35.5 mmHg PV Peak Velocity 145.4 cm/s PV Peak Gradient 8.5 mmHg FINDINGS Left Ventricle Left ventricular ejection fraction is estimated at 50-55 %. Mildly decreased left ventricular ejection fraction. Left ventricular cavity size normal. No obvious regional wall motion abnormalities. Right Ventricle Normal right ventricular size and function. Mild pulmonary hypertension. Right Atrium Normal right atrial size. Left Atrium Normal left atrial size. Mitral Valve Structurally normal mitral valve. No evidence for mitral valve prolapse. No mitral stenosis. Trace mitral regurgitation. Aortic Valve Trileaflet aortic valve. No aortic valve stenosis or regurgitation. Tricuspid Valve Structurally normal tricuspid valve. No tricuspid stenosis. Mild tricuspid regurgitation. Pulmonic Valve Structurally normal pulmonic valve. No pulmonic stenosis. No pulmonic regurgitation. Pericardium No pericardial effusion. Aorta Normal size aortic root and proximal ascending aorta. CONCLUSIONS Left ventricular ejection fraction 50 to 55% RVSP 35 Trace mitral regurgitation Mild tricuspid regurgitation Previewed by: Dr. Efren Skinner DO (Electronically Signed) Final Date: 04 March 2025 11:39
--- NOTE | 2025-03-05 09:32 | CA ---
Exercise Stress Test Report Name: Darrell García Exam Date: 03/04/2025 09:02 Exam Location: [facility] Ht (in): 67 Wt (lb): 205 BSA: 2.04 Ordering Phys: Park Ortiz MD Referring Phys: XIN Technologist: PILI OLVERA Age: 49 Gender: M : 1975 Procedure CPT: Indications: I10 HTN ICD-10 Codes: Patient History: HTN, HIGH CHOL, FAMILY HX. Medications: LOSARTAN,,,, KLONAPIN,,,, PROTONIX,,,, EFFEXOR,,, Meds past 24 hrs: Pretest Chest Pain: STRESS TEST Otlu Protocol Exercise Duration (min:sec): 10:[address] Depressions (mm): Angina Score: Recio Score: Resting HR (bpm): 88 Peak HR (bpm): 179 Resting BP (mmHg): 138 / 94 Peak BP (mmHg): 181 / 97 MPHR: 171 Target HR: 145 % MPHR: 105 METS: 12.1 Total Dose: Peak Dose: Atropine: Double Product: 94623 BP Response: Stress Termination: TARGET HR REACHED/MAX EXERTION Stress Symptoms: NO SYMPTOMS Stress Summary: ECG ANALYSIS Resting ECG: Stress ECG: CONCLUSIONS Patient underwent exercise stress EKG with a Tolu protocol treadmill stress test. Patient exercised into Stage 4 for a total of 10 minutes reaching a total of 12.1 METS. Patient's maximum heart rate was 179 which represented 104% age-predicted maximum heart rate. Stress EKG findings: At baseline patient's EKG showed normal sinus rhythm, normal axis, no significant ST or T wave abnormalities. At peak exercise, EKG showed no significant change from baseline. Conclusions: 1. Normal EKG response to exercise without evidence of inducible ischemia. 2. Good exercise capacity. Dr. Efren Skinner DO (Electronically Signed) Final Date: 05 March 2025 09:30
== END | disposition home or self-care (01) ==
LOC: RADECHMAIN 08:11
PROVIDERS: ATTEND Internal Medicine
DX: I08.1 Rheumatic disorders of both mitral and tricuspid valves (principal); I10 Essential (primary) hypertension
CPT/HCPCS: 93017; 93306

== ENCOUNTER → 2025-04-17 | Outpatient (CLI) | payer OTHER ==
[2025-04-17 19:55] LABS: Basophils # (A) 0.06 X 10*3/uL (0.00-0.10); Basophils % (A) 0.8 %; Eosinophils # (A) 0.13 X 10*3/uL (0.04-0.35); Eosinophils % (A) 1.7 %; HCT 44.6 % (39.6-50.0); HGB 13.5 g/dL (13.0-17.0); Lymphocytes # (A) 2.38 X 10*3/uL (0.90-5.00); Lymphocytes % (A) 30.6 %; MCH 28.5 pg (27.0-32.0); MCHC 30.3 g/dL (32.0-37.0); MCV 94.3 FL (80.0-97.0); Mean Platelet Volume 10.3 FL (9.5-12.2); Monocytes # (A) 0.48 X 10*3/uL (0.20-1.00); Monocytes % (A) 6.2 %; NRBC Per 100 WBC 0 X 10*3/uL (0.00-0.01); Neutrophils % (A) 60.3 %; Platelet Count 290 X 10*3/uL (140-440); RBC 4.73 X 10*6/uL (4.40-5.60); RBC Morphology Normal (Normal); RDW 14.6 % (11.5-14.5); WBC 7.78 X 10*3/uL (4.50-10.00)
[2025-04-17 20:43] LABS: PSA Annual Screen 0.907 ng/mL (0.000-4.000)
== END | disposition home or self-care (01) ==
LOC: LABWHC1 12:33
PROVIDERS: ATTEND Internal Medicine Endocrinology, Diabetes & Metabolism
DX: Z12.5 Encounter for screening for malignant neoplasm of prostate (principal); E29.1 Testicular hypofunction
CPT/HCPCS: 85025; 84403; 36415; G0103